=== PATIENT | female | born 1990 | race Caucasian/White ===

== ENCOUNTER 2019-08-08 11:42 | Outpatient (CLI) | payer OTHER, SELFPAY ==
[2019-08-11 12:51] LABS: Progesterone 14.8 ng/mL (***); Prolactin 7.9 ng/mL (***)
== END 2019-08-08 11:43 | disposition home or self-care (01) ==
PROVIDERS: Family Provider Obstetrics & Gynecology; Visit Provider Internal Medicine Hematology & Oncology
DX: N97.0 Female infertility associated with anovulation (principal)
CPT/HCPCS: 36415; 84144; 84146; 84443

== ENCOUNTER 2020-04-28 16:49 | Outpatient (CLI) | payer OTHER, SELFPAY ==
--- NOTE | ~2020-04-28 | US_ITS ---
EXAMINATION: US pelvic complete w TV DATE: 04/28/2020 17:33 INDICATION: Pelvic pain. TECHNIQUE: Multiple transabdominal and transvaginal sonographic images of the pelvis were obtained. COMPARISON: CT abdomen and pelvis 03/29/2016 FINDINGS: TRANSABDOMINAL ULTRASOUND: The uterus measures 8.3 x 4.4 x 6.2 cm. There is no free fluid in the pelvis. TRANSVAGINAL ULTRASOUND: The endometrial complex measures 3 mm in thickness. The right ovary measures 2.6 x 2.6 x 2.1 cm. The left ovary measures 2.7 x 2.1 x 1.8 cm. There is normal vascular flow in the ovaries. IMPRESSION: 1. Normal pelvis. Reviewed, dictated and finalized at location [facility]. [employer] IMPRESSION: 1. Normal pelvis.
== END 2020-04-28 16:50 | disposition home or self-care (01) ==
PROVIDERS: Visit Provider Obstetrics & Gynecology
DX: R52 Pain, unspecified (principal)
CPT/HCPCS: 76830; 76856

== ENCOUNTER → 2020-11-01 01:59 | Outpatient (CLI) | payer OTHER, SELFPAY ==
[2020-11-02 14:52] LABS: SARS-CoV-2 RNA PCR Negative
== END ==
PROVIDERS: Visit Provider Obstetrics & Gynecology
DX: Z01.812 Encounter for preprocedural laboratory examination (principal); Z20.822 Contact with and (suspected) exposure to COVID-19
CPT/HCPCS: C9803; U0003; U0005

== ENCOUNTER 2020-11-05 01:24 | Day surgery (SDC) | payer OTHER, SELFPAY ==
[2020-10-29 09:51] VITALS: BMI 26.6
[2020-11-05] VITALS (7 sets, daily range): BP systolic 108–137; BP diastolic 60–92; PULSE 56–95; RESP 10–20; TEMP 36.5–36.7; O2SAT 100
[2020-11-05] MEDS: LACTATED RINGERS 1,000 ML 30 ML IV CONT ×2 (10:50→12:54)
[2020-11-05] MEDS: KETOROLAC 15 MG/ML VIAL (*BKC) IV PUSH (10:55)
[2020-11-05] MEDS: ACETAMINOPHEN 500 MG TABLET 1000 MG PO (10:55)
--- NOTE | 2020-11-05 11:45 | WPDANESEPPF ---
Anes - Initial Pre Proc Eval Procedure: Operation Date: 11/05/20 12:00 Proposed Procedures p Diagnostic Laparoscopy, Chromopertubation - Stephen Azar MD Date/Time: 11/05/20 11:45 Surgeon: Stephen Azar MD Pre Op Diagnosis: pain, endometriosis Patient Data Age: 30 Gender: F Height: 5 ft 6 in Weight: 75.4 kg Last Vital Signs Temp 36.5 C 11/05/20 10:25 Pulse 64 11/05/20 10:25 Resp 18 11/05/20 10:25 BP 124/64 11/05/20 10:25 Pulse Ox 100 11/05/20 10:25 Allergies Allergy/AdvReac Type Severity Reaction Status Date / Time amoxicillin [From Augmentin] Allergy Severe Hives Verified 11/05/20 11:12 clavulanic acid Allergy Severe Hives Verified 11/05/20 11:12 [From Augmentin] Penicillins Allergy Severe Hives Verified 11/05/20 11:12 Home Medications Medication Instructions Recorded Confirmed Type [id number] 1 tablet PO DAILY 10/29/20 11/05/20 History [] Patient hx anesthesia problems: none Family hx anesthesia problems: none PMFSH Social History Social History Smoking status: Never smoker Alcohol intake: current Drinks per week: 12 Substance use: never Substance use type: does not use Living arrangements: with family Spiritual care concerns: No Anes - Eval Final PreProcedure Day of Procedure 11/05/20 11:45 Patient weight: overweight Heart: regular rate and rhythm Lungs: clear to auscultation Airway: Mallampati scale class II Neurological: alert and oriented Last oral intake: >/= 8 hours ASA classification: II Emergent: no Anesthetic plan: proceed Anesthesia type and monitoring: general ETT and standard monitoring Informed Consent: The patient's anesthetic plan and its attendant risks and benefits were discussed with the patient/family/POA. Questions were solicited and answers provided to the satisfaction of the patient/family/POA.
--- NOTE | 2020-11-05 11:51 | PM.IMHP ---
H&P: HPI History of Present Illness Date/Time: 11/05/20 11:51 30 y/o nulligravida with a history of endometriosis. She has had an increase in left lower quadrant pain, especially in the several days before each menses. She has been trying for for over 2 years now. Chief Complaint: Pelvic pain Review of Systems Review of Systems: All systems reviewed & are unremarkable except as noted in HPI and below PMFSH Surgical History Surgical History History of laparoscopy Social History Social History Smoking status: Never smoker Alcohol intake: current Drinks per week: 12 Substance use: never Substance use type: does not use Living arrangements: with family Spiritual care concerns: No Meds Home Medications and Allergies Home Medications Medication Instructions Recorded Confirmed Type [id number]-[id number]-Cq-FA 1 tablet PO DAILY 10/29/20 11/05/20 History [] Allergies Allergy/AdvReac Type Severity Reaction Status Date / Time amoxicillin [From Augmentin] Allergy Severe Hives Verified 11/05/20 11:12 clavulanic acid Allergy Severe Hives Verified 11/05/20 11:12 [From Augmentin] Penicillins Allergy Severe Hives Verified 11/05/20 11:12 Vital Signs Vital Signs - 24 hr 11/05/20 10:25 Temperature 36.5 C Pulse Rate 64 Respiratory Rate 18 Blood Pressure 124/64 Pulse Oximetry 100 Exam Const: Orientation/consciousness: patient oriented x3 Other: Well-developed, well-nourished female in no acute distress. Neck: Thyroid: thyroid normal Lymphatic: no lymphadenopathy noted (in neck, axilla or inguinal nodes) Resp: Effort & Inspection: normal respiratory effort Auscultation: clear to auscultation bilaterally Cardio: Rate: regular rate Rhythm: regular rhythm Heart sounds: S1 normal heart sound present and S2 normal heart sound present GI: Other: ABD: Soft, nontender, nondistended. No guarding or rebound tenderness. No hepatosplenomegaly. : General: Yes no CVA tenderness Other: External genitalia: normal female hair distribution, without lesion. Urethral meatus: no lesion, non prolapsed. Bladder: no mass, nontender Vagina: well-estrogenized, without lesion or discharge. No cystocele or rectocele. Cervix: no lesion or discharge. Uterus: small, anteverted, freely mobile, nontender Adnexa: no mass or tenderness. Anus/perineum: no lesions, nontender Back/Spine/Pelvis: Back: no CVA tenderness Skin: General skin exam: normal color and no rashes or lesions noted Neuro: General: patient oriented x3 Extrem: Other: Extremities: nontender with no edema Psych: Mental Status: mental status grossly normal Affect: normal affect Assessment and Plan Assessment and plan (1) Pelvic pain: Code(s): R10.2 - Pelvic and perineal pain Status: Acute Assessment and Plan: A: Pelvic pain suspicious for endometriosis. Infertility. P: Because of the longstanding nature of her pain, she is interested in laparoscopy. I offered her a diagnostic laparoscopy with chromopertubation. She understands risks of surgery to include risks of anesthesia, risks of pain, infection, bleeding, blood products, thromboembolic phenomena and damage to adjacent structures such as bowel, bladder, ureters, blood vessels and nerves. She understands all these risks and elects to proceed with surgery. (2) Infertility: Status: Acute (3) History of endometriosis: Code(s): Z87.42 - Personal history of other diseases of the female genital tract Status: Acute
--- NOTE | 2020-11-05 11:56 | WPDHPUPDATE1 ---
History and Physical Update Update Date/Time: 11/05/20 11:56 History and Physical has been reviewed, including an updated exam of the patient. There are NO changes in the patient's condition. Risks, benefits, and alternatives have been discussed and questions answered. Patient agrees to proceed with procedure.
--- NOTE | 2020-11-05 13:29 | PM.PROC ---
Procedure Note - Detailed Date of procedure: 11/05/20 Pre-op diagnosis: pain, endometriosis Pelvic pain Infertility History of endometriosis Post-op diagnosis: same Procedure performed: Diagnostic laparoscopy Chromopertubation Description of procedure: The patient was taken to the operating room where general endotracheal anesthesia was administered. She was prepared and draped in the usual sterile fashion in the dorsal lithotomy position. The bladder was drained with a red rubber catheter. A sterile speculum was inserted into the vagina and the anterior lip of the cervix was grasped with a single-toothed tenaculum. The acorn uterine manipulator was placed. The speculum was withdrawn. Gloves were changed and attention was turned to the abdomen. An infraumbilical skin incision was made with a scalpel. The abdomen was tented and a 5 millimeter bladeless trocar trocar was advanced under direct laparoscopic visualization. Pneumoperitoneum was administered using carbon dioxide gas. A survey of the pelvis and abdomen yielded the findings noted above. Methlylene blue in 100 mL NS was drawn into a syringe and chromopertubation was undertaken. Spill of dye from both Fallopian tubes was noted. Hemostasis was excellent. The trocar was withdrawn and the gas was allowed to escape. The skin incision was reapproximated using 4-0 Vicryl in interrupted subcuticular fashion. Dermaflex was applied externally. The vaginal instrumentation was withdrawn and hemostasis was excellent here as well. Sponge, lap, needle and instrument counts were correct. The patient was awakened and taken to recovery in stable condition. I was present and scrubbed through the entire procedure. Implants: None Anesthesia: GETA Surgeon: Stephen Azar MD Estimated blood loss (mL): 5 Drains: No Packing: No Pathology: none sent Complications: None Condition: stable Disposition: PACU Findings: The right upper quadrant anatomy was unremarkable. The vermiform appendix was normal-appearing. The pelvis was normal in appearance. Specifically, the uterus, bilateral tubes, ovaries, round and uterosacral ligaments, anterior and posterior cul-de-sac were all normal-appearing and without any evidence of endometriosis. Spill of dye from both Fallopian tubes confirmed tubal patency bilaterally.
== END 2020-11-05 14:16 | disposition home or self-care (01) ==
PROVIDERS: Visit Provider Obstetrics & Gynecology
PROC: (CPT 49320; principal; 2020-11-05 12:00)
DX: R10.2 Pelvic and perineal pain (principal); N97.9 Female infertility, unspecified; Z87.42 Personal history of other diseases of the female genital tract
CPT/HCPCS: 49320; 58350; A9270; C9803; J0330; J1100; J1200; J1885; J2250; J2405; J2704; J2710; J3010; J7030; J7120; Q9968; U0003; U0005

== ENCOUNTER 2021-07-08 14:50 | Emergency (ER) | payer OTHER, SELFPAY ==
[2021-07-08 14:55] VITALS: BP 139/74; PULSE 66; RESP 16; TEMP 36.5; O2SAT 100
--- NOTE | 2021-07-08 15:01 | ED.URI ---
HPI - URI/Sore Throat General Chief Complaint: Upper Respiratory Infection Stated Complaint: cough Time Seen by Provider: 07/08/21 15:02 Source: patient History of Present Illness HPI Narrative: Patient recently returned from [place] where she attended a wedding event. Patient states she tested negative twice before leaving and the [facility] and then tested negative once before returning on the flight back home. Patient states all the tests were the rapid antigen test patient feels she needs a PCR test to confirm that she is negative. Patient has a hoarse voice for the past week. No shortness of breath no chest pain MD elicited complaint: cough Related Data Home Medications Medication Instructions Recorded Confirmed [id number]-[id number]-[id number] 1 tablet PO DAILY 10/29/20 07/08/21 [] Allergies Allergy/AdvReac Type Severity Reaction Status Date / Time amoxicillin [From Augmentin] Allergy Severe Hives Verified 07/08/21 15:03 clavulanic acid Allergy Severe Hives Verified 07/08/21 15:03 [From Augmentin] Penicillins Allergy Severe Hives Verified 07/08/21 15:03 Review of Systems Review of Systems: CONSTITUTIONAL: Denies chills, or sweats. Reports fever and generalized body aches EYES: Denies visual changes, redness, or discharge. ENT: Denies otalgia. Reports nasal congestion runny nose and sore throat CARDIOVASCULAR: Denies chest pain, palpitations, or edema. RESPIRATORY: Denies dyspnea. Reports occasional cough GASTROINTESTINAL: Denies abdominal pain, nausea, vomiting, or diarrhea. GENITOURINARY: Denies dysuria or hematuria. SKIN: Denies rash or itching. MUSCULOSKELETAL: Denies back pain, joint pain, or myalgia. Reports generalized body aches NEUROLOGIC: Denies headache, numbness, or weakness. PSYCHIATRIC: Denies anxiety or depression. [facility] Surgical History Surgical History History of laparoscopy Social History Social History Smoking status: Never smoker Alcohol intake: current Drinks per week: 12 Substance use: never Substance use type: does not use Spiritual care concerns: No Comments At time of signature, agree with nursing past medical, surgical, social and family history. There is no relevant family history pertinent to the presenting complaint Exam Narrative: The patient is a well-developed, well-nourished in no acute distress. SKIN: Skin is warm and dry without erythema, swelling or exudate. There is good turgor. No tenting. HEAD: Atraumatic. Normocephalic. No temporal or scalp tenderness. EYES: Moist and bright. Sclera and conjunctivae normal. No discharge. PERRLA. Extraocular motions intact. Gross visual acuity intact. EARS: Pinna is normal shape and contour. Clear external auditory canals. TM pearly solitario with good cone of light, no erythema or suppuration. Bilateral cerumen noted no gross hearing deficit. NOSE: pink, moist mucosa with good air movement. Clear rhinorrhea without nasal flaring. Septum midline. Mouth: moist mucous membranes. THROAT; mild erythema noted to posterior oropharynx with moderate postnasal drainage. Without exudate or ulceration.. Uvula midline. Normal movement of soft palate. NECK: Supple and nontender with full range of motion without discomfort. No meningeal signs. LUNGS: Equal and bilateral breath sounds without wheezes, rales or rhonchi. CHEST: The chest wall is without retractions or use of accessory muscles. HEART: Has a regular rate and rhythm without murmur, gallops, click or rub. ABDOMEN: Soft, nontender with positive active bowel sounds. No rebound tenderness. EXTREMITIES: Without cyanosis, clubbing or edema. Equal 2+ distal pulses and 2 second capillary refill noted. NEUROLOGIC: alert, active, . The patient moves all extremities with normal muscle strength. Normal muscle tone is noted. Normal coordination is noted. NO focal neurological fi
[2021-07-09 20:41] LABS: SARS-CoV-2 RNA PCR Negative
== END 2021-07-08 15:16 | disposition home or self-care (01) ==
PROVIDERS: Emergency Provider Nurse Practitioner Family
DX: J06.9 Acute upper respiratory infection, unspecified (principal); B34.9 Viral infection, unspecified; J04.0 Acute laryngitis; Z20.822 Contact with and (suspected) exposure to COVID-19
CPT/HCPCS: 99213; C9803; G0463; U0003; U0005

== ENCOUNTER 2021-11-17 15:24 | Emergency (ER) | payer OTHER, SELFPAY ==
[2021-11-17 15:30] VITALS: BP 138/66; PULSE 66; RESP 16; TEMP 36.5; O2SAT 100
--- NOTE | 2021-11-17 15:40 | ED.EYEPROB ---
HPI - Eye Problem General Chief complaint: Eye Problems Stated complaint: left eye swollen Time Seen by Provider: 11/17/21 15:40 Source: patient and RN notes reviewed Mode of arrival: ambulatory Limitations: no limitations History of Present Illness HPI Narrative: 31-year-old female presents concern for swelling of the upper and lower left eyelid. She denies any eye pain, vision changes, eye redness or drainage. She reports symptoms started after the weekend when she wore false eyelashes that were glued on her lashes. She reports she noticed 2 small pinpoint areas of open skin under her left eye as well. She reports this is where the swelling started. She reports area is slightly tender to touch. She reports she is taken Benadryl twice with little relief she also used ice with little relief. She reports swelling increased this morning. Related Data Home Medications Medication Instructions Recorded Confirmed [id number]-[id number]-FA 1 mg 1 tablet PO DAILY 10/29/20 11/17/21 tablet Allergies Allergy/AdvReac Type Severity Reaction Status Date / Time amoxicillin [From Augmentin] Allergy Severe Hives Verified 11/17/21 15:37 clavulanic acid Allergy Severe Hives Verified 11/17/21 15:37 [From Augmentin] Penicillins Allergy Severe Hives Verified 11/17/21 15:37 Review of Systems Review of Systems: CONSTITUTIONAL: Denies malaise, chills, sweats, or fever. EYES: Denies visual changes. Denies redness, irritation, discharge. Reports upper and lower left eye lid swelling with slight tenderness under the left eye ENT: Denies rhinorrhea, congestion, sinus pain, otalgia or sore throat. SKIN: Denies rash or itching. Reports to pinprick areas of open skin under left eye NEUROLOGIC: Denies numbness, weakness, or headache. PSYCHIATRIC: Denies anxiety or depression. All systems reviewed & are unremarkable except as noted in HPI and below PMFSH Surgical History Surgical History History of laparoscopy Social History Social History Smoking status: Never smoker Alcohol intake: current Drinks per week: 12 Substance use: never Substance use type: does not use Spiritual care concerns: No Comments At time of signature, agree with nursing past medical, surgical, social and family history. There is no relevant family history pertinent to the presenting complaint Exam Narrative: GENERAL: Well-appearing, well-nourished, and in no acute distress. HEAD: Normocephalic, atraumatic. EYES: PERRLA, sclera clear, and EOMI. No nystagmus. Bilateral sclera and conjunctivae clear. Right upper and lower eyelid unremarkable, no periorbital edema noted. Slight erythema and superficial left edema noted to the left upper eyelid and below the right eye, no induration or warmth, mildly tender to touch ENT: Nares clear, turbinates pink, no rhinorrhea or epistaxis. Mucous membranes moist. TM pearly rodrigues with sharp light reflex bilaterally; no tragal tenderness. NECK: Supple. CHEST: No respiratory distress. Speaks in full sentences. HEART: Regular rate and rhythm. SKIN: Warm, dry, no visible rash. 2 very small scabs noted in the middle of the swelling under the left eye NEURO: Alert and oriented x3. PSYCH: Normal mood and affect Course Course Emergency Course: Discussed with patient that currently the swelling is superficial and I am not concerned for periorbital cellulitis at this time, however she needs to monitor symptoms and if they worsen, she develops pain, vision changes or any other concerning symptoms she needs to go the emergency room. Patient is aware of diagnosis, understands and agrees to treatment plan. Anticipatory guidance given. Patient agrees to follow-up as directed and is aware of reasons to seek care at the emergency department. Portions of this record may have been created with voice recognition software
== END 2021-11-17 15:52 | disposition home or self-care (01) ==
PROVIDERS: Emergency Provider Nurse Practitioner; PCP Nurse Practitioner Family
DX: A46 Erysipelas (principal)
CPT/HCPCS: 99213; G0463

== ENCOUNTER → 2022-10-12 15:14 | Outpatient (CLI) | payer BC, OTHER, SELFPAY ==
--- NOTE | ~2022-10-12 | MR_ITS ---
MRI of the right knee Clinical history: Pain Technique: Coronal proton density and proton density-weighted images, sagittal proton-density and T2 fat-sat images, and axial proton-density fat-saturated images were acquired. Findings: There is a full-thickness tear at the proximal ACL. Posterior cruciate ligament is intact. Medial collateral ligament and the lateral collateral ligament complex are intact. Popliteus tendon i s intact. There is a vertical tear of the posterior horn of the lateral meniscus. Medial meniscus is intact, wi thout evidence of tear. Articular cartilage is well preserved throughout the knee. Bone marrow signals are unremarkable. Extensor mechanism is intact. Minimal joint effusion present. No Morrison's cyst. Impression: Complete tear of the proximal ACL. This may be chronic in nature given lack of associated bone contus ions or large joint effusion. Vertical tear of the posterior horn of the lateral meniscus. Reviewed, dictated and finalized at [facility]. Impression: Complete tear of the proximal ACL. This may be chronic in nature given lack of associated bone contusions or large joint effusion. Vertical tear of the posterior horn of the lateral meniscus.
== END ==
PROVIDERS: PCP Nurse Practitioner Family; Visit Provider Orthopaedic Surgery
DX: S83.511A Sprain of anterior cruciate ligament of right knee, initial encounter (principal); S83.281A Other tear of lateral meniscus, current injury, right knee, initial encounter; T14.90XA Injury, unspecified, initial encounter
CPT/HCPCS: 73721

== ENCOUNTER 2023-08-19 12:12 | Emergency (ER) | payer OTHER, SELFPAY ==
--- NOTE | 2023-08-19 14:57 | PC.NURSE ---
left d/t wait time, will try to push fluids at home.
== END 2023-08-19 15:16 | disposition left against medical advice (07) ==
PROVIDERS: PCP Nurse Practitioner Family
DX: R19.7 Diarrhea, unspecified (principal)
CPT/HCPCS: 99199

== ENCOUNTER 2024-02-11 12:14 | Emergency (ER) | payer OTHER, SELFPAY ==
[2024-02-11 12:17] VITALS: BP 142/81; PULSE 77; RESP 16; TEMP 36.6; O2SAT 99
--- NOTE | 2024-02-11 12:37 | ED.ABDPAIN ---
HPI - Abdominal Pain General Chief Complaint: Abdominal Pain Stated Complaint: Stomach Pains History of Present Illness HPI narrative: Patient presents with umbilical pain that radiates to her right lower quadrant for the past 4 days. Patient states she had some nausea earlier and diarrhea which has since resolved. Patient states the pain is worse when she gets up and moves around. Patient is on quite a bit of fertility medications and induced menopausal medication and is unsure if it is a side effect of her medication. Related Data Home Medications Medication Instructions Recorded Confirmed mpkdoeqw-peo-Zh-FA 1 mg 1 tablet PO DAILY 10/29/20 11/17/21 tablet dexamethasone 1 mg tablet mg 02/11/24 letrozole 2.5 mg tablet mg 02/11/24 leuprolide 3.75 mg intramuscular mg IM 02/11/24 syringe kit (Lupron Depot) norethindrone acetate 5 mg tablet mg 02/11/24 progesterone micronized 100 mg mg 02/11/24 capsule progesterone micronized 100 mg vaginal 02/11/24 vaginal insert (Endometrin) sertraline 50 mg tablet mg 02/11/24 Allergies Allergy/AdvReac Type Severity Reaction Status Date / Time amoxicillin [From Augmentin] Allergy Severe Hives Verified 11/17/21 15:37 clavulanic acid Allergy Severe Hives Verified 11/17/21 15:37 [From Augmentin] Penicillins Allergy Severe Hives Verified 11/17/21 15:37 Review of Systems Review of Systems: CONSTITUTIONAL: Denies fever, chills, or sweats. EYES: Denies visual changes, redness, or discharge. ENT: Denies rhinorrhea, congestion, sore throat, or otalgia. CARDIOVASCULAR: Denies chest pain, palpitations, or edema. RESPIRATORY: Denies cough or dyspnea. GASTROINTESTINAL: Denies abdominal pain, nausea, vomiting, or diarrhea. GENITOURINARY: Denies dysuria or hematuria. SKIN: Denies rash or itching. MUSCULOSKELETAL: Denies back pain, joint pain, or myalgia. NEUROLOGIC: Denies headache, numbness, or weakness. PSYCHIATRIC: Denies anxiety or depression. [facility] Surgical History Surgical History History of laparoscopy Social History Social History Smoking status: Never smoker Alcohol intake: current Drinks per week: 12 Substance use: never Substance use type: does not use Living arrangements: with family Spiritual care concerns: No Comments At time of signature, agree with nursing past medical, surgical, social and family history. There is no relevant family history pertinent to the presenting complaint Exam Narrative: GENERAL: Well-appearing, well-nourished, and in no acute distress. HEAD: Normocephalic, atraumatic. EYES: PERRLA and EOMI. ENT: Nares clear, no rhinorrhea or epistaxis. Mucous membranes moist. NECK: Supple. CHEST: Clear to auscultation. No respiratory distress. HEART: Regular rate and rhythm. No murmur heard. Normal peripheral pulses. ABDOMEN: Soft, nontender, nondistended, normal active bowel sounds. Right lower quadrant tenderness, guarding with palpation EXTREMITIES: Normal range of motion. No edema. SKIN: Warm, dry, no rash. NEURO: No focal deficits. Alert and oriented x3. Viviane Coma Scale Eye Opening: Spontaneous 4 [place] Coma Scale Motor: Obeys Commands 6 Viviane Coma Scale Verbal: Oriented 5 [place] Coma Scale Total 15 Course Course Level of Care: Express Care Visit Vital Signs Vital signs: Vital Signs Temperature 36.6 C 02/11/24 12:17 Pulse Rate 77 02/11/24 12:17 Respiratory Rate 16 02/11/24 12:17 Blood Pressure 142/81 H 02/11/24 12:17 Pulse Oximetry 99 02/11/24 12:17 Oxygen Delivery Room Air 02/11/24 12:17 Temperature 36.6 C 02/11/24 12:17 Pulse Rate 77 02/11/24 12:17 Respiratory Rate 16 02/11/24 12:17 Blood Pressure 142/81 H 02/11/24 12:17 Pulse Oximetry 99 02/11/24 12:17 Oxygen Delivery Room Air 02/11/24 12:17 Transfer Transfered to: [facility]
== END 2024-02-11 12:40 | disposition short-term general hospital (02) ==
PROVIDERS: Emergency Provider Nurse Practitioner Family; PCP Physician Assistant
DX: R10.31 Right lower quadrant pain (principal)
CPT/HCPCS: 99212; G0463

== ENCOUNTER 2024-05-23 08:07 | Emergency (ER) | payer OTHER, SELFPAY ==
[2024-05-23 08:18] VITALS: BP 122/63; PULSE 86; RESP 18; TEMP 36.9; O2SAT 98
--- NOTE | 2024-05-23 08:21 | ED_ITS ---
HPI - URI/Sore Throat General Chief Complaint: Upper Respiratory Infection Stated Complaint: Congestion Time Seen by Provider: 05/23/24 08:22 Source: patient, RN notes reviewed and old records reviewed Mode of arrival: ambulatory Limitations: no limitations History of Present Illness HPI Narrative: 34 year old female who is 11 weeks presents to express care with complaints of one week duration of nasal congestion, cough and also ear pressure. Patient reports that she has taken Claritin for her symptoms but no sure what is safe otherwise with to take. Patient reports no fevers or any shortness of breath with SAO2 98% on room air. Has been using a humidifier at bedside. MD elicited complaint: cough, rhinorrhea, nasal congestion and other (ear pressure) Onset (ago): week(s) (1) Able to tolerate fluids by mouth: Yes Treatments prior to arrival: other (Claritin) Related Data Home Medications Medication Instructions Recorded Confirmed sertraline 50 mg tablet 50 mg PO DAILY 02/11/24 05/23/24 vits no.126-ferrous fum 1 tablet PO DAILY 05/23/24 05/23/24 28 mg iron-folic acid 800 mcg tablet (Classic ) Allergies Allergy/AdvReac Type Severity Reaction Status Date / Time amoxicillin [From Augmentin] Allergy Severe Hives Verified 05/23/24 08:22 clavulanic acid Allergy Severe Hives Verified 05/23/24 08:22 [From Augmentin] Penicillins Allergy Severe Hives Verified 05/23/24 08:22 Review of Systems Review of Systems: CONSTITUTIONAL: Denies malaise, chills, sweats, or fever. EYES: Denies visual changes, redness, or discharge. ENT: Reports rhinorrhea, congestion,no sinus pain, positive otalgia and no sore throat. CARDIOVASCULAR: Denies chest pain, palpitations, or edema. RESPIRATORY: Reports cough.? Denies dyspnea. GASTROINTESTINAL: Denies abdominal pain, nausea, vomiting, diarrhea SKIN: Denies rash or itching. MUSCULOSKELETAL: Denies myalgia. NEUROLOGIC: Denies headache. All systems reviewed & are unremarkable except as noted in HPI and below PMFSH Past Medical History Medical History (Updated 05/23/24 @ 08:40 by Laury Ortega NP) Anxiety and depression and not yet delivered in first trimester IVF Surgical History Surgical History (Updated 05/23/24 @ 08:32 by Laury Ortega NP) History of laparoscopy S/P right knee arthroscopy torn meniscus Social History Social History (Updated 05/23/24 @ 08:31 by Laury Ortega NP) Smoking status: Never smoker Alcohol intake: current Drinks per week: 12 Alcohol use details: no alcohol presently Substance use: never Substance use type: does not use Living arrangements: with family Spiritual care concerns: No Comments At time of signature, agree with nursing past medical, surgical, social and family history. There is no relevant family history pertinent to the presenting complaint Exam Narrative: GENERAL: Well-appearing, well-nourished, and in no acute distress. HEAD: Normocephalic EYES: PERRLA, conjunctivae clear ENT: Nares clear, turbinates edematous and erythematous, clear discharge. Mucous membranes moist. TM pearly rodrigues with dull light reflex bilaterally; no tragal tenderness. Oropharynx erythematous without lesions. Tonsils not enlarged and without exudate, no drooling, no hoarseness, no trismus, uvula midline.post nasal drainage NECK: Supple. No lymphadenopathy CHEST: Clear to auscultation, breath sounds equal. No wheezing, rhonchi, rales, or stridor. No respiratory distress, speaks in full sentences.cough SAO2 98% on room air HEART: Regular rate and rhythm. No murmur heard. SKIN: Warm, dry, no rash. NEURO: Alert and oriented x3. PSYCH: Normal mood and affect Course Course Emergency Course: Patient is aware of diagnosis, understands and agrees to treatment plan.? An ticipatory guidance given.? Patient agrees to follow-up as directed and is aware of reasons to seek care at the emergency department. Portions of this record may have been created with voice recognition software Level of Care: Express Care Visit Vital Signs Vital signs: Vital Signs Temperature 36.9 C 05/23/24 08:18 Pulse Rate 86 05/23/24 08:18 Respiratory Rate 18 05/23/24 08:18 Blood Pressure 122/63 05/23/24 08:18 Pulse Oximetry 98 05/23/24 08:18 Oxygen Delivery Room Air 05/23/24 08:18 Temperature 36.9 C 05/23/24 08:18 Pulse Rate 86 05/23/24 08:18 Respiratory Rate 18 05/23/24 08:18 Blood Pressure 122/63 05/23/24 08:18 Pulse Oximetry 98 05/23/24 08:18 Oxygen Delivery Room Air 05/23/24 08:18 Reviewed MDM - URI/Sore Throat MDM Narrative Medical decision making narrative: Differential diagnosis considered: [place] virus, strep pharyngitis, allergic rhinitis, upper respiratory tract infection, sinusitis, rhinosinusitis, nasopharyngitis. viral pharyngitis, otitis media, otitis externa, pneumonia, bronchitis, viral cough syndrome, viral syndrome, and influenza.? Exam findings show no acute concerns or changes; patient is non-toxic appearing and is in no distress.? Patient is appropriate for outpatient treatment and follow-up. Differential Diagnosis Differential diagnosis: Likely upper respiratory infection, viral infection and other (Cough, sinus congestion) Medical Records Attestation: I reviewed the patient's medical records. Lab Data Attestation: I reviewed the patient's lab results. Critical Care Time Critical Care Time Critical Care Time: No Discharge Plan Discharge Clinical Impression: Upper respiratory infection Qualifiers: URI type: unspecified URI Qualified Code(s): J06.9 - Acute upper respiratory infection, unspecified Patient Disposition: Home, Self-Care Condition: Stable Instructions: Antibiotic Form, Upper Respiratory Infection (ED) Additional Instructions: Increase fluids especially juices and water [id number]-ips-[id number] cough and cold medicine of your choice for your symptoms Tylenol for any fever or pain May use Claritin or Zyrtec daily Recommend Robitussin DM for cough heat to the face 20-30 minutes 4-6 times a day for pain Salt water gargles, throat lozenges or throat sprays as desired List given of medications which are safe with also confer with [employer] If your symptoms persist, change or worsen significantly before you can contact your personal physician then please, without delay, go to the emergency department for further evaluation. Follow-up with PCP in 7-10 days or sooner if needed Monitor for any fevers Prescriptions: No Action Classic 28 mg iron- 800 mcg Tablet 1 tablet PO DAILY sertraline 50 mg tablet 50 mg PO DAILY Follow-up/Referrals: Vernell,FREDI Mejia [Primary Care Provider] - Time of Disposition: 08:39 Quality Viviane Coma Scale Eyes: Open Verbal: Oriented and Alert Motor: Follows Commands Viviane Coma Total Score: 15
== END 2024-05-23 08:45 | disposition home or self-care (01) ==
PROVIDERS: Emergency Provider Registered Nurse; PCP Physician Assistant
DX: O99.511 Diseases of the respiratory system complicating pregnancy, first trimester (principal); J06.9 Acute upper respiratory infection, unspecified; O99.341 Other mental disorders complicating pregnancy, first trimester; F41.9 Anxiety disorder, unspecified; F32.A Depression, unspecified; Z3A.11 11 weeks gestation of pregnancy
CPT/HCPCS: 99213; G0463

== ENCOUNTER 2024-06-26 19:10 | Emergency (ER) | payer OTHER, SELFPAY ==
[2024-06-26 19:18] VITALS: BP 134/71; PULSE 83; RESP 17; TEMP 36.4; O2SAT 99
[2024-06-26 23:52] VITALS: BP 131/69; PULSE 81; RESP 18; TEMP 36.7; O2SAT 100
--- NOTE | 2024-06-27 00:06 | ED.GENADULT ---
HPI - General Adult General Chief complaint: Unspecified Stated complaint: cramping, 16 weeks Time Seen by Provider: 06/26/24 23:47 Source: patient Mode of arrival: ambulatory Limitations: no limitations History of Present Illness HPI narrative: This is a 34-year-old female who is approximately 16 weeks G3 P 0 A2 who presents to the ED for chief complaint of lower abdominal and lower back cramping over the past [address] Azar. Patient reports that the cramping is intermittent and seems to come on at random. Reports that she has had 2 miscarriages in the past, both around 6-7 weeks. Denies any vaginal bleeding today. Denies fevers, chills, nausea, vomiting, diarrhea, vaginal discharge or urinary symptoms. Denies flank pain. Related Data Home Medications ?Medication ?Instructions ?Recorded ?Confirmed ?Last Taken ?Type sertraline 50 mg tablet 50 mg PO DAILY 02/11/24 05/23/24 Unknown History vits no.126-ferrous fum 1 tablet PO DAILY 05/23/24 05/23/24 Unknown History 28 mg iron-folic acid 800 mcg tablet (Classic ) Allergies Allergy/AdvReac Type Severity Reaction Status Date / Time amoxicillin (From Augmentin) Allergy Severe Hives Verified 05/23/24 08:22 clavulanic acid (From Allergy Severe Hives Verified 05/23/24 08:22 Augmentin) Penicillins Allergy Severe Hives Verified 05/23/24 08:22 Review of Systems Review of Systems: All systems as dictated in [facility] Past Medical History Medical History (Updated 06/27/24 @ 00:46 by Braydon Granado PA-C) and not yet delivered in first trimester IVF Anxiety and depression Surgical History Surgical History (Updated 05/23/24 @ 08:32 by Laury Ortega NP) S/P right knee arthroscopy torn meniscus History of laparoscopy Social History Social History (Updated 05/23/24 @ 08:31 by Laury Ortega NP) Smoking status: Never smoker Alcohol intake: current Drinks per week: 12 Alcohol use details: no alcohol presently Substance use: never Substance use type: does not use Living arrangements: with family Spiritual care concerns: No Exam Narrative: GENERAL: Well-appearing, well-nourished, and in no acute distress. HEAD: Normocephalic, atraumatic. EYES: PERRLA and EOMI. ENT: Nares clear, no rhinorrhea or epistaxis. Mucous membranes moist. Oropharynx without tonsillar hypertrophy exudate or other lesions. NECK: Supple. No adenopathy or masses. CHEST: No respiratory distress. Clear to auscultation. No wheezes rales or rhonchi HEART: Regular rate and rhythm. No murmur heard. Normal peripheral pulses. ABDOMEN: Soft, nontender, nondistended, normal active bowel sounds. MSK: Normal range of motion. No edema. SKIN: Warm, dry, no rash. NEURO: Alert and oriented x4. No focal deficits. PSYCH: Normal mood and affect. Bedside heart tones measured at 155. Course Vital Signs Vital signs: Vital Signs Temperature 97.5 F L 06/26/24 19:18 Pulse Rate 83 06/26/24 19:18 Respiratory Rate 17 06/26/24 19:18 Blood Pressure 134/71 06/26/24 19:18 Pulse Oximetry 99 06/26/24 19:18 Oxygen Delivery Room Air 06/26/24 19:18 Temperature 98.1 F 06/26/24 23:52 Pulse Rate 81 06/26/24 23:52 Respiratory Rate 18 06/26/24 23:52 Blood Pressure 131/69 06/26/24 23:52 Pulse Oximetry 100 06/26/24 23:52 Oxygen Delivery Room Air 06/26/24 19:18 Medical Decision Making [facility] Narrative Medical decision making narrative: This is a 52-year-old female who presents to the ED for chief complaint of lower abdominal cramping, concerned as she is 16 weeks . Vitals are normal. Exam remarkable for the above. Patient is well-appearing and resting comfortably. She has no vaginal bleeding. Bedside heart tones reassuring with heart rate at about 155. Lab work is overall unremarkable. Urinalysis shows questionable UTI, however may just be contaminated. Culture pending. Will start on cefdinir and have follow-up with OB on this issue. Presentation most likely consistent with Ludwin Marrero contraction or other abdominal cramps. Patient will be discharged in stable condition. Supportive measures discussed and return precautions given. Patient is understanding and agreeable with plan for discharge with PCP follow-up. Vital Signs Vital Signs: Vital Signs Temperature 97.5 F L 06/26/24 19:18 Pulse Rate 83 06/26/24 19:18 Respiratory Rate 17 06/26/24 19:18 Blood Pressure 134/71 06/26/24 19:18 Pulse Oximetry 99 06/26/24 19:18 Oxygen Delivery Room Air 06/26/24 19:18 Temperature 98.1 F 06/26/24 23:52 Pulse Rate 81 06/26/24 23:52 Respiratory Rate 18 06/26/24 23:52 Blood Pressure 131/69 06/26/24 23:52 Pulse Oximetry 100 06/26/24 23:52 Oxygen Delivery Room Air 06/26/24 19:18 Discharge Plan Discharge Clinical Impression: Abdominal cramping, Abnormal urinalysis Patient Disposition: Home, Self-Care Condition: Stable Instructions: Antibiotic Form Additional Instructions: Exam and workup today are reassuring. Please follow-up with your OB as scheduled. Continue with Tylenol as needed for cramping pains. If you have any new or worsening symptoms please return to the ER for further evaluation. Patient Language: Portuguese Prescriptions: New cefdinir 300 mg capsule 300 mg PO Q12H 7 Days Qty: 14 0RF No Action Classic 28 mg iron- 800 mcg Tablet 1 tablet PO DAILY sertraline 50 mg tablet 50 mg PO DAILY Follow-up/Referrals: Vernell,FREDI Mejia [Primary Care Provider] - Time of Disposition: 00:46
[2024-06-27 00:27] LABS: Basophils Percent Auto 0.2 % (0.2-1.2); Eosinophils Absolute Auto 0.2 K/mm3 (0-0.3); Eosinophils Percent Auto 1.7 % (0-4.4); Hematocrit 31.5 % (37.0-47.0); Hemoglobin 10.6 g/dL (12.0-15.0); Immature Granulocyte Absolute 0.03 K/mm3 (0.00-0.031); Immature Granulocyte Percent A 0.3 % (0-0.5); Lymphocytes Absolute Auto 2.08 K/mm3 (0.9-3.2); Lymphocytes Percent Auto 19.2 % (18.3-44.2); Mean Corpuscular HGB Conc 33.7 g/dl (32-36); Mean Corpuscular Hemoglobin 29.8 pg (26-34); Mean Corpuscular Volume 88.5 fl (80-100); Mean Platelet Volume 9.2 fl (7.4-10.4); Monocytes Absolute Auto 0.6 K/mm3 (0.1-0.6); Monocytes Percent Auto 5.7 % (2.6-8.5); Neutrophils Absolute Auto 7.9 K/mm3 (1.3-6.7); Neutrophils Percent Auto 72.9 % (45.5-73.1); Platelet Count Result 269 k/mm3 (150-375); Red Blood Count 3.56 M/mm3 (4.2-5.4); Red Cell Distribution Width 12.6 % (11.5-14.5); White Blood Count 10.8 K/mm3 (4.5-10.0)
[2024-06-27 00:33] LABS: Alanine Aminotransferase 20 U/L (6-35); Albumin Level 3.8 g/dL (3.5-5.1); Alkaline Phosphatase 71 U/L (38-126); Anion Gap 2 mmol/L (4-12); Aspartate Amino Transferase 34 U/L (14-36); Bilirubin,Total 0.2 mg/dL (0.2-1.3); Blood Urea Nitrogen 11 mg/dL (7-17); Calcium 9.4 mg/dL (8.4-10.2); Carbon Dioxide 24 mmol/L (22-30); Chloride 107 mmol/L (98-107); Estimated CRCL calculation 120 ml/min; Estimated Glomerular Filt Rate > 60; Glucose 92 mg/dL (65-110); Lipase 36 U/L (23-300); Potassium 3.9 mmol/L (3.4-5.0); Sodium 133 mmol/L (137-145)
[2024-06-27 00:35] LABS: Add Urine Microscopic? YES; Appearance Urine Cloudy (Clear); Bacteria Urine 4+ /hpf; Bilirubin Urine Negative (Negative); Blood Urine Negative (Negative); Budding Yeast Urine Present /hpf; Color Urine Yellow (Yellow); Glucose Urine UA Negative (Negative); Ketones Urine Negative (Negative); Leukocyte Esterase Ur Negative LEU/UL (Negative); Need Manual Microscopic Reviewed; Nitrate Urine Negative (Negative); Protein Urine Negative (Negative); RBC Urine 0-2 /hpf (0-2); Specific Grav Ur 1.023 (1.001-1.035); Squamous Epithelial Cell Urine Moderate /hpf (Few); Urobilinogen Urine 0.2 mg/dL (<2.0); WBC Urine 21-50 /hpf (0-3); pH Urine 5.5 (5.0-9.0)
[2024-06-27 01:00] VITALS: BP 119/81; PULSE 67; RESP 18; O2SAT 99
--- OUTSIDE RECORDS SUMMARY | 2024-07-04 00:40 | XMS_ITS | Referral Summary ---
Author Organization [facility] Address [address] [place] [address] Care Team Providers Care Mud Jack Nozzleman Name Role Phone Maxi Serna MD Primary Care Provider [phone] Source Comments [facility],non-owned Affiliates and Associated Physician Practices is amultiple site organization consisting of ambulatory clinics and hospital sitesin [place], [place], [place] and [place]. This disclosure is being madepursuant to the Care Everywhere program and may not contain all information available regarding this patient. Last updated 18.[facility] [employer] Allergies Active Allergy Reactions Criticality Noted Date Comments Augmentin Rash Medium 08/09/2017 Medications * Be aware that medications may not be up to date on this document. Alwaysverify current medications with the patient. Medication Sig Dispensed Refills Start Date End Date Status Levonorgestrel (MIRENA, 52 MG, IU) Activ e benzonatate (TESSALON) 200 MG capsule Take 1 capsule by mouth 3 times daily as needed for Cough 30 capsule 04/16/2019 Active guaiFENesin-codeine (Robitussin AC) 100-10 MG/5ML syrup TAKE 5 ML BY MOUTH EVERY 6 HOURS NEEDED FOR COUGH 200 mL 09/19/2023 Active benzonatate (Tessalon) 100 MG capsule TAKE ONE CAPSULE BY MOUTH 3 TIMES A DAY NEEDED 30 capsule 09/19/2023 09/18/2024 Active azithromycin (Zithromax) 250 MG tablet TAKE 2 TABLETS BY MOUTH ON DAY 1 AND THEN TAKE 1 TABLET BY MOUTH DAYS 2-5. 6 tablet 09/19/2023 09/18/2024 Active sertraline (Zoloft) 50 MG tabletIndications:Ot her specified anxiety disorders TAKE ONE TABLET BY MOUTH ONCE DAILY 90 tablet 3 11/10/2023 11/09/2024 Active letrozole (Femara) 2.5 MG tabletIndications:En counter for assisted reproductive fertility procedure cycle TAKE ONE TABLET BY MOUTH ONCE DAILY 30 tablet 1 12/13/2023 12/12/2024 Active norethindrone (Aygestin) 5 MG tabletIndications:En counter for assisted reproductive fertility procedure cycle TAKE ONE TABLET BY MOUTH ONCE DAILY 30 tablet 1 12/13/2023 12/12/2024 Active letrozole (Femara) 2.5 MG tabletIndications:En counter for assisted reproductive fertility procedure cycle TAKE TWO TABLETS BY MOUTH ONCE DAILY 10 tablet 01/23/2024 01/22/2025 Active Progesterone 100 MG capsuleIndications:E ncounter for assisted reproductive fertility procedure cycle TAKE ONE CAPSULE BY MOUTH 3 TIMES A DAY 90 capsule 6 01/23/2024 01/22/2025 Active dexAMETHasone (Decadron) 1 MG tabletIndications:En counter for assisted reproductive fertility procedure cycle TAKE ONE TABLET BY MOUTH ONCE DAILY 30 tablet 5 01/23/2024 01/22/2025 Active Active Problems Problem Noted Date Diagnosed Date Anovulation 02/02/2021 Social History Tobacco Use Types Packs/Day Years Used Date Smoking Tobacco: Never Smokeless Tobacco: Never Sex and Gender Information Value Date Recorded Sex Assigned at Not on file Gender Identity Not on file Sexual Orientation Not on file Last Filed Vital Signs Vital Sign Reading Time Taken Comments Blood Pressure 118/74 04/16/2019 12:08 PM CDT Pulse 87 04/16/2019 12:08 PM CDT Temperature 37.1 ??C (98.7 ??F) 04/16/2019 12:08 PM C DT Respiratory Rate 16 04/16/2019 12:08 PM CDT Oxygen Saturation 98% 04/16/2019 12:08 PM CDT Inhaled Oxygen Concentration - - Weight 70.3 kg (155 lb) 04/16/2019 12:08 PM CDT Height 167.6 cm (5' 6 ) 04/16/2019 12:08 PM CDT Body Mass Index 25.02 04/16/2019 12:08 PM CDT Plan of Treatment Not on file Care Teams Mud Jack Nozzleman Relationship Specialty Start Date End Date Maxi Serna MD [address] [place] [address] PCP - General Family Medicine 08/09/17
--- OUTSIDE RECORDS SUMMARY | 2024-07-04 00:40 | XMS_ITS | Clinical Summary ---
Author Organization [facility] Address [address] [place] [address] Care Team Providers Care Learning Consultant Name Role Phone Maxi Serna MD Primary Care Provider [phone] Source Comments [facility],non-owned Affiliates and Associated Physician Practices is amultiple site organization consisting of ambulatory clinics and hospital sitesin [place], [place], [place]. This disclosure is being madepursuant to the Care Everywhere program and may not contain all information available regarding this patient. Last updated 18.[facility] [employer] Allergies Active Allergy Reactions Criticality Noted Date [...] Problem Noted Date Diagnosed Date Anovulation 02/02/2021 Family History Medical History Relation Name Comments Anxiety Disorder Father Depression Father Anxiety Disorder Mother Depression Mother Relation Name Status Comments Father Alive Mother Alive Social History Tobacco Use Types Packs/Day Years [...] 04/16/2019 12:08 PM CDT Plan of Treatment Health Maintenance Due Date Last Done Comments PAP SMEAR 1992 HIV SCREENING 01/24/2007 HEPATITIS C SCREENING 01/20/2010 DTAP/TDAP/TD VACCINES (1 - Tdap) 01/24/2011 HEPATITIS B VACCINE (1 of 3 - 19+ 3-dose series) 01/24/2011 DEPRESSION SCREENING 06/27/2023 COVID-19 VACCINE (1 - 2023-2 5 season) 2024 INFLUENZA VACCINE (#1) 2024 ZOSTER VACCINE (1 of 2) 01/24/2042 HIB VACCINE Aged Out No longer eligi ble based on patient's age to complete this topic HPV VACCINE Aged Out No longer eligi ble based on patient's age to complete this topic MENINGOCOCCAL VACCINE Aged Out No alex frandy eligible based on patient's age to complete this topic PNEUMOCOCCAL VACCINE Aged Out No long er eligible based on patient's age to complete this topic Care Teams Learning Consultant Relationship Specialty Start Date End Date Maxi Serna MD [address] [place] [address] PCP - General Family Medicine 08/09/17
--- OUTSIDE RECORDS SUMMARY | 2024-07-04 00:41 | XMS_ITS | Patient Health Summary ---
Author Organization [facility] Address [address] [place] [address] Care Team Providers Care Network Controller Name Role Phone Maxi Serna MD Primary Care Provider Note from [facility],non-owned Affiliates and Associated Physician Practices is amultiple site organization consisting of ambulatory clinics and hospital sitesin [place], [place], [place] and [place]. This disclosure is being madepursuant to the Care Everywhere program and may not contain all information available regarding this patient. Last updated 18.[facility] Allergies * Augmentin(Rash) -Medium Criticality Medications * Be aware that medications may not be up to date on this document. Alwaysverify current medications with the patient. * Levonorgestrel (MIRENA, 52 MG, IU) * benzonatate (TESSALON) 200 MG capsule(Started 04/16/2019) Take 1 capsule by mouth 3 times daily as needed for Cough * guaiFENesin-codeine (Robitussin AC) 100-10 MG/5ML syrup(Started 09/19/2023) TAKE 5 ML BY MOUTH EVERY 6 HOURS NEEDED FOR COUGH * benzonatate (Tessalon) 100 MG capsule(Started 09/19/2023) TAKE ONE CAPSULE BY MOUTH 3 TIMES A DAY NEEDED * azithromycin (Zithromax) 250 MG tablet(Started 09/19/2023) TAKE 2 TABLETS BY MOUTH ON DAY 1 AND THEN TAKE 1 TABLET BY MOUTH DAYS 2-5. * sertraline (Zoloft) 50 MG tablet(Started 11/10/2023) TAKE ONE TABLET BY MOUTH ONCE DAILY 2+ refills by 11/09/2024 * letrozole (Femara) 2.5 MG tablet(Started 12/13/2023) TAKE ONE TABLET BY MOUTH ONCE DAILY No refills remaining * norethindrone (Aygestin) 5 MG tablet(Started 12/13/2023) TAKE ONE TABLET BY MOUTH ONCE DAILY No refills remaining * letrozole (Femara) 2.5 MG tablet(Started 01/23/2024) TAKE TWO TABLETS BY MOUTH ONCE DAILY * Progesterone 100 MG capsule(Started 01/23/2024) TAKE ONE CAPSULE BY MOUTH 3 TIMES A DAY 6 refills by 01/22/2025 * dexAMETHasone (Decadron) 1 MG tablet(Started 01/23/2024) TAKE ONE TABLET BY MOUTH ONCE DAILY 5 refills by 01/22/2025 Active Problems Problem Noted Date Diagnosed Date [...] Mass Index 25.02 04/16/2019 12:08 PM CDT Procedures * XR KNEE RIGHT 3VW(Performed 09/17/2022) Performed for Fall, initial encounter * XR ANKLE RIGHT 2VW(Performed 09/17/2022) Performed for Fall, initial encounter * SARS-COV-2 (COVID-19) IN HOUSE(Performed 02/18/2022) Performed for Contact with and (suspected) exposure to other viral communicable diseases * SARS-COV-2 (COVID-19) IN HOUSE(Performed 06/04/2021) Performed for Anovulation * HCG BETA BLOOD QUANTITATIVE(Performed 02/10/2021) Performed for Pruritus of vulva, examination or test, unconfirmed * CBC W AUTO DIFFERENTIAL(Performed 02/10/2021) Performed for Pruritus of vulva, examination or test, unconfirmed * PROGESTERONE(Performed 02/02/2021) Performed for Anovulation * PROGESTERONE(Performed 01/02/2021) Performed for Anovulation * SARS-COV-2 (COVID-19) IN HOUSE(Performed 09/01/2020) Performed for Exposure to SARS-associated coronavirus * INFLUENZA A+B - POINT OF CARE (AMB)(Performed 08/09/2017) Performed for Influenza A * US PELVIS W DOPPLER OVARIES(Performed 07/25/2009) Performed for Abdominal Pain, Unspecified Site * US ABDOMEN COMPLETE(Performed 07/25/2009) Performed for Abdominal Pain, Unspecified Site * XR ABDOMEN KUB(Performed 07/24/2009) * HCG URINE QUALITATIVE(Performed 07/23/2009) Results * XR KNEE RIGHT 3VW (09/17/2022 1:02 PM CDT) Anatomical Region Laterality Modality Lower Extremity Radiographic Iram ging 09/17/2022 1:50 PM CDT Impressions 09/19/2022 10:35 AM CDT IMPRESSION: No acute fracture or dislocation is discretely seen. Joint effusion is present. Report drafted by Johann Ryder MD (residential mortgage manager) IRivas DO have personally reviewed and interpreted this examination/study. > Interpreting Provider: Rivas Lim DO on 09/19/2022 10:35 AM Narrative 09/19/2022 10:35 AM CDT PROCEDURE: ??XR KNEE RIGHT 3VW, DATE/TIME OF EXAM: ??09/17/2022 1:02 PM, LOCATION [facility] INDICATION: W19.XXXA: Fall, initial encounter ADDITIONAL CLINICAL INFORMATION: Ordering Provider Reason For Exam: ??Fall Technologist Note: Additional: COMPARISON: None. FINDINGS: The osseous structures are intact and well aligned without acute fracture or dislocation. The knee joint space is preserved. Joint effusion is present. Bone density and texture are normal. No soft tissue swelling is present. Procedure Note Rivas Lim DO - 09/19/2022 PROCEDURE: XR KNEE RIGHT 3VW, DATE/TIME OF EXAM: 09/17/2022 1:02 PM, LOCATION [facility] INDICATION: W19.XXXA: Fall, initial encounter ADDITIONAL CLINICAL INFORMATION: Ordering Provider Reason For Exam: Fall Technologist Note: Additional: COMPARISON: None. FINDINGS: The osseous structures are intact and well aligned without acutefracture or dislocation. The knee joint space is preserved. Joint effusion is present. Bone density and texture are normal. No soft tissue swelling is present. IMPRESSION: No acute fracture or dislocation is discretely seen. Joint effusion is present. Report drafted by Johann Ryder MD (residential mortgage manager) Rivas Mustafa DO have personally reviewed and interpreted this examination/study. > Interpreting Provider: Rivas Lim DO on 09/19/2022 10:35 AM Provider Unknown DIAGNOSTIC IMAGING O RDERABLES * XR ANKLE RIGHT 2VW (09/17/2022 1:02 PM CDT) Anatomical Region Laterality Modality Lower Extremity Radiographic Iram ging 09/17/2022 1:49 PM CDT Impressions 09/19/2022 10:40 AM CDT IMPRESSION: No acute fracture or dislocation. Report drafted by Johann Ryder MD (residential mortgage manager) Rivas Mustafa DO have personally reviewed and interpreted this examination/study. > Interpreting Provider: Rivas Lim DO on 09/19/2022 10:40 AM Narrative 09/19/2022 10:40 AM CDT PROCEDURE: ??XR ANKLE RIGHT 2VW, DATE/TIME OF EXAM: ??09/17/2022 1:02 PM, LOCATION ??[facility] INDICATION: W19.XXXA: Fall, initial encounter ADDITIONAL CLINICAL INFORMATION: Ordering Provider Reason For Exam: ??Fall Technologist Note: Additional: COMPARISON: None. FINDINGS: The osseous structures are intact and well aligned without acute fracture or dislocation. The ankle mortise is intact. No joint effusion is seen. Bone density and texture are normal. No soft tissue swelling is present. Procedure Note Rivas Lim DO - 09/19/2022 PROCEDURE: XR ANKLE RIGHT 2VW, DATE/TIME OF EXAM: 09/17/2022 1:02 PM, LOCATION [facility] INDICATION: W19.XXXA: Fall, initial encounter ADDITIONAL CLINICAL INFORMATION: Ordering Provider Reason For Exam: Fall Technologist Note: Additional: COMPARISON: None. FINDINGS: The osseous structures are intact and well aligned without acutefracture or dislocation. The ankle mortise is intact. No joint effusion is seen. Bone density and texture are normal. No soft tissue swelling is present. IMPRESSION: No acute fracture or dislocation. Report drafted by Johann Ryder MD (residential mortgage manager) IRivas DO have personally reviewed and interpreted this examination/study. > Interpreting Provider: Rivas Lim DO on 09/19/2022 10:40 AM Provider Unknown DIAGNOSTIC IMAGING O RDERABLES * (ABNORMAL) SARS-COV-2 (COVID-19) INTERNAL (02/18/2022 12:00 PM CDT) Only the most recent of3 resultswithin the time period is included. COVID-19 PCR Detected( A) Not detected 02/18/2022 8:55 PM CDT [facility] Microbiology SPECIMEN FROM NASOPHARYNGEAL STRUCTURE / Unknown Collection / Unknown 02/18/2022 12:00 PM CDT 02/18/2022 2:06 PM CDT Narrative [facility] - 02/18/2022 8:55 PM CDT This nucleic acid amplification assay performance was validated by [facility]. This test has been authorized by the Food and Drug administration (FDA)under an Emergency??Use Authorization (EUA). This test has been validated in accordance with the FDA's guidance document Policy for Diagnostic Testing in Laboratories Certified to perform High Complexity Testing under CLIA prior to Emergency Use Authorization for Coronavirus Disease-2019 during the Public Health Emergency issued on August 25, 2019. FDA independent review of this validation is pending. This test is only authorized for the duration of time the declaration that circumstances exist justifying the authorization of emergency use of in vitro diagnostic tests for detection of SARS-CoV-2 virus and/or diagnosis of COVID-19 infection under section 564(b)(1) of the Act, 21 U.S.C 360bbb-3 (b)(1), unless the authorization is terminated or revoked sooner. Fact Sheets for this EUA assay are available upon request. Mau Serna SOUND TECHNICIAN-DICE TABLE PERSON LAB - MICROBIOL OGY ORDERABLES [facility] [address] [place] [address], [facility] [phone] * CBC WITH DIFFERENTIAL (02/10/2021 7:52 AM CDT) WBC 4.8 3.5 - 10.5 10? 3 /uL 02/10/2021 8:40 AM [facility] RBC 3.90 3.80 - 5.20 10? 6 /uL 02/10/2021 8:40 AM [facility] Hemoglobin 12.1 12.0 - 15.6 g/dL 02/10/2021 8:40 AM [facility] Hematocrit 36.8 35.0 - 45.0 % 02/10/2021 8:40 AM [facility] MCV 94.4 80.7 - 98.3 fL 02/10/2021 8:40 AM [facility] MCH 31.0 26.7 - 34.0 pg 02/10/2021 8:40 AM [facility] MCHC 32.9 30.8 - 35.9 g/dL 02/10/2021 8:40 AM [facility] Platelet Count 242 150 - 400 10? 3 /uL 02/10/2021 8:40 AM [facility] RDW-SD 44.4 36.0 - 50.0 fL 02/10/2021 8:40 AM [facility] RDW-CV 12.8 11.2 - 14.8 % 02/10/2021 8:40 AM [facility] MPV 10.1 9.4 - 12.9 fL 02/10/2021 8:40 AM [facility] nRBC Absolute 0.00 0 10? 3 /uL 02/10/2021 8:40 AM [facility] nRBC Auto 0.0 0 /100 WBC 02/10/2021 8:40 AM [facility] Neutrophils % 55.2 35.0 - 70.0 % 02/10/2021 8:40 AM [facility] Lymphocytes % 33.1 20.0 - 43.0 % 02/10/2021 8:40 AM [facility] Monocytes % 8.8 5.0 - 13.0 % 02/10/2021 8:40 AM [facility] Eosinophils % 2.1 0.0 - 6.0 % 02/10/2021 8:40 AM [facility] Basophil % 0.6 0.0 - 2.0 % 02/10/2021 8:40 AM [facility] Neutrophils Absolute 2.6 1.6 - 7.0 10? 3 /uL 02/10/2021 8:40 AM [facility] Lymphocyte Absolute 1.6 1.1 - 3.9 10? 3 /uL 02/10/2021 8:40 AM [facility] Monocytes Absolute 0.42 0.26 - 1.07 10? 3 /uL 02/10/2021 8:40 AM [facility] Eosinophils Absolute 0.10 0.00 - 0.47 10? 3 /uL 02/10/2021 8:40 AM [facility] Basophils Absolute 0.03 0.00 - 0.08 10? 3 /uL 02/10/2021 8:40 AM [facility] Immature Granulocytes % 0.2 0.0 - 1.0 % 02/10/2021 8:40 AM [facility] Immature Granulocytes Absolute 0.01 02/10/2021 8:40 AM [facility] Blood BLOOD SPECIMEN / Unknown Lab Venipuncture / Unknown 02/10/2021 7:52 AM CDT 02/10/2021 8:13 AM T Stephen Azar MD LAB - HEMATOLOGY ORD ERABLES Performing Organization Address City/[facility]/ZIP Co de Phone Number [facility] [address] [place] [address], [facility] [phone] * HCG BETA BLOOD QUANTITATIVE (02/10/2021 7:52 AM CDT) [facility] Beta-hCG Total Quantitative <3 <5 mIU/mL 02/10/2021 9:03 AM CDT [facility] Comment: This assay is cleared for use in the early detection of only. It is not approved for any other uses such as tumor marker screening, tumor marker monitoring, etc. and should not be used for any other purposes. HCG Numeric Result Interpretation: ? Non- Females: ? < 5 mIU/mL ? Post-Menopausal Females: ??< 7 mIU/mL ? Blood BLOOD SPECIMEN / Unknown Lab Venipuncture / Unknown 02/10/2021 7:52 AM CDT 02/10/2021 8:13 AM CDT Stephen Azar MD LAB - CHEMISTRY [place] Performing Organization Address [facility] Co de Phone Number [facility] [address] [place] [address], [facility] [phone] * PROGESTERONE (02/02/2021 7:35 AM CDT) Only the most recent of2 resultswithin the time period is included. [facility] Progesterone HPLC-MS/MS 29.12 ng/mL 02/05/2021 10:41 AM CDT [facility] ([facility]) Comment: Females, 17 years and older ??Cycle Days ? Reference Interval (ng/mL) ?? 1 - 6 ............... Less than or equal to ??0.17 ?? 7 - 12 .............. Less than or equal to ??1.35 ??13 - 15 .............. Less than or equal to 15.63 ??16 - 28 .............. Less than or equal to 25.55 ??Post-Menopausal ...... Less than or equal to ??0.10 Reference Intervals (ng/mL): ??1st Trimester ...... 6.25 - 45.46 ??2nd Trimester ..... 15.40 - 52.10 ??3rd Trimester ..... 24.99 - 99.92 REFERENCE INTERVAL: Progesterone Quantitative by HPLC-MS/MS, ?Serum or Plasma Access complete set of age- and/or gender-specific reference intervals for this test in the [facility] Test Directory ([employer]). This test was developed and its performance characteristics determined by [facility]. It has not been cleared or approved by the US Food and Drug Administration. This test was performed in a CLIA certified laboratory and is intended for clinical purposes. Performed By: [facility] [address] [place] [address] Advanced Practice Nurse Psychotherapist: Anika Sharma MD Blood BLOOD SPECIMEN / Unknown Lab Venipuncture / Unknown 02/02/2021 7:35 AM CDT 02/02/2021 8:13 AM CDT Stepehn Azar MD LAB - CHEMISTRY [place] [facility] ([facility]) [address] [place] [address], [facility] * (ABNORMAL) INFLUENZA A+B - POINT OF CARE (AMB) (08/09/2017 3:18 PM INVERTED BLOCK OPERATOR) Influenza A Antigen Rapid Positive(A) Negative Influenza B Antigen Rapid Negative Negative Influenza Internal Control present NEGATIVE - POSITIVE Influenza Lot Number [id number] Influenza Expiration Date 04 18 2019 Other NASOPHARYNGEAL SWAB / Unknown 08/09/2017 3:18 PM INVERTED BLOCK OPERATOR Rekha Hanson SOUND TECHNICIAN-DICE TABLE PERSON LAB - POINT OF CA RE ORDERABLES * US PELVIS W DOPPLER UTERUS OVARIES (07/25/2009 8:18 AM INVERTED BLOCK OPERATOR) Anatomical Region Laterality Modality Other 07/25/2009 8:18 AM INVERTED BLOCK OPERATOR Narrative 07/25/2009 5:40 PM INVERTED BLOCK OPERATOR Exam- Pelvic sonogram Date- 07/25/2009 Right ovary- 2.75 x 1.60 x 1.89 cm = 4.35 cc Left ovary- 3.74 x 3.37 x 3.35 cm = 22.11 cc Two small follicular cysts are noted in the right ovary. Two large anechoic cysts with increased through-transmission within the left ovary represent corpus luteal cyst. Doppler interrogation documents vascular flow to both ovaries. No free pelvic fluid is identified within the cul-de-sac. Echogenic shadowing consistent with intrauterine device is noted within the uterus. The uterus is otherwise normal. Impression- Multiple left corpus luteal cysts. Brett Valdovinos M.D. ? Reading Radiologist- CHARLY GOMEZ MD ? Releasing Radiologist- CHARLY GOMEZ MD ? Released Date Time- 07/25/09 174 ? Rv Detailer- GAVINO VALDOVINOS MD ? ADM- LAURY TOVAR ?ATT- LAURY TOVAR ORD- LAURY TOVAR ?CON- PCP- LAURY TOVAR ?SCP- Procedure Note El Gomez MD - 07/25/2009 Exam- Pelvic sonogram Date- 07/25/2009 Right ovary- 2.75 x 1.60 x 1.89 cm = 4.35 cc Left ovary- 3.74 x 3.37 x 3.35 cm = 22.11 cc Two small follicular cysts are noted in the right ovary. Two large anechoic cysts with increased through-transmission within the left ovary represent corpus luteal cyst. Doppler interrogation documents vascular flow to both ovaries. No free pelvic fluid is identified within the cul-de-sac. Echogenic shadowing consistent with intrauterine device is noted within the uterus. The uterus is otherwise normal. Impression- Multiple left corpus luteal cysts. Brett Valdovinos M.D. Reading Radiologist- CHARLY GOMEZ MD Releasing Radiologist- CHARLY GOMEZ MD Released Date Time- 07/25/09 174 Rv Detailer- GAVINO VALDOVINOS MD - LAURY TOVAR ATT- LAURY TOVAR ORD- LAURY TOVAR CON- PCP- LAURY TOVAR SCP- Laury Lucas MD US ORDERABLES * US ABDOMEN COMPLETE (07/25/2009 8:18 AM INVERTED BLOCK OPERATOR) Anatomical Region Laterality Modality Abdomen Other 07/25/2009 8:18 AM INVERTED BLOCK OPERATOR Narrative 07/25/2009 5:40 PM INVERTED BLOCK OPERATOR Exam- Abdominal sonogram Date- ?? Jul 25, 2009 9-40-00 AM The liver, gallbladder, spleen, kidneys, pancreas and visible retroperitoneal great vessels are normal. This splenic height measures 10.7 cm, which is normal for age. The right kidney measures 9.7 x 3.6 x 4.0 cm. The left kidney measures 10.9 x 4.1 x 4.1 cm. Diagnosis- Normal abdominal sonogram. Brett Valdovinos MD. ? Reading RadiologistSammie GOMEZ MD ? Releasing Seferino GOMEZ MD ? Released Date Time- 07/25/091740 ? Rv Detailer- GAVINO VALDOVINOS MD ? ADM- LAURY TOVAR ?ATT- LAURY TOVAR ORD- LAURY TOVAR ?CON- PCP- LAURY TOVAR ?SCP- Procedure Note El Gomez MD - 07/25/2009 Exam- Abdominal sonogram Date- Jul 25, 2009 9-40-00 AM The liver, gallbladder, spleen, kidneys, pancreas and visible retroperitoneal great vessels are normal. This splenic height measures 10.7 cm, which is normal for age. The right kidney measures 9.7 x 3.6 x 4.0 cm. The left kidney measures 10.9 x 4.1 x 4.1 cm. Diagnosis- Normal abdominal sonogram. Brett Valdovinos MD. Reading Radiologist- CHARLY GOMEZ MD Releasing Radiologist- CHARLY GOMEZ MD Released Date Time- 07/25/091740 Rv Detailer- GAVINO VALDOVINOS MD ADM- MCRROBDY,LAURY J ATT- MCREADY,LAURY J ORD- MCREADY,LAURY J CON- PCP- LAURY TOVAR SCP- Laury Lucas MD US ORDERABLES * XR ABDOMEN 1 VW (07/24/2009 12:13 AM INVERTED BLOCK OPERATOR) Anatomical Region Laterality Modality Abdomen Other 07/24/2009 12:1 3 AM INVERTED BLOCK OPERATOR Narrative 07/24/2009 8:32 AM INVERTED BLOCK OPERATOR Abdomen, one view July 24, 2009 Lung bases are clear. An IUD is in place over the pelvis. Gas pattern is normal. There is no obstruction or free air. Impression- No acute disease. ? Reading Radiologist- CHARLY GOMEZ MD ? Releasing Radiologist- CHARLY GOMEZ MD ? Released Date Time- 07/24/09 0833 ? Rv Detailer- CHARLY GOMEZ MD ? - CALIXTO MCNEAL ?ISIDRO- CALIXTO MCNEAL ORD- CALIXTO MCNEAL ?AJ- LAURY HARRISON ?SCP- Procedure Note El Gomez MD - 07/24/2009 Abdomen, one view July 24, 2009 Lung bases are clear. An IUD is in place over the pelvis. Gas pattern is normal. There is no obstruction or free air. Impression- No acute disease. Reading Radiologist- CHARLY GOMEZ MD Releasing Radiologist- CHARLY GOMEZ MD Released Date Time- 07/24/0933 Rv Detailer- CHARLY GOMEZ MD - CALIXTO MCNEAL,CALIXTO DUNN- PCP- LAURY TOVAR [facility]- Calixto Mcneal MD DIAGNOSTIC IMAGING O RDERABLES * HCG URINE QUALITATIVE (07/23/2009 11:40 PM INVERTED BLOCK OPERATOR) HCG Qual Urine Negative Negative [facility] URINE / Unknown 07/23/2009 1 1:40 PM INVERTED BLOCK OPERATOR Calixto Mcneal MD LAB - URINALYSIS ORD ERABLES [facility] Care Teams Network Controller Relationship Specialty Start Date End Date Maxi Serna MD [address] [place] [address] PCP - General Family Medicine 08/09/17
--- OUTSIDE RECORDS SUMMARY | 2024-07-04 00:41 | XMS_ITS | Encounter Summary ---
Author Organization [facility] Address [address] [place] [address] Care Team Providers Care Grade And Center Marker Name Role Phone Maxi Serna MD Primary Care Provider [phone] Reason for Visit * Reason Onset Date Comments Follow-up 08/11/2017 Encounter Details Date Type Department Care Team (Late st Contact Info) Description 08/11/2017 Telephone [facility] [address] [address] Chelle Recinos Follow-up Social History Tobacco Use Types Packs/Day Years Used Date Smoking Tobacco: Never Smokeless Tobacco: Never Sex and Gender Information Value Date Recorded Sex Assigned at Not on file Gender Identity Not on file Sexual Orientation Not on file documented as of this encounter Plan of Treatment Not on file documented as of this encounter Visit Diagnoses Not on filedocumented in this encounter Care Teams Grade And Center Marker Relationship Specialty Start Date End Date Maxi Serna MD [address] [place] [address] PCP - General Family Medicine 08/09/17 documented as of this encounter
--- OUTSIDE RECORDS SUMMARY | 2024-07-04 00:41 | XMS_ITS | Encounter Summary ---
Author Organization [facility] Address [address] [place] [address] Phone Care Team Providers Care Home Child Care Provider Name Role Phone Provider, None Primary Care Provider Unavailabl e Reason for Visit * Reason Comments Nausea Encounter Details Date Type Department Care Team ([facility] st Contact Info) Description 08/19/2023 3:34 PM CASE MAKING MACHINE OPERATOR - 08/19/2023 6:39 PM CASE MAKING MACHINE OPERATOR Emergency [facility] Emergency [address] [place] [address] Madisyn Corrales, PAC [address] [place] [address] Nausea and vomiting Discharge Disposition: Discharged to home or Selfcare Social History Tobacco Use Types Packs/Day Years Used Date Smoking Tobacco: Never Assessed Comments Yes Sex and Gender Information Value Date Recorded Sex Assigned at Not on file Legal Sex Female 3:15 PM CASE MAKING MACHINE OPERATOR Gender Identity Not on file Sexual Orientation Not on file documented as of this encounter Last Filed Vital Signs Vital Sign Reading Time Taken Comments Blood Pressure 126/72 08/19/2023 3:28 PM CASE MAKING MACHINE OPERATOR Pulse 77 08/19/2023 3:28 PM CASE MAKING MACHINE OPERATOR Temperature 36.4 ??C (97.5 ??F) 08/19/2023 3:28 PM CS T Respiratory Rate 20 08/19/2023 3:28 PM CASE MAKING MACHINE OPERATOR Oxygen Saturation 98% 08/19/2023 3:28 PM CASE MAKING MACHINE OPERATOR Inhaled Oxygen Concentration - - Weight 83.9 kg (185 lb) 08/19/2023 3:28 PM CASE MAKING MACHINE OPERATOR Height 167.6 cm (5' 6 ) 08/19/2023 3:28 PM CASE MAKING MACHINE OPERATOR Body Mass Index 29.86 08/19/2023 3:28 PM CASE MAKING MACHINE OPERATOR documented in this encounter Discharge Instructions * Discharge Instructions* Madisyn Corrales PAC - 08/19/2023 5:36 PM CASE MAKING MACHINE OPERATOR Please push fluids and advance to a bland diet as tolerated. Follow up with your obygn. Return for reevaluation if your symptoms change or worsen. MAKING MACHINE OPERATOR documented in this encounter ED Notes * Kimberly Pastor RN - 08/19/2023 6:38 PM CST Pt discharged by Antonio SWEET, Iv discontinued intact. Pt ambulated to ed exit with steady gait, no distress noted. MAKING MACHINE OPERATOR * Antonio Simeon RN - 08/19/2023 5:15 PM CST iv fluids infusing without difficulty. estimated further time frame in er. no new questions. MAKING MACHINE OPERATOR * Debbie Holland RN - 08/19/2023 4:20 PM CST IV access was established and labs drawn. Urine specimen collected per void. Fluid bolus started and Pt medicated per provider orders. Pt educated on intended effects and side effects of medication and verbalized understanding, able to provide teach back of education. Updated on status and timeframe. Given warm blanket. No other questions/requests at this time. MAKING MACHINE OPERATOR * Madisyn Corrales PAC - 08/19/2023 4:05 PM CST Chief Complaint Patient presents with ??? Nausea HPI Yesica Fitzgerald is a 33 y.o. female who presents from home due to nausea, vomiting, and diarrhea which started 2-3 days ago. She stats that has been working with a fertility doctor and is 6 weeks . . She denies any fever, vaginal discharge/bleeding, lower abdominal pain, dysuria, or acough. She states she did have some upper mid abdominal discomfort with vomiting. She is a nonsmoker and denies any alcohol abuse. She does not have any chronic medical problems. No current facility-administered medications for this encounter. No current outpatient medications on file. Not on File History reviewed. No pertinent past medical history. No past surgical history on file. Social History Socioeconomic History ??? Marital status: Spouse name: Not on file ??? Number of children: Not on file ??? Years of education: Not on file ??? Highest education level: Not on file Occupational History ??? Not on file Tobacco Use ??? Smoking status: Not on file ??? Smokeless tobacco: Not on file Substance and Sexual Activity ??? Alcohol use: Not on file ??? Drug use: Not on file ??? Sexual activity: Not on file Other Topics Concern ??? Not on file Social History Narrative ??? Not on file Social Determinants of Health Financial Resource Needs: Not on file Food Insecurity Needs: Not on file Transportation Needs: Not on file Physical Activity: Not on file Stress: Not on file Social Integration: Not on file Intimate Partner Violence: Not on file Housing Stability: Not on file BP 126/72 Pulse 77 Temp 97.5 ??F (36.4 ??C) (Tympanic) Resp 20 Ht 5' 6 (1.676 m) Wt 185 lb (83.9 kg) SpO2 98% BMI 29.86 kg/m?? Review of Systems Constitutional: Negative for chills and fever. HENT: Negative for congestion, ear pain and sore throat. Eyes: Negative for pain and discharge. Respiratory: Negative for cough, chest tightness and shortness of breath. Cardiovascular: Negative for chest pain, palpitations and leg swelling. Gastrointestinal: Positive for diarrhea, nausea and vomiting. Negative for abdominal distention, abdominal pain, blood in stool and constipation. Genitourinary: Negative for dysuria, frequency and vaginal discharge. Musculoskeletal: Negative for arthralgias and back pain. Skin: Negative for color change and rash. Neurological: Negative for dizziness, weakness, light-headedness and headaches. Psychiatric/Behavioral: Negative for suicidal ideas. All other systems reviewed and are negative. Physical Exam Vitals and nursing note reviewed. Constitutional: General: She is not in acute distress. Appearance: She is well-developed. She is not diaphoretic. HENT: Head: Normocephalic and atraumatic. Right Ear: External ear normal. Left Ear: External ear normal. Eyes: Conjunctiva/sclera: Conjunctivae normal. Pupils: Pupils are equal, round, and reactive to light. Neck: Trachea: No tracheal deviation. Cardiovascular: Rate and Rhythm: Normal rate and regular rhythm. Heart sounds: Normal heart sounds. No murmur heard. Pulmonary: Effort: Pulmonary effort is normal. No respiratory distress. Breath sounds: Normal breath sounds. No wheezing or rales. Abdominal: General: Bowel sounds are normal. There is no distension. Palpations: Abdomen is soft. Tenderness: There is no abdominal tenderness. There is no guarding or rebound. Musculoskeletal: General: Normal range of motion. Cervical back: Normal range of motion. Skin: General: Skin is warm and dry. Neurological: Mental Status: She is alert and oriented to person, place, and time. Cranial Nerves: No cranial nerve deficit. Labs Reviewed CMP (COMPREHENSIVE METABOLIC PANEL) - Abnormal; Notable for the following components: Result Value CO2, VENOUS 20 (*) BUN/CREATININE RATIO 11 (*) All other components within normal limits URINALYSIS REFLEX IF INDICATED BY ABNORMAL RESULTS - Abnormal; Notable for the following components: PROTEIN, RANDOM URINE 15 mg/dL (*) URINE KETONES 50 mg/dL (*) All other components within normal limits HCG BETA SUBUNIT SERUM QUANT - Abnormal; Notable for the following components: HCG BETA SUBUNIT, QUANT 29,017.89 (*) All other components within normal limits Narrative: HCG levels should be interpreted with consideration given to the patient's clinical condition. No currently available hCG test is approved by the FDA for use as a tumor marker. hCG results <5 mIU/mL are considered negative. Weeks post LMP hCG range (mIU/mL) 1 - 10 202 - 231,000 11 - 15 22,536 - 234,990 16 - 22 8,007 - 50,064 23 - 40 1,600 - 49,413 The concentration of hCG in maternal serum rises rapidly in early , hCG levels less than 25 mIU/mL do not exclude . A further sample should be tested after 48 hours if is suspected. Heterophilic antibodies present in the serum of some patients may cause a false positive result in the assay. Before making a diagnosis of malignancy based on elevated hCG, confirm results with a urine hCG. RSV,SARS-COV-2,INFLUENZA A&B BY PCR - Normal Narrative: This test has not been FDA cleared or approved; the test has been authorized by FDA under an Emergency Use Authorization (EUA) for use by laboratories certified under the CLIA that meet the requirements to perform moderate, high or waived complexity tests. Authorized Fact Sheets about this test for providers and patients are available at: https://www.fda. gov/medical-devices/yxajwuhya-ylibvsqvvb-vorevzg-devices/aenefhdip-fnf-tdrzupwas tions LIPASE - Normal COMPLETE BLOOD COUNT (CBC) WITH DIFF Narrative: The following orders were created for panel order CBC with Diff [id number]. Procedure Abnormality Status --------- ------ CBC with Auto Differential[[id number]] Final result Please view results for these tests on the individual orders. CBC WITH AUTO DIFFERENTIAL URINALYSIS REFLEX IF INDICATED BY ABNORMAL RESULTS Final Result CMP (Comprehensive Metabolic Panel) Final Result CBC with Diff [id number] Final Result Lipase [id number] Final Result HCG Beta Subunit Serum Quant Final Result Procedures Recent Results (from the past 24 hour(s)) CMP (Comprehensive Metabolic Panel) Result Value Ref Range SODIUM 136 136 - 145 mmol/L POTASSIUM 3.6 3.5 - 5.1 mmol/L CHLORIDE 105 98 - 107 mmol/L CO2, VENOUS 20 (L) 22 - 30 mmol/L ANION GAP 14.6 <18.0 mmol/L GLUCOSE 89 70 - 99 mg/dL BUN 9 5 - 18 mg/dL CREATININE, BLOOD 0.80 0.60 - 1.00 mg/dL BUN/CREATININE RATIO 11 (L) 12 - 20 ratio TOTAL PROTEIN 7.3 6.3 - 8.2 g/dL ALBUMIN 4.2 3.5 - 5.0 g/dL A/G RATIO 1.4 1.0 - 2.2 CALCIUM 9.4 8.7 - 10.5 mg/dL T BILI 0.3 0.2 - 1.2 mg/dL SGOT (AST) 26 5 - 34 U/L SGPT (ALT) 23 0 - 55 U/L ALKALINE PHOSPHATASE 62 40 - 150 U/L GFR, ESTIMATED >60 >=60 GFR, EST. >60 >=60 GFR, EST. NONAFRICAN >60 >=60 Lipase [id number] Result Value Ref Range LIPASE 9 8 - 78 U/L HCG Beta Subunit Serum Quant Result Value Ref Range HCG BETA SUBUNIT, QUANT 29,017.89 (H) 0.00 - 5.00 mIU/mL CBC with Auto Differential Result Value Ref Range WBC 5.82 4.00 - 12.00 10(3)/mcL RBC 4.17 3.80 - 5.30 10(6)/mcL HEMOGLOBIN (HGB) 12.6 12.0 - 15.8 g/dL HEMATOCRIT (HCT) 36.5 36.0 - 47.0 % MCV 87.5 82.0 - 96.0 fL MCH 30.2 26.0 - 34.0 pg MCHC 34.5 31.0 - 36.0 g/dL PLATELET COUNT 233 140 - 440 10(3)/mcL RDW 12.4 11.8 - 15.5 % MPV 9.8 9.7 - 12.4 fL NEUTROPHILS 66.3 47.0 - 73.0 % LYMPHOCYTES 24.7 18.0 - 42.0 % MONOCYTES 8.2 4.0 - 12.0 % EOSINOPHILS 0.5 0.0 - 5.0 % BASOPHILS 0.3 0.0 - 1.0 % ABSOLUTE NEUTROPHILS 3.85 1.60 - 7.70 10(3)/mcL ABSOLUTE LYMPHOCYTES 1.44 1.30 - 3.20 10(3)/mcL ABSOLUTE MONOCYTES 0.48 0.20 - 1.00 10(3)/mcL ABSOLUTE EOSINOPHIL 0.03 0.00 - 0.40 10(3)/mcL ABSOLUTE BASOPHILS 0.02 0.00 - 0.10 10(3)/mcL NRBC PER 100 WBC 0 RSV,SARS-COV-2,INFLUENZA A&B BY PCR Specimen: Nasopharyngeal; Swab Result Value Ref Range FLU A Negative Negative, Error FLU B Negative Negative RESP SYNC VIRUS Negative Negative SARSCOV2 NOT DETECTED (Reference Range for this test is Not Detected) URINALYSIS REFLEX IF INDICATED BY ABNORMAL RESULTS Result Value Ref Range SPECIFIC GRAVITY 1.020 1.003 - 1.030 URINE PH 5.0 5.0 - 9.0 WBC ESTERASE Negative Negative NITRITE Negative Negative PROTEIN, RANDOM URINE 15 mg/dL (A) Negative URINE GLUCOSE, QUAL Negative Negative URINE KETONES 50 mg/dL (A) Negative UROBILINOGEN Normal Normal mg/dL URINE BLOOD Negative Negative ben/ul URINALYSIS COLOR Yellow URINALYSIS CLARITY Slightly Cloudy Imaging Results None MDM Clinical Impression 1. Nausea and vomiting 2. First trimester Disposition: Discharge After Treatment Patient is feeling better after reglan and 2 L of IV fluids. Work up is unremarkable. Encouraged patient to continue to push clear fluids at home and advance to a bland diet as tolerated. encouraged close f/u with her obgyn and to return for reevaluation if sx change or worsen. Cosigned by Robert Byrd MD at 08/22/2023 6:05 PM CASE MAKING MACHINE OPERATOR MAKING MACHINE OPERATOR MAKING MACHINE OPERATOR * Kimberly Pastor RN - 08/19/2023 3:31 PM CST Pt ambulated to ed triage with c/o N/V/D starting last pm. Pt states that she is 6 weeks and that her IVF specialist told her to come to ed MAKING MACHINE OPERATOR documented in this encounter Plan of Treatment Not on file documented as of this encounter Procedures Procedure Name Priority Date/Time Associated Diagnosis Comments URINALYSIS REFLEX IF INDICATED BY ABNORMAL RESULTS STAT 08/19/2023 4:07 PM CASE MAKING MACHINE OPERATOR RSV,SARS-COV-2,INFLUE NZA A&B BY PCR STAT 08/19/2023 4:05 PM CASE MAKING MACHINE OPERATOR CBC WITH AUTO DIFFERENTIAL STAT 08/19/2023 3:59 PM CASE MAKING MACHINE OPERATOR LIPASE STAT 08/19/2023 3:59 PM CASE MAKING MACHINE OPERATOR HCG BETA SUBUNIT SERUM QUANT STAT 08/19/2023 3:59 PM CASE MAKING MACHINE OPERATOR CMP (COMPREHENSIVE METABOLIC PANEL) STAT 08/19/2023 3:59 PM CASE MAKING MACHINE OPERATOR COMPLETE BLOOD COUNT (CBC) WITH DIFF STAT 08/19/2023 3:59 PM CASE MAKING MACHINE OPERATOR documented in this encounter Results * (ABNORMAL) URINALYSIS REFLEX IF INDICATED BY ABNORMAL RESULTS (08/19/2023 4:07 PM CASE MAKING MACHINE OPERATOR) SPECIFIC GRAVITY 1.020 1.003 - 1.030 08/19/2023 4:44 PM CASE MAKING MACHINE OPERATOR [facility] URINE PH 5.0 5.0 - 9.0 08/19/2023 4:44 PM CASE MAKING MACHINE OPERATOR [facility] WBC ESTERASE Negative Negative 08/19/2023 4:44 PM CASE MAKING MACHINE OPERATOR [facility] NITRITE Negative Negative 08/19/2023 4:44 PM CASE MAKING MACHINE OPERATOR [facility] PROTEIN, RANDOM URINE 15 mg/dL(A) Negative 08/19/2023 4:44 PM CASE MAKING MACHINE OPERATOR [facility] URINE GLUCOSE, QUAL Negative Negative 08/19/2023 4:44 PM CASE MAKING MACHINE OPERATOR [facility] URINE KETONES 50 mg/dL(A) Negative 08/19/2023 4:44 PM CASE MAKING MACHINE OPERATOR [facility] UROBILINOGEN Normal Normal mg/dL 08/19/2023 4:44 PM CASE MAKING MACHINE OPERATOR [facility] URINE BLOOD Negative Negative ben/ul 08/19/2023 4:44 PM CASE MAKING MACHINE OPERATOR [facility] URINALYSIS COLOR Yellow 08/19/19 4:44 PM CASE MAKING MACHINE OPERATOR [facility] URINALYSIS CLARITY Slightly Cloudy 08/19/2023 4:44 PM CASE MAKING MACHINE OPERATOR [facility] Urine URINE SPECIMEN COLLECTION, CLEAN CATCH / Unknown Non-Phlebotomy Collection / Unknown 08/19/2023 4:07 PM CASE MAKING MACHINE OPERATOR 08/19/2023 4:12 PM CASE MAKING MACHINE OPERATOR us Madisyn Zamorano Page PAC URINE ORDERABLES Final Resul t [facility] [address] [place] [address] * RSV,SARS-COV-2,INFLUENZA A&B BY PCR (08/19/2023 4:05 PM CASE MAKING MACHINE OPERATOR) Pathologist [facility] [place] FLU A Negative Negative, Error 08/19/2023 4:51 PM CASE MAKING MACHINE OPERATOR [facility] FLU B Negative Negative 08/19/2023 4:51 PM CASE MAKING MACHINE OPERATOR [facility] RESP SYNC VIRUS Negative Negative 4:51 PM CASE MAKING MACHINE OPERATOR [facility] SARSCOV2 NOT DETECTED (Reference Range for this test is Not Detected) 08/19/2023 4:51 PM CASE MAKING MACHINE OPERATOR [facility] Comment:This test was perfor med by a Reverse Database Analyst PCR Method. Swab NASOPHARYNGEAL SWAB / Unknown Non-Phlebotomy Collection / Unknown 08/19/2023 4:05 PM CASE MAKING MACHINE OPERATOR 08/19/2023 4:12 PM CASE MAKING MACHINE OPERATOR Narrative [facility] - 08/19/2023 4:51 PM CASE MAKING MACHINE OPERATOR This test has not been FDA cleared or approved; the test has been authorized by FDA under an Emergency Use Authorization (EUA) for use by laboratories certified under the CLIA that meet the requirements to perform moderate, high or waived complexity tests. Authorized Fact Sheets about this test for providers and patients are available at: https://www.fda.gov/medical-devices/cslkkdfhk-bekctoebsm-jmhqcwo-devices/emergen -us e-authorizations Madisyn Corrales PAC MICROBIOLOGY - GENERAL ORDER DIEGO Final Result [facility] [address] [place] [address] * CBC with Auto Differential (08/19/2023 3:59 PM CASE MAKING MACHINE OPERATOR) [facility] WBC 5.82 4.00 - 12.00 10(3)/mcL 08/19/2023 4:15 PM CASE MAKING MACHINE OPERATOR [facility] RBC 4.17 3.80 - 5.30 10(6)/mcL 08/19/2023 4:15 PM [facility] HEMOGLOBIN (HGB) 12.6 12.0 - 15.8 g/dL 08/19/2023 4:15 PM [facility] HEMATOCRIT (HCT) 36.5 36.0 - 47.0 % 08/19/2023 4:15 PM [facility] MCV 87.5 82.0 - 96.0 fL 08/19/2023 4:15 PM [facility] MCH 30.2 26.0 - 34.0 pg 08/19/2023 4:15 PM [facility] MCHC 34.5 31.0 - 36.0 g/dL 08/19/2023 4:15 PM [facility] PLATELET COUNT 233 140 - 440 10(3)/mcL 08/19/2023 4:15 PM [facility] RDW 12.4 11.8 - 15.5 % 08/19/2023 4:15 PM [facility] MPV 9.8 9.7 - 12.4 fL 08/19/2023 4:15 PM [facility] NEUTROPHILS 66.3 47.0 - 73.0 % 08/19/2023 4:15 PM [facility] LYMPHOCYTES 24.7 18.0 - 42.0 % 08/19/2023 4:15 PM [facility] MONOCYTES 8.2 4.0 - 12.0 % 08/19/2023 4:15 PM [facility] EOSINOPHILS 0.5 0.0 - 5.0 % 08/19/2023 4:15 PM [facility] BASOPHILS 0.3 0.0 - 1.0 % 08/19/2023 4:15 PM [facility] ABSOLUTE NEUTROPHILS 3.85 1.60 - 7.70 10(3)/mcL 08/19/2023 4:15 PM [facility] ABSOLUTE LYMPHOCYTES 1.44 1.30 - 3.20 10(3)/mcL 08/19/2023 4:15 PM [facility] ABSOLUTE MONOCYTES 0.48 0.20 - 1.00 10(3)/mcL 08/19/2023 4:15 PM CASE MAKING MACHINE OPERATOR [facility] ABSOLUTE EOSINOPHIL 0.03 0.00 - 0.40 10(3)/mcL 08/19/2023 4:15 PM CASE MAKING MACHINE OPERATOR [facility] ABSOLUTE BASOPHILS 0.02 0.00 - 0.10 10(3)/mcL 08/19/2023 4:15 PM CASE MAKING MACHINE OPERATOR [facility] NRBC PER 100 WBC 0 08/19/19 4:15 PM CASE MAKING MACHINE OPERATOR [facility] Blood Venipuncture / Unknown 08/19/2023 3:59 PM CASE MAKING MACHINE OPERATOR 08/19/2023 4:12 PM CASE MAKING MACHINE OPERATOR Madisyn Zamorano Page PAC HEMATOLOGY ORDERABLES Final Result [facility] [address] [place] [address] * (ABNORMAL) HCG Beta Subunit Serum Quant (08/19/2023 3:59 PM CASE MAKING MACHINE OPERATOR) HCG BETA SUBUNIT, QUANT 29,017.89( H) 0.00 - 5.00 mIU/mL 08/19/2023 4:54 PM CASE MAKING MACHINE OPERATOR [facility] Blood Venipuncture / Unknown 08/19/2023 3:59 PM CASE MAKING MACHINE OPERATOR 08/19/2023 4:12 PM CASE MAKING MACHINE OPERATOR Narrative [facility] - 08/19/2023 4:54 PM CASE MAKING MACHINE OPERATOR HCG levels should be interpreted with consideration given to the patient's clinical condition. No currently available hCG test is approved by the FDA for use as a tumor marker. hCG results <5 mIU/mL are considered negative. Weeks post LMP ?hCG range (mIU/mL) 1 - 10 ?202 - 231,000 11 - 15 ? 22,536 - 234,990 16 - 22 ? 8,007 - 50,064 23 - 40 ? 1,600 - 66,396 The concentration of hCG in maternal serum rises rapidly in early , hCG levels less than 25 mIU/mL do not exclude . A further sample should be tested after 48 hours if is suspected. Heterophilic antibodies present in the serum of some patients may cause a false positive result in the assay. Before making a diagnosis of malignancy based on elevated hCG, confirm results with a urine hCG. Madisyn Zamorano Page PAC CHEMISTRY ORDERABLES Final R [facility] Performing Organization Address [facility]/ZIP Co de Phone Number [facility] [address] [place] [address] * Lipase [id number] (08/19/2023 3:59 PM CASE MAKING MACHINE OPERATOR) Pathologist [facility] [place] LIPASE 9 8 - 78 U/L 08/19/2023 4:35 PM CASE MAKING MACHINE OPERATOR [facility] Blood Venipuncture / Unknown 08/19/2023 3:59 PM CASE MAKING MACHINE OPERATOR 08/19/2023 4:12 PM CASE MAKING MACHINE OPERATOR Madisyn Corrales PAC CHEMISTRY ORDERABLES Final R [facility] Performing Organization Address [facility] Co de Phone Number [facility] [address] [place] [address] * (ABNORMAL) CMP (Comprehensive Metabolic Panel) (08/19/2023 3:59 PM CASE MAKING MACHINE OPERATOR) SODIUM 136 136 - 145 mmol/L 08/19/2023 4:35 PM CASE MAKING MACHINE OPERATOR [facility] POTASSIUM 3.6 3.5 - 5.1 mmol/L 08/19/2023 4:35 PM CASE MAKING MACHINE OPERATOR [facility] CHLORIDE 105 98 - 107 mmol/L 08/19/2023 4:35 PM CASE MAKING MACHINE OPERATOR [facility] CO2, VENOUS 20(L) 22 - 30 mmol/L 08/19/2023 4:35 PM CASE MAKING MACHINE OPERATOR [facility] ANION GAP 14.6 <18.0 mmol/L 08/19/2023 4:35 PM [facility] GLUCOSE 89 70 - 99 mg/dL 08/19/2023 4:35 PM [facility] BUN 9 5 - 18 mg/dL 08/19/2023 4:35 PM [facility] CREATININE, BLOOD 0.80 0.60 - 1.00 mg/dL 08/19/2023 4:35 PM [facility] BUN/CREATININE RATIO 11(L) 12 - 20 ratio 08/19/2023 4:35 PM [facility] TOTAL PROTEIN 7.3 6.3 - 8.2 g/dL 08/19/2023 4:35 PM [facility] ALBUMIN 4.2 3.5 - 5.0 g/dL 08/19/2023 4:35 PM [facility] A/G RATIO 1.4 1.0 - 2.2 08/19/2023 4:35 PM [facility] CALCIUM 9.4 8.7 - 10.5 mg/dL 08/19/2023 4:35 PM [facility] T BILI 0.3 0.2 - 1.2 mg/dL 08/19/2023 4:35 PM [facility] SGOT (AST) 26 5 - 34 U/L 08/19/2023 4:35 PM [facility] SGPT (ALT) 23 0 - 55 U/L 08/19/2023 4:35 PM [facility] ALKALINE PHOSPHATASE 62 40 - 150 U/L 08/19/2023 4:35 PM [facility] GFR, ESTIMATED >60 >=60 08/19/2023 4:35 PM [facility] Comment: Creatinine Clearance is the preferred criteria for selecting drug dose adjustments in renally impaired patients. ??The GFR is provided as additional pertinent clinical information. GFR is reported in mL/min/1.73 sq m. Calculation based on the Chronic Kidney Disease Epidemiology Collaboration (CKD- EPI) equation refit without adjustment for race. GFR, EST. >60 >=60 024 4:35 PM CASE MAKING MACHINE OPERATOR [facility] GFR, EST. NONAFRICAN >60 >=60 08/19/2023 4:35 PM CASE MAKING MACHINE OPERATOR [facility] Blood Venipuncture / Unknown 08/19/2023 3:59 PM CASE MAKING MACHINE OPERATOR 08/19/2023 4:12 PM CASE MAKING MACHINE OPERATOR Madisyn Zamorano Page PAC CHEMISTRY ORDERABLES Final R esult [facility] [address] [place] [address] documented in this encounter Visit Diagnoses Diagnosis Nausea and vomiting- Primary Nausea with vomiting First trimester documented in this encounter Administered Medications Inactive Administered Medications - up to 3 most recent administrations Medication Order MAR Action Action Date Dose Rate Site 0.9 % sodium chloride solution at 1,000 mL/hr, Intravenous, ONCE, 1 dose, On Tue08/19/23 at 1730 New Bag 08/19/2023 5:16 PM CASE MAKING MACHINE OPERATOR 1000 mL/hr dextrose 5 % in lactated ringers infusion at 1,000 mL/hr, Intravenous, ONCE, 1 dose, On Tue08/19/23 at 1630 New Bag 08/19/2023 4:17 PM CASE MAKING MACHINE OPERATOR 1000 mL/hr metoclopramide (REGLAN) injection 5 mg 5 mg, Intravenous, ONCE, 1 dose, On Tue08/19/23 at 1630 Given 08/19/2023 4:17 PM CASE MAKING MACHINE OPERATOR 5 mg documented in this encounter Active and Recently Administered Medications Times are shown in CASE MAKING MACHINE OPERATOR. Scheduled Medication Order 08/17/2023 08/18/2023 08/19/2023 0.9 % sodium chloride solution (COMPLETED) at 1,000 mL/hr, Intravenous, ONCE, 1 dose, On Tue08/19/23 at 1730 1716 (New Bag - Prov ider: Antonio Simeon RN) dextrose 5 % in lactated ringers infusion (COMPLETED) at 1,000 mL/hr, Intravenous, ONCE, 1 dose, On Tue08/19/23 at 1630 1617 (New Bag - Prov ider: Debbie N Best, RN)1717 (Stopped - Provider: Antonio Simeon RN) metoclopramide (REGLAN) injection 5 mg (COMPLETED) 5 mg, Intravenous, ONCE, 1 dose, On Tue08/19/23 at 1630 1617 (Given - Provid er: Debbie Holland RN) documented in this encounter Additional Health Concerns Infection Onset Date Last Indicated Resolved Time COVID - 19 08/19/2023 08/19/2023 08/19/2023 4:51 PM CASE MAKING MACHINE OPERATOR documented as of this encounter Care Teams Home Child Care Provider Relationship Specialty Start Date End Date Provider, None [place] PCP - General 08/19/23 02/14/24 documented as of this encounter
--- OUTSIDE RECORDS SUMMARY | 2024-07-04 00:41 | XMS_ITS | Encounter Summary ---
Author Organization [facility] Address [address] [place] [address] Care Team Providers Care Music Manager Name Role Phone Maxi Serna MD Primary Care Provider [phone] Encounter Details Date Type Department Care Team (Latest Contact Info) Description 09/17/2022 12:55 PM CDT - 09/17/2022 11:59 PM CDT Hospital Encounter [facility]STIC RAD OP [address] [place] [address] Unknown, Provider Discharge Disposition: Home or Self Care Social History Tobacco Use Types Packs/Day Years Used Date Smoking Tobacco: Never Smokeless Tobacco: Never Sex and Gender Information Value Date Recorded Sex Assigned at Not on file Gender Identity Not on file Sexual Orientation Not on file COVID-19 Exposure Response Date Recorded In the last 10 days, have yo u been in contact with someone who was confirmed or suspected to have Coronavirus/COVID-19? No / Unsure 09/17/2022 12:43 PM CDT documented as of this encounter Medications at Time of Discharge Medication Sig Dispensed Refills Start Date End Date benzonatate (TESSALON) 200 MG capsule Take 1 capsule by mouth 3 times daily as needed for Cough 30 capsule 04/16/2019 Levonorgestrel (MIRENA, 52 MG, IU) documented as of this encounter Plan of Treatment Not on file documented as of this encounter Procedures Procedure Name Priority Date/Time Associated Diagnosis Comments XR KNEE RIGHT 3VW Routine 09/17/2022 1:0 2 PM CDT Fall, initial encounter XR ANKLE RIGHT 2VW Routine 09/17/2022 1: 02 PM CDT Fall, initial encounter documented in this encounter Results * XR KNEE RIGHT 3VW (09/17/2022 1:02 PM CDT) Anatomical Region Laterality Modality Lower Extremity Radiographic Iram ging 09/17/2022 1:50 PM CDT Impressions 09/19/2022 10:35 AM CDT IMPRESSION: No acute fracture or dislocation is discretely seen. Joint effusion is present. Report drafted by Johann Ryder MD (residential service technician) Rivas Mustafa DO have personally reviewed and interpreted this examination/study. > Interpreting Provider: Rivas Lim DO on 09/19/2022 10:35 AM Narrative 09/19/2022 10:35 AM CDT PROCEDURE: ??XR KNEE RIGHT 3VW, DATE/TIME OF EXAM: ??09/17/2022 1:02 PM, LOCATION ??[facility] INDICATION: W19.XXXA: Fall, initial encounter ADDITIONAL [...] DATE/TIME OF EXAM: 09/17/2022 1:02 PM, LOCATION [facility] INDICATION: W19.XXXA: Fall, initial encounter ADDITIONAL [...] Report drafted by Johann Ryder MD (residential service technician) Rivas Mustafa DO have personally reviewed and [...] Report drafted by Johann Ryder MD (residential service technician) Rivas Mustafa DO have personally reviewed and interpreted this examination/study. > Interpreting Provider: Rivas Lim DO on 09/19/2022 10:40 AM Narrative 09/19/2022 10:40 AM CDT PROCEDURE: ??XR ANKLE RIGHT 2VW, DATE/TIME OF EXAM: ??09/17/2022 1:02 PM, LOCATION ??[facility] INDICATION: W19.XXXA: Fall, initial encounter ADDITIONAL [...] DATE/TIME OF EXAM: 09/17/2022 1:02 PM, LOCATION [facility] INDICATION: W19.XXXA: Fall, initial encounter ADDITIONAL [...] Report drafted by Johann Ryder MD (residential service technician) Rivas Mustafa DO have personally reviewed and interpreted this examination/study. > Interpreting Provider: Rivas Lim DO on 09/19/2022 10:40 AM Provider Unknown DIAGNOSTIC IMAGING O RDERABLES documented in this encounter Visit Diagnoses Diagnosis Fall, initial encounter documented in this encounter Care Teams Music Manager Relationship Specialty Start Date End Date Maxi Serna MD [address] [place] [address] PCP - General Family Medicine 08/09/17 documented as of this encounter
--- OUTSIDE RECORDS SUMMARY | 2024-07-04 00:41 | XMS_ITS | Encounter Summary ---
Author Organization [facility] Care Team Providers Care Body Component Engineer Name Role Phone Provider, None Primary Care Provider Unavailabl e Encounter Details Date Type Department Care Team (Latest Contact Info) Description 02/11/2024 Travel Social History Tobacco Use Types Packs/Day Years Used Date Smoking Tobacco: Never Assessed Comments No Sex and Gender Information Value Date Recorded Sex Assigned at Not on file Legal Sex Female 3:15 PM [employer] Gender Identity Not on file Sexual Orientation Not on file documented as of this encounter Plan of Treatment Not on file documented as of this encounter Visit Diagnoses Not on filedocumented in this encounter Care Teams Body Component Engineer Relationship Specialty Start Date End Date Provider, None MOHAMUD PCP - General 08/19/23 02/14/24 documented as of this encounter
--- OUTSIDE RECORDS SUMMARY | 2024-07-04 00:41 | XMS_ITS | Encounter Summary ---
Author Organization [facility] Address [address] 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 Role Phone Jackie Matt Primary Care Provider Znae Griffith MD Unavailable Reason for Visit * Reason Comments Abdominal Pain Encounter Details Date Type Department Care Team (Late st Contact Info) Description 02/15/2024 6:42 AM CDT - 02/15/2024 11:44 AM CDT Emergency [facility] [address] [place] [id number] Dawit Sutton, DO [address] [place] [address] Biliary colic Discharge Disposition: Discharged to home or Selfcare Social History Tobacco Use Types Packs/Day Years Used Date Smoking Tobacco: Never Smokeless Tobacco: Never Tobacco Cessation:Counseling Given: Not Answered Alcohol Use Standard Drinks/Week Comments Yes 0 (1 standard drink = 0.6 oz pur e alcohol) Scoially on weekends Comments No Sex and Gender Information Value Date Recorded Sex Assigned at Not on file 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 Gender Identity Not on file Sexual Orientation Not on file documented as of this encounter Last Filed Vital Signs Vital Sign Reading Time Taken Comments Blood Pressure 124/71 02/15/2024 11:30 AM CDT Pulse 69 02/15/2024 11:30 AM CDT Temperature 36.3 ??C (97.4 ??F) 02/15/2024 6:44 AM CD T Respiratory Rate 16 02/15/2024 6:44 AM CDT Oxygen Saturation 97% 02/15/2024 11: 30 AM CDT Inhaled Oxygen Concentration - - Weight 91.6 kg (201 lb 15.1 oz) 02/15/2024 6:44 AM CDT Height 167.6 cm (5' 6 ) 02/15/2024 6:44 AM CDT Body Mass Index 32.59 02/15/2024 6:44 AM CDT documented in this encounter Discharge Instructions * Discharge Instructions* Dawit Sutton DO - 02/15/2024 11:11 AM CDT Follow up with your doctor within 24hrs Take Medications as prescribed. Return to ER immediately at anytime if symptoms worsen/ persists, chest pain, shortness of breath, lightheadedness, loss of consciousness, numbness/weakness/tingling in your arms or legs. If patient is using abdominal or rib muscles to breathe or breathing faster than normal. Return if fevers greater than 101, continuous vomiting, inability to drink fluids or tolerate solids by mouth, dehydration, lethargy, if patient not acting normally or any other concerns you may have. Please followup with your primary care doctor or the physician you have been given here in the emergency department prior to any travel. [facility]!!! GO BLUES !!! GO [facility]!!! [employer]!!! documented in this encounter Medications at Time of Discharge dicyclomine (BENTYL) 20 MG Tablet Take 1 Tablet by mouth every 6 hours. 30 Tablet 02/11/2024 ondansetron (ZOFRAN-ODT) 4 MG TABLET DISPERSIBLE Take 1 Tablet by mouth every 8 hours as needed for Nausea - 1st line. 10 Tablet 02/11/2024 documented as of this encounter ED Notes * Flori Barrera RN - 02/15/2024 11:43 AM CDT Patient discharged. Discharge instructions and patient educational material reviewed with patient; questions and concerns addressed; patient verbalizes understanding, using teach back. Patient was given 0 prescriptions. Patient discharged ambulatory with steady gait to exit with no distress noted. SL D/C'ed with Shmuel cath intact. * Flori Barrera RN - 02/15/2024 11:22 AM CDT Pt medicated per provider orders. Pt educated on intended effects and side effects of medication and verbalized understanding, able to provide teach back of education. * Flori Barrera RN - 02/15/2024 11:[address] Sutton at bedside to discuss test results and plan of care * Debbie Holland RN - 02/15/2024 10:57 AM CDT Ultrasound was contacted for update on ultrasound results from this morning. Tech states she has now placed an urgent request to the radiologist to read. * Flori Barrera RN - 02/15/2024 10:15 AM CDT Patient resting on stretcher with no distress noted. Denies needs at this time. Call light within reach. Continue to monitor * Flori Barrera RN - 02/15/2024 9:40 AM CDT Patient is resting in room with call light at bedside. Patient informed about wait time and verbalizes understanding. Patient denies needs at this time and verbalizes understanding that RN will complete hourly rounding. * Flori Barrera RN - 02/15/2024 9:06 AM CDT Report received from KEE Lewis * Dawit Sutton DO - 02/15/2024 7:32 AM CDT Chief Complaint Patient presents with Abdominal Pain 34-year-old female complains of right upper quadrant pain and vomiting, started on Tuesday, seen in the ER, had a CT scan as below, improved but went home and symptoms return last night, constant, radiating to her back, no alleviating factors, no exacerbating factors, no fevers, no sick contacts or recent travel or recent illness. Review of systems negative otherwise. Current Facility-Administered Medications Medication Dose Route Frequency Provider Last Rate Last Admin fentaNYL (PF) (SUBLIMAZE) injection 50 mcg 50 mcg Intravenous Q2H PRN Dawit Sutton DO 50mcg at 02/15/24 1122 ondansetron (ZOFRAN) injection 4 mg 4 mg Intravenous Q6H PRN Dawit Sutton DO 4 mg at 02/15/24 0700 Current Outpatient Medications Medication Sig Dispense Refill dicyclomine (BENTYL) 20 MG Tablet Take 1 Tablet by mouth every 6 hours. 30 Tablet 0 ondansetron (ZOFRAN-ODT) 4 MG TABLET DISPERSIBLE Take 1 Tablet by mouth every 8 hours as needed forNausea - 1st line. 10 Tablet 0 Allergies Allergen Reactions Amoxicillin-Pot Clavulanate Hives and Rash Past Medical History Positives Diagnosis Date Endometriosis No past surgical history on file. Social History Socioeconomic History Marital status: Spouse name: Not on file Number of children: Not on file Years of education: Not on file Highest education level: Not on file Occupational History Not on file Tobacco Use Smoking status: Never Smokeless tobacco: Never Substance and Sexual Activity Alcohol use: Not on file Drug use: Not on file Sexual activity: Not on file Other Topics Concern Not on file Social History Narrative Not on file Social Determinants of Health Financial Resource Needs: Not on file Food Insecurity Needs: Not on file Transportation Needs: Not on file Physical Activity: Not on file Stress: Not on file Social Integration: Not on file Intimate Partner Violence: Not on file Housing Stability: Not on file BP 126/66 Pulse 64 Temp 97.4 ??F (36.3 ??C) (Tympanic) Resp 16 Ht 5' 6 (1.676 m) Wt 201 lb 15.1 oz (91.6 kg) LMP (LMP Unknown) SpO2 98% BMI 32.59 kg/m?? Review of Systems Physical Exam Vitals and nursing note reviewed. Constitutional: General: She is not in acute distress. Appearance: She is well-developed. She is not diaphoretic. Comments: Age-appropriate, over nourished, at the bedside, no acute distress, pleasant and cooperative. HENT: Head: Normocephalic and atraumatic. Right Ear: External ear normal. Left Ear: External ear normal. Nose: Nose normal. Mouth/Throat: Mouth: Mucous membranes are moist. Pharynx: No oropharyngeal exudate. Eyes: General: Right eye: No discharge. Left eye: No discharge. Conjunctiva/sclera: Conjunctivae normal. Pupils: Pupils are equal, round, and reactive to light. Neck: Thyroid: No thyromegaly. Vascular: No JVD. Trachea: No tracheal deviation. Cardiovascular: Rate and Rhythm: Normal rate and regular rhythm. Heart sounds: Normal heart sounds. No murmur heard. Pulmonary: Effort: Pulmonary effort is normal. No respiratory distress. Breath sounds: Normal breath sounds. No wheezing or rales. Chest: Chest wall: No tenderness. Abdominal: General: Bowel sounds are normal. There is no distension. Palpations: Abdomen is soft. There is no mass. Tenderness: There is abdominal tenderness in the right upper quadrant. There is no guarding or rebound. Musculoskeletal: General: No tenderness. Normal range of motion. Cervical back: Normal range of motion and neck supple. Lymphadenopathy: Cervical: No cervical adenopathy. Skin: General: Skin is warm and dry. Capillary Refill: Capillary refill takes less than 2 seconds. Coloration: Skin is not pale. Findings: No erythema or rash. Neurological: Mental Status: She is alert and oriented to person, place, and time. Cranial Nerves: No cranial nerve deficit. Motor: No abnormal muscle tone. Coordination: Coordination normal. Deep Tendon Reflexes: Reflexes are normal and symmetric. Psychiatric: Behavior: Behavior normal. Thought Content: Thought content normal. Procedures Recent Results (from the past 24 hour(s)) CMP (Comprehensive Metabolic Panel) Result Value Ref Range SODIUM 140 136 - 145 mmol/L POTASSIUM 3.9 3.5 - 5.1 mmol/L CHLORIDE 108 (H) 98 - 107 mmol/L CO2, VENOUS 23 22 - 30 mmol/L ANION GAP 12.9 <18.0 mmol/L GLUCOSE 101 (H) 70 - 99 mg/dL BUN 16 5 - 18 mg/dL CREATININE, BLOOD 1.01 (H) 0.60 - 1.00 mg/dL BUN/CREATININE RATIO 16 12 - 20 ratio TOTAL PROTEIN 7.1 6.3 - 8.2 g/dL ALBUMIN 4.5 3.5 - 5.0 g/dL A/G RATIO 1.7 1.0 - 2.2 CALCIUM 10.2 8.7 - 10.5 mg/dL T BILI 0.4 0.2 - 1.2 mg/dL SGOT (AST) 17 5 - 34 U/L SGPT (ALT) 14 0 - 55 U/L ALKALINE PHOSPHATASE 55 40 - 150 U/L GFR, ESTIMATED >60 >=60 GFR, EST. >60 >=60 GFR, EST. NONAFRICAN >60 >=60 Human Chorionic Gonadotropin Scrn Serum Result Value Ref Range PREG-HCG Negative CBC with Auto Differential Result Value Ref Range WBC 6.33 4.00 - 12.00 10(3)/mcL RBC 4.14 3.80 - 5.30 10(6)/mcL HEMOGLOBIN (HGB) 12.2 12.0 - 15.8 g/dL HEMATOCRIT (HCT) 37.0 36.0 - 47.0 % MCV 89.4 82.0 - 96.0 fL MCH 29.5 26.0 - 34.0 pg MCHC 33.0 31.0 - 36.0 g/dL PLATELET COUNT 299 140 - 440 10(3)/mcL RDW 14.0 11.8 - 15.5 % MPV 9.3 (L) 9.7 - 12.4 fL NEUTROPHILS 59.0 47.0 - 73.0 % LYMPHOCYTES 31.0 18.0 - 42.0 % MONOCYTES 7.6 4.0 - 12.0 % EOSINOPHILS 2.1 0.0 - 5.0 % BASOPHILS 0.3 0.0 - 1.0 % ABSOLUTE NEUTROPHILS 3.74 1.60 - 7.70 10(3)/mcL ABSOLUTE LYMPHOCYTES 1.96 1.30 - 3.20 10(3)/mcL ABSOLUTE MONOCYTES 0.48 0.20 - 1.00 10(3)/mcL ABSOLUTE EOSINOPHIL 0.13 0.00 - 0.40 10(3)/mcL ABSOLUTE BASOPHILS 0.02 0.00 - 0.10 10(3)/mcL NRBC PER 100 WBC 0 PACS Images Show images for CT ABDOMEN PELVIS W/ CONTRAST CT ABDOMEN PELVIS W/ CONTRAST Order: [id number] Status: Final result Visible to patient: Yes (seen) 0 Result Notes Details Reading Physician Reading Date Result Priority Kevon Hyatt MD 02/11/2024 Narrative & Impression EXAM DESCRIPTION: CT ABDOMEN PELVIS W/ CONTRAST REASON FOR STUDY: Patient c/o pain starting behind umbilicus and radiating left since Tuesday with diarrhea. Denies vomiting. No abdominal hx. TECHNIQUE: CT scan of the abdomen and pelvis performed with intravenous and without oral contrast using helical scanning technique with dynamic intravenous contrast injection. Reconstructed coronal and sagittal MPR images reviewed. All images stored on PACS. Automated exposure control was used as a dose optimization technique for this examination. CONTRAST TYPE/DOSE: 100mL of IOPAMIDOL 76 % IV SOLN injected via Intravenous COMPARISON: None available FINDINGS: LOWER CHEST: No significant pulmonary abnormalities. No effusion. LIVER: Normal size. No identified cystic or solid masses. GALLBLADDER: Distended subtle wall thickening and slight surrounding induration suspect. Please correlate clinically consider ultrasound to exclude cholecystitis. BILE DUCTS: No intrahepatic or extrahepatic ductal dilatation. SPLEEN: Normal size. No focal lesions. PANCREAS: No identified cystic or solid masses. No significant calcifications. No adjacent inflammation or peripancreatic fluid collections. Pancreatic duct not dilated. ADRENALS: Normal. KIDNEYS/URINARY TRACT: No identified significant cystic or solid masses. No visualized stones. No hydronephrosis or hydroureter. Symmetric enhancement. Urinary bladder is unremarkable. GI: No dilated bowel loops. No obvious wall thickening. Normal appendix. No significant diverticular disease. PERITONEUM: No ascites or free air. RETROPERITONEUM: No mass or adenopathy. REPRODUCTIVE: No significant abnormality. VASCULATURE: No abdominal aortic aneurysm. MUSCULOSKELETAL: No significant abnormality. OTHER: No other abnormality. THIS IS AN ELECTRONICALLY VERIFIED FINAL REPORT 02/11/2024 4:56 PM - Electronically signed by Kevon Hyatt M.D. RB: RB Report ID: [id number] Reading Location: [id number] IMPRESSION: Distended gallbladder with subtle wall thickening and surrounding induration suspect. Please correlate clinically and consider ultrasound to exclude cholecystitis. Exam Ended: 02/11/24 16:17 CDT Last Resulted: 02/11/24 16:58 CDT Imaging Results US ABDOMEN LIMITED, LEVEL 1 - SINGLE ORGAN OR SOFT TISSUE (Final result) Result time 02/15/24 11:01:02 Procedure changed from US ABDOMEN COMPLETE Final result by Benson Pearson MD (02/15/24 11:01:02) Impression: IMPRESSION: Normal gallbladder sonogram. Narrative: EXAM DESCRIPTION: US ABDOMEN LIMITED, LEVEL 1 - SINGLE ORGAN OR SOFT TISSUE REASON FOR STUDY: Right upper quadrant pain. TECHNIQUE: Ultrasound of the gallbladder was performed with grayscale imaging. COMPARISON: CT of the abdomen and pelvis dated 02/11/2024. FINDINGS: GALLBLADDER: The gallbladder appears unremarkable. No cholelithiasis. No gallbladder wall thickening or pericholecystic fluid. No positive sonographic [place] sign reported. BILIARY SYSTEM: There is no evidence of intrahepatic or extrahepatic biliary ductal dilatation. The common bile duct measures 4 mm in diameter. LIVER: The visualized portion of the liver appears unremarkable. OTHER: No other significant findings. THIS IS AN ELECTRONICALLY VERIFIED FINAL REPORT 02/15/2024 10:58 AM - Electronically signed by Benson Pearson M.D. RL: RL Report ID: [id number] Reading Location: [id number] US ABDOMEN COMPLETE (Canceled) Emergency Department Progress. (Note: only significant re-evaluation times are documented, patientsin the emergency department typically have many more re- evaluations than reasonably document) 11:23 AM CDT Re-eval: Patient feeling better, no new issues, wants to go home, she is comfortable with dischargeand follow up with primary care doctor. All questions have been answered to the patient and any friends/family present currently present. In reviewing the patient's chart, their primary care doctor is JOSE J BARKLEY. US ABDOMEN LIMITED, LEVEL 1 - SINGLE ORGAN OR SOFT TISSUE Final Result IMPRESSION: Normal gallbladder sonogram. CMP (Comprehensive Metabolic Panel) Final Result Complete Blood Count (CBC) WITH Diff Final Result Human Chorionic Gonadotropin Scrn Serum Final Result Labs Reviewed CMP (COMPREHENSIVE METABOLIC PANEL) - Abnormal; Notable for the following components: Result Value CHLORIDE 108 (*) GLUCOSE 101 (*) CREATININE, BLOOD 1.01 (*) All other components within normal limits CBC WITH AUTO DIFFERENTIAL - Abnormal; Notable for the following components: MPV 9.3 (*) All other components within normal limits COMPLETE BLOOD COUNT (CBC) WITH DIFF Narrative: The following orders were created for panel order Complete Blood Count (CBC) WITH Diff. Procedure Abnormality Status --------- ------ CBC with Auto Differential[[id number]] Abnormal Final result Please view results for these tests on the individual orders. HUMAN CHORIONIC GONADOTROPIN SCRN SERUM I have reviewed the available labs, imaging, and nursing notes. Prescription Considerations for Home: Medication List ASK your doctor about these medications dicyclomine 20 MG Tabs Commonly known as: BENTYL Take 1 Tablet by mouth every 6 hours. ondansetron 4 MG Tab-disperse Commonly known as: ZOFRAN-ODT Take 1 Tablet by mouth every 8 hours as needed for Nausea - 1st line. Medical Decision Making Normal white blood cell count, normal ultrasound at this time, spoke with Dr. Griffith, and will see atthe scheduled appointment today at 1:30 a.m. in the office and schedule her for outpatient surgery as such. Clinical Impression 1. Biliary colic Disposition: Discharge Disposition: Discharge home Condition:Stable CLINICAL IMPRESSION: 1. Biliary colic Current Outpatient Medications Medication Instructions dicyclomine (BENTYL) 20 mg, Oral, EVERY 6 HOURS ondansetron (ZOFRAN-ODT) 4 mg, Oral, EVERY 8 HOURS PRN No current facility-administered medications on file prior to encounter. Current Outpatient Medications on File Prior to Encounter Medication Sig Dispense Refill dicyclomine (BENTYL) 20 MG Tablet Take 1 Tablet by mouth every 6 hours. 30 Tablet 0 ondansetron (ZOFRAN-ODT) 4 MG TABLET DISPERSIBLE Take 1 Tablet by mouth every 8 hours as needed forNausea - 1st line. 10 Tablet 0 Dawit Sutton D.O. Emergency/Tactical Medicine Note: Portions of this chart may have been completed with voice recognition software and may contain slight errors unrecognizable by the users. This would in no way affect the patient's care and is meant to improve length and quality of medical decision making and history taking. * Debbie Holland RN - 02/15/2024 7:00 AM CDT IV access was established and labs drawn. Pt medicated per provider orders. Pt educated on intendedeffects and side effects of medication and verbalized understanding, able to provide teach back of education. Monitors in place. Call light in reach. Pt was updated on status and timeframe. Significant other at bedside. * Rosaura Gutierrez RN - 02/15/2024 6:45 AM CDT Pt arrives to triage complaining of epigastric and right upper abd pain that started on Tuesday. Pt reports that she was seen in ED Tuesday for same symptoms and was told her gallbladder needs to be removed. Pt was to follow up with GI today, but has been vomiting throughout night and having intense pain. documented in this encounter Miscellaneous Notes * [employer] Patient Instructions - Dawit Sutton DO - 02/15/2024 11:11 AM CDT Images from the original note were not included. Patient Education Table of Contents Biliary Colic, Adult To view videos and all your education online visit, [email or web address] or scan this QR code with your smartphone. Access to this content will in one year. Biliary Colic, Adult Biliary colic is severe pain caused by a problem with the gallbladder. The gallbladder is a small organ in the upper right part of the abdomen. The gallbladder stores a digestive fluid produced in the liver (bile) that helps the body break down fat. Bile and other digestive enzymes are carried fromthe liver to the small intestine through tube-like structures called bile ducts. The gallbladder and the bile ducts form the biliary tract. Sometimes, hard deposits of digestive fluids (gallstones) form in the gallbladder and block the flow of bile from the gallbladder, causing biliary colic. This condition is also called a gallbladder attack. Gallstones can be as small as a grain of sand or as big as a golf ball. There could be just one gallstone in the gallbladder, or there could be many. What are the causes? This condition is usually caused by gallstones. Less often, a tumor could block the flow of bile from the gallbladder and trigger biliary colic. What increases the risk? The following factors may make you more likely to develop this condition: Being female. Having a family history of gallstones. Being obese. Losing weight suddenly or quickly. Eating a diet that is high in calories, low in fiber, and rich in refined carbohydrates, such as white bread and white rice. Having certain health conditions, such as: ? An intestinal disease that affects nutrient absorption, such as Crohn's disease. ? A metabolic condition, such as diabetes or metabolic syndrome. Metabolic syndrome occurs when someone has high blood pressure, high cholesterol, and diabetes. ? A blood condition, such as hemolytic anemia or sickle cell disease. What are the signs or symptoms? The main symptom of this condition is severe pain in the upper right side of the abdomen. You may feel this pain below the chest but above the hip. This pain often occurs at night or after eating a meal that is high in fat. This pain may get worse for up to an hour and last as long as 12 hours. In most cases, the pain fades (subsides) within 2 hours. Other symptoms of this condition include: Nausea and vomiting. Pain under the right shoulder. How is this diagnosed? This condition is diagnosed based on your medical history, your symptoms, and a physical exam. You may also have tests, including: Blood tests to rule out infection or inflammation of the bile ducts, gallbladder, pancreas, or liver. Imaging studies, such as: ? An ultrasound. ? A CT scan. ? An MRI. In some cases, you may need to have an imaging study done using a small amount of radioactive material (nuclear medicine) to confirm the diagnosis. How is this treated? This condition may be treated with medicines to: Relieve your pain or nausea. Dissolve the gallstones. It may take months or years before the gallstones are completely gone. If you have gallstones, or if you have a tumor in the gallbladder that is causing biliary colic, you may need surgery to remove the gallbladder (cholecystectomy). Follow these instructions at home: Eating and drinking Drink enough fluid to keep your urine pale yellow. Follow instructions from your health care provider about eating or drinking restrictions. These mayinclude avoiding: ? Fatty, greasy, and fried foods. ? Any foods that make the pain worse. ? Overeating. ? Having a large meal after not eating for a while. General instructions Take chhb-avc-elhthpf and prescription medicines only as told by your health care provider. Keep all follow-up visits as told by your health care provider. This is important. How is this prevented? Steps to prevent this condition include: Maintaining a healthy body weight. Getting regular exercise. Eating a healthy diet that is high in fiber and low in fat. Limiting how much sugar and refined carbohydrates you eat. Contact a health care provider if: Your pain lasts more than 5 hours. You vomit. You have a fever and chills. Your pain gets worse. Get help right away if: Your skin or the whites of your eyes look yellow (jaundice). Your have tea-colored urine and light-colored stools (feces). You are dizzy or you faint. Summary Biliary colic is severe pain caused by a problem with the gallbladder. The gallbladder is a small organ in the upper right part of your abdomen. Treatment for this condition may include medicine to relieve your pain or nausea, or medicine to slowly dissolve the gallstones. If you have gallstones, or if you have a tumor in the gallbladder that is causing biliary colic, you may need surgery to remove the gallbladder (cholecystectomy). This information is not intended to replace advice given to you by your health care provider. Make sure you discuss any questions you have with your health care provider. Document Released: 2006-11-14 Document Updated: 2023-04-27 Document Reviewed: 2023-04-27 [employer] Patient Education ? 2023 [employer]. documented in this encounter Plan of Treatment Not on file documented as of this encounter Procedures Procedure Name Priority Date/Time Associated Diagnosis Comments US ABDOMEN LIMITED, LEVEL 1 - SINGLE ORGAN Stat with Interpretation 02/15/2024 7:56 AM CDT CBC WITH AUTO DIFFERENTIAL STAT 02/15/2024 6:53 AM CDT HUMAN CHORIONIC GONADOTROPIN SCRN SERUM STAT 02/15/2024 6:53 AM CDT CMP (COMPREHENSIVE METABOLIC PANEL) STAT 02/15/2024 6:53 AM CDT COMPLETE BLOOD COUNT (CBC) WITH DIFF STAT 02/15/2024 6:53 AM CDT documented in this encounter Results * US ABDOMEN LIMITED, LEVEL 1 - SINGLE ORGAN OR SOFT TISSUE (02/15/2024 7:56 AM CDT) Anatomical Region Laterality Modality Abdomen N/A Ultrasound 02/15/2024 10:5 8 AM CDT Impressions 02/15/2024 11:01 AM CDT IMPRESSION: Normal gallbladder sonogram. Narrative 02/15/2024 11:01 AM CDT EXAM DESCRIPTION: ?? US ABDOMEN LIMITED, LEVEL 1 - SINGLE ORGAN OR SOFT TISSUE REASON FOR STUDY: ?? Right upper quadrant pain. TECHNIQUE: Ultrasound of the gallbladder was performed with grayscale imaging. COMPARISON: ?CT of the abdomen and pelvis dated 02/11/2024. FINDINGS: GALLBLADDER: ??The gallbladder appears unremarkable. No cholelithiasis. ??No gallbladder wall thickening or pericholecystic fluid. No positive sonographic [place] sign reported. ?? BILIARY SYSTEM: ??There is no evidence of intrahepatic or extrahepatic biliary ductal dilatation. ??The common bile duct measures ??4 mm ??in diameter. LIVER: ??The visualized portion of the liver appears unremarkable. OTHER: ??No other significant findings. THIS IS AN ELECTRONICALLY VERIFIED FINAL REPORT 02/15/2024 10:58 AM - Electronically signed by ??Benson Pearson M.D. RL: KEE D: ??02/15/2024 10:58 AM T: ??02/15/2024 10:58 AM Report ID: [id number] Reading Location: ??[id number] Procedure Note Benson Pearson MD - 02/15/2024 EXAM DESCRIPTION: US ABDOMEN LIMITED, LEVEL 1 - SINGLE ORGAN OR SOFT TISSUE REASON FOR STUDY: Right upper quadrant pain. TECHNIQUE: Ultrasound of the gallbladder was performed with grayscale imaging. COMPARISON: CT of the abdomen and pelvis dated 02/11/2024. FINDINGS: GALLBLADDER: The gallbladder appears unremarkable. No cholelithiasis. No gallbladder wall thickening or pericholecystic fluid. No positive sonographic [place] sign reported. BILIARY SYSTEM: There is no evidence of intrahepatic or extrahepatic biliary ductal dilatation. The common bile duct measures 4 mm in diameter. LIVER: The visualized portion of the liver appears unremarkable. OTHER: No other significant findings. THIS IS AN ELECTRONICALLY VERIFIED FINAL REPORT 02/15/2024 10:58 AM - Electronically signed by Benson Pearson M.D. RL: KEE Report ID: [id number] Reading Location: [id number] IMPRESSION: Normal gallbladder sonogram. us Dawit Sutton DO [facility] [place] US ORDERABLES Final Result * (ABNORMAL) CBC with Auto Differential (02/15/2024 6:53 AM CDT) WBC 6.33 4.00 - 12.00 10(3)/mcL 02/15/2024 7:02 AM CDT [facility] RBC 4.14 3.80 - 5.30 10(6)/mcL 02/15/2024 7:02 AM CDT [facility] HEMOGLOBIN (HGB) 12.2 12.0 - 15.8 g/dL 02/15/2024 7:02 AM CDT [facility] HEMATOCRIT (HCT) 37.0 36.0 - 47.0 % 02/15/2024 7:02 AM CDT [facility] MCV 89.4 82.0 - 96.0 fL 02/15/2024 7:02 AM CDT [facility] MCH 29.5 26.0 - 34.0 pg 02/15/2024 7:02 AM CDT [facility] MCHC 33.0 31.0 - 36.0 g/dL 02/15/2024 7:02 AM CDT [facility] PLATELET COUNT 299 140 - 440 10(3)/mcL 02/15/2024 7:02 AM CDT [facility] RDW 14.0 11.8 - 15.5 % 02/15/2024 7:02 AM [facility] MPV 9.3(L) 9.7 - 12.4 fL 02/15/2024 7:02 AM CDT [facility] NEUTROPHILS 59.0 47.0 - 73.0 % 02/15/2024 7:02 AM CDT [facility] LYMPHOCYTES 31.0 18.0 - 42.0 % 02/15/2024 7:02 AM [facility] MONOCYTES 7.6 4.0 - 12.0 % 02/15/2024 7:02 AM [facility] EOSINOPHILS 2.1 0.0 - 5.0 % 02/15/2024 7:02 AM CDT [facility] BASOPHILS 0.3 0.0 - 1.0 % 02/15/2024 7:02 AM CDT [facility] ABSOLUTE NEUTROPHILS 3.74 1.60 - 7.70 10(3)/mcL 02/15/2024 7:02 AM CDT [facility] ABSOLUTE LYMPHOCYTES 1.96 1.30 - 3.20 10(3)/mcL 02/15/2024 7:02 AM CDT [facility] ABSOLUTE MONOCYTES 0.48 0.20 - 1.00 10(3)/mcL 02/15/2024 7:02 AM CDT [facility] ABSOLUTE EOSINOPHIL 0.13 0.00 - 0.40 10(3)/mcL 02/15/2024 7:02 AM CDT [facility] ABSOLUTE BASOPHILS 0.02 0.00 - 0.10 10(3)/mcL 02/15/2024 7:02 AM CDT [facility] NRBC PER 100 WBC 0 02/15/20 7:02 AM CDT [facility] Blood Venipuncture / Unknown 02/15/2024 6:53 AM CDT 02/15/2024 7:00 AM CDT us Dawit Sutton DO HEMATOLOGY ORDERABLES F inal Result Performing Organization Address City/[facility]/ZIP Co de Phone Number [facility] [address] [place] [address] * Human Chorionic Gonadotropin Scrn Serum (02/15/2024 6:53 AM CDT) PREG-HCG Negative 02/15/2024 7:15 AM CDT [facility] Blood Venipuncture / Unknown 02/15/2024 6:53 AM CDT 02/15/2024 7:00 AM CDT us Dawit Sutton DO CHEMISTRY ORDERABLES Fi nal Result Performing Organization Address City/[facility]/ZIP Co de Phone Number [facility] [address] [place] [address] * (ABNORMAL) CMP (Comprehensive Metabolic Panel) (02/15/2024 6:53 AM CDT) SODIUM 140 136 - 145 mmol/L 02/15/2024 7:22 AM CDT [facility] POTASSIUM 3.9 3.5 - 5.1 mmol/L 02/15/2024 7:22 AM CDT [facility] CHLORIDE 108(H) 98 - 107 mmol/L 02/15/2024 7:22 AM CDT [facility] CO2, VENOUS 23 22 - 30 mmol/L 02/15/2024 7:22 AM CDT [facility] ANION GAP 12.9 <18.0 mmol/L 02/15/2024 7:22 AM CDT [facility] GLUCOSE 101(H) 70 - 99 mg/dL 02/15/2024 7:22 AM CDT [facility] BUN 16 5 - 18 mg/dL 02/15/2024 7:22 AM CDT [facility] CREATININE, BLOOD 1.01(H) 0.60 - 1.00 mg/dL 02/15/2024 7:22 AM CDT [facility] BUN/CREATININE RATIO 16 12 - 20 ratio 02/15/2024 7:22 AM CDT [facility] TOTAL PROTEIN 7.1 6.3 - 8.2 g/dL 02/15/2024 7:22 AM CDT [facility] ALBUMIN 4.5 3.5 - 5.0 g/dL 02/15/2024 7:22 AM CDT [facility] A/G RATIO 1.7 1.0 - 2.2 02/15/2024 7:22 AM CDT [facility] CALCIUM 10.2 8.7 - 10.5 mg/dL 02/15/2024 7:22 AM T [facility] T BILI 0.4 0.2 - 1.2 mg/dL 02/15/2024 7:22 AM CDT [facility] SGOT (AST) 17 5 - 34 U/L 02/15/2024 7:22 AM CDT [facility] SGPT (ALT) 14 0 - 55 U/L 02/15/2024 7:22 AM CDT [facility] ALKALINE PHOSPHATASE 55 40 - 150 U/L 02/15/2024 7:22 AM CDT [facility] GFR, ESTIMATED >60 >=60 02/15/2024 7:22 AM CDT [facility] Comment: Creatinine Clearance is the preferred criteria for selecting drug dose adjustments in renally impaired patients. ??The GFR is provided as additional pertinent clinical information. GFR is reported in mL/min/1.73 sq m. Calculation based on the Chronic Kidney Disease Epidemiology Collaboration (CKD- EPI) equation refit without adjustment for race. GFR, EST. >60 >=60 024 7:22 AM CDT [facility] GFR, EST. NONAFRICAN >60 >=60 02/15/2024 7:22 AM CDT [facility] Blood Venipuncture / Unknown 02/15/2024 6:53 AM CDT 02/15/2024 7:00 AM CDT us Dawit Sutton DO CHEMISTRY ORDERABLES Fi nal Result [facility] [address] [place] [address] documented in this encounter Visit Diagnoses Diagnosis Biliary colic- Primary Calculus of gallbladder without mention of cholecystitis or obstruction documented in this encounter Administered Medications Inactive Administered Medications - up to 3 most recent administrations Medication Order MAR Action Action Date Dose Rate Site 0.9 % sodium chloride solution at 999 mL/hr, Intravenous, ONCE, 1 dose, On Tue02/15/24 at 0700 New Bag 02/15/2024 7:00 AM CDT 1,000 mL 999 mL/hr fentaNYL (PF) (SUBLIMAZE) injection 50 mcg 50 mcg, Intravenous, EVERY 2 HOURS PRN, 3 doses, Starting on Tue02/15/24 at 0636, Until Tue02/15/24 at 1259, Moderate pain or more severe pain if patient requests Given 02/15/2024 11:22 AM CDT 50 mcg Given 02/15/2024 7:00 AM CDT 50 mcg ondansetron (ZOFRAN) injection 4 mg 4 mg, Intravenous, EVERY 6 HOURS PRN, 3 doses, Starting on Tue02/15/24 at 0636, Until Tue02/15/24 at 1259, Nausea - 1st line Given 02/15/2024 7:00 AM CDT 4 mg documented in this encounter Active and Recently Administered Medications Times are shown in CDT. Scheduled Medication Order 02/13/2024 02/14/2024 02/15/2024 0.9 % sodium chloride solution (COMPLETED) at 999 mL/hr, Intravenous, ONCE, 1 dose, On Tue02/15/24 at 0700 0700 (New Bag - Prov ider: Debbie Holland RN)0800 (Stopped - Provider: Flori Barrera RN) PRN Medication Order 02/13/2024 02/14/2024 02/15/2024 fentaNYL (PF) (SUBLIMAZE) injection 50 mcg 50 mcg, Intravenous, EVERY 2 HOURS PRN, 3 doses, Starting on Tue02/15/24 at 0636, Until Tue02/15/24 at 1259, Moderate pain or more severe pain if patient requests 0700 (Given - Provid er: Debbie Holland RN)1122 (Given - Provider: Flori Barrera RN) ondansetron (ZOFRAN) injection 4 mg 4 mg, Intravenous, EVERY 6 HOURS PRN, 3 doses, Starting on Tue02/15/24 at 0636, Until Tue02/15/24 at 1259, Nausea - 1st line 0700 (Given - Provid er: Debbie Holland RN) documented in this encounter Care Teams Stringing Machine Operator Relationship Specialty Start Date End Date Jackie Matt PA [address] [place] [address] PCP - General Family Medicine 02/15/24 Zane Griffith MD [address] [phone] Consulting Physician General Surgery 02/15/24 documented as of this encounter
--- OUTSIDE RECORDS SUMMARY | 2024-07-04 00:41 | XMS_ITS | Encounter Summary ---
Author Organization [facility] Address [address] [facility] [place] [address] Care Team Providers Care Client Liaison Name Role Phone Maxi Serna MD Primary Care Provider [phone] Encounter Details Date Type Department Care Team (Latest Contact Info) Description 02/10/2021 7:20 AM CDT - 02/10/2021 11:59 PM CDT Hospital Encounter [facility] OP DRAW STATION [address] [place] [phone] Stephen Azar MD [address] [phone] Discharge Disposition: Home or Self Care Social History Tobacco Use Types Packs/Day Years Used Date Smoking Tobacco: Never Smokeless Tobacco: Never Sex and Gender Information Value Date Recorded Sex Assigned at Not on file Gender Identity Not on file Sexual Orientation Not on file COVID-19 Exposure Response Date Recorded In the last month, have you been in contact with someone who was confirmed or suspected to have Coronavirus / COVID-19? No / Unsure 02/10/2021 7:18 AM CDT documented as of this encounter Medications [...] Procedure Name Priority Date/Time Associated Diagnosis Comments CBC W AUTO DIFFERENTIAL Routine 02/10/2021 7:52 AM CDT Pruritus of vulva examination or test, unconfirmed HCG BETA BLOOD QUANTITATIVE Routine 02/10/2021 7:52 AM CDT Pruritus of vulva examination or test, unconfirmed documented in this encounter Results * HCG BETA BLOOD QUANTITATIVE (02/10/2021 7:52 AM CDT) Pathologist [facility] Beta-hCG Total Quantitative <3 <5 mIU/mL 02/10/2021 9:03 AM CDT [facility] Comment: This assay is cleared for [...] Azar MD LAB - CHEMISTRY EDUAR [place] [facility] Organization Address City/State/[facility] Co de Phone Number [address] [address], [facility] [phone] * CBC WITH DIFFERENTIAL (02/10/2021 7:52 AM CDT) Pathologist [facility] WBC 4.8 3.5 - 10.5 10? 3 /uL 02/10/2021 8:40 AM CDT [facility] RBC 3.90 3.80 - 5.20 10? 6 /uL 02/10/2021 8:40 AM CDT [facility] Hemoglobin 12.1 12.0 - 15.6 g/dL 02/10/2021 8:40 AM CDT [facility] Hematocrit 36.8 35.0 - 45.0 % 02/10/2021 8:40 AM [facility] MCV 94.4 80.7 - 98.3 fL 02/10/2021 8:40 AM [facility] MCH 31.0 26.7 - 34.0 pg 02/10/2021 8:40 AM [facility] MCHC 32.9 30.8 - 35.9 g/dL 02/10/2021 8:40 AM [facility] Platelet Count 242 150 - 400 10? 3 /uL 02/10/2021 8:40 AM [facility] RDW-SD 44.4 36.0 - 50.0 fL 02/10/2021 8:40 AM [facility] RDW-CV 12.8 11.2 - 14.8 % 02/10/2021 8:40 AM [facility] MPV 10.1 9.4 - 12.9 fL 02/10/2021 8:40 AM [facility] nRBC Absolute 0.00 0 10? 3 /uL 02/10/2021 8:40 AM [facility] nRBC Auto 0.0 0 /100 WBC 02/10/2021 8:40 AM [facility] Neutrophils % 55.2 35.0 - 70.0 % 02/10/2021 8:40 AM [facility] Lymphocytes % 33.1 20.0 - 43.0 % 02/10/2021 8:40 AM [facility] Monocytes % 8.8 5.0 - 13.0 % 02/10/2021 8:40 AM [facility] Eosinophils % 2.1 0.0 - 6.0 % 02/10/2021 8:40 AM [facility] Basophil % 0.6 0.0 - 2.0 % 02/10/2021 8:40 AM [facility] Neutrophils Absolute 2.6 1.6 - 7.0 10? 3 /uL 02/10/2021 8:40 AM [facility] Lymphocyte Absolute 1.6 1.1 - 3.9 10? 3 /uL 02/10/2021 8:40 AM [facility] Monocytes Absolute 0.42 0.26 - 1.07 10? 3 /uL 02/10/2021 8:40 AM CDT [facility] Eosinophils Absolute 0.10 0.00 - 0.47 10? 3 /uL 02/10/2021 8:40 AM CDT [facility] Basophils Absolute 0.03 0.00 - 0.08 10? 3 /uL 02/10/2021 8:40 AM CDT [facility] Immature Granulocytes % 0.2 0.0 - 1.0 % 02/10/2021 8:40 AM CDT [facility] Immature Granulocytes Absolute 0.01 02/10/2021 8:40 AM CDT [facility] Blood BLOOD SPECIMEN / Unknown Lab Venipuncture / Unknown 02/10/2021 7:52 AM CDT 02/10/2021 8:13 AM CDT Stephen Azar MD LAB - HEMATOLOGY ORD ERABLES Performing Organization Address City/State/[facility] Co de Phone Number [facility] [address] [place] [address] [phone] documented in this encounter Visit Diagnoses Diagnosis Pruritus of vulva- Primary Pruritus of genital organs examination or test, unconfirmed documented in this encounter Care Teams Client Liaison Relationship Specialty Start Date End Date Maxi Serna MD [facility] [place] [address] PCP - General Family Medicine 08/09/17 documented as of this encounter
--- OUTSIDE RECORDS SUMMARY | 2024-07-04 00:41 | XMS_ITS | Clinical Summary ---
Author Organization [facility] Address [address] [place] [address] Phone Care Team Providers Care Car Inspector Name Role Phone Jackie Matt Primary Care Provider Zane Griffith MD Unavailable Allergies Active Allergy Reactions Criticality Noted Date Comments Amoxicillin-Pot Clavulanate Hives,Rash Medium 08/09/19 18 Medications ondansetron (ZOFRAN-ODT) 4 MG TABLET DISPERSIBLE Take 1 Tablet by mouth every 8 hours as needed for Nausea - 1st line. 10 Tablet 4 Active Additional Information Patient not taking.Reported on 02/15/2024 dicyclomine (BENTYL) 20 MG Tablet Take 1 Tablet by mouth every 6 hours. 30 Tablet 4 Active Additional Information Patient not taking.Reported on 02/15/2024 letrozole (FEMARA) 2.5 MG Tablet TAKE 2 TABLETS BY MOUTH ONCE DAILY DIRECTED Active Norethindrone Acetate 5 MG Tablet Active sertraline (ZOLOFT) 50 MG Tablet TAKE 1 TABLET BY MOUTH DAILY DIRECTED Active Family History Medical History Relation Name Comments No Known Problems Brother No Known Problems Father No Known Problems Maternal Grandmother Asthma Mother Chronic Obstructive Pulmonary Disease Mother Alzheimer's Disease Paternal Grandfather Bladder cancer Paternal Grandfather Heart Attack Paternal Grandfather Breast Cancer Paternal Grandmother Cancer Paternal Grandmother Multipl e Myeloma Lung Cancer Paternal Grandmother Melanoma Paternal Grandmother Relation Name Status Comments Brother Alive Father Alive Half-Brother Alive Half-Sister Alive Maternal Grandfather Unknown Maternal Grandmother Alive Mother Alive Paternal Grandfather Alive Paternal Grandmother Social History Tobacco Use Types Packs/Day Years Used Date Smoking Tobacco: Never Smokeless Tobacco: Never Tobacco Cessation:Counseling Given: Not Answered Alcohol Use Standard Drinks/Week Comments Yes 0 (1 standard drink = 0.6 oz pur e alcohol) Scoially on weekends Comments No Sex and Gender Information Value Date Recorded Sex Assigned at Not on file Legal Sex Female 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 ATTENDANT Gender Identity Not on file Sexual Orientation Not on file Last Filed Vital Signs Vital Sign Reading Time Taken Comments Blood Pressure 124/70 02/15/2024 1:09 PM CDT Pulse 69 02/15/2024 1:09 PM CDT Temperature 36.4 ??C (97.6 ??F) 02/15/2024 1:09 PM CD T Respiratory Rate 16 02/15/2024 1:09 PM CDT Oxygen Saturation 97% 02/15/2024 1:09 PM CDT Inhaled Oxygen Concentration - - Weight 91.2 kg (201 lb) 02/15/2024 1:09 PM CDT Height 167.6 cm (5' 6 ) 02/15/2024 1:09 PM CDT Body Mass Index 32.44 02/15/2024 1:09 PM CDT Plan of Treatment Health Maintenance Due Date Last Done Comments Hepatitis C Virus (HCV) Screening 1992 TdaP Immunization 1992 Hepatitis B Immunization (1 of 3 - 19+ 3-dose series) 01/24/2011 Pap Smear 01/24/2013 Cervical Cancer Screening (CCS) 01/24/2022 HPV/Cotest 01/24/2022 Influenza Immunization (#1) 2024 04/20/2021 SARS-COV-2 Immunization ( season) 2024 04/20/2021, 07/04/2020, 06/13/2020 Respiratory Syncytial Virus (RSV) Immunization (Adult) (1 - 1-dose 75+ series) 01/24/2067 Meningococcal Immunization (ACWY) Aged Out No longer eligible b ased on patient's age to complete this topic Pneumococcal Immunization Combined Aged Out No longer eligible b ased on patient's age to complete this topic Rotavirus Immunization Aged Out No lo nger eligible based on patient's age to complete this topic Insurance [facility] [place] [id number] Care Teams Car Inspector Relationship Specialty Start Date End Date Jackie Matt PA [address] [place] [address] PCP - General Family Medicine 02/15/24 Zane Griffith MD [address] [phone] Consulting Physician General Surgery 02/15/24
--- OUTSIDE RECORDS SUMMARY | 2024-07-04 00:41 | XMS_ITS | Encounter Summary ---
Author Organization [facility] Address [address] [facility] [place] [address] Care Team Providers Care Needle Straightener Name Role Phone Maxi Serna MD Primary Care Provider Encounter Details Date Type Department Care Team (Latest Contact Info) Description 02/02/2021 Travel Social History Tobacco Use Types Packs/Day [...] have Coronavirus / COVID-19? No / Unsure 02/02/2021 7:14 AM CDT documented as of this encounter Plan of Treatment Not on file documented as of this encounter Visit Diagnoses Not on filedocumented in this encounter Care Teams Needle Straightener Relationship Specialty Start Date End Date Maxi Serna MD [address] [facility] [place] [address] PCP - General Family Medicine 08/09/17 documented as of this encounter
--- OUTSIDE RECORDS SUMMARY | 2024-07-04 00:41 | XMS_ITS | Encounter Summary ---
Author Organization [facility] Address [address] [facility] [place] [address] Care Team Providers Care Insert Cutter Name Role Phone Maxi Serna MD Primary Care Provider [phone] Encounter Details Date Type Department Care Team (Late st Contact Info) Description 01/23/2024 Orders Only [facility] [address] [place] [phone] Bel Faulkner MD Encounter for assisted reproductive fertility procedure cycle Social History Tobacco Use Types Packs/Day Years Used Date Smoking Tobacco: Never Smokeless Tobacco: Never Sex and Gender Information Value Date Recorded Sex Assigned at Not on file Gender Identity Not on file Sexual Orientation Not on file documented as of this encounter Plan of Treatment Not on file documented as of this encounter Visit Diagnoses Diagnosis Encounter for assisted reproductive fertility procedure cycle documented in this encounter Care Teams Insert Cutter Relationship Specialty Start Date End Date Maxi Serna MD [facility] [place] [address] PCP - General Family Medicine 08/09/17 documented as of this encounter
--- OUTSIDE RECORDS SUMMARY | 2024-07-04 00:41 | XMS_ITS | Encounter Summary ---
Author Organization [facility] Address [address] [facility] [place] [address] Care Team Providers Care Legal Support Assistant Name Role Phone Maxi Serna MD Primary Care Provider [phone] Encounter Details Date Type Department Care Team (Latest Contact Info) Description 01/02/2021 7:04 AM CDT - 01/02/2021 11:59 PM CDT Hospital Encounter [facility] OP DRAW STATION [address] [place] [phone] Stephen Azar MD [address] [phone] Discharge Disposition: Home or Self [...] have Coronavirus / COVID-19? No / Unsure 01/02/2021 6:55 AM CDT documented as of this encounter [...] Procedure Name Priority Date/Time Associated Diagnosis Comments PROGESTERONE Routine 01/02/2021 7:22 AM CDT Anovulation documented in this encounter Results * PROGESTERONE (01/02/2021 7:22 AM CDT) Progesterone HPLC-MS/MS 22.57 ng/mL 01/04/2021 7:59 PM CDT [employer] ([facility]) Comment: Females, 17 years and older ??Cycle [...] reference intervals for this test in the [facility] Test Directory ([employer]). This test was developed and its performance characteristics determined by [facility]. It has not been cleared or approved by the US Food and Drug Administration. This test was performed in a CLIA certified laboratory and is intended for clinical purposes. Performed By: [email or web address] [address] [place] [id number] Demolition Worker: Anika Sharma MD Blood BLOOD SPECIMEN / Unknown Lab Venipuncture / Unknown 01/02/2021 7:22 AM CDT 01/02/2021 8:29 AM CDT Provider Unknown LAB - CHEMISTRY EDUAR Kurtz Organization Address City/State/ZIP Co de Phone Number [facility] ([facility]) [address] [id number] documented in this encounter Visit Diagnoses Diagnosis Anovulation- Primary Female infertility associated with anovulation documented in this encounter Care Teams Legal Support Assistant Relationship Specialty Start Date End Date Maxi Serna MD [address] [place] [address] PCP - General Family Medicine 08/09/17 documented as of this encounter
--- OUTSIDE RECORDS SUMMARY | 2024-07-04 00:41 | XMS_ITS | Encounter Summary ---
Author Organization [facility] Address [address] [place] [address] Care Team Providers Care Equipment Scheduler Name Role Phone Maxi Serna MD Primary Care Provider [phone] Encounter Details Date Type Department Care Team (Late st Contact Info) Description 12/13/2023 Orders Only [facility] [address] [place] [phone] Bel Faulkner MD Encounter for assisted reproductive [...] cycle documented in this encounter Care Teams Equipment Scheduler Relationship Specialty Start Date End Date Maxi Serna MD [facility] [place] [address] PCP - General Family Medicine 08/09/17 documented as of this encounter
--- OUTSIDE RECORDS SUMMARY | 2024-07-04 00:41 | XMS_ITS | Encounter Summary ---
Author Organization [facility] Address [address] [facility] [place] [address] Care Team Providers Care Climbing Guide Name Role Phone Maxi Serna MD Primary Care Provider [phone] Encounter Details Date Type Department Care Team (Latest Contact Info) Description 02/02/2021 7:15 AM CDT - 02/02/2021 11:59 PM CDT Hospital Encounter [facility] OP DRAW STATION [address] [place] [phone] Stephen Azar MD [address] [phone] Discharge Disposition: Home or Self [...] Priority Date/Time Associated Diagnosis Comments PROGESTERONE Routine 02/02/2021 7:35 AM CDT Anovulation documented in this encounter Results * PROGESTERONE (02/02/2021 7:35 AM CDT) Progesterone HPLC-MS/MS 29.12 ng/mL 02/05/2021 10:41 AM CDT [employer] ([facility]) Comment: Females, 17 years and older [...] reference intervals for this test in the [facility] Test Directory ([employer]). This test was developed and its performance characteristics determined by [facility]. It has not been cleared or approved by the US Food and Drug Administration. This test was performed in a CLIA certified laboratory and is intended for clinical purposes. Performed By: [facility] [address] [place] [id number] Ophthalmic Nurse: Anika Sharma MD Blood BLOOD SPECIMEN / Unknown Lab Venipuncture / Unknown 02/02/2021 7:35 AM CDT 02/02/2021 8:13 AM CDT Stephen Azar MD LAB - CHEMISTRY EDUAR [place] [facility] Organization Address City/State/ZIP Co de Phone Number [facility] ([facility]) [address] [place] [address], [facility] documented in this encounter Visit Diagnoses Diagnosis Anovulation- Primary Female infertility associated with anovulation documented in this encounter Care Teams Climbing Guide Relationship Specialty Start Date End Date Maxi Serna MD [facility] [place] [address] PCP - General Family Medicine 08/09/17 documented as of this encounter
--- OUTSIDE RECORDS SUMMARY | 2024-07-04 00:41 | XMS_ITS | Encounter Summary ---
Author Organization [facility] Address [address] [place] [address] Care Team Providers Care Production Hardener Name Role Phone Cristin Lucas MD Primary Care Provider Unavailab le Encounter Details Date Type Department Care Team (Latest Contact Info) Description 07/23/2009 8:55 PM EC TEACHER - 07/24/2009 12:59 AM EC TEACHER Hospital Encounter ER at [address] [address] Md Otoniel [address] [place] [address] Calixto Hale MD [address] [place] [id number] Discharge Disposition: Home or Self Care Social History Tobacco Use Types Packs/Day Years Used Date Smoking Tobacco: Never Assessed Sex and Gender Information Value Date Recorded Sex Assigned at Not on file Gender Identity Not on file Sexual Orientation Not on file documented as of this encounter Plan of Treatment Scheduled Orders Name Type Priority Associated Diagnoses Orde r Schedule XR ABDOMEN 1 VW Imaging STAT ONCE for 1 Occurrences starting 07/23/2009 until 07/23/2009, 1 completed documented as of this encounter Procedures Procedure Name Priority Date/Time Associated Diagnosis Comments XR ABDOMEN KUB STAT 07/24/2009 12:13 AM EC TEACHER HCG URINE QUALITATIVE STAT 07/23/2009 11:40 PM EC TEACHER documented in this encounter Results * XR ABDOMEN 1 VW (07/24/2009 12:13 AM EC TEACHER) Anatomical Region Laterality Modality Abdomen Other 07/24/2009 12:1 3 AM EC TEACHER Narrative 07/24/2009 8:32 AM EC TEACHER Abdomen, one view July 24, 2009 Lung bases are clear. An IUD is in place over the pelvis. Gas pattern is normal. There is no obstruction or free air. Impression- No acute disease. ? Reading Radiologist- CHARLY RODRIGUES MD ? Releasing RadiologistSammie RODRIGUES MD ? Released Date Time- 07/24/09832 ? Business Planning AnalystSammie RODRIGUES MD ? ADM- CALIXTO HALE ?ATT- CALIXTO HALE ORD- CALIXTO HALE ?CON- PCP- CRISTIN TOVAR ?SCP- Procedure Note El Rodrigues MD - 07/24/2009 Abdomen, one view July 24, 2009 Lung bases are clear. An IUD is in place over the pelvis. Gas pattern is normal. There is no obstruction or free air. Impression- No acute disease. Reading RadiologistSammie RODRIGUES MD Releasing RadiologistSammie RODRIGUES MD Released Date Time- 07/24/09832 Business Planning Analyst- CHARLY RODRIGUES MD CALIXTO FAJARDO,CALIXTO DUNN- CRISTIN TOVAR [facility]- Calixto Hale MD DIAGNOSTIC IMAGING O RDERABLES * HCG URINE QUALITATIVE (07/23/2009 11:40 PM EC TEACHER) HCG Qual Urine Negative Negative [facility] URINE / Unknown 07/23/2009 1 1:40 PM EC TEACHER Calixto Hale MD LAB - URINALYSIS ORD [facility] documented in this encounter Visit Diagnoses Not on filedocumented in this encounter Care Teams Production Hardener Relationship Specialty Start Date End Date Cristin Lucas MD No forwarding information PCP - General 07/23/09 2 8 documented as of this encounter
--- OUTSIDE RECORDS SUMMARY | 2024-07-04 00:41 | XMS_ITS | Encounter Summary ---
Author Organization [facility] Address [address] [facility] [place] [address] Care Team Providers Care Network Systems Administrator Name Role Phone Maxi Serna MD Primary Care Provider [phone] Encounter Details Date Type Department Care Team (Latest Contact Info) Description 02/10/2021 Travel Social History Tobacco Use Types Packs/Day [...] on filedocumented in this encounter Care Teams Network Systems Administrator Relationship Specialty Start Date End Date Maxi Serna MD [address] [facility] [place] [address] PCP - General Family Medicine 08/09/17 documented as of this encounter
--- OUTSIDE RECORDS SUMMARY | 2024-07-04 00:41 | XMS_ITS | Encounter Summary ---
Author Organization [facility] Address [address] [facility] [place] [address] Care Team Providers Care Air Pollution Analyst Name Role Phone Maxi Serna MD Primary Care Provider [phone] Reason for Visit * Reason Comments URI Encounter Details Date Type Department Care Team (Late st Contact Info) Description 08/09/2017 6:20 PM BUSINESS FUNCTIONAL ANALYST Office Visit [facility] AT [address] [phone] [facility] Hom[facility] Rumsey Influenza A (Primary Dx) Social History Tobacco Use Types Packs/Day Years Used Date Smoking Tobacco: Never Smokeless Tobacco: Never Sex and Gender Information Value Date Recorded Sex Assigned at Not on file Gender Identity Not on file Sexual Orientation Not on file documented as of this encounter Last Filed Vital Signs Vital Sign Reading Time Taken Comments Blood Pressure 120/74 08/09/2017 3:06 PM BUSINESS FUNCTIONAL ANALYST Pulse 101 08/09/2017 3:06 PM BUSINESS FUNCTIONAL ANALYST Temperature 37.7 ??C (99.8 ??F) 08/09/2017 3:06 PM CS T Respiratory Rate 16 08/09/2017 3:06 PM BUSINESS FUNCTIONAL ANALYST Oxygen Saturation 99% 08/09/2017 3:06 PM BUSINESS FUNCTIONAL ANALYST Inhaled Oxygen Concentration - - Weight 65.8 kg (145 lb) 08/09/2017 3:06 PM BUSINESS FUNCTIONAL ANALYST Height 167.6 cm (5' 6 ) 08/09/2017 3:06 PM BUSINESS FUNCTIONAL ANALYST Body Mass Index 23.4 08/09/2017 3:06 PM BUSINESS FUNCTIONAL ANALYST documented in this encounter Patient Instructions * Patient Instructions* Rekha Hanson, FRUIT SHIPPER-HYDRAULIC CORRUGATING MACHINE OPERATOR - 08/09/2017 3:19 PM BUSINESS FUNCTIONAL ANALYST Images from the original note were not included. Influenza WHEEL AND CASTER REPAIRER: Influenza (the flu) is an infection caused by the influenza virus. The flu is easily spread when aninfected person coughs, sneezes, or has close contact with others. You may be able to spread the flu to others for 1 week or longer after signs or symptoms appear. Common signs and symptoms include the following: ?? Fever and chills ?? Headaches, body aches, and muscle or joint pain ?? Cough, runny nose, and sore throat ?? Loss of appetite, nausea, vomiting, or diarrhea ?? Tiredness ?? Trouble breathing Call 911 for any of the following: ?? You have trouble breathing, and your lips look purple or blue. ?? You have a seizure. Seek care immediately if: ?? You are dizzy, or you are urinating less or not at all. ?? You have a headache with a stiff neck, and you feel tired or confused. ?? You have new pain or pressure in your chest. ?? Your symptoms, such as shortness of breath, vomiting, or diarrhea, get worse. ?? Your symptoms, such as fever and coughing, seem to get better, but then get worse. Contact your healthcare provider if: ?? You have new muscle pain or weakness. ?? You have questions or concerns about your condition or care. Treatment for influenza may include any of the following: ?? Acetaminophen decreases pain and fever. It is available without a doctor's order. Ask how much to take and how often to take it. Follow directions. Acetaminophen can cause liver damage if not taken correctly. ?? NSAIDs , such as ibuprofen, help decrease swelling, pain, and fever. This medicine is available with or without a doctor's order. NSAIDs can cause stomach bleeding or kidney problems in certain people. If you take blood thinner medicine, always ask your healthcare provider if NSAIDs are safe foryou. Always read the medicine label and follow directions. ?? Antivirals help fight a viral infection. Manage your symptoms: ?? Rest as much as you can to help you recover. ?? Drink liquids as directed to help prevent dehydration. Ask how much liquid to drink each day andwhich liquids are best for you. Prevent the spread of the flu: ?? Wash your hands often. Use soap and water. Wash your hands after you use the bathroom, change a child's diapers, or sneeze. Wash your hands before you prepare or eat food. Use gel hand cleanser that has 60% alcohol, when soap and water are not available. Do not touch your eyes, nose, or mouth unless you have washed your hands first. ?? Cover your mouth when you sneeze or cough. Cough into a tissue or the bend of your arm. If you use a tissue, throw it away immediately and wash your hands. ?? Clean shared items with a germ-killing pool cleaner. Clean table surfaces, doorknobs, and light switches. Do not share towels, silverware, and dishes with people who are sick. Wash bed sheets, towels, silverware, and dishes with soap and water. ?? Wear a mask over your mouth and nose if you are sick. The face mask may help protect others frombecoming infected with the flu. Wear the mask when in common areas of your home or if you seek carewith a healthcare provider. ?? Stay away from others if you are sick. Stay at home until 24 hours after your fever and symptomsare gone. ?? Influenza vaccine helps prevent influenza (flu). Everyone older than 6 months should get a yearly influenza vaccine. Get the vaccine as soon as it is available, usually in February or March each year. Follow up with your healthcare provider as directed: Write down your questions so you remember to ask them during your visits. ?? 2017 [employer] Information is for End User's use only and may not be sold, redistributed or otherwise used for commercial purposes. All illustrations and images included in CareNotes?? are the copyrighted property of [employer] or [employer] App Review Source. The above information is an child care aide only. It is not intended as medical advice for individual conditions or treatments. Talk to your doctor, nurse or pharmacist before following any medical regimen to see if it is safe and effective for you. NESS FUNCTIONAL ANALYST documented in this encounter Progress Notes * Rekha Hanson APRN-CNP - 08/09/2017 3:05 PM CST Subjective: Yesica Fitzgerald is a 27 y.o. female who presents for evaluation: Chief Complaint Patient presents with ??? URI Primary Care Physician is Maxi Serna MD. Symptoms include: Pt started with body aches on Tuesday afternoon around 2pm, then Tuesday night she had 102F fever. Pt also has chest congestion, non productive cough, then this am had small amount ofsputum production. No sore throat, no sinus pressure or pain, No ear pain. Onset of symptoms was 2 days ago, unchanged since that time. . She is drinking moderate amounts of fluids. Evaluation to date: none. Treatment to date: theraflu and ibuprofen Allergies Allergen Reactions ??? Augmentin Rash Outpatient Prescriptions Marked as Taking for the 08/09/17 encounter (Office Visit) with Provider, Max Gottliebwood Medication Sig ??? Levonorgestrel (MIRENA, 52 MG, IU) Past Medical History: Diagnosis Date ??? Endometriosis Social History Social History ??? Marital status: Single Spouse name: N/A ??? Number of children: N/A ??? Years of education: N/A Occupational History ??? Not on file. Social History Main Topics ??? Smoking status: Never Smoker ??? Smokeless tobacco: Never Used ??? Alcohol use Not on file ??? Drug use: Not on file ??? Sexual activity: Not on file Other Topics Concern ??? Not on file Social History Narrative ??? No narrative on file Medications reviewed. Review of Systems Pertinent items are noted in HPI Constitutional: Positive for fatigue, fevers, chills, sweats Eyes: Negative Ears, nose, mouth, and throat: Negative Respiratory: Positive for acute cough Cardiovascular: Negative Gastrointestinal: Negative Genitourinary:Negative Skin: Negative Musculoskeletal:generalized body aches Neurological: Positive for headaches Objective: BP 120/74 (BP SITE: LEFT ARM, BP POSITION: SITTING, BP CUFF SIZE: Adult) Pulse 101 Temp 99.8 ??F (Oral) Resp 16 Ht 1.676 m (5' 6 ) Wt 65.8 kg (145 lb) SpO2 99% BMI 23.4 kg/m2 Skin: Physical Exam Exam General appearance: alert, cooperative, no distress, oriented to person, place, and time, wellappearing Head: normocephalic, without trauma Eyes: sclera and conjunctiva clear, EOMI and PERRLA, lids normal Ears: canals clear, tympanic membranes normal, hearing intact to voice Nose: nares open; no septal deviation is noted, nasal mucosa not inflamed, no maxillary tenderness Throat: no mucous membrane abnormalities, lips, mucosa, and tongue normal; teeth and gums normal Neck: range of motion is intact, no masses, Nodes: no cervical adenopathy Lungs: breath sounds normal and symmetric; no rales or wheezes Heart: regular rhythm, normal S1 and S2, without murmurs, gallops or rubs Neurologic: mental status normal; alert and oriented X 3; Assessment: . Encounter Diagnoses Name Primary? Influenza A Yes Plan: Discussed dx and tx of URIs Discussed the importance of avoiding unnecessary abx therapy. Suggested symptomatic OTC remedies. RTC prn. Discussed with pt the possible risk and side effects of tamiflu, Also discussed that pt is just over the 48 hour recommend time frame for tamiflu. pt states understanding and declined script. Drink plenty of fluids and get plenty of rest If symptoms persist greater than 7-10 days or worsen at any time, follow up with a health care provider, clinic or emergency care Educational material given on influenza Work/School note offered-given Continue to follow up with Maxi Serna MD as directed. After Visit Summary reviewed with patient. The patient indicates understanding of these issues and agrees with the plan. Patient discharged to Home .EUGENIA Reyna 08/09/2017 3:31 PM Orders Placed This Encounter ??? INFLUENZA A+B - POINT OF CARE (AMB) Recent Results (from the past 24 hour(s)) INFLUENZA A+B - POINT OF CARE (AMB) Collection Time: 08/09/17 3:18 PM Result Value Ref Range Influenza A Ag Positive (Abnormal) Negative Influenza B Ag Negative Negative Influenza Control present NEGATIVE - POSITIVE Influenza Lot# [id number] Influenza Expir Date 04 18 2019 NESS FUNCTIONAL ANALYST documented in this encounter Plan of Treatment Not on file documented as of this encounter Procedures Procedure Name Priority Date/Time Associated Diagnosis Comments INFLUENZA A+B - POINT OF CARE (AMB) Routine 08/09/2017 3:18 PM BUSINESS FUNCTIONAL ANALYST Influenza A documented in this encounter Results * (ABNORMAL) INFLUENZA A+B - POINT OF CARE (AMB) (08/09/2017 3:18 PM BUSINESS FUNCTIONAL ANALYST) Influenza A Antigen Rapid Positive(A) Negative Influenza B Antigen Rapid Negative Negative Influenza Internal Control present NEGATIVE - POSITIVE Influenza Lot Number [id number] Influenza Expiration Date 04 18 2019 Other NASOPHARYNGEAL SWAB / Unknown 08/09/2017 3:18 PM BUSINESS FUNCTIONAL ANALYST Rekha Hanson FRUIT SHIPPER-HYDRAULIC CORRUGATING MACHINE OPERATOR LAB - POINT OF CA RE ORDERABLES documented in this encounter Visit Diagnoses Diagnosis Influenza A- Primary documented in this encounter Care Teams Air Pollution Analyst Relationship Specialty Start Date End Date Maxi Serna MD [address] [place] [address] PCP - General Family Medicine 08/09/17 documented as of this encounter
--- OUTSIDE RECORDS SUMMARY | 2024-07-04 00:41 | XMS_ITS | Encounter Summary ---
Author Organization [facility] Address [address] [place] [address] Care Team Providers Care Projects Manager Name Role Phone Maxi Serna MD Primary Care Provider [phone] Encounter Details Date Type Department Care Team (Late st Contact Info) Description 09/19/2023 Orders Only [facility] [address] [place] [phone] Tye Cuevas MD [address] [facility] [place] [address] Social History Tobacco Use Types Packs/Day Years [...] on filedocumented in this encounter Care Teams Projects Manager Relationship Specialty Start Date End Date Maxi Serna MD [facility] [place] [address] PCP - General Family Medicine 08/09/17 documented as of this encounter
--- OUTSIDE RECORDS SUMMARY | 2024-07-04 00:41 | XMS_ITS | Encounter Summary ---
Author Organization [facility] Address [address] [facility] [place] [address] Care Team Providers Care Manager Animation Name Role Phone Maxi Serna MD Primary Care Provider [phone] Encounter Details Date Type Department Care Team (Latest Contact Info) Description 09/17/2022 Travel Social History Tobacco Use Types Packs/Day [...] PM CDT documented as of this encounter Plan of Treatment Not on file documented as of this encounter Visit Diagnoses Not on filedocumented in this encounter Care Teams Manager Animation Relationship Specialty Start Date End Date Maxi Serna MD [address] [place] [address] PCP - General Family Medicine 08/09/17 documented as of this encounter
--- OUTSIDE RECORDS SUMMARY | 2024-07-04 00:41 | XMS_ITS | Encounter Summary ---
Author Organization [facility] Address [address] [place] [address] Phone Care Team Providers Care Flat Bed Operator Name Role Phone Jackie Matt Primary Care Provider [phone] Zane Griffith MD Unavailable [phone]- [phone] Reason for Referral * Consult, Test & Initiate Treatment (Routine) - Canceled Specialty Diagnoses / Procedures Referred By Contac t Referred To Contact Diagnoses Epigastric pain Zane Griffith MD [address] [address] Phone: tel: fax: [facility] - Gastroenterology [facility] [address] [place] [address] Phone: tel: fax: Referral ID Status Reason Start Date Expiration Date V isits Requested Visits Authorized [id number] Canceled 02/15/2024 1 1 Scheduling Instructions Yesica is being referred for abdominal pain, needs EGD. Please contact patient for scheduling questions or concerns. * Radiology Services (Routine) - Closed Specialty Diagnoses / Procedures Referred By Contac t Referred To Contact Radiology Diagnoses Epigastric pain Procedures NM HEPATOBILIARY WITH PHARM Zane Griffith MD [address] [address] Phone: tel: fax: Referral ID Status Reason Start Date Expiration Date Visits Re quested Visits Authorized [id number] Closed 02/15/2024 1 1 Reason for Visit * Reason Comments Other ED F/U gallbladder d istension Encounter Details Date Type Department Care Team (Late st Contact Info) Description 02/15/2024 1:30 PM CDT Office Visit [facility] - General Surgery - [place] [address] [address] Zane Griffith MD [address] [address] Epigastric pain (Primary Dx) Discharge Disposition: Discharged to home or Selfcare [...] on file Legal Sex 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 There is no gallstones. I will recommend HIDA scan and GI consultation for potential EGD to rule out gastritis. Patient expressed understanding. Orders were placed. Total time spent on this encounter on this date of service, including pre-visit review of separately obtained history, [id number] interaction performing medically appropriate physical exam, patientcounseling/education, interpretation of diagnostic results, care coordination and documentation was45 minutes. Subjective: HPI: Yesica Fitzgerald is a 34 y.o. female who I was asked to see by JOSE J BARKLEY for abdominal pain. She is a very pleasant lady, she works as a nurse at [employer], she has had these severe right upper quadrant as well as epigastric pain for the last week or so, unrelated to food intake, sometimes associated nausea and emesis she had to come to the ER at least twice, she had a CT scan as well as an ultrasound performed which were unremarkable. She is here for evaluation. There are no problems to display for this patient. Allergies Allergen Reactions Amoxicillin-Pot Clavulanate Hives and Rash Cannot display prior to admission medications because the patient has not been admitted in this contact. Current Outpatient Medications on File Prior to Visit Medication Sig Dispense Refill dicyclomine (BENTYL) 20 MG Tablet Take 1 Tablet by mouth every 6 hours. (Patient not taking: Reported on 02/15/2024) 30 Tablet 0 letrozole (FEMARA) 2.5 MG Tablet TAKE 2 TABLETS BY MOUTH ONCE DAILY DIRECTED Norethindrone Acetate 5 MG Tablet ondansetron (ZOFRAN-ODT) 4 MG TABLET DISPERSIBLE Take 1 Tablet by mouth every 8 hours as needed forNausea - 1st line. (Patient not taking: Reported on 02/15/2024) 10 Tablet 0 sertraline (ZOLOFT) 50 MG Tablet TAKE 1 TABLET BY MOUTH DAILY DIRECTED No current facility-administered medications on file prior to visit. Past Medical History Positives Diagnosis Date Endometriosis Past Surgical History: Procedure Laterality Date DILATION AND CURETTAGE OF UTERUS 03/16/23, 10/18 KNEE ARTHROSCOPY Right 2022 Family History Problem Relation Age of Onset Chronic Obstructive Pulmonary Disease Mother Asthma Mother No Known Problems Father No Known Problems Brother No Known Problems Maternal Grandmother Cancer Paternal Grandmother Multiple Myeloma Breast Cancer Paternal Grandmother Lung Cancer Paternal Grandmother Melanoma Paternal Grandmother Heart Attack Paternal Grandfather Alzheimer's Disease Paternal Grandfather Bladder cancer Paternal Grandfather Social History Socioeconomic History Marital status: Spouse name: Not on file Number of children: Not on file Years of education: Not on file Highest education level: Not on file Occupational History Not on file Tobacco Use Smoking status: Never Smokeless tobacco: Never Vaping Use Vaping status: Former Substance and Sexual Activity Alcohol use: Yes Comment: Scoially on weekends Drug use: Never Sexual activity: Not on file Other Topics Concern Not on file Social History Narrative Not on file Social Determinants of Health Financial Resource Needs: Not on file Food Insecurity Needs: Not on file Transportation Needs: Not on file Physical Activity: Not on file Stress: Not on file Social Integration: Not on file Intimate Partner Violence: Not on file Housing Stability: Not on file Review of Systems: Review of Systems Gastrointestinal: Positive for abdominal pain, nausea and vomiting. All other systems reviewed and are negative. Pertinent items are noted in HPI. All other systems were reviewed and were negative. Objective: VITALS: BP 124/70 (BP Location: Left Arm, BP Position: Sitting, BP Cuff Size: Regular) Pulse 69 Temp 97.6 ??F (36.4 ??C) (Temporal) Resp 16 Ht 5' 6 (1.676 m) Wt 201 lb (91.2 kg) LMP (LMPUnknown) SpO2 97% BMI 32.44 kg/m?? Physical Exam Vitals and nursing note reviewed. Constitutional: Appearance: Normal appearance. HENT: Head: Normocephalic and atraumatic. Right Ear: External ear normal. Left Ear: External ear normal. Nose: Nose normal. Mouth/Throat: Mouth: Mucous membranes are moist. Pharynx: Oropharynx is clear. Eyes: Extraocular Movements: Extraocular movements intact. Conjunctiva/sclera: Conjunctivae normal. Pupils: Pupils are equal, round, and reactive to light. Cardiovascular: Rate and Rhythm: Normal rate and regular rhythm. Pulses: Normal pulses. Heart sounds: Normal heart sounds. Pulmonary: Effort: Pulmonary effort is normal. Breath sounds: Normal breath sounds. Abdominal: General: Bowel sounds are normal. Palpations: Abdomen is soft. Musculoskeletal: General: Normal range of motion. Cervical back: Normal range of motion and neck supple. Skin: General: Skin is warm. Capillary Refill: Capillary refill takes less than 2 seconds. Neurological: General: No focal deficit present. Mental Status: She is alert and oriented to person, place, and time. Mental status is at baseline. Psychiatric: Mood and Affect: Mood normal. Behavior: Behavior normal. Thought Content: Thought content normal. Judgment: Judgment normal. Data Review: Recent Labs Units 02/15/24 0653 ALBUMIN g/dL 4.5 TBIL mg/dL 0.4 ALKALINEPHO U/L 55 SGOTAST U/L 17 SGPTALT U/L 14 TOTALPROTEIN g/dL 7.1 Lab Results Component Value Date WBC 6.33 02/15/2024 HEMOGLOBIN 12.2 02/15/2024 HEMATOCRIT 37.0 02/15/2024 PLATELETCNT 299 02/15/2024 SGPTALT 14 02/15/2024 SGOTAST 17 02/15/2024 SODIUM 140 02/15/2024 POTASSIUM 3.9 02/15/2024 CHLORIDE 108 (H) 02/15/2024 CREATININE 1.01 (H) 02/15/2024 BUN 16 02/15/2024 CO2VEN 23 02/15/2024 GLUCOSE 101 (H) 02/15/2024 I personally reviewed the above labs and radiological studies (images if available and reports), and agree with the radiologist unless stated above. By: Zane Griffith MD, 02/15/2024, 1:44 PM CDT Primary Care Physician: JOSE J BARKLEY documented in this encounter Plan of Treatment Scheduled Orders Name Type Priority Associated Diagnoses Orde r Schedule NM HEPATOBILIARY WITH PHARM Imaging Routine Epigastric pain Expected: 02/29/2024, Expires: 03/16/2024 Scheduled Referrals Name Type Priority Associated Diagnoses Order Schedule GASTROENTEROLOGY REFERRAL Outpatient Referral Routine Epigastric pain Expected: 02/15/2024, Expires: 02/14/2025 documented as of this encounter Visit Diagnoses Diagnosis Epigastric pain- Primary Abdominal pain, epigastric documented in this encounter Care Teams Flat Bed Operator Relationship Specialty Start Date End Date Jackie Matt PA [address] [facility] [place] [address] PCP - General Family Medicine 02/15/24 Zane Griffith MD #[address] [phone] Consulting Physician General Surgery 02/15/24 documented as of this encounter
--- OUTSIDE RECORDS SUMMARY | 2024-07-04 00:41 | XMS_ITS | Encounter Summary ---
Author Organization [facility] Address [address] [place] [address] Care Team Providers Care Amf Mechanic Name Role Phone Cristin Lucas MD Primary Care Provider Unavailab le Encounter Details Date Type Department Care Team (Late st Contact Info) Description 07/25/2009 12:01 AM PRESS BOX CUSTODIAN - 07/25/2009 11:59 PM PRESS BOX CUSTODIAN Hospital Encounter [facility] DEFAULT [address] [place] [address] Cristin Lucas MD No forwarding information Radiology Diagnostic Discharge Disposition: Home or Self Care Social History Tobacco Use Types Packs/Day Years Used Date Smoking Tobacco: Never Assessed Sex and Gender Information Value Date Recorded Sex Assigned at Not on file Gender Identity Not on file Sexual Orientation Not on file documented as of this encounter Plan of Treatment Scheduled Orders Name Type Priority Associated Diagnoses Orde r Schedule US ABDOMEN COMPLETE Imaging Routine ONCE for 1 Occurrences starting 07/25/2009 until 07/25/2009, 1 completed US PELVIS W DOPPLER UTERUS OVARIES Imaging Routine ONCE for 1 Occur rences starting 07/25/2009 until 07/25/2009, 1 completed documented as of this encounter Procedures Procedure Name Priority Date/Time Associated Diagnosis Comments US PELVIS W DOPPLER OVARIES Routine 07/25/2009 8:18 AM PRESS BOX CUSTODIAN Abdominal Pain, Unspecified Site US ABDOMEN COMPLETE Routine 07/25/2009 8 :18 AM PRESS BOX CUSTODIAN Abdominal Pain, Unspecified Site documented in this encounter Results * US PELVIS W DOPPLER UTERUS OVARIES (07/25/2009 8:18 AM PRESS BOX CUSTODIAN) Anatomical Region Laterality Modality Other 07/25/2009 8:18 AM PRESS BOX CUSTODIAN Narrative 07/25/2009 5:40 PM PRESS BOX CUSTODIAN Exam- Pelvic sonogram Date- 07/25/2009 Right ovary- [...] Impression- Multiple left corpus luteal cysts. Brett Zarate M.D. ? Reading Radiologist- CHARLY RODRIGUES MD ? Releasing Radiologist- CHARLY RODRIGUES MD ? Released Date Time- 07/25/09 174 ? Surveyor Rod Helper- GAVINO ZARATE MD ? ADM- CRISTIN TOVAR ?ATT- CRISTIN TOVAR ORD- CRISTIN TOVAR ?CON- PCP- CRISTIN TOVAR ?SCP- Procedure Note El Rodrigues MD - 07/25/2009 Exam- Pelvic sonogram Date- [...] Impression- Multiple left corpus luteal cysts. Brett Zarate M.D. Reading Radiologist- CHARLY RODRIGUES MD Releasing Radiologist- CHARLY RODRIGUES MD Released Date Time- 07/25/09 1741 Surveyor Rod Helper- GAVINO ZARATE MD - CRISTIN TOVAR ATT- CRISTIN TOVAR ORD- CRISTIN TOVAR CON- PCP- CRISTIN TOVAR SCP- Cristin Lucas MD US ORDERABLES * US ABDOMEN COMPLETE (07/25/2009 8:18 AM PRESS BOX CUSTODIAN) Anatomical Region Laterality Modality Abdomen Other 07/25/2009 8:18 AM PRESS BOX CUSTODIAN Narrative 07/25/2009 5:40 PM PRESS BOX CUSTODIAN Exam- Abdominal sonogram Date- ?? Jul 25, 2009 9-40-00 AM The liver, gallbladder, spleen, kidneys, pancreas and visible retroperitoneal great vessels are normal. This splenic height measures 10.7 cm, which is normal for age. The right kidney measures 9.7 x 3.6 x 4.0 cm. The left kidney measures 10.9 x 4.1 x 4.1 cm. Diagnosis- Normal abdominal sonogram. Brett Zarate MD. ? Reading Radiologist- CHARLY RODRIGUES MD ? Releasing Radiologist- CHARLY RODRIGUES MD ? Released Date Time- 07/25/091740 ? Surveyor Rod Helper- GAVINO ZARATE MD ? ADM- CRISTIN TOVAR ?ATT- CRISTIN TOVAR ORD- CRISTIN TOVAR ?CON- PCP- CRISTIN TOVAR ?SCP- Procedure Note El Rodrigues MD - 07/25/2009 Exam- Abdominal sonogram Date- Jul 25, 2009 9-40-00 AM The liver, gallbladder, spleen, kidneys, pancreas and visible retroperitoneal great vessels are normal. This splenic height measures 10.7 cm, which is normal for age. The right kidney measures 9.7 x 3.6 x 4.0 cm. The left kidney measures 10.9 x 4.1 x 4.1 cm. Diagnosis- Normal abdominal sonogram. Brett Zarate MD. Reading Radiologist- CHARLY RODRIGUES MD Releasing Radiologist- CHARLY RODRIGUES MD Released Date Time- 07/25/091740 Surveyor Rod Helper- GAVINO ZARATE MD ADM- CRISTIN TOVAR ATT- CRISTIN TOVAR ORD- CRISTIN TOVAR CON- PCP- CRISTIN TOVAR SCP- Cristin Lucas MD ORDERABLES documented in this encounter Visit Diagnoses Diagnosis Abdominal pain, unspecified site documented in this encounter Care Teams Amf Mechanic Relationship Specialty Start Date End Date Cristin Lucas MD No forwarding information PCP - General 07/23/09 8 documented as of this encounter
--- OUTSIDE RECORDS SUMMARY | 2024-07-04 00:41 | XMS_ITS | Encounter Summary ---
Author Organization [employer] Care Team Providers Care Manager Environmental Affairs Name Role Phone Jackie Matt Primary Care Provider [phone] Zane Griffith MD Unavailable [phone]- [phone] Encounter Details Date Type Department Care Team (Latest Contact Info) Description 02/15/2024 Travel Social History Tobacco Use Types Packs/Day Years Used Date Smoking Tobacco: Never Smokeless Tobacco: Never Alcohol Use Standard Drinks/Week Comments Yes 0 (1 standard drink = 0.6 oz pur e alcohol) Scoially on weekends Comments No Sex and Gender Information Value Date Recorded Sex Assigned at Not on file 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
--- OUTSIDE RECORDS SUMMARY | 2024-07-04 00:41 | XMS_ITS | Encounter Summary ---
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
--- OUTSIDE RECORDS SUMMARY | 2024-07-04 00:41 | XMS_ITS | Encounter Summary ---
Author Organization [facility] Address [address] [place] [address] Care Team Providers Care Road Crew Member Name Role Phone Maxi Serna MD Primary Care Provider [phone] Reason for Visit * Reason Comments Cough Congestion Encounter Details Date Type Department Care Team (Late st Contact Info) Description 04/16/2019 12:20 PM CDT Office Visit [facility] AT [address] [phone] Provider, Max Valentin [place] Lower respiratory infection (Primary Dx) Social History Tobacco Use Types [...] Mass Index 25.02 04/16/2019 12:08 PM CDT documented in this encounter Patient Instructions * Patient Instructions* Gordo Nuñez APRN-CNP - 04/16/2019 12:20 PM CDT Drink plenty of fluids Get plenty of rest Cool mist humidifier Elevate head of bed Tylenol or Ibuprofen per package direction for discomfort\fever (if not allergic) Follow up in 2-3 days if no improvement or sooner if worsening. documented in this encounter Progress Notes * Gordo Nuñez APRN-CNP - 04/16/2019 12:20 PM CDT Subjective: Yesica Fitzgerald is a 29 year old female who presents for evaluation: Chief Complaint Patient presents with ??? Cough ??? Congestion Primary Care Physician is Maxi Serna MD. Symptoms include cough. Onset of symptoms was 2 days ago, gradually worsening since that time. Dry cough that is annoying and keeps her up at night. She is drinking plenty of fluids. Evaluation to date: none. Treatment to date: none Allergies Allergen Reactions ??? Augmentin Rash Outpatient Medications Marked as Taking for the 04/16/19 encounter (Office Visit) with Provider, Max Middleton Medication Sig ??? benzonatate (TESSALON) 200 MG capsule Take 1 capsule by mouth 3 times daily as needed for Cough Past Medical History: Diagnosis Date ??? Endometriosis There is no problem list on file for this patient. Past Surgical History: Procedure Laterality Date ??? ENDOMETRIAL ABLATION Social History Socioeconomic History ??? Marital status: Single Spouse name: Not on file ??? Number of children: Not on file ??? Years of education: Not on file ??? Highest education level: Not on file Occupational History ??? Not on file Social Needs ??? Financial resource strain: Not on file ??? Food insecurity: Worry: Not on file Inability: Not on file ??? Transportation needs: Medical: Not on file Non-medical: Not on file Tobacco Use ??? Smoking status: Never Smoker ??? Smokeless tobacco: Never Used Substance and Sexual Activity ??? Alcohol use: Not on file ??? Drug use: Not on file ??? Sexual activity: Not on file Lifestyle ??? Physical activity: Days per week: Not on file Minutes per session: Not on file ??? Stress: Not on file Relationships ??? Social connections: Talks on phone: Not on file Gets together: Not on file Attends muslim service: Not on file Active member of club or organization: Not on file Attends meetings of clubs or organizations: Not on file Relationship status: Not on file ??? Intimate partner violence: Fear of current or ex partner: Not on file Emotionally abused: Not on file Physically abused: Not on file Forced sexual activity: Not on file Other Topics Concern ??? Not on file Social History Narrative ??? Not on file Medications reviewed. Review of Systems Constitutional: Negative for fatigue, fevers, chills. Eyes: Negative Ears, nose, mouth, and throat: Negative for earaches bilaterally, vertigo, sinus trouble, persistent sore throat Respiratory: Positive for acute cough, and SOB when coughing, Negative for dyspnea on exertion, pleuritic chest pain, asthma, wheezing Cardiovascular: Negative Neurological: Negative Objective: BP 118/74 (BP SITE: LEFT ARM, BP POSITION: SITTING, BP CUFF SIZE: 11) Pulse 87 Temp 98.7 ??F (37.1 ??C) (Oral) Resp 16 Ht 1.676 m (5' 6 ) Wt 70.3 kg (155 lb) SpO2 98% BMI 25.02 kg/m2 Skin: Physical Exam Exam General appearance: alert, cooperative, no distress Eyes: sclera and conjunctiva clear, EOMI and PERRLA, lids normal Ears: canals clear, tympanic membranes normal, hearing intact to voice Nose: nares open; no septal deviation is noted Throat: no mucous membrane abnormalities Neck: range of motion is intact, no masses, thyroid not enlarged, no adenopathy Lungs: breath sounds normal and symmetric; no rales or wheezes, dry cough noted on exam Heart: regular rhythm, normal S1 and S2, without murmurs, gallops or rubs Neurologic: mental status normal; alert and oriented X 3; cranial nerves II - XII are grossly intact No results found for this or any previous visit (from the past 24 hour(s)). Assessment: . Encounter Diagnoses Name Primary? Lower respiratory infection Yes Plan: Drink plenty of fluids Get plenty of rest Cool mist humidifier Elevate head of bed Tylenol or Ibuprofen per package direction for discomfort\fever (if not allergic) Follow up in 2-3 days if no improvement or sooner if worsening. We discussed the possibility of an inhaler for her intermittent SOB, but she is refusing one at this time and states she'll return if she feels like she needs one Good handwashing Orders Placed This Encounter ??? benzonatate (TESSALON) 200 MG capsule Sig: Take 1 capsule by mouth 3 times daily as needed for Cough Dispense: 30 capsule Refill: 0 Continue to follow up with Maxi Serna MD as directed. After Visit Summary reviewed with patient. The patient indicates understanding of these issues and agrees with the plan. Patient discharged to Home .EUGENIA Soler 04/16/2019 12:20 PM documented in this encounter Plan of Treatment Not on file documented as of this encounter Visit Diagnoses Diagnosis Lower respiratory infection- Primary Other diseases of respiratory system, not elsewhere classified documented in this encounter Care Teams Road Crew Member Relationship Specialty Start Date End Date Maxi Serna MD [address] [place] [id number] PCP - General Family Medicine 08/09/17 documented as of this encounter
--- OUTSIDE RECORDS SUMMARY | 2024-07-04 00:41 | XMS_ITS | Encounter Summary ---
Author Organization [facility] Address [address] [place] [address] Care Team Providers Care Street Superintendent Name Role Phone Maxi Serna MD Primary Care Provider [phone] Encounter Details Date Type Department Care Team (Latest Contact Info) Description 01/02/2021 Travel Social History Tobacco Use Types Packs/Day [...] on filedocumented in this encounter Care Teams Street Superintendent Relationship Specialty Start Date End Date Maxi Serna MD [address] [facility] [place] [address] PCP - General Family Medicine 08/09/17 documented as of this encounter
--- OUTSIDE RECORDS SUMMARY | 2024-07-04 00:41 | XMS_ITS | Encounter Summary ---
Author Organization [facility] Address [address] [place] [address] Care Team Providers Care Flower Buncher Or Picker Name Role Phone Maxi Serna MD Primary Care Provider [phone] Encounter Details Date Type Department Care Team (Latest Contact Info) Description 09/01/2020 9:48 AM LEAN FACILITATOR - 09/01/2020 11:59 PM LEAN FACILITATOR Hospital Encounter [facility] [address] [place] [id number] Calixto Weeks MD [address] [address] Discharge Disposition: Home or Self Care Social History Tobacco Use Types Packs/Day Years Used Date Smoking Tobacco: Never Smokeless Tobacco: Never Sex and Gender Information Value Date Recorded Sex Assigned at Not on file Gender Identity Not on file Sexual Orientation Not on file documented as of this encounter Medications at [...] Procedure Name Priority Date/Time Associated Diagnosis Comments SARS-COV-2 (COVID-19) IN HOUSE Routine 09/01/2020 8:15 AM LEAN FACILITATOR Exposure to SARS-associated coronavirus documented in this encounter Results * SARS-COV-2 (COVID-19) IN HOUSE (09/01/2020 8:15 AM LEAN FACILITATOR) COVID-19 PCR Not detected Not detected 09/01/2020 5:26 PM LEAN FACILITATOR [facility] MICROBIOLOG[facility] Microbiology SPECIMEN FROM NASOPHARYNGEAL STRUCTURE / Unknown Collection / Unknown 09/01/2020 8:15 AM LEAN FACILITATOR 09/01/2020 9:50 AM LEAN FACILITATOR Narrative [facility]CRO[facility] - 09/01/2020 5:26 PM LEAN FACILITATOR This nucleic acid amplification assay performance was validated by [facility]biology [facility]. This test has been authorized [...] this EUA assay are available upon request. Calixto Weeks MD LAB - MICROBIO LOGY ORDERABLES [facility]CRO[facility] [address] [place], [place] [address], [facility] [phone] documented in this encounter Visit Diagnoses Diagnosis Exposure to SARS-associated coronavirus- Primary documented in this encounter Additional Health Concerns Infection Onset Date Last Indicated Resolved Time COVID-19 Under Investigation 09/01/2020 09/01/2020 09/01/2020 5:26 PM LEAN FACILITATOR documented as of this encounter Care Teams Flower Buncher Or Picker Relationship Specialty Start Date End Date Maxi Serna MD [address] [place], [place] [id number] PCP - General Family Medicine 08/09/17 documented as of this encounter
--- OUTSIDE RECORDS SUMMARY | 2024-07-04 00:41 | XMS_ITS | Encounter Summary ---
Author Organization [facility] Address [address] [facility] [place] [address] Care Team Providers Care Neurology Technologist Name Role Phone Maxi Serna MD Primary Care Provider [phone] Reason for Visit * Reason Onset Date Comments Follow-up 04/18/2019 Encounter Details Date Type Department Care Team (Late st Contact Info) Description 04/18/2019 Telephone [facility] [address] [address] Provider, Max Valentin [place] Follow-up Social History Tobacco Use Types Packs/Day Years Used Date Smoking Tobacco: Never Smokeless Tobacco: Never Sex and Gender Information Value Date Recorded Sex Assigned at Not on file Gender Identity Not on file Sexual Orientation Not on file documented as of this encounter Miscellaneous Notes * Telephone Encounter - Chelle Recinos - 04/18/2019 9:20 AM CDT Courtesy follow-up phone call made to patient. Message left advising patient to call [facility] [phone] if they have any questions or concerns. Chelle Recinos 04/18/2019 9:22 AM documented in this encounter Plan of Treatment Not on file documented as of this encounter Visit Diagnoses Not on filedocumented in this encounter Care Teams Neurology Technologist Relationship Specialty Start Date End Date Maxi Serna MD [address] [place] [address] PCP - General Family Medicine 08/09/17 documented as of this encounter
--- OUTSIDE RECORDS SUMMARY | 2024-07-04 00:41 | XMS_ITS | Encounter Summary ---
Author Organization [facility] Address [address] [place] [address] Care Team Providers Care Sales Order Coordinator Name Role Phone Maxi Serna MD Primary Care Provider [phone] Encounter Details Date Type Department Care Team (Late st Contact Info) Description 11/10/2023 Orders Only [facility] [address] [place] [address] Jackie Stroud PA [address] [place] [address] Other specified anxiety disorders Social History Tobacco Use Types Packs/Day Years Used Date Smoking Tobacco: Never Smokeless Tobacco: Never Sex and Gender Information Value Date Recorded Sex Assigned at Not on file Gender Identity Not on file Sexual Orientation Not on file documented as of this encounter Plan of Treatment Not on file documented as of this encounter Visit Diagnoses Diagnosis Other specified anxiety disorders documented in this encounter Care Teams Sales Order Coordinator Relationship Specialty Start Date End Date Maxi Serna MD [address] [place] [address] PCP - General Family Medicine 08/09/17 documented as of this encounter
--- OUTSIDE RECORDS SUMMARY | 2024-07-04 00:41 | XMS_ITS | Encounter Summary ---
Author Organization [facility] Address [address] [facility] [place] [address] Care Team Providers Care Marketing Instructor Name Role Phone Maxi Serna MD Primary Care Provider [phone] Encounter Details Date Type Department Care Team (Late st Contact Info) Description 02/18/2022 Lab Requisition [facility] [address] [place] [address] Mau Serna, CUSTOMER SERVICE ADVISOR-PERSONNEL RECORDS CLERK [address] [phone] Contact with and (suspected) exposure to other viral communicable diseases Social History Tobacco Use Types Packs/Day Years [...] Diagnosis Comments SARS-COV-2 (COVID-19) IN HOUSE Routine 02/18/2022 12:00 PM CDT Contact with and (suspected) exposure to other viral communicable diseases documented in this encounter Results * (ABNORMAL) SARS-COV-2 (COVID-19) INTERNAL (02/18/2022 12:00 PM CDT) COVID-19 PCR Detected( A) Not detected 02/18/2022 8:55 PM CDT [facility]CROBIOLOG[facility] Microbiology SPECIMEN FROM NASOPHARYNGEAL STRUCTURE / Unknown Collection / Unknown 02/18/2022 12:00 PM CDT 02/18/2022 2:06 PM CDT Narrative [facility]CRO[facility] - 02/18/2022 8:55 PM CDT This nucleic acid amplification assay performance was validated by [facility] Microbiology Laboratory. This test has been authorized [...] assay are available upon request. Mau Serna CUSTOMER SERVICE ADVISOR-PERSONNEL RECORDS CLERK LAB - MICROBIOL OGY ORDERABLES [facility]CRO[facility] [address] [place], [address] [phone] documented in this encounter Visit Diagnoses Diagnosis Contact with and (suspected) exposure to other viral communicable diseases documented in this encounter Additional Health Concerns Infection Onset Date Last Indicated Resolved Time COVID-19 Under Investigation 02/18/2022 02/18/2022 02/18/2022 8:55 PM CDT COVID-19 Confirmed 02/18/2022 02/18/2022 4:33 AM CDT documented as of this encounter Care Teams Marketing Instructor Relationship Specialty Start Date End Date Maxi Serna MD [address] [place] [address] PCP - General Family Medicine 08/09/17 documented as of this encounter
--- OUTSIDE RECORDS SUMMARY | 2024-07-04 00:41 | XMS_ITS | Encounter Summary ---
Author Organization [facility] Address [address] [facility] [place] [address] Care Team Providers Care Supervisor Carbon Paper Coating Name Role Phone Maxi Serna MD Primary Care Provider [phone] Encounter Details Date Type Department Care Team (Late st Contact Info) Description 06/04/2021 11:28 AM VICE PRESIDENT OF NURSING - 06/04/2021 11:59 PM [facility] Hospital Encounter [facility] [address] [place] [address] Mau Serna, [facility] [address] [address] Discharge Disposition: Home or Self Care Social [...] Diagnosis Comments SARS-COV-2 (COVID-19) IN HOUSE Routine 06/04/2021 11:31 AM VICE PRESIDENT OF NURSING Anovulation documented in this encounter Results * SARS-COV-2 (COVID-19) INTERNAL (06/04/2021 11:31 AM VICE PRESIDENT OF NURSING) COVID-19 PCR Not detected Not detected 06/04/2021 5:51 PM VICE PRESIDENT OF NURSING [facility] MICROBIOLOGY Microbiology SPECIMEN FROM NASOPHARYNGEAL STRUCTURE / Unknown Collection / Unknown 06/04/2021 11:31 AM VICE PRESIDENT OF NURSING 06/04/2021 11:31 AM VICE PRESIDENT OF NURSING Narrative [facility] MICROBIOLOG[facility] - 06/04/2021 5:51 PM VICE PRESIDENT OF NURSING This nucleic acid amplification assay performance was validated by [facility] Microbiology Laboratory. This test has been [...] assay are available upon request. Mau Serna PEDIATRIC NEUROPSYCHOLOGIST-VIDEO PRODUCTION INTERN LAB - MICROBIOL OGY ORDERABLES [facility]CROBIOLOG[facility] [address] [place], [place] [address], [facility] [phone] documented in this encounter Visit Diagnoses Diagnosis Anovulation- Primary Female infertility associated with anovulation documented in this encounter Care Teams Supervisor Carbon Paper Coating Relationship Specialty Start Date End Date Maxi Serna MD [address] [place] [address] PCP - General Family Medicine 08/09/17 documented as of this encounter
--- OUTSIDE RECORDS SUMMARY | 2024-07-04 00:41 | XMS_ITS | Encounter Summary ---
Author Organization [facility] Address [address] [place] [address] Phone Care Team Providers Care Vehicle Monitor Technician Name Role Phone Provider, None Primary Care Provider Unavailabl e Reason for Visit * Reason Comments Abdominal Pain Encounter Details Date Type Department Care Team ([facility] st Contact Info) Description 02/11/2024 2:31 PM CDT - 02/11/2024 5:57 PM CDT Emergency 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 Gender Identity Not on file Sexual Orientation Not on file documented as of this encounter Last Filed Vital Signs Vital Sign Reading Time Taken Comments Blood Pressure 156/84 02/11/2024 1:05 PM CDT Pulse 71 02/11/2024 1:05 PM CDT Temperature 37 ??C (98.6 ??F) 02/11/2024 1:05 PM CDT Respiratory Rate 17 02/11/2024 1:05 PM CDT Oxygen Saturation 95% 02/11/2024 1:05 PM CDT Inhaled Oxygen Concentration - - Weight 88.5 kg (195 lb) 02/11/2024 1:05 PM CDT Height 167.6 cm (5' 6 ) 02/11/2024 1:05 PM CDT Body Mass Index 31.47 02/11/2024 1:05 PM CDT documented in this encounter Discharge Instructions * Discharge Instructions* Chelsea Rawls APRN, CNP - 02/11/2024 5:30 PM CDT Return to the ED immediately with worsening symptoms or development of fever. Follow-up with general surgeon as soon as possible. documented in this encounter Medications at Time of Discharge dicyclomine (BENTYL) 20 MG Tablet Take 1 Tablet by mouth every 6 hours. 30 Tablet 02/11/2024 ondansetron (ZOFRAN-ODT) 4 MG TABLET DISPERSIBLE Take 1 Tablet by mouth every 8 hours as needed for Nausea - 1st line. 10 Tablet 02/11/2024 documented as of this encounter ED Notes * Stephen Turcios RN - 02/11/2024 5:55 PM CDT Patient discharged. Discharge instructions and patient educational material reviewed with patient; questions and concerns addressed; patient verbalizes understanding, using teach back. Patient was given 2 prescriptions. Patient was informed no drinking alcohol, driving or operating heavy machinery while taking narcotics or muscle relaxants. Patient ambulatory to ER exit with a steady gait and friend as responsible republican. SL D/C'ed with Shmuel cath intact. Pt alert and oriented x 4 with respirations that are even and unlabored at tod. * Stephen Turcios RN - 02/11/2024 5:34 PM CDT Pt medicated per provider orders. Pt educated on intended effects and side effects of medication and verbalized understanding, able to provide teach back of education. * Karina Miller RN - 02/11/2024 4:[address] Griffith contacted for ERP. * Karina Miller RN - 02/11/2024 3:30 PM CDT Patient expresses relief from Toradol. * Karina Miller RN - 02/11/2024 2:48 PM CDT Pt medicated per provider orders. Pt educated on intended effects and side effects of medication and verbalized understanding, able to provide teach back of education. Urine specimen obtained and sent to lab. * Chelsea Rawls, PETERSON, QC ANALYST - 02/11/2024 2:43 PM CDT Chief Complaint Patient presents with Abdominal Pain Yesica Fitzgerald is a 34 y.o. female who presents to the ED c/o abdominal pain since Tuesday. Patient states the pain originates behind the umbilicus and radiates downward. She states that his it has been intermittent since Tuesday. She describes the pain as mainly sore and bloating. However, she states that she has intermittent stabbing, sharp pain. She denies nausea or vomiting. States that she has had multiple episodes of diarrhea since Tuesday. She denies recent fevers. Patient states that sheis seeing a fertility specialist and was recently started on a regimen that medically induced menopause. Patient states that she has had a hard time getting ; she has a history of endometriosis and prior miscarriages. History reviewed. No pertinent past medical history. Current Facility-Administered Medications Medication Dose Route Frequency Provider Last Rate Last Admin morphine sulfate (PF) injection 4 mg 4 mg Intravenous Once Chelsea Rawls, ACID LEVELER, QC ANALYST Current Outpatient Medications Medication Sig Dispense Refill dicyclomine (BENTYL) 20 MG Tablet Take 1 Tablet by mouth every 6 hours. 30 Tablet 0 ondansetron (ZOFRAN-ODT) 4 MG TABLET DISPERSIBLE Take 1 Tablet by mouth every 8 hours as needed forNausea - 1st line. 10 Tablet 0 Allergies Allergen Reactions Amoxicillin-Pot Clavulanate Hives and Rash History reviewed. No pertinent past medical history. No past surgical history on file. Social History Socioeconomic History Marital status: Spouse name: Not on file Number of children: Not on file Years of education: Not on file Highest education level: Not on file Occupational History Not on file Tobacco Use Smoking status: Not on file Smokeless tobacco: Not on file Substance and Sexual Activity Alcohol use: Not [...] file Housing Stability: Not on file BP 156/84 Pulse 71 Temp 98.6 ??F (37 ??C) (Tympanic) Resp 17 Ht 5' 6 (1.676 m) Wt 195 lb(88.5 kg) LMP (LMP Unknown) SpO2 95% Unknown BMI 31.47 kg/m?? Review of Systems Constitutional: Negative for chills and fever. HENT: Negative for congestion, ear pain, rhinorrhea and sore throat. Eyes: Negative for discharge. Respiratory: Negative for cough, chest tightness, shortness of breath and wheezing. Cardiovascular: Negative for chest pain and palpitations. Gastrointestinal: Positive for abdominal pain and diarrhea. Negative for nausea and vomiting. Genitourinary: Negative for difficulty urinating, dysuria, frequency, menstrual problem and urgency. Musculoskeletal: Negative for arthralgias and myalgias. Skin: Negative for rash and wound. Neurological: Negative for dizziness, syncope, weakness, numbness and headaches. All other systems reviewed and are negative. [...] Palpations: Abdomen is soft. Tenderness: There is abdominal tenderness in the periumbilical area. There is no guarding or rebound. Musculoskeletal: General: Normal range of motion. Cervical back: Normal range of motion. Skin: General: Skin is warm and dry. Neurological: Mental Status: She is alert and oriented to person, place, and time. Cranial Nerves: No cranial nerve deficit. Procedures Recent Results (from the past 24 hour(s)) Comprehensive Metabolic Panel (Cmp) [id number] Result Value Ref [place] SODIUM 142 136 - 145 mmol/L POTASSIUM 4.1 3.5 - 5.1 mmol/L CHLORIDE 110 (H) 98 - 107 mmol/L CO2, VENOUS 21 (L) 22 - 30 mmol/L ANION GAP 15.1 <18.0 mmol/L GLUCOSE 85 70 - 99 mg/dL BUN 17 5 - 18 mg/dL CREATININE, BLOOD 0.96 0.60 - 1.00 mg/dL BUN/CREATININE RATIO 18 12 - 20 ratio TOTAL PROTEIN 8.1 6.3 - 8.2 g/dL ALBUMIN 5.1 (H) 3.5 - 5.0 g/dL A/G RATIO 1.7 1.0 - 2.2 CALCIUM 10.3 8.7 - 10.5 mg/dL T BILI 0.5 0.2 - 1.2 mg/dL SGOT (AST) 19 5 - 34 U/L SGPT (ALT) 15 0 - 55 U/L ALKALINE PHOSPHATASE 61 40 - 150 U/L GFR, ESTIMATED >60 >=60 GFR, EST. >60 >=60 GFR, EST. NONAFRICAN >60 >=60 Lipase [id number] Result Value Ref Range LIPASE 11 8 - 78 U/L CBC with Auto Differential Result Value Ref Range WBC 7.49 4.00 - 12.00 10(3)/mcL RBC 4.39 3.80 - 5.30 10(6)/mcL HEMOGLOBIN (HGB) 13.0 12.0 - 15.8 g/dL HEMATOCRIT (HCT) 39.1 36.0 - 47.0 % MCV 89.1 82.0 - 96.0 fL MCH 29.6 26.0 - 34.0 pg MCHC 33.2 31.0 - 36.0 g/dL PLATELET COUNT 326 140 - 440 10(3)/mcL RDW 14.0 11.8 - 15.5 % MPV 9.3 (L) 9.7 - 12.4 fL NEUTROPHILS 64.2 47.0 - 73.0 % LYMPHOCYTES 26.2 18.0 - 42.0 % MONOCYTES 8.4 4.0 - 12.0 % EOSINOPHILS 0.9 0.0 - 5.0 % BASOPHILS 0.3 0.0 - 1.0 % ABSOLUTE NEUTROPHILS 4.81 1.60 - 7.70 10(3)/mcL ABSOLUTE LYMPHOCYTES 1.96 1.30 - 3.20 10(3)/mcL ABSOLUTE MONOCYTES 0.63 0.20 - 1.00 10(3)/mcL ABSOLUTE EOSINOPHIL 0.07 0.00 - 0.40 10(3)/mcL ABSOLUTE BASOPHILS 0.02 0.00 - 0.10 10(3)/mcL NRBC PER 100 WBC 0 POCT Urine HCG () Result Value Ref Range POC URINE Negative POC URINE CONTROL Sheet Metal Worker Maintenance Pass URINALYSIS REFLEX IF INDICATED BY ABNORMAL RESULTS Result Value Ref [place] SPECIFIC GRAVITY 1.020 1.003 - 1.030 URINE PH 5.0 5.0 - 9.0 WBC ESTERASE Negative Negative NITRITE Negative Negative PROTEIN, RANDOM URINE 15 mg/dL (A) Negative URINE GLUCOSE, QUAL Negative Negative URINE KETONES 15 mg/dL (A) Negative UROBILINOGEN Normal Normal mg/dL URINE BLOOD Negative Negative ben/ul URINALYSIS COLOR Yellow URINALYSIS CLARITY Clear Imaging Results CT ABDOMEN PELVIS W/ CONTRAST (Final result) Result time 02/11/24 16:58:56 Final result by Kevon Hyatt MD (02/11/24 16:58:56) Impression: IMPRESSION: Distended gallbladder with subtle wall thickening and surrounding induration suspect. Please correlate clinically and consider ultrasound to exclude cholecystitis. Narrative: EXAM DESCRIPTION: CT ABDOMEN PELVIS W/ CONTRAST [...] Electronically signed by Kevon Hyatt M.D. RB: CHET Report ID: [id number] Reading Location: [place] [address] Labs Reviewed CMP (COMPREHENSIVE METABOLIC PANEL) - Abnormal; Notable for the following components: Result Value CHLORIDE 110 (*) CO2, VENOUS 21 (*) ALBUMIN 5.1 (*) All other components within normal limits URINALYSIS REFLEX IF INDICATED BY ABNORMAL RESULTS - Abnormal; Notable for the following components: PROTEIN, RANDOM URINE 15 mg/dL (*) URINE KETONES 15 mg/dL (*) All other components within normal limits CBC WITH AUTO DIFFERENTIAL - Abnormal; Notable for the following components: MPV 9.3 (*) All other components within normal limits LIPASE - Normal COMPLETE BLOOD COUNT (CBC) WITH DIFF Narrative: The following orders were created for panel order CBC with Diff [id number]. Procedure Abnormality Status --------- ------ CBC with Auto Differential[[id number]] Abnormal Final result Please view results for these tests on the individual orders. POCT URINE HCG () CT ABDOMEN PELVIS W/ CONTRAST Final Result IMPRESSION: Distended gallbladder with subtle wall thickening and surrounding induration suspect. Please correlate clinically and consider ultrasound to exclude cholecystitis. URINALYSIS REFLEX IF INDICATED BY ABNORMAL RESULTS Final Result CBC with Diff [id number] Final Result Comprehensive Metabolic Panel (Cmp) [id number] Final Result Lipase [id number] Final Result Medical Decision Making Amount and/or Complexity of Data Reviewed External Data Reviewed: labs and radiology. Labs: ordered. Radiology: ordered. Clinical Impression 1. Periumbilical abdominal pain Disposition: Discharge IMPRESSION: Distended gallbladder with subtle wall thickening and surrounding induration suspect. Please correlate clinically and consider ultrasound to exclude cholecystitis. Discussed with Dr. Griffith (general surgery) the patient's case, history, lab results, physical exam findings, and current evaluations. They are aware of the patient's condition, diagnostic findings. Dr. Griffith advised outpatient follow-up in the absence of leukocytosis. He believes this patient is appropriate for outpatient follow-up and does not require emergent intervention. Patient was advised to follow-up with general surgery outpatient. Advised to return to the ED immediately with worsening symptoms or development of fever. I have done teaching at the bedside and what to symptomatolgy to watch out for and when to return to the ED. The patient remained stable throughout their ED stay. My clinical impression was discussed with thepatient/family. Labs and radiology results were reviewed with them. I gave them the opportunity to ask questions, and addressed them as completely as possible given the information available at present. The therapeutic plan was discussed, advised to take medications as instructed, instructions weregiven and the importance of primary care follow up was stressed and encouraged. The patient/family voiced understanding of the plan, indications to return, and the need for follow up. Cosigned by Robert Byrd MD at 02/11/2024 11:16 PM CDT * Clayton Benjamin, RTR - 02/11/2024 2:42 PM CDT Pending preg @1442 * Berenice Briggs RN - 02/11/2024 1:07 PM CDT Patient arrived from [facility] with report of pain starting behind umbilicus and radiating left. This started on Tuesday. Patient states she had 6 episodes of diarrhea on Tuesday and a couple of episode of diarrhea since. Patient denies fever. No N/V. documented in this encounter Miscellaneous Notes * Patient[employer] Patient Instructions - Chelsea Rawls APRN, CNP - 02/11/2024 5:30 PM CDT Images from the original note were not included. Patient Education Table of Contents Abdominal Pain, Adult Cholecystitis To view videos and all your education online visit, [email or web address] or scan this QR code with your smartphone. Access to this content will in one year. Abdominal Pain, Adult Many things can cause belly (abdominal) pain. In most cases, belly pain is not a serious problem and can be watched and treated at home. But in some cases, it can be serious. Your doctor will try to find the cause of your belly pain. Follow these instructions at home: Medicines Take dktn-gbx-[id number] and prescription medicines only as told by your doctor. Do not take medicines that help you poop (laxatives) unless told by your doctor. General instructions Watch your belly pain for any changes. Tell your doctor if the pain gets worse. Drink enough fluid to keep your pee (urine) pale yellow. Contact a doctor if: Your belly pain changes or gets worse. You have very bad cramping or bloating in your belly. You vomit. Your pain gets worse with meals, after eating, or with certain foods. You have trouble pooping or have watery poop for more than 2?3 days. You are not hungry, or you lose weight without trying. You have signs of not getting enough fluid or water (dehydration). These may include: ? Dark pee, very little pee, or no pee. ? Cracked lips or dry mouth. ? Feeling sleepy or weak. You have pain when you pee or poop. Your belly pain wakes you up at night. You have blood in your pee. You have a fever. Get help right away if: You cannot stop vomiting. Your pain is only in one part of your belly, like on the right side. You have bloody or black poop, or poop that looks like tar. You have trouble breathing. You have chest pain. These symptoms may be an emergency. Get help right away. Call 911. Do not wait to see if the symptoms will go away. Do not drive yourself to the hospital. This information is not intended to replace advice given to you by your health care provider. Make sure you discuss any questions you have with your health care provider. Document Released: 2008-11-29 Document Updated: 2023-03-30 Document Reviewed: 2023-03-30 [employer] Patient Education ? 2023 [employer] Cholecystitis Cholecystitis is irritation and swelling (inflammation) of the gallbladder. The gallbladder: Is an organ that is shaped like a pear. Is under the liver on the right side of the body. Stores bile. Bile helps the body break down (digest) the fats in food. This condition can occur all of a sudden. It needs to be treated. What are the causes? This condition may be caused by stones or lumps that form in the gallbladder (gallstones). Gallstones can block the tube (duct) that carries bile out of your gallbladder. Other causes include: Damage to the gallbladder due to less blood flow. Germs in the bile ducts. Scars, kinks, or adhesions in the bile ducts. Abnormal growths (tumors) in the liver, pancreas, or gallbladder. What increases the risk? You are more likely to develop this condition if: You are female and between the ages of 55?62. You take control pills. You use estrogen. You take certain medicines that make you more likely to develop gallstones. You are overweight (obese). You have a very bad reaction to an infection (sepsis). You have been hospitalized due to a serious condition, such as a burn or illness. You have not eaten or drank for a long time. What are the signs or symptoms? Symptoms of this condition include: Pain in the upper right part of the belly (abdomen). A lump over the gallbladder. Bloating in the belly. Feeling sick to your stomach (nauseous). Vomiting. Fever. Chills. How is this treated? This condition may be treated with: Medicines to treat pain. Giving fluids through an IV tube. Not eating or drinking (fasting). Antibiotic medicines. Surgery to take out your gallbladder. Gallbladder drainage. Follow these instructions at home: Medicines Take ysav-yex-vhcahfd and prescription medicines only as told by your doctor. If you were prescribed an antibiotic medicine, take it as told by your doctor. Do not stop taking it even if you start to feel better. General instructions Follow instructions from your doctor about what to eat or drink. Do not eat or drink anything that makes you sick again. Do not smoke or use any products that contain nicotine or tobacco. If you need help quitting, ask your doctor. Keep all follow-up visits. Contact a doctor if: You have pain and your medicine does not help. You have a fever. Get help right away if: Your pain moves to: ? Another part of your belly. ? Your back. Your symptoms do not go away. You have new symptoms. These symptoms may be an emergency. Get help right away. Call 911. Do not wait to see if the symptoms will go away. Do not drive yourself to the hospital. Summary This condition may be caused by stones or lumps that form in the gallbladder (gallstones). A common symptom is pain in your belly. This condition may be treated with surgery to take out your gallbladder. Follow instructions from your doctor about what to eat or drink. This information is not intended to replace advice given to you by your health care provider. Make sure you discuss any questions you have with your health care provider. Document Released: 2012-06-01 Document Updated: 2021-12-15 Document Reviewed: 2021-12-15 Elsevier Patient Education ? 2023 [employer] documented in this encounter Plan of Treatment Not on file documented as of this encounter Procedures Procedure Name Priority Date/Time Associated Diagnosis Comments CT ABDOMEN PELVIS W/ CONTRAST Stat with Interpretation 02/11/2024 4:17 PM CDT URINALYSIS REFLEX IF INDICATED BY ABNORMAL RESULTS STAT 02/11/2024 2:54 PM CDT POCT URINE HCG () STAT 02/11/2024 2:54 PM CDT CBC WITH AUTO DIFFERENTIAL STAT 02/11/2024 1:25 PM CDT LIPASE STAT 02/11/2024 1:25 PM CDT CMP (COMPREHENSIVE METABOLIC PANEL) STAT 02/11/2024 1:25 PM CDT COMPLETE BLOOD COUNT (CBC) WITH DIFF STAT 02/11/2024 1:25 PM CDT documented in this encounter Results * CT ABDOMEN PELVIS W/ CONTRAST (02/11/2024 4:17 PM CDT) Anatomical Region Laterality Modality Abdomen N/A Computed Tomogra phy 02/11/2024 4:56 PM CDT Impressions 02/11/2024 4:58 PM CDT IMPRESSION: Distended gallbladder with subtle wall thickening and surrounding induration suspect. Please correlate clinically and consider ultrasound to exclude cholecystitis. Narrative 02/11/2024 4:58 PM CDT EXAM DESCRIPTION: ?? CT ABDOMEN PELVIS W/ CONTRAST REASON FOR STUDY: ?? Patient c/o pain starting behind umbilicus and radiating left since Tuesday with diarrhea. Denies vomiting. No abdominal hx. ?? TECHNIQUE: CT scan of the abdomen and pelvis performed with intravenous and ??without ??oral contrast using helical scanning technique with dynamic intravenous contrast injection. Reconstructed coronal and sagittal MPR images reviewed. All images stored on PACS. Automated exposure control was used as a dose optimization technique for this examination. CONTRAST TYPE/DOSE: ?? 100mL of IOPAMIDOL 76 % IV SOLN ??injected via ?? Intravenous COMPARISON: ?? None available FINDINGS: LOWER CHEST: ?? No significant pulmonary abnormalities. No effusion. LIVER: ?? Normal size. ??No identified cystic or solid masses. GALLBLADDER: ?? Distended subtle wall thickening and slight surrounding induration suspect. ??Please correlate clinically consider ultrasound to exclude cholecystitis. BILE DUCTS: ?? No intrahepatic or extrahepatic ductal dilatation. SPLEEN: ?? Normal size. ??No focal lesions. PANCREAS: ?? No identified cystic or solid masses. No significant calcifications. No adjacent inflammation or peripancreatic fluid collections. Pancreatic duct not dilated. ?? ADRENALS: ?? Normal. KIDNEYS/URINARY TRACT: ?? No identified significant cystic or solid masses. No visualized stones. No hydronephrosis or hydroureter. Symmetric enhancement. ?Urinary bladder is unremarkable. GI: ?? No dilated bowel loops. No obvious wall thickening. ??Normal appendix. ??No significant diverticular disease. PERITONEUM: ?? No ascites or free air. RETROPERITONEUM: ?? No mass or adenopathy. REPRODUCTIVE: ?? No significant abnormality. VASCULATURE: ?? No abdominal aortic aneurysm. MUSCULOSKELETAL: ?? No significant abnormality. OTHER: ?? No other abnormality. THIS IS AN ELECTRONICALLY VERIFIED FINAL REPORT 02/11/2024 4:56 PM - Electronically signed by ??Kevon Hyatt M.D. RB: CHET D: ??02/11/2024 4:56 PM T: ??02/11/2024 4:56 PM Report ID: [id number] Reading Location: ??[id number] Procedure Note Kevon Hyatt MD - 02/11/2024 EXAM DESCRIPTION: CT ABDOMEN PELVIS W/ CONTRAST [...] Electronically signed by Kevon Hyatt M.D. RB: CHET Report ID: [id number] Reading Location: [place] [address] IMPRESSION: Distended gallbladder with subtle wall thickening and surrounding induration suspect. Please correlate clinically and consider ultrasound to exclude cholecystitis. us Chelsea Rawls ACID LEVELER, QC ANALYST IMG CT ORDERABLES Fin al Result * (ABNORMAL) URINALYSIS REFLEX IF INDICATED BY ABNORMAL RESULTS (02/11/2024 2:54 PM CDT) SPECIFIC GRAVITY 1.020 1.003 - 1.030 02/11/2024 4:03 PM CDT [facility] URINE PH 5.0 5.0 - 9.0 02/11/2024 4:03 PM CDT [facility] WBC ESTERASE Negative Negative 02/11/2024 4:03 PM CDT [facility] NITRITE Negative Negative 02/11/2024 4:03 PM CDT [facility] PROTEIN, RANDOM URINE 15 mg/dL(A) Negative 02/11/2024 4:03 PM CDT [facility] URINE GLUCOSE, QUAL Negative Negative 02/11/2024 4:03 PM CDT [facility] URINE KETONES 15 mg/dL(A) Negative 02/11/2024 4:03 PM CDT [facility] UROBILINOGEN Normal Normal mg/dL 02/11/2024 4:03 PM CDT [facility] URINE BLOOD Negative Negative ben/ul 02/11/2024 4:03 PM CDT [facility] URINALYSIS COLOR Yellow 02/11/20 4:03 PM CDT [facility] URINALYSIS CLARITY Clear 02/11/2024 4:03 PM CDT [facility] Urine URINE SPECIMEN COLLECTION, CLEAN CATCH / Unknown Non-Phlebotomy Collection / Unknown 02/11/2024 2:54 PM CDT 02/11/2024 3:08 PM CDT us Chelsea Rawls APRN, QC ANALYST URINE ORDERABLES Rosalind l Result [facility] [address] [place] [address] * POCT Urine HCG () (02/11/2024 2:54 PM CDT) POC URINE Negative POC URINE CONTROL Sheet Metal Worker Maintenance Pass Urine 02/11/2024 2:54 PM CDT us Chelsea Rawls APRN, QC ANALYST POINT OF CARE TESTING (MANUAL) Final Result * (ABNORMAL) CBC with Auto Differential (02/11/2024 1:25 PM CDT) [facility] WBC 7.49 4.00 - 12.00 10(3)/mcL 02/11/2024 1:29 PM CDT [facility] RBC 4.39 3.80 - 5.30 10(6)/mcL 02/11/2024 1:29 PM CDT [facility] HEMOGLOBIN (HGB) 13.0 12.0 - 15.8 g/dL 02/11/2024 1:29 PM CDT [facility] HEMATOCRIT (HCT) 39.1 36.0 - 47.0 % 02/11/2024 1:29 PM CDT [facility] MCV 89.1 82.0 - 96.0 fL 02/11/2024 1:29 PM CDT [facility] MCH 29.6 26.0 - 34.0 pg 02/11/2024 1:29 PM CDT [facility] MCHC 33.2 31.0 - 36.0 g/dL 02/11/2024 1:29 PM CDT [facility] PLATELET COUNT 326 140 - 440 10(3)/mcL 02/11/2024 1:29 PM CDT [facility] RDW 14.0 11.8 - 15.5 % 02/11/2024 1:29 PM CDT [facility] MPV 9.3(L) 9.7 - 12.4 fL 02/11/2024 1:29 PM CDT [facility] NEUTROPHILS 64.2 47.0 - 73.0 % 02/11/2024 1:29 PM CDT [facility] LYMPHOCYTES 26.2 18.0 - 42.0 % 02/11/2024 1:29 PM CDT [facility] MONOCYTES 8.4 4.0 - 12.0 % 02/11/2024 1:29 PM CDT [facility] EOSINOPHILS 0.9 0.0 - 5.0 % 02/11/2024 1:29 PM CDT [facility] BASOPHILS 0.3 0.0 - 1.0 % 02/11/2024 1:29 PM CDT [facility] ABSOLUTE NEUTROPHILS 4.81 1.60 - 7.70 10(3)/[facility] 02/11/2024 1:29 PM CDT [facility] ABSOLUTE LYMPHOCYTES 1.96 1.30 - 3.20 10(3)/[facility] 02/11/2024 1:29 PM CDT [facility] ABSOLUTE MONOCYTES 0.63 0.20 - 1.00 10(3)/[facility] 02/11/2024 1:29 PM CDT [facility] ABSOLUTE EOSINOPHIL 0.07 0.00 - 0.40 10(3)/[facility] 02/11/2024 1:29 PM CDT [facility] ABSOLUTE BASOPHILS 0.02 0.00 - 0.10 10(3)/[facility] 02/11/2024 1:29 PM CDT [facility] NRBC PER 100 WBC 0 02/11/20 24 1:29 PM CDT [facility] Blood Venipuncture / Unknown 02/11/2024 1:25 PM CDT 02/11/2024 1:25 PM CDT us Chelsea Rawls APRN, QC ANALYST HEMATOLOGY ORDERABLES Final Result Performing Organization Address City/[facility]/ZIP Co de Phone Number [facility] [place] [address] * Lipase [id number] (02/11/2024 1:25 PM CDT) LIPASE 11 8 - 78 U/L 02/11/2024 1:47 PM CDT [facility] Blood Venipuncture / Unknown 02/11/2024 1:25 PM CDT 02/11/2024 1:25 PM CDT us Chelsea Rawls APRN, QC ANALYST CHEMISTRY ORDERABLES Final Result [facility] [place] [address] * (ABNORMAL) Comprehensive Metabolic Panel (Cmp) [id number] (02/11/2024 1:25 PM CDT) Pathologist [facility] SODIUM 142 136 - 145 mmol/L 02/11/2024 1:47 PM CDT [facility] POTASSIUM 4.1 3.5 - 5.1 mmol/L 02/11/2024 1:47 PM CDT [facility] CHLORIDE 110(H) 98 - 107 mmol/L 02/11/2024 1:47 PM CDT [facility] CO2, VENOUS 21(L) 22 - 30 mmol/L 02/11/2024 1:47 PM CDT [facility] ANION GAP 15.1 <18.0 mmol/L 02/11/2024 1:47 PM CDT [facility] GLUCOSE 85 70 - 99 mg/dL 02/11/2024 1:47 PM CDT [facility] BUN 17 5 - 18 mg/dL 02/11/2024 1:47 PM CDT [facility] CREATININE, BLOOD 0.96 0.60 - 1.00 mg/dL 02/11/2024 1:47 PM CDT [facility] BUN/CREATININE RATIO 18 12 - 20 ratio 02/11/2024 1:47 PM CDT [facility] TOTAL PROTEIN 8.1 6.3 - 8.2 g/dL 02/11/2024 1:47 PM CDT [facility] ALBUMIN 5.1(H) 3.5 - 5.0 g/dL 02/11/2024 1:47 PM CDT [facility] A/G RATIO 1.7 1.0 - 2.2 02/11/2024 1:47 PM CDT [facility] CALCIUM 10.3 8.7 - 10.5 mg/dL 02/11/2024 1:47 PM CDT [facility] T BILI 0.5 0.2 - 1.2 mg/dL 02/11/2024 1:47 PM CDT [facility] SGOT (AST) 19 5 - 34 U/L 02/11/2024 1:47 PM CDT [facility] SGPT (ALT) 15 0 - 55 U/L 02/11/2024 1:47 PM CDT [facility] ALKALINE PHOSPHATASE 61 40 - 150 U/L 02/11/2024 1:47 PM CDT [facility] GFR, ESTIMATED >60 >=60 02/11/2024 1:47 PM CDT [facility] Comment: Creatinine Clearance is the preferred criteria for selecting drug dose adjustments in renally impaired patients. ??The GFR is provided as additional pertinent clinical information. GFR is reported in mL/min/1.73 sq m. Calculation based on the Chronic Kidney Disease Epidemiology Collaboration (CKD- EPI) equation refit without adjustment for race. GFR, EST. >60 >=60 024 1:47 PM CDT [facility] GFR, EST. NONAFRICAN >60 >=60 02/11/2024 1:47 PM CDT [facility] Blood Venipuncture / Unknown 02/11/2024 1:25 PM CDT 02/11/2024 1:25 PM CDT us Chelsea Rawls APRN, QC ANALYST CHEMISTRY ORDERABLES Final Result [facility] [place] [address] documented in this encounter Visit Diagnoses Diagnosis Periumbilical abdominal pain- Primary Abdominal pain, periumbilic documented in this encounter Administered Medications Inactive Administered Medications - up to 3 most recent administrations Medication Order MAR Action Action Date Dose Rate Site 0.9 % sodium chloride solution at 999 mL/hr, Intravenous, ONCE, 1 dose, On 02/11/24 at 1500 New Bag 02/11/2024 2:46 PM CDT 1,000 mL 999 mL/hr iopamidol (ISOVUE-370) 76 % injection 100 mL 100 mL, Intravenous, ONCE, 1 dose, On 02/11/24 at 1630 Given 02/11/2024 4:18 PM CDT 100 mL ketorolac (TORADOL) injection 30 mg 30 mg, Intravenous, ONCE, 1 dose, On 02/11/24 at 1500 Given 02/11/2024 2:47 PM CDT 30 mg ondansetron (ZOFRAN) injection 4 mg 4 mg, Intravenous, ONCE, 1 dose, On 02/11/24 at 1500 Given 02/11/2024 2:46 PM CDT 4 mg ondansetron (ZOFRAN) injection 4 mg 4 mg, Intravenous, ONCE, 1 dose, On 02/11/24 at 1800 Given 02/11/2024 5:33 PM CDT 4 mg documented in this encounter Active and Recently Administered Medications Times are shown in CDT. Scheduled Medication Order 02/09/2024 02/10/2024 02/11/2024 0.9 % sodium chloride solution (COMPLETED) at 999 mL/hr, Intravenous, ONCE, 1 dose, On 02/11/24 at 1500 1446 (New Bag - Prov ider: Karina Miller RN)[id number] (Stopped - Provider: Karina Miller RN) iopamidol (ISOVUE-370) 76 % injection 100 mL (COMPLETED) 100 mL, Intravenous, ONCE, 1 dose, On 02/11/24 at 1630 1618 (Given - Provid er: Clayton Benjamin, RTR) ketorolac (TORADOL) injection 30 mg (COMPLETED) 30 mg, Intravenous, ONCE, 1 dose, On 02/11/24 at 1500 1447 (Given - Provid er: Karina Miller RN) ondansetron (ZOFRAN) injection 4 mg (COMPLETED) 4 mg, Intravenous, ONCE, 1 dose, On 02/11/24 at 1500 1446 (Given - Provid er: Karina Miller RN) ondansetron (ZOFRAN) injection 4 mg (COMPLETED) 4 mg, Intravenous, ONCE, 1 dose, On 02/11/24 at 1800 1733 (Given - Provid er: Stephen Turcios RN) documented in this encounter Care Teams Vehicle Monitor Technician Relationship Specialty Start Date End Date Provider, None [place] PCP - General 08/19/23 02/14/24 documented as of this encounter
--- OUTSIDE RECORDS SUMMARY | 2024-07-04 00:43 | XMS_ITS | Data Portability ---
Author Organization [place] [facility] [employer], Main Office Address [address] [place] [address] Care Team Providers Care Director [facility] Name Role Phone RUPINDERJEANETTE DEL ANGEL Primary Care Provider [phone] RUPINDERJEANETTE DEL ANGEL Referring Provider [phone] Assessment Encounter Date Assessment Date Assessment LastModified by Organization Details LastModified Time 10/14/2022 10/14/2022 Patient returns knee pain right. She is painful over the right knee primarily anteriorly and laterally. The MRI scan she brings which I reviewed both the pictures and report with the patient detail demonstrate what appears to be a tear of the lateral meniscus in the posterior horn as well as the patellar tilt. She has a subluxation patella. I think that at least a fair bit of her pain is from the patella and we talked about lateral retinacular release. I cautioned her that it would make her knee looks swollen and she would lose some of the shapeliness of it. She would like to wait on that just clean up the meniscus and see how she does. She is well aware the fact that not all the pain may be resolved because the patellofemoral issue as well. [email or web address] Not available 10/14/2022 10:47:19 11/29/2022 11/29/2022 Patient returns status post knee arthroscopy right. Overall she looks good the pain seems to have resolved and she is doing well. Sutures out today we reviewed the pictures and she actually had delamination of the tibial cartilage it was peeling up on the lateral side. She had a tear in the posterior horn which I removed. Will gently begin exercise and getting her back to normal. Told her caution her that if this continues she will develop arthritis there however she seems to have responded well to surgery at this point. [email or web address] Not available 11/29/2022 10:32:20 01/11/2023 01/11/2023 [facility]- Dr. Doe CADENA-01/11/23 Call office if worse, ER if life-threatening illness RTC 1 year and PRN She voices understanding of plan and agrees [email or web address] Not available 01/11/2023 16:44:20 03/11/2023 03/11/2023 [facility]- [facility]- Dr. Doe CADENA-01/11/23 Call office if worse, ER if life-threatening illness RTC 1 month She voices understanding of plan and agrees Not available 03/11/2023 13:08:17 05/27/2023 05/27/2023 [facility]- [facility] SELECTOR- Dr. Doe CADENA-01/11/23 Call office if worse, ER if life-threatening illness RTC 1 month She voices understanding of plan and agrees [email or web address] Not available 05/27/2023 14:10:18 Plan of Treatment Reminders Order Date Submit Date Provider Last Modified By Organization Details Last Modified Time Details Appointments None recorded. Lab lipid panel, serum [address] (Lab), [address] [place], [address], 4 17:12:01 HbA1c (hemoglobin A1c), blood [address] (Lab), [address] [place], [address], 4 17:12:01 CMP, serum or plasma [address] (Lab), [address] [place], [address], 4 17:12:00 CBC w/ auto diff [address] (Lab), [address] [place], [address], 4 17:12:01 Referral None recorded. Procedures None recorded. Surgeries None recorded. Imaging None recorded. Medication Orders sertraline 25 mg tablet 2022 023 [id number], [address] [place], [place], [id number], 11:46:13 sertraline 50 mg tablet 2022 023 [facility], [address] [place], [place], [id number], 14:26:05 Patient TargetsNo targets recorded. Patient Instructions Encounter Date Encounter Id Patient Instructions Last Modified By Organization Details Last Modified Time 01/11/2023 [id number] INFLUENZA VACCIN E TD/TDAP Recommended today, patient declined Ordered P atient will get at local pharmacy/health department MAMMOGRAM Recommended today, but patient declined Ordered N o screening indicated at this time/ no family history CERVICAL SCREENING/PELVIC EXAMINATION COLORECTAL SCREENING Recommended today, but patient declined Ordered C olonoscopy declined. Cologuard ordered No screening necessary until age 45 DEPRESSION SCREENING Negative Positive History of depression BMI Overweight Appropr iate Underweight O besity continue your current weight loss efforts NUTRITION PHYSICAL ACTIVITY Appropriate Recommendation of 10-20 minutes of activity that causes mild breathlessness daily Recommendati on of 30 minutes of daily activity VISION Ordered Recommende d today ALCOHOL USE No alcohol use Occasional/Soc ial Use TOBACCO USE SEXUALLY ACTIVE Yes, Patient is in monogamous relationship GLUCOSE SCREENING Ordered LIPID SCREENING Ordered [email or web address] Not available 01/11/2023 16:45:42 Reason for Referral None Reported. Results Created Date Observation Date Name Description Value Unit Range Abnormal Flag Note LastModifiedBy Organization Detail LastModifiedTime 09/30/1909/17/2022 XR, ankle , 2 view No observ ation record ed. [email or web address] [facility] [address] [place], [address], 09/29/2022 10:44:16 09/30/19 23 09/17/2022 XR, knee, 3 view No observ ation record ed. [facility] [address] [place], [address], 09/29/2022 10:44:16 10/05/19 XR, knee, 3 view No observ ation record ed. daryl [facility] [address], [place], [address], 10/04/2022 10:54:14 10/05/19 23 XR, hip + pelvi s, unila teral No observ ation record ed. daryl [facility] [place] [address], [place], [address], 10/04/2022 10:54:37 10/14/19 23 10/12/2022 MRI, knee, w/o contr ast No observ ation record ed. [address] 2022 Jaret Wright [facility] [address], [place], [address], 10/13/2022 13:35:08 10/14/19 23 10/12/2022 MRI, knee, w/o contr ast No observ ation record ed. [address], [place], [address], 10/13/2022 08:47:25 Result Notes None recorded. Problems Name Problem SNOMED Code Status Onset Date Resolution Date Notes Provider Name and Address Organization Details Recorded Time Pain in right hip joint 5703456170166 02 Active 2022 Cassia casanova [employer] 3 11:05:37 Pain of right knee joint 2370905782201 00 Active 2022 Cassia casanova [employer] 3 11:06:07 Pain in right sacroiliac joint 8070448587095 9107 Active 2022 Tenzin Hernandes MD [address] [facility], [facility] [address], [place], [address] , [employer] 3 10:54:44 Tear of lateral meniscus of knee 117485386 Active 2022 Tenzin Hernandes MD [address], [place], [address], [employer] 3 10:55:01 Chondromala mike of right patella 3486359757261 9108 Active 2022 Tenzin Hernandes MD [address], [address], [place], [address], [employer] 3 10:46:50 Tear of medial meniscus of knee 937032417 Active 2022 Tenzin Hernandes MD [address], [address], [place], [address], [employer] 3 07:11:32 Urinary symptoms 312629960 Active 2022 NETTIE Donnelly-C [address], [address], [place], [address], [employer] 3 20:25:20 Dark stools 53024643 Active 2022 NETTIE Donnelly-C [address], [address], [place], [address], [employer] 3 20:25:37 Anxiety 65059109 Active 2022 NETTIE Donnelly-C [address], [address], [place], [address], [employer] 3 20:25:40 Endometrios is of pelvis 43249219 Active 2022 NETTIE Donnelly-C [address], [address], [place], [address], [employer] 3 20:25:48 Female infertility 4246075 Active 2022 NETTIE Donnelly-C [address], [address], [place], [address], [employer] 3 20:25:54 Viral syndrome 187903923 Active 2022 Jeanette GonzalezNETTIE del angel-Shahida [address], [place], [address], [facility] [employer] [facility] [employer] [facility] 20:26:09 Obesity 569371046 Active 2022 Jeanette MonahanNETTIE-C [address], [place], [address], [facility] [employer] [facility] [employer] [facility] 16:44:40 Problem Notes None recorded. Procedures Surgical History Date Name Laterality Status Provider Name and Address Organization Details Recorded Time 10/05/19 Ortho - Cortisone Injection completed Tenzin Hernandes MD [address], [place], [address], [facility] [employer] [facility] 10/04/2022 10:53:02 repair of meniscus completed Sierra Willson [facility] [employer] [facility] 01/11/2023 11:42:16 hysteroscopy completed Sierra Willson [facility] [employer] [facility] 01/11/2023 11:42:47 Imaging Results Imaging Date Name Status LastModified by Organiz ation Details LastModified Time 09/17/2022 XR, ankle, 2 view completed [email or web address] [id number] [facility] [address] [place], [address], 09/29/2022 10:44:16 09/17/2022 XR, knee, 3 view completed [place] [id number] [facility] [address] [place], [address], 09/29/2022 10:44:16 10/04/2022 XR, knee, 3 view completed [facility] [place] [address], [place], [address], 10/04/2022 10:54:14 10/04/2022 XR, hip + pelvis, unilateral completed [email or web address] [facility] [place] [address], [place], [address], 10/04/2022 10:54:37 10/12/2022 MRI, knee, w/o contrast completed [facility] [address], [place], [address], 10/13/2022 13:35:08 10/12/2022 MRI, knee, w/o contrast completed [facility] [address], [place], [address], 10/13/2022 08:47:25 Procedure Notes None recorded. Medical Equipment None Reported. Allergies Allergen ID Allergen Name Allergen Category Reaction Reaction Severity Criticality Documentation Date Start Date Code Code System Note Provider Name and Address Organization Details Recorded Time 30472 Augmentin medicatio n hives Not available Not available 08/26/2022 12447 2 RxNorm mouth swell ing Crissy Marie, IN[employer] null, [place] - [facility] [employer] 09:43:13 Medications Name Sig Start Date Stop Date Status Note LastModified by Organization Details LastModified Time med swabs USE DIRECTED 10/04 completed Not Available Not Available Not Available progesteron e (micro) 200mg supp UNWRAP AND INSERT 1 SUPPOSITO RY VAGINALLY TWICE DAILY DIRECTED active Not Available Not Available No t Available med sharp container USE DIRECTED 10/04 completed Not Available Not Available Not Available fed-ex standard overnight TUE- OV TO PT HM SIG RQD DECLINED COUNSELIN G CHAPO 10/04 completed Not Available Not Available Not Available sharp container USE TO DISPOSE OF NEEDLES 10/04 completed Not Available Not Available Not Available [employer]now cov kit home ranulfo 10/04 completed Not Available Not Available Not Available insulin syringe (1ml) 28g 1/2'' USE DIRECTED [OMNITROP E MEDICATIO N] TO INJECT 01/11 completed Not Available Not Available Not Available fed-exstand sravan overnight $15 THUR-FRI PT HM NO SIG LP DECLINED COUNSELIN G active Not Available Not Available No t Available prednisone 10 mg tablet 01/11 completed Not Available Not Available Not Available doxycycline hyclate 100 mg capsule 05/27 completed Not Available Not Available Not Available azithromyci n 250 mg tablet FOLLOW PACKAGE DIRECTION S active Not Available Not Available No t Available clomiphene citrate 50 mg tablet 10/22 completed Not Available Not Available Not Available hydrocodone 5 mg-acetamin ophen 325 mg tablet Take 1 tablet every 6 hours by oral route. 01/11 completed Not Available Not Available Not Available Pregnyl 10,000 unit intramuscul ar solution 05/27 completed Not Available Not Available Not Available prednisone 10 mg tablets in a dose pack Take 1 tab by mouth, 3 times a day for 3 daysTake 1 tab by mouth 2 times a day for 2 daysTake 1 tab by mouth once a day for 1 day 01/11 completed Not Available Not Available Not Available progesteron e 50 mg/mL intramuscul ar oil 10/04 completed Not Available Not Available Not Available estradiol valerate 20 mg/mL intramuscul ar oil INJECT 0.3ML INTRAMUSC ULARLY ONCE EVERY THREE DAYS DIRECTED 01/11 completed Not Available Not Available Not Available Kenalog 10 mg/mL suspension for injection in office 01/11 completed [facility]: [phone] Not Available Not Available Not Available dexamethaso ne 1 mg tablet 03/11 completed Not Available Not Available Not Available benzonatate 100 mg capsule TAKE 1 CAPSULE BY MOUTH THREE TIMES DAILY FOR 5 DAYS NEEDED FOR COUGH active Not Available Not Available No t Available misoprostol 200 mcg tablet INSERT 4 TABLETS INTRAVAGI VERA A SINGLE DOSE 05/27 completed Not Available Not Available Not Available progesteron e micronized 200 mg capsule 05/27 completed Not Available Not Available Not Available sertraline 25 mg tablet TAKE 1 TABLET BY MOUTH EVERY DAY active Not Available Not Available No t Available omeprazole 20 mg capsule,del ayed release TAKE 1 CAPSULE BY MOUTH EVERY DAY 01/11 completed Not Available Not Available Not Available Lupron Depot 3.75 mg intramuscul ar syringe kit active Not Available Not Available Not Available estradiol 2 mg tablet TAKE 1 TABLET BY MOUTH THREE TIMES DAILY DIRECTED 01/11 completed Not Available Not Available Not Available hydroxyzine HCl 25 mg tablet Take 1 tablet 3 times a day by oral route as needed. active Not Available Not Available No t Available codeine 10 mg-guaifene sin 100 mg/5 mL oral liquid active Not Available Not Available Not Available BD Specialty Use Cheyenne 23 gauge x 1 1/4 USE TO INJECT ESTRADIOL INJECTION S DIRECTED 01/11 completed Not Available Not Available Not Available norethindro ne acetate 5 mg tablet active Not Available Not Available Not Available letrozole 2.5 mg tablet TAKE 2 TABLETS BY MOUTH ONCE DAILY DIRECTED active Not Available Not Available No t Available methylpredn isolone 4 mg tablets in a dose pack FOLLOW PACKAGE DIRECTION S 01/20 completed Not Available Not Available Not Available albuterol sulfate HFA 90 mcg/actuati on aerosol inhaler INHALE TWO PUFFS BY MOUTH FOUR TIMES DAILY NEEDED FOR SHORTNESS OF BREATH OR WHEEZING active Not Available Not Available No t Available BD Luer-Conner Syringe 3 mL 21 gauge x 1 1/2 USE TO DRAW UP ESTRADIOL INJECTION S DIRECTED 01/11 completed Not Available Not Available Not Available fluticasone propionate 50 mcg/actuati on nasal spray,suspe nsion INSTILL TWO SPRAYS IN EACH NOSTRIL TWICE DAILY 10/22 completed Not Available Not Available Not Available sertraline 50 mg tablet TAKE 1 TABLET BY MOUTH DAILY DIRECTED active Not Available Not Available No t Available BD Luer-Conner Syringe 3 mL 22 x 1 1/2 USE DIRECTED [OMNITROP E MEDICATIO N] TO MIX 01/11 completed Not Available Not Available Not Available leuprolide 1 mg/0.2 mL subcutaneou s kit 05/27 completed Not Available Not Available Not Available progesteron e micronized 100 mg capsule TAKE 1 CAPSULE BY MOUTH THREE TIMES DAILY DIRECTED active Not Available Not Available No t Available ganirelix 250 mcg/0.5 mL subcutaneou s syringe active Not Available Not Available No t Available Ovidrel 250 mcg/0.5 mL subcutaneou s syringe INJECT 1 PREFILLED SYRINGE SUBCUTANE OUSLY (UNDER THE SKIN) DIRECTED BY PHYSICIAN FOR A SINGLE DOSE 01/11 completed Not Available Not Available Not Available Alcohol Prep Pads USE DIRECTED 01/11 completed Not Available Not Available Not Available BD Regular Bevel Cheyenne 25 gauge x 1 1/2 USE 1 TO INJECT ESTRADIOL DIRECTED 01/11 completed Not Available Not Available Not Available Menopur 75 unit subcutaneou s solution 05/27 completed Not Available Not Available Not Available Follistim AQ 900 unit/1.08 mL subcutaneou s cartridge 05/27 completed Not Available Not Available Not Available Omnitrope 5.8 mg subcutaneou s solution INJECT 0.5 ML SUBCUTANE OUSLY ONCE DAILY DIRECTED 01/11 completed Not Available Not Available Not Available Endometrin 100 mg vaginal insert 01/11 completed Not Available Not Available Not Available ropivacaine (PF) 5 mg/mL (0.5 %) injection solution in office 01/11 completed Not Available Not Available Not Available Estarylla 0.25 mg-35 mcg tablet active Not Available Not Available N ot Available Gonal-F RFF Redi-Ject 300 unit/0.5 mL subcutaneou s pen injector INJECT 75 UNITS SUBCUTANE OUSLY (UNDER THE SKIN) EVERY DAY WHEN DIRECTED BY PHYSICIAN active Not Available Not Available No t Available ID NOW COVID-19 Test Kit TEST DIRECTED TODAY 10/22 completed Not Available Not Available Not Available BinaxNOW COVID-19 Ag Self Test kit TEST DIRECTED TODAY 10/04 completed Not Available Not Available Not Available Vitals Date Recorded Body height Body mass index (BMI) Body weight Provider Name and Address Organization Details Last Updated DateTime 10/14/2022 167.64 cm 28.2 kg/m2 29543.66 g [employer] 10/14/2022 10:24:03 Date Recorded Body height Body mass index (BMI) Body weight Provider Name and Address Organization Details Last Updated DateTime 11/29/2022 167.64 cm 28.2 kg/m2 55779.66 g [employer] 11/29/2022 10:00:49 Date Recorded Body height Body mass index (BMI) Body weight Body temperature Heart rate Oxygen saturation Oxygen saturation in Arterial blood by Pulse oximetry Systolic blood pressure Diastolic blood pressure Provider Name and Address Organization Details Last Updated DateTime 167.64 cm 30.5 kg/m2 22167.9 6 g 97.9 [degF] 78 /min 98 % 98 % 122 mm[Hg] 76 mm[Hg] Sierra Head, MA [facility] 3 11:44:56 Date Recorded Body height Body mass index (BMI) Body weight Body temperature Heart rate Oxygen saturation Oxygen saturation in Arterial blood by Pulse oximetry Systolic blood pressure Diastolic blood pressure Provider Name and Address Organization Details Last Updated DateTime 3 167.64 cm 29.7 kg/m2 00924 g 97.7 [degF] 74 /min 99 % 99 % 118 mm[Hg] 76 mm[Hg] Sierra Willson MA [facility] 3 11:18:13 Date Recorded Body height Body mass index (BMI) Body weight Body temperature Heart rate Oxygen saturation Oxygen saturation in Arterial blood by Pulse oximetry Systolic blood pressure Diastolic blood pressure Provider Name and Address Organization Details Last Updated DateTime 3 167.64 cm 30 kg/m2 55236.1 8 g 97.9 [degF] 66 /min 97 % 97 % 126 mm[Hg] 78 mm[Hg] Sierra Willson JACOB [facility] 3 14:06:06 Social History Question Answer Notes LastModified by Organizat ion Details LastModified Time Tobacco Smoking Status Never Smoker ARCHANA Mustafa, [facility] 01/11/2023 11:35:23 What Is Your Level Of Alcohol Consumption? Moderate [email or web address] Information not available 10/04/2022 Do You Wear A Helmet When Biking? No [email or web address] Information not available 01/11/2023 What Is Your Level Of Caffeine Consumption? Moderate [id number] Information not available 08/26/2022 In The 14 Days Before Symptom Onset, Have You Had Close Contact With A Laboratory-confir med COVID-19 While That Case Was Ill? No [email or web address] Information not available 01/11/2023 In The 14 Days Before Symptom Onset, Have You Had Close Contact With A Person Who Is Under Investigation For COVID-19 While That Person Was Ill? No [email or web address] Information not available 01/11/2023 What Type Of Diet Are You Following? REGULAR [id number] Information not available 08/26/2022 What Is The Highest Grade Or Level Of School You Have Completed Or The Highest Degree You Have Received? [id number] [email or web address] Information not available 01/11/2023 What Is Your Occupation? Nurse [email or web address] Information not available 01/11/2023 Have There Been Any Changes To Your Family Or Social Situation? No Information no t available 01/11/2023 What Is The Fluoride Status Of Your Home? Unknown [email or web address] Information not available 01/11/2023 Are There Any Guns Present In Your Home? Yes [email or web address] Information not available 01/11/2023 Do You Use Insect Repellent Routinely? Yes [email or web address] Information not available 01/11/2023 Where Do You Live? [facility] [email or web address] Information not available 01/11/2023 What Was The Date Of Your Most Recent Tobacco Screening? 05/27/2023 [email or web address] Information not available 05/27/2023 Do You Have Any Pets? Yes Information not available 01/11/2023 What Is Your Relationship Status? [id number] Information not available 08/26/2022 Do You Use Your Seat Belt Or Car Seat Routinely? Yes [email or web address] Information not available 01/11/2023 Do You Have Smoke And Carbon Monoxide Detectors In Your Home? Yes [email or web address] Information not available 01/11/2023 Are You Passively Exposed To Smoke? No [email or web address] Information no t available 01/11/2023 Are There Any Smokers In Your House? No [email or web address] Information not available 01/11/2023 Do You Feel Stressed (tense, Restless, Nervous, Or Anxious, Or Unable To Sleep At Night)? [id number] [email or web address] Information not available 01/11/2023 Do You Use Any Illicit Or Recreational Drugs? No Information not available 01/11/2023 Do You Use Sunscreen Routinely? Yes [email or web address] Information not available 01/11/2023 Do You Have Any Dietary Restrictions? No Information not available 01/11/2023 Sex: Unknown Functional Status Question Answer Note LastModified by Organizat ion Details LastModified Time What is your exercise level? Moderate [id number] Information not available 08/26/2022 Mental Status None recorded. Family History Relationship Description Onset Age of this Age Resolved Age Notes LastModified by Organization Details LastModified Time Paternal Grandmother Family history of malignant neoplasm breast , lung, melono ma. [id number] Not available 08/26/2022 00:57:23 Medical History Condition Response NERVE DISEASE N BLINDNESS N RHEUMATIC FEVER N KIDNEY STONES N BLADDER PROBLEMS N MRSA N OTHER # 1 N POLIO N LUNG DISEASE/DISORDER N HISTORY OF DRUG ABUSE N COPD N RADIATION / CHEMOTHERAPY N Other # 2 N BLOOD DISEASES N EAR OR HEARING PROBLEMS N MUMPS N SHINGLES N DEPRESSION (INCLUDING POST ) N BOWEL PROBLEMS N STROKE/TIA N ULCERS N BENIGN PROSTATIC HYPERPLASIA N MEASLES N HYPOTENSION N MYOCARDIAL INFARCTION N OBESITY N GERD/NAUSEA N ANEURYSM N URINARY/BLADDER/KIDNEY PROBLEMS N CORONARY ARTERY DISEASE (CAD) N ADDICTION CONCERNS N Impotence N ENDOMETRIOSIS N USE OF BLOOD THINNERS N SKIN PROBLEMS N GASTROINTESTINAL DISORDER N PERIPHERAL VASCULAR DISEASE N MUSCLE,JOINT OR BONE PROBLEMS N GASTROINTESTINAL BLEEDING N BLOOD CLOTS N ASTHMA N CATARACTS N ERECTILE DYSFUNCTION N VARICOSITIES N GI PROBLEMS N Low Testosterone N INFERTILITY N AIDS/HIV N CHEMOTHERAPY / RADIATION N LIVER DISEASE N MALE HYPOGONADISM N HYPERTENSION N Deficiency N TOURETTE'S N ANXIETY DISORDER N BLOOD TRANSFUSION N ANEMIA/BLOOD DISORDER N CHRONIC EAR INFECTIONS N BRONCHITIS N TUBERCULOSIS N GLAUCOMA N FOOT PROBLEM N DIVERTICULITIS N SLEEP APNEA N CHICKENPOX N INFECTIOUS DISEASE N PROSTATE N HEART ARRHYTHMIA N INSOMNIA N HIGH CHOLESTEROL / HYPERLIPIDEMIA N EYE PROBLEMS N HYPERTHYROIDISM N EDEMA N CHRONIC PAIN SYNDROME N HYPOTHYROIDISM N CAROTID BLOCKAGE N CONSTIPATION N BACK / NECK PROBLEMS N HAVE YOU BEEN HOSPITALIZED OR SEEN IN [facility] IN THE PAST YEAR ? N ATHEROSCLEROSIS N BREAST PROBLEMS N DIALYSIS N ECZEMA N OSTEOPOROSIS N ARTHRITIS N NO SIGNIFICANT PAST MEDICAL HISTORY N APPENDICITIS N DIABETES, TYPE N BAD TEETH N ENT N HEARTBURN / REFLUX N AUTISM SPECTRUM DISORDER (ASD) N HEPATITIS / LIVER DISEASE N GOUT N SLEEP DISORDER N ALZHEIMER'S DISEASE N Brain Problems N DEMENTIA N HERPES N SEIZURES/EPILEPSY N HEADACHES/MIGRAINES N VASCULAR DISEASE N PACEMAKER N Blood Disorder N DIZZINESS N HEART DISEASE/HEART PROBLEMS N KIDNEY DISEASE N MULTIPLE SCLEROSIS N CANCER: SPECIFY N CARDIAC ARRHYTHMIA N ATRIAL FIBRILLATION N Gall Stones N PULMONARY EMBOLISM N AUTOIMMUNE DISEASE N Gynecological HistoryNo gynecological history recorded. Obstetrics History GPAL:G 0 P 0 0 0 0 Past Encounters Encounter ID Performer Location Encounter Start Date Encounter Closed Date Diagnosis/Indication Diagnosis SNOMED-CT Code Diagnosis ICD10 Code Diagnosis Note [id number] [facility] Internal Med [facility] [address] [place] [address] 10/22/2021 00:00:00 10/22/2021 12:20:01 [id number] [facility] Internal Med [place] [address] [facility] [place] [address] 01/20/2022 00:00:00 01/20/2022 16:55:27 [id number] [facility] Internal Med [place] [address] [facility] y , [place] [address] 05/26/2022 00:00:00 05/26/2022 10:51:36 [id number] Tenzin Hernandes MD [facility] [place] [place] [address] [place] [address] 10/04/2022 09:23:47 10/04/2022 11:03:11 Pain of right knee joint [id number] 41309 M25.561 Pain in ri ght hip joint [id number] 12436 M25.551 Pain in ri ght sacroiliac joint 3545309291 2096303 M53.3 Tear of la teral meniscus of knee 830689619 S83.281A [id number] Tenzin Hernandes MD [facility] [place] [address] [place] [address] 10/14/2022 10:20:03 10/14/2022 11:20:42 Pain in right hip joint [id number] 24336 M25.551 Pain in ri ght sacroiliac joint 0361556545 0568366 M53.3 Tear of la teral meniscus of knee 468901916 S83.281A Chondromal acia of right patella 2993173416 9723587 M22.41 [id number] Tenzin Hernandes MD [facility] [place] [address] [place] [address] 11/29/2022 09:58:11 11/29/2022 11:01:49 Pain in right hip joint [id number] 53308 M25.551 Pain in ri ght sacroiliac joint 6399781419 4319468 M53.3 Tear of me dial meniscus of knee 366969882 S83.241A Tear of la teral meniscus of knee 859810368 S83.281A Chondromal acia of right patella [id number] 0996922 M22.41 Postoperative visit 1836 37362 Z09 [id number] NANCY Donnelly [facility] Internal Med [place] [address] [facility] [facility] [place] [address] 01/11/2023 11:34:24 01/11/2023 12:17:32 Adult health examination [id number] Z00.01 Anxiety 99932099 F41.9 self stopped the sertraline , is stable off of medsalso has some hydroxyzin e for prn usecontinu e counseling call office if any change in mood or behaviorsh e declines psychiatry referral 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 follows [facility]/RE Female infertility 76180 08 N97.9 follows RE- Bel Faulkner at [facility] his tory of malignant melanoma 829606012 Z80.7 get appt with derm for skin check- has referral Diabetes m ellitus screening 250663406 Z13.1 Hyperlipid emia screening 254670386 Z13.220 Depression screening 171 434318 Z13.31 Obesity 017969425 E66.9 recommend healthy, well balanced mealsfocus on lean meats, fresh vegetables , fresh fruits, whole grainsredu ce fast/proce ssed foods or eating out to no more than 1-2 times per weekaim to get 30 min of exercise most days of the week- walking is a great choicealso recommend resistance training 2-3 times per week May be interested in Wegovy- we did discuss side effects, risks, benefits today, she will call us if she desires scriptpt is aware of side effects, risks, benefitspt denies any personal or family history of MEN II or MTC, denies and personal history of pancreatit ispt knows to call the office if any severe n/v or abdominal pain [id number] NANCY Donnelly [facility] Internal Med [facility] [address] [facility] [place] [address] 03/11/2023 11:10:22 03/11/2023 11:49:57 Anxiety 95572706 F41.9 restart sertraline at her request- she is aware of side effects, risks, benefitsal so has some hydroxyzin e for prn userecomme nd she call her counselor and get another apptcall office if any change in mood or behaviorsh e declines psychiatry referral support given to patient today, 30 min spent with patient, over half spent on counseling Endometrio sis of pelvis 83746336 N80.9 follows [facility]/RE Female infertility 01709 08 N97.9 follows MAIRA- Bel Faulkner at [facility] his tory of malignant melanoma 335986663 Z80.7 has appt with derm later today [id number] NANCY Donnelly [facility] Internal Med [facility] [address] [facility] [place] [address] 05/27/2023 13:56:02 05/27/2023 14:26:58 Anxiety 26866639 F41.9 increase sertraline at her request- she is aware of side effects, risks, benefitsal so has some hydroxyzin e for prn userecomme nd she call her counselor and get another apptcall office if any change in mood or behaviorsh e declines psychiatry referral support given to patient today, 30 min spent with patient, over half spent on counseling Endometrio sis of pelvis 61863696 N80.9 follows [facility]/RE Female infertility 16190 08 N97.9 follows MATHIEU Faulkner at [facility] his tory of malignant melanoma 729263487 Z80.7 has appt with derm later today Obesity 507745501 E66.9 recommend healthy, well balanced mealsfocus on lean meats, fresh vegetables , fresh fruits, whole grainsredu ce fast/proce ssed foods or eating out to no more than 1-2 times per weekaim to get 30 min of exercise most days of the week- walking is a great choicealso recommend resistance training 2-3 times per week would like to restart Wegovy- we did discuss side effects, risks, benefits today, she will call us if she desires scriptpt is aware of side effects, risks, benefitspt denies any personal or family history of MEN II or MTC, denies and personal history of pancreatit ispt knows to call the office if any severe n/v or abdominal painsample boxes x 2 given to patient today Health Concerns Section Related Observation LastModified by Organization Detai ls LastModified Time None Recorded Concern Status LastModified by Organization Details LastModified Time None Recorded Advance Directives Directive None Recorded Payers Encounter Date Sequence Insurance Name Policy Number Policy Mendez Covered Member ID Mendez Member ID Guarantor Name 10/14/2022 1 [place] [id number] Yesica Fitzgerald [id number] Yesica Fitzgerald 10/14/2022 2 [facility] [id number] Yesica Fitzgerald [id number] Yesica Fitzgerald 11/29/2022 1 [place] [id number] Yesica Fitzgerald [id number] Yesica Fitzgerald 11/29/2022 2 [facility] [id number] Yesica Fitzgerald [id number] Yesica Fitzgerald 01/11/2023 1 [place] [id number] Yesica Fitzgerald [id number] Yesica Fitzgerald 01/11/2023 2 [facility] [id number] Yesica Fitzgerald [id number] Yesica Fitzgerald 03/11/2023 1 [place] [id number] Yesica Fitzgerald [id number] Yesica Fitzgerald 03/11/2023 2 [facility] [id number] Yesica Fitzgerald [id number] Yesica Fitzgerald 05/27/2023 1 [place] [id number] Yesica Fitzgerald [id number] Yesica Fitzgerald 05/27/2023 2 [facility] [id number] Yesica Fitzgerald [id number] Yesica Fitzgerald Notes Date Note Type Note Provider Name and Address Organization Details Recorded Time 10/14/2022 text/html Patient returns knee pain right. She hurts not only laterally but also in the anterior aspect. She presents with an MRI scan that shows meniscal pathology as well as significant patellar tilt. Tenzin Hernandes MD [address] [place] [address], [facility] [address], [place], [address], [facility] [employer] 10/14/2022 10:47:35 11/29/2022 text/html Patient returns status post knee arthroscopy right. Pain is resolving overall she looks good. She feels quite comfortable and is walking well. eTnzin Hernandes MD [address], [facility] [address], [place], [address], [facility] [email or web address] [facility] 11/29/2022 10:40:46 01/11/2023 text/html Yesica presents today for annual wellness exam. She is overall feeling well. Decided to take a break from her IVF medications for a few months. She has an appointment with her IVF doctor tomorrow to talk about that. She has gained about 30 lb since they had her on this last round of medications plus she was not able to exercise as she tore her ACL. She is now back to exercising. She may be interested in Wegovy, she is going to talk to her IVF doctor if that is an option for a few months while she is off her IVF medications. She denies any personal or family history of thyroid cancer, denies any personal history of pancreatitis. She stopped her sertraline, she does not feel like she needs any more. Mood is well controlled. She does have her hydroxyzine that she uses p.r.n. but has not really needed to use it. She denies any SI or HI today. She is due for screening labs. NANCY Donnelly [address], [facility] [address], [place], [address], [facility] [email or web address] [facility] 01/11/2023 16:45:56 03/11/2023 text/html Yesica presents today to discuss restarting sertraline. She had been going through IVF treatments, she took a break from those and then ended up having a spontaneous . However, baby hasn't been growing and the heartrate is slowing. She has another u/s scheduled later today. She has been talking to her team about options, she is thinking she may proceed with D&C if she does have a miscarriage. She reports her is very sad about the possibility of a loss, so she has been supporting him in his grief, she reports she mostly feels in shock right now, and feels like she has been in shock since she first found out about the .She has a counselor she was seeing previously, she plans to call her and get another session set up for some extra support. She does have good supportive friends and family.She is requesting to restart the sertraline, she has been on both 25mg and 50mg in the past, would prefer to try the smaller dose. She denies any SI or HI today. NANCY Donnelly [address], [facility] [address], [place], [address], [employer] [facility] [employer] 03/11/2023 13:09:36 05/27/2023 text/html Yesica presents today for follow up. Last visit, restarted the sertraline 25 mg. Since that time, she has had a lot more stress in her life. She ended up having her miscarriage and she had to go back for 2 separate D&Cs. She also had to take Cytotec twice. And then last week, there was a in her family and so she has been preparing for the . She feels like the sertraline is helping somewhat but feels like things could be better. She is wanting to try an increase in dose. She denies any SI or HI today. She has decided she wants to pause the infertility meds for now. She would like to restart the Wegovy. She tolerated it well last time she was on it. Last time she was on it it actually regulated her cycle and she was able to get naturally. She denies any personal or family history of thyroid cancer, denies any personal history of pancreatitis. 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 NANCY Donnelly [address], [facility] [address], [place], [address], [employer] [facility] [employer] 05/27/2023 15:31:09 OBGyn Episode No OBEpisode recorded.
== END 2024-06-27 01:02 | disposition home or self-care (01) ==
PROVIDERS: Emergency Provider Physician Assistant; PCP Physician Assistant
DX: O26.892 Other specified pregnancy related conditions, second trimester (principal); R10.30 Lower abdominal pain, unspecified; M54.50 Low back pain, unspecified; Z3A.16 16 weeks gestation of pregnancy; R82.90 Unspecified abnormal findings in urine
CPT/HCPCS: 36415; 80053; 81001; 83690; 84702; 85025; 87086; 99283

== ENCOUNTER 2024-09-04 08:06 | Emergency (ER) | payer OTHER, SELFPAY ==
--- OUTSIDE RECORDS SUMMARY | 2024-09-04 08:15 | XMS_ITS | Clinical Summary ---
Author Organization [facility] Address [address] [place] [address] Care Team Providers Care Freight Hustler Name Role Phone Maxi Serna MD Primary Care Provider [phone] Source Comments [facility],non-owned Affiliates and Associated Physician Practices is amultiple site organization consisting of ambulatory clinics and hospital sitesin [place], [place], [place] and [place]. This disclosure is being madepursuant to the Care Everywhere program and may not contain all information available regarding this patient. Last updated 18.[facility] [employer] Allergies Active Allergy Reactions Criticality Noted Date [...] 87 04/16/2019 12:08 PM CDT Temperature 37.1 C (98.7 F) 04/16/2019 12:08 PM CDT Respiratory Rate 16 04/16/2019 12:08 PM CDT [...] of 3 - 19+ 3-dose series) 01/24/2011 COVID-19 VACCINE (1 - 2023-2 5 season) 2024 INFLUENZA VACCINE (#1) 2024 DEPRESSION SCREENING 06/27/2024 ZOSTER VACCINE (1 of 2) 01/24/2042 HIB VACCINE Aged Out No longer eligi ble based on patient's age to complete this topic HPV VACCINE Aged Out No longer eligi ble based on patient's age to complete this topic MENINGOCOCCAL (Group B) VACCINE Aged Out No longer eligible based on patient's age to complete this topic MENINGOCOCCAL VACCINE Aged Out No alex frandy eligible based on patient's age to complete this topic PNEUMOCOCCAL VACCINE Aged Out No long er eligible based on patient's age to complete this topic Care Teams Freight Hustler Relationship Specialty Start Date End Date Maxi Serna MD [facility] [place] [address] PCP - General Family Medicine 08/09/17
--- OUTSIDE RECORDS SUMMARY | 2024-09-04 08:15 | XMS_ITS | Data Portability ---
Author Organization [place] [facility], Main Office Address [address] [place] [address] Care Team Providers Care Metal Gauge Maker Name Role Phone RUPINDERJEANETTE DEL ANGEL Primary Care Provider RUPINDERJEANETTE DEL ANGEL Referring Provider [phone] Assessment Encounter Date Assessment Date Assessment LastModified [...] resolved because the patellofemoral issue as well. [email or web address] Not available 10/14/2022 10:47:19 11/29/2022 11/29/2022 Patient [...] responded well to surgery at this point. [email or web address] Not available 11/29/2022 10:32:20 01/11/2023 01/11/2023 WWE- FIELD STAFF MANAGER- Dr. Doe CADENA-01/11/23 Call office if worse, ER if life-threatening illness RTC 1 year and PRN She voices understanding of plan and agrees [email or web address] Not available 01/11/2023 16:44:20 03/11/2023 03/11/2023 WWE- FIELD STAFF MANAGER- Dr. Doe CADENA-01/11/23 Call office if worse, ER if life-threatening illness RTC 1 month She voices understanding of plan and agrees [email or web address] Not available 03/11/2023 13:08:17 05/27/2023 05/27/2023 WWE- FIELD STAFF MANAGER- Dr. Doe CADENA-01/11/23 Call office if worse, ER if life-threatening illness RTC 1 month She voices understanding of plan and agrees [email or web address] Not available 05/27/2023 14:10:18 Plan of Treatment Reminders Order Date Submit Date Provider Last Modified By Organization Details Last Modified Time Details Appointments None recorded. Lab lipid panel, serum [address] (Lab), [address] [place], [address], 4 17:12:01 HbA1c (hemoglobin A1c), blood [address] (Lab), [address] [place], [address], 4 17:12:01 CMP, serum or plasma [address] (Lab), [address] [place], [address], 4 17:12:00 CBC w/ auto diff [address] (Lab), [address] [place], [address], 4 17:12:01 Referral None recorded. Procedures None recorded. Surgeries None recorded. Imaging None recorded. Medication Orders sertraline 50 mg tablet 2022 023 [facility], [address], [place], [id number], 14:26:05 sertraline 25 mg tablet 2022 023 [id number], [address], [place], [id number], 11:46:13 Patient TargetsNo targets recorded. Patient Instructions Encounter Date Encounter Id Patient Instructions Last Modified By Organization Details Last Modified Time 01/11/2023 [id number] INFLUENZA VACCIN E TD/TDAP Recommended today, patient declined Ordered P atient will get at local pharmacy/health department MAMMOGRAM Recommended today, but patient declined Ordered N o screening indicated at this time/ no family history CERVICAL SCREENING/PELVIC EXAMINATION No screening necessary patient is up to date COLORECTAL SCREENING Recommended today, but patient declined Ordered C olonoscopy declined. Cologuard ordered No screening necessary until age 45 DEPRESSION SCREENING Negative Positive History of depression BMI Overweight Appropr iate Underweight O besity continue your current weight loss efforts NUTRITION Continue healthy eating & exercise PHYSICAL ACTIVITY Appropriate Recommendation of 10-20 minutes of activity that causes mild breathlessness daily Recommendati on of 30 minutes of daily activity VISION Ordered Recommende d today ALCOHOL USE No alcohol use Occasional/Soc ial Use TOBACCO USE non smoker SEXUALLY ACTIVE Yes, Patient is in monogamous relationship GLUCOSE SCREENING Ordered LIPID SCREENING Ordered [email or web address] Not available 01/11/2023 16:45:42 Reason for Referral None Reported. Results Created Date Observation Date Name Description Value Unit Range Abnormal Flag Note LastModifiedBy Organization Detail LastModifiedTime 09/30/1909/17/2022 XR, ankle , 2 view No observ ation record ed. [email or web address] [facility] [address] [place], [address], 09/29/2022 10:44:16 09/30/19 23 09/17/2022 XR, knee, 3 view No observ ation record ed. [facility] [address] [place], [address], 09/29/2022 10:44:16 10/05/19 23 XR, knee, 3 view No observ ation record ed. [email or web address] [facility] [place] [address], [place], [address], 10/04/2022 10:54:14 10/05/19 23 XR, hip + pelvi s, unila teral No observ ation record ed. [email or web address] [facility] [place] [address], [place], [address], 10/04/2022 10:54:37 10/14/19 23 10/12/2022 MRI, knee, w/o contr ast No observ ation record ed. [address] 2022 Jaret Wright [facility] [address], [place], [address], 10/13/2022 13:35:08 10/14/19 23 10/12/2022 MRI, knee, w/o contr ast No observ ation record ed. [address], [place], [address], 10/13/2022 08:47:25 Result Notes None recorded. Problems Name Problem SNOMED Code Status Onset Date Resolution Date Notes Provider Name and Address Organization Details Recorded Time Pain in right hip joint 7416090350969 02 Active 2022 Cassia casanova [employer] 3 11:05:37 Pain of right knee joint 9107181600745 00 Active 2022 Cassia casanova [employer] 3 11:06:07 Pain in right sacroiliac joint 5238919635482 9107 Active 2022 Tenzin Hernandes MD [address] [place] [address], [facility] [address], [place], [address] , [employer] 3 10:54:44 Tear of lateral meniscus of knee 442488112 Active 2022 Tenzin Hernandes MD [address], [place], [address], [facility] 3 10:55:01 Chondromala mike of right patella 0624101791780 9108 Active 2022 Tenzin Hernandes MD [address], [address], [place], [address], [facility] 3 10:46:50 Tear of medial meniscus of knee 240700788 Active 2022 Tenzin Hernandes MD [address], [address], [place], [address], [facility] 3 07:11:32 Urinary symptoms 173215632 Active 2022 NETTIE Donnelly-C [address], [address], [place], [address], [facility] [employer] [facility] 3 20:25:20 Dark stools 43327436 Active 2022 NANCY Donnelly [address], [address], [place], [address], [facility] [employer] [facility] 3 20:25:37 Anxiety 41745478 Active 2022 NETTIE Donnelly-C [address], [address], [place], [address], [facility] [place] [facility] 3 20:25:40 Endometrios is of pelvis 33280660 Active 2022 NETTIE Donnelly-C [address], [address], [place], [address], [facility] 3 20:25:48 Female infertility 6790944 Active 2022 NETTIE Donnelly-C [address], [address], [place], [address], [facility] [employer] [facility] 3 20:25:54 Viral syndrome 937680688 Active 2022 Jeanette Monahan [facility] [address], [place], [address], [facility] [employer] [facility] [employer] [facility] 20:26:09 Obesity 751925134 Active 2022 MEI DonnellyP-C [address], [address], [place], [address], [facility] [employer] [facility] [employer] [facility] 16:44:40 Problem Notes None recorded. Procedures Surgical History Date Name Laterality Status Provider Name and Address Organization Details Recorded Time 10/05/19 23 Ortho - Cortisone Injection completed Tenzin Hernandes MD [address], [place], [address], [facility] [employer] [facility] [employer] [facility] 10/04/2022 10:53:02 repair of meniscus completed Sierra Willson MA [facility] [employer] [facility] 01/11/2023 11:42:16 hysteroscopy completed Sierra Willson MA [facility] [employer] [facility] 01/11/2023 11:42:47 Imaging Results Imaging Date Name Status LastModified by Organiz ation Details LastModified Time 09/17/2022 XR, ankle, 2 view completed [address] [facility] [address] [place], [address], 09/29/2022 10:44:16 09/17/2022 XR, knee, 3 view [email or web address] [facility] [address] [place], [address], 09/29/2022 10:44:16 10/04/2022 XR, knee, 3 view completed daryl [facility] [place] [address], [place], [address], 10/04/2022 10:54:14 10/04/2022 XR, hip + pelvis, unilateral completed daryl [facility] [place] [address], [place], [address], 10/04/2022 10:54:37 10/12/2022 MRI, knee, w/o contrast completed [address] 2022 Jaret Johns [address], [place], [address], 10/13/2022 13:35:08 10/12/2022 MRI, knee, w/o contrast completed [address], [place], [address], 10/13/2022 08:47:25 Procedure Notes None recorded. Medical Equipment None Reported. Allergies Allergen ID Allergen Name Allergen Category Reaction Reaction Severity Criticality Documentation Date Start Date Code Code System Note Provider Name and Address Organization Details Recorded Time 57640 Augmentin medicatio n hives Not available Not available 08/26/2022 86493 2 RxNorm mouth swell ing Crissy Salazar, FIONA casanova, [place] [facility] [place] [employer] 09:43:13 Medications Name Sig Start Date Stop [...] suspension for injection in office 01/11 completed [facility]: 0003- 0494- 20 Not Available Not Available [...] Not Available Not Available BD Specialty Use [place] 23 gauge x 1 1/4 USE TO [...] Not Available Not Available BD Regular Bevel [place] 25 gauge x 1 1/2 USE 1 [...] Updated DateTime 10/14/2022 167.64 cm 28.2 kg/m2 18476.66 g Crissy Salazar [employer] 10/14/2022 10:24:03 Date Recorded Body height Body mass index (BMI) Body weight Provider Name and Address Organization Details Last Updated DateTime 11/29/2022 167.64 cm 28.2 kg/m2 66953.66 g Crissy MarieFIONA lind [employer] 11/29/2022 10:00:49 Date Recorded Body height Body mass index (BMI) Body weight Body temperature Heart rate Oxygen saturation Oxygen saturation in Arterial blood by Pulse oximetry Systolic blood pressure Diastolic blood pressure Provider Name and Address Organization Details Last Updated DateTime 167.64 cm 30.5 kg/m2 58515.9 6 g 97.9 [degF] 78 /min 98 % 98 % 122 mm[Hg] 76 mm[Hg] Sierra Willson MA [facility] [employer] [facility] 3 11:44:56 Date Recorded Body height Body mass index (BMI) Body weight Body temperature Heart rate Oxygen saturation Oxygen saturation in Arterial blood by Pulse oximetry Systolic blood pressure Diastolic blood pressure Provider Name and Address Organization Details Last Updated DateTime 3 167.64 cm 29.7 kg/m2 58696 g 97.7 [degF] 74 /min 99 % 99 % 118 mm[Hg] 76 mm[Hg] Sierra Willson MA [facility] [employer] [facility] 3 11:18:13 Date Recorded Body height Body mass index (BMI) Body weight Body temperature Heart rate Oxygen saturation Oxygen saturation in Arterial blood by Pulse oximetry Systolic blood pressure Diastolic blood pressure Provider Name and Address Organization Details Last Updated DateTime 3 167.64 cm 30 kg/m2 64534.1 8 g 97.9 [degF] 66 /min 97 % 97 % 126 mm[Hg] 78 mm[Hg] Sierra Willson MA [facility] [employer] [facility] 3 14:06:06 Social History Question Answer Notes LastModified by Organizat ion Details LastModified Time Tobacco Smoking Status Never Smoker ARCHANA Mustafa, [facility] [employer] [facility] 01/11/2023 11:35:23 What Is Your Level Of Alcohol Consumption? Moderate [email or web address] Information not available 10/04/2022 Do You Wear A Helmet When Biking? No [email or web address] Information not available 01/11/2023 What Is Your Level Of Caffeine Consumption? Moderate [id number] Information not available 08/26/2022 In The 14 Days Before Symptom Onset, Have You Had Close Contact With A Laboratory-confir med COVID-19 While That Case Was Ill? No [email or web address] Information not available 01/11/2023 In The 14 Days Before Symptom Onset, Have You Had Close Contact With A Person Who Is Under Investigation For COVID-19 While That Person Was Ill? No [email or web address] Information not available 01/11/2023 What Type Of Diet Are You Following? REGULAR [id number] Information not available 08/26/2022 What Is The Highest Grade Or Level Of School You Have Completed Or The Highest Degree You Have Received? [id number] [email or web address] Information not available 01/11/2023 What Is Your Occupation? Nurse [email or web address] Information not available 01/11/2023 Have There Been Any Changes To Your Family Or Social Situation? No [email or web address] Information no t available 01/11/2023 What Is The Fluoride Status Of Your Home? Unknown [email or web address] Information not available 01/11/2023 Are There Any Guns Present In Your Home? Yes [email or web address] Information not available 01/11/2023 Do You Use Insect Repellent Routinely? Yes [email or web address] Information not available 01/11/2023 Where [facility] You Live? [facility] [email or web address] Information not available 01/11/2023 What Was The Date Of Your Most Recent Tobacco Screening? 05/27/2023 [email or web address] Information not available 05/27/2023 Do You Have Any Pets? Yes [email or web address] Information not available 01/11/2023 What Is Your Relationship Status? [id number] Information not available 08/26/2022 Do You Use Your Seat Belt Or Car Seat Routinely? Yes Information not available 01/11/2023 Do You Have Smoke And Carbon Monoxide Detectors In Your Home? Yes [email or web address] Information not available 01/11/2023 Are You Passively Exposed To Smoke? No Information no t available 01/11/2023 Are There Any Smokers In Your House? No Information not available 01/11/2023 Do You Feel Stressed (tense, Restless, Nervous, Or Anxious, Or Unable To Sleep At Night)? [id number] [email or web address] Information not available 01/11/2023 Do You Use Any Illicit Or Recreational Drugs? No [email or web address] Information not available 01/11/2023 Do You Use Sunscreen Routinely? Yes [email or web address] Information not available 01/11/2023 Do You Have Any Dietary Restrictions? No [email or web address] Information not available 01/11/2023 Sex: Unknown Functional Status Question Answer Note LastModified by Organizat ion Details LastModified Time What is your exercise level? Moderate [id number] Information not available 08/26/2022 Mental Status None recorded. Family History Relationship Description Onset Age of this Age Resolved Age Notes LastModified by Organization Details LastModified Time Paternal Grandmother Family history of malignant neoplasm breast , lung, melono ma. [id number] Not available 08/26/2022 00:57:23 Medical History Condition Response NERVE DISEASE N BLINDNESS N RHEUMATIC FEVER N KIDNEY STONES N BLADDER PROBLEMS N MRSA N OTHER # 1 N POLIO N LUNG DISEASE/DISORDER N HISTORY OF DRUG ABUSE N RADIATION / CHEMOTHERAPY N COPD N Other # 2 N BLOOD DISEASES [...] HAVE YOU BEEN HOSPITALIZED OR SEEN IN [facility] IN THE PAST YEAR ? N ATHEROSCLEROSIS [...] SNOMED-CT Code Diagnosis ICD10 Code Diagnosis Note [id number] [facility] [address] [place] [address] 10/22/2021 00:00:00 10/22/2021 12:20:01 [id number] [facility] [place] [address] [place] [address] 01/20/2022 00:00:00 01/20/2022 16:55:27 [id number] [facility] [place] [address] [facility] [address] [place] [address] 05/26/2022 00:00:00 05/26/2022 10:51:36 [id number] Tenzin Hernandes MD [facility] [place] [address] [place] [address] 10/04/2022 09:23:47 10/04/2022 11:03:11 Pain of right knee joint 7467439694 02641 M25.561 Pain in ri ght hip joint 5927481438 86049 M25.551 Pain in ri ght sacroiliac joint 7490254053 7699248 M53.3 Tear of la teral meniscus of knee 860499114 S83.281A [id number] Tenzin Hernandes MD [facility] [place] [address] [place] [address] 10/14/2022 10:20:03 10/14/2022 11:20:42 Pain in right hip joint 8713575610 81006 M25.551 Pain in ri ght sacroiliac joint 3605966869 9688177 M53.3 Tear of la teral meniscus of knee 549287683 S83.281A Chondromal acia of right patella 8876307305 1529790 M22.41 [id number] Tenzin Hernandes MD [facility] [place] [address] [place] [address] 11/29/2022 09:58:11 11/29/2022 11:01:49 Pain in right hip joint 5621809843 16207 M25.551 Pain in ri ght sacroiliac joint 2628399697 3127835 M53.3 Tear of me dial meniscus of knee 602146194 S83.241A Tear of la teral meniscus of knee 922538537 S83.281A Chondromal acia of right patella 0039756268 3636045 M22.41 Postoperative visit 1836 96769 Z09 [id number] NANCY Donnelly [facility] Internal [facility] [address] [facility] [place] [address] 01/11/2023 11:34:24 01/11/2023 12:17:32 Adult health examination 969685132 Z00.01 Anxiety 79189691 F41.9 self stopped the sertraline , is stable off of medsalso has some hydroxyzin e for prn usecontinu e counseling call office if any change in mood or behaviorsh e declines psychiatry referral Endometrio sis of pelvis 22243863 N80.9 follows FIELD STAFF MANAGER/RE Female infertility 08797 08 N97.9 follows [facility]- [facility] his tory of malignant melanoma 851809963 Z80.7 get appt with derm for skin check- has referral Diabetes m ellitus screening 913629906 Z13.1 Hyperlipid emia screening 737549906 Z13.220 Depression screening 171 101507 Z13.31 Obesity 761254933 E66.9 recommend healthy, well balanced mealsfocus on [...] if any severe n/v or abdominal pain [id number] NANCY Donnelly [facility] Internal Med [address] [facility] [place] [address] 03/11/2023 11:10:22 03/11/2023 11:49:57 Anxiety 38297374 F41.9 restart sertraline at her request- she is aware of side effects, risks, benefitsal so has some hydroxyzin e for prn userecomme nd she call her counselor and get another apptcall office if any change in mood or behaviorsh e declines psychiatry referral support given to patient today, 30 min spent with patient, over half spent on counseling Endometrio sis of pelvis 46163227 N80.9 follows FIELD STAFF MANAGER/RE Female infertility 99342 08 N97.9 follows MAIRASammie Bel Faulkner at [facility] his tory of malignant melanoma 161489687 Z80.7 has appt with derm later today [id number] NANCY Donnelly [facility] Internal Med [facility] [address] [facility], [facility] [address] [place] [address] 05/27/2023 13:56:02 05/27/2023 14:26:58 Anxiety 55664041 F41.9 increase sertraline at her request- she is aware of side effects, risks, benefitsal so has some hydroxyzin e for prn userecomme nd she call her counselor and get another apptcall office if any change in mood or behaviorsh e declines psychiatry referral support given to patient today, 30 min spent with patient, over half spent on counseling Endometrio sis of pelvis 08291784 N80.9 follows FIELD STAFF MANAGER/RE Female infertility 36158 08 N97.9 follows MAIRASammie Bel Faulkner at [facility] his tory of malignant melanoma 008360293 Z80.7 has appt with derm later today Obesity 799418061 E66.9 recommend healthy, well balanced mealsfocus on [...] ID Guarantor Name 10/14/2022 1 [place] [id number] Yesica Fitzgerald [id number] Yesica Fitzgerald 10/14/2022 2 [facility] [id number] Yesica Fitzgerald [id number] Yesica Fitzgerald 11/29/2022 1 [place] [id number] Yesica Fitzgerald [id number] Yesica Fitzgerald 11/29/2022 2 [facility] [id number] Yesica Fitzgerald [id number] Yesica Fitzgerald 01/11/2023 1 [place] [id number] Yesica Fitzgerald [id number] Yesica Fitzgerald 01/11/2023 2 [facility] [id number] Yesica Fitzgerald [id number] Yesica Fitzgerald 03/11/2023 1 [employer] [id number] Yesica Fitzgerald [id number] Yesica Fitzgerald 03/11/2023 2 [facility] [id number] Yesica Fitzgerald [id number] Yesica Fitzgerald 05/27/2023 1 [place] [id number] Yesica Fitzgerald [id number] Yesica Fitzgerald 05/27/2023 2 [facility] [id number] Yesica Fitzgerald [id number] Yesica Fitzgerald Notes Date Note Type Note Provider Name and Address Organization Details Recorded Time 10/14/2022 text/html Patient returns knee pain right. She hurts not only laterally but also in the anterior aspect. She presents with an MRI scan that shows meniscal pathology as well as significant patellar tilt. Tenzin Hernandes MD [address] [place] [address], [facility] [address], [place], [address], [place] [facility] 10/14/2022 10:47:35 11/29/2022 text/html Patient returns status post knee arthroscopy right. Pain is resolving overall she looks good. She feels quite comfortable and is walking well. Tenzin Hernandes MD [address], [place], [address], [employer] [facility] [employer] [facility] 11/29/2022 10:40:46 01/11/2023 text/html Yesica presents today [...] today. She is due for screening labs. Jeanette Monahan, NETTIE-Shahida [address], [place], [address], [facility] [employer] [facility] 01/11/2023 16:45:56 03/11/2023 text/html Yesica presents today [...] any SI or HI today. NANCY Donnelly [address], [facility] [address], [place], [address], [employer] [facility] 03/11/2023 13:09:36 05/27/2023 text/html Yesica presents today [...] removed from her left arm. NANCY Donnelly [address], [place], [address], [employer] 05/27/2023 15:31:09 OBGyn Episode No OBEpisode recorded.
--- OUTSIDE RECORDS SUMMARY | 2024-09-04 08:15 | XMS_ITS | Referral Summary ---
Author Organization [facility] Address [address] [facility] [place] [address] Care Team Providers Care Manager Field Investigations Name Role Phone Maxi Serna MD Primary Care Provider [phone] Source Comments [facility],non-owned Affiliates and Associated Physician Practices is amultiple site organization consisting of ambulatory clinics and hospital sitesin [place], [place], [place] and [place]. This disclosure is being madepursuant to the Care Everywhere program and may not contain all information available regarding this patient. Last updated 18.[facility] [employer] Allergies Active Allergy Reactions Criticality Noted Date [...] of Treatment Not on file Care Teams Manager Field Investigations Relationship Specialty Start Date End Date Maxi Serna MD [facility] [place] [address] PCP - General Family Medicine 08/09/17
--- OUTSIDE RECORDS SUMMARY | 2024-09-04 08:15 | XMS_ITS | Clinical Summary ---
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 [place] [address] PCP - General Family Medicine 02/15/24 Zane Griffith MD [address] [phone] Consulting Physician General Surgery 02/15/24
--- OUTSIDE RECORDS SUMMARY | 2024-09-04 08:15 | XMS_ITS | Encounter Summary ---
Author Organization [facility] Address [address] [place] [address] Care Team Providers Care Carbon Capture Power Plant Operator Name Role Phone Maxi Serna MD Primary Care Provider [phone] Encounter Details Date Type Department Care Team (Late st Contact Info) Description 02/18/2022 Lab Requisition [facility] [address] [place] [address] Mau Serna, CLOTHING SUPERVISOR-YARD DRIVER [address] [phone] Contact with and (suspected) exposure to other [...] A) Not detected 02/18/2022 8:55 PM CDT [facility] Microbiology SPECIMEN FROM NASOPHARYNGEAL STRUCTURE / Unknown Collection / Unknown 02/18/2022 12:00 PM CDT 02/18/2022 2:06 PM CDT Narrative [facility] - 02/18/2022 8:55 PM CDT This nucleic acid amplification assay performance was validated by [facility]. This test has been authorized by the Food and Drug administration (FDA)under an Emergency Use Authorization (EUA). This test has been validated [...] assay are available upon request. Mau Serna CLOTHING SUPERVISOR-YARD DRIVER LAB - MICROBIOL OGY ORDERABLES [facility] [address] [place], [place] [address], [facility] [phone] documented in this encounter Visit Diagnoses Diagnosis Contact with and (suspected) exposure to other viral communicable diseases documented in this encounter Additional Health Concerns Infection Onset Date Last Indicated Resolved Time COVID-19 Under Investigation 02/18/2022 02/18/2022 02/18/2022 8:55 PM CDT COVID-19 Confirmed 02/18/2022 02/18/2022 4:33 AM CDT documented as of this encounter Care Teams Carbon Capture Power Plant Operator Relationship Specialty Start Date End Date Maxi Serna MD [address] [place] [address] PCP - General Family Medicine 08/09/17 documented as of this encounter
--- OUTSIDE RECORDS SUMMARY | 2024-09-04 08:15 | XMS_ITS | Patient Health Summary ---
Author Organization [facility] Address [address] [place] [address] Care Team Providers Care Pattern Checker Name Role Phone Maxi Serna MD Primary Care Provider [phone] Note from [facility],non-owned Affiliates and Associated Physician Practices is amultiple site organization consisting of ambulatory clinics and hospital sitesin [place], [place], [place] and [place]. This disclosure is being madepursuant to the Care Everywhere program and may not contain all information available regarding this patient. Last updated 18.[facility] Allergies * Augmentin(Rash) -Medium Criticality Medications * [...] present. Report drafted by Johann Ryder MD (information services vice president) I, Rivas Lim DO have personally reviewed and interpreted this examination/study. > Interpreting Provider: Rivas Lim DO on 09/19/2022 10:35 AM Narrative 09/19/2022 10:35 AM CDT PROCEDURE: XR KNEE RIGHT 3VW, DATE/TIME OF EXAM: 09/17/2022 1:02 PM, LOCATION [facility] INDICATION: W19.XXXA: Fall, initial encounter ADDITIONAL CLINICAL [...] DATE/TIME OF EXAM: 09/17/2022 1:02 PM, LOCATION [facility] INDICATION: W19.XXXA: Fall, initial encounter ADDITIONAL CLINICAL [...] present. Report drafted by Johann Ryder MD (information services vice president) Rivas Mustafa DO have personally reviewed and [...] dislocation. Report drafted by Johann Ryder MD (information services vice president) Rivas Mustafa DO have personally reviewed and interpreted this examination/study. > Interpreting Provider: Rivas Lim DO on 09/19/2022 10:40 AM Narrative 09/19/2022 10:40 AM CDT PROCEDURE: XR ANKLE RIGHT 2VW, DATE/TIME OF EXAM: 09/17/2022 1:02 PM, LOCATION [facility] INDICATION: W19.XXXA: Fall, initial encounter ADDITIONAL CLINICAL [...] DATE/TIME OF EXAM: 09/17/2022 1:02 PM, LOCATION [facility] INDICATION: W19.XXXA: Fall, initial encounter ADDITIONAL CLINICAL [...] dislocation. Report drafted by Johann Ryder MD (information services vice president) I, Rivas Lim DO have personally reviewed and interpreted this examination/study. > Interpreting Provider: Rivas Lim DO on 09/19/2022 10:40 AM Provider Unknown DIAGNOSTIC IMAGING O RDERABLES * (ABNORMAL) SARS-COV-2 (COVID-19) INTERNAL (02/18/2022 12:00 PM CDT) Only the most recent of3 resultswithin the time period is included. COVID-19 PCR Detected( A) Not detected 02/18/2022 8:55 PM CDT [facility] MICROBIOLOG[facility] Microbiology SPECIMEN FROM NASOPHARYNGEAL STRUCTURE / Unknown Collection / Unknown 02/18/2022 12:00 PM CDT 02/18/2022 2:06 PM CDT Narrative [facility]CRO[facility] - 02/18/2022 8:55 PM CDT This nucleic acid amplification assay performance was validated by [facility]. This test has [...] assay are available upon request. Mau Serna GEAR MACHINIST-HOSTESS PARTY SALES REPRESENTATIVE LAB - MICROBIOL OGY ORDERABLES [facility]CRO[facility] [address] [place], [address] [phone] * CBC WITH DIFFERENTIAL (02/10/2021 7:52 AM CDT) WBC 4.8 3.5 - 10.5 10 3/uL 02/10/2021 8:40 [address] [facility] RBC 3.90 3.80 - 5.20 10 6/uL 02/10/2021 8:40 AM [facility] Hemoglobin 12.1 12.0 - 15.6 g/dL 02/10/2021 8:40 AM [facility] Hematocrit 36.8 35.0 - 45.0 % 02/10/2021 8:40 AM [facility] MCV 94.4 80.7 - 98.3 fL 02/10/2021 8:40 AM [facility] MCH 31.0 26.7 - 34.0 pg 02/10/2021 8:40 AM [facility] MCHC 32.9 30.8 - 35.9 g/dL 02/10/2021 8:40 AM [facility] Platelet Count 242 150 - 400 10 3/uL 02/10/2021 8:40 AM [facility] RDW-SD 44.4 36.0 - 50.0 fL 02/10/2021 8:40 AM [facility] RDW-CV 12.8 11.2 - 14.8 % 02/10/2021 8:40 AM [facility] MPV 10.1 9.4 - 12.9 fL 02/10/2021 8:40 AM [facility] nRBC Absolute 0.00 0 10 3/uL 02/10/2021 8:40 AM [facility] nRBC Auto 0.0 0 /100 WBC 02/10/2021 8:40 AM [facility] Neutrophils % 55.2 35.0 - 70.0 % 02/10/2021 8:40 AM [facility] Lymphocytes % 33.1 20.0 - 43.0 % 02/10/2021 8:40 AM [facility] Monocytes % 8.8 5.0 - 13.0 % 02/10/2021 8:40 AM [facility] Eosinophils % 2.1 0.0 - 6.0 % 02/10/2021 8:40 AM [facility] Basophil % 0.6 0.0 - 2.0 % 02/10/2021 8:40 AM [facility] Neutrophils Absolute 2.6 1.6 - 7.0 10 3/uL 02/10/2021 8:40 AM [facility] Lymphocyte Absolute 1.6 1.1 - 3.9 10 3/uL 02/10/2021 8:40 AM [facility] Monocytes Absolute 0.42 0.26 - 1.07 10 3/uL 02/10/2021 8:40 AM [facility] Eosinophils Absolute 0.10 0.00 - 0.47 10 3/uL 02/10/2021 8:40 AM [facility] Basophils Absolute 0.03 0.00 - 0.08 10 3/uL 02/10/2021 8:40 AM [facility] Immature Granulocytes % 0.2 0.0 - 1.0 % 02/10/2021 8:40 AM [facility] Immature Granulocytes Absolute 0.01 02/10/2021 8:40 AM [facility] Blood BLOOD SPECIMEN / Unknown Lab Venipuncture / Unknown 02/10/2021 7:52 AM CDT 02/10/2021 8:13 AM T Stephen Azar MD LAB - HEMATOLOGY ORD ERABLES [facility] [address] [place] [address], [facility] [phone] * HCG BETA BLOOD QUANTITATIVE (02/10/2021 7:52 AM CDT) [facility] Beta-hCG Total Quantitative <3 <5 mIU/mL 02/10/2021 9:03 AM CDT [facility] Comment: This assay is cleared for use in the early detection of only. It is not approved for any other uses such as tumor marker screening, tumor marker monitoring, etc. and should not be used for any other purposes. HCG Numeric Result Interpretation: Non- Females: < 5 mIU/mL Post-Menopausal Females: < 7 mIU/mL Blood BLOOD SPECIMEN / Unknown Lab Venipuncture / Unknown 02/10/2021 7:52 AM CDT 02/10/2021 8:13 AM CDT Stephen Azar MD LAB - CHEMISTRY EDUAR [place] [facility] Organization Address City/State/ZIP Co de Phone Number [address] [address], [facility] [phone] * PROGESTERONE (02/02/2021 7:35 AM CDT) Only the most recent of2 resultswithin the time period is included. [facility] Progesterone HPLC-MS/MS 29.12 ng/mL 02/05/2021 10:41 AM CDT [employer] ([facility]) Comment: Females, 17 years and older Cycle Days Reference Interval (ng/mL) 1 - 6 ............... Less than or equal to 0.17 7 - 12 .............. Less than or equal to 1.35 13 - 15 .............. Less than or equal to 15.63 16 - 28 .............. Less than or equal to 25.55 Post-Menopausal ...... Less than or equal to 0.10 Reference Intervals (ng/mL): 1st Trimester ...... 6.25 - 45.46 2nd Trimester ..... 15.40 - 52.10 3rd Trimester ..... 24.99 - 99.92 REFERENCE INTERVAL: Progesterone Quantitative by HPLC-MS/MS, Serum or Plasma Access complete set of age- and/or gender-specific reference intervals for this test in the [facility] Test Directory ([employer]). This test was developed and its performance characteristics determined by [facility]. It has not been cleared or approved by the US Food and Drug Administration. This test was performed in a CLIA certified laboratory and is intended for clinical purposes. Performed By: [facility] [address] [place] [address] Insurance Instructor: Anika Sharma MD Blood BLOOD SPECIMEN / Unknown Lab Venipuncture / Unknown 02/02/2021 7:35 AM CDT 02/02/2021 8:13 AM CDT Stephen Azar MD LAB - CHEMISTRY EDUAR [place] [facility] Organization Address City/State/ZIP Co de Phone Number [employer] ([facility]) [address] [place] [address] * (ABNORMAL) INFLUENZA A+B - POINT OF CARE (AMB) (08/09/2017 3:18 PM ROLL OR TAPE EDGE MACHINE OPERATOR) Influenza A Antigen Rapid Positive(A) Negative Influenza B Antigen Rapid Negative Negative Influenza Internal Control present NEGATIVE - POSITIVE Influenza Lot Number [id number] Influenza Expiration Date 04 18 2019 Other NASOPHARYNGEAL SWAB / Unknown 08/09/2017 3:18 PM ROLL OR TAPE EDGE MACHINE OPERATOR Rekha Hanson APRN-[facility] LAB - POINT OF CA RE ORDERABLES * US PELVIS W DOPPLER UTERUS OVARIES (07/25/2009 8:18 AM ROLL OR TAPE EDGE MACHINE OPERATOR) Anatomical Region Laterality Modality Other 07/25/2009 8:18 AM ROLL OR TAPE EDGE MACHINE OPERATOR Narrative 07/25/2009 5:40 PM ROLL OR TAPE EDGE MACHINE OPERATOR Exam- Pelvic sonogram Date- 07/25/2009 Right [...] corpus luteal cysts. Brett Valdovinos M.D. Reading RadiologistSammie OGMEZ MD Releasing RadiologistSammie GOMEZ MD Released Date Time- 07/25/091740 Devan VALDOVINOS MD LAURY ACEVEDO ATT- GUY,LAURY Cruz ORD- GUY,LAURY Cruz CON- PCP- GUY,LAURY Cruz SCP- Procedure Note El Gomez MD - 07/25/2009 [...] normal. Impression- Multiple left corpus luteal cysts. Velia Mcdonnell RadiologistSammie GOMEZ MD Releasing Seferino GOMEZ MD Released Date Time- 07/25/091740 Devan VALDOVINOS MD ADM- MCREADY,LAURY J ATT- LAURY TOVAR ORD- LAURY TOVAR CON- PCP- LAURY TOVAR- Laury Lucas MD US ORDERABLES * US ABDOMEN COMPLETE (07/25/2009 8:18 AM ROLL OR TAPE EDGE MACHINE OPERATOR) Anatomical Region Laterality Modality Abdomen Other 07/25/2009 8:18 AM ROLL OR TAPE EDGE MACHINE OPERATOR Narrative 07/25/2009 5:40 PM ROLL OR TAPE EDGE MACHINE OPERATOR Exam- Abdominal sonogram Date- Jul 25, 2009 940-00 AM The liver, gallbladder, spleen, kidneys, pancreas [...] CHARLY GOMEZ MD Released Date Time- 07/25/09 1741 Resawyer- GAVINO VALDOVINOS MD LAURY ACEVEDO ATTLAURY CLIFFORD ORD- GUY,LAURY Cruz CON- PCP- LAURY TOVAR- Procedure Note El Gomez MD - 07/25/2009 Exam- Abdominal sonogram Date- Jul 25, 2009 940-00 AM The liver, gallbladder, spleen, kidneys, pancreas and visible retroperitoneal great vessels are normal. This splenic height measures 10.7 cm, which is normal for age. The right kidney measures 9.7 x 3.6 x 4.0 cm. The left kidney measures 10.9 x 4.1 x 4.1 cm. Diagnosis- Normal abdominal sonogram. Brett Valdovinos MD. Reading Seferino GOMEZ MD Releasing Seferino GOMEZ MD Released Date Time- 07/25/09 1741 ResawyerSammie VALDOVINOS MD LAURY ACEVEDO,LAURY TOVAR,LAURY BUENROSTRO PCPLAURY CLIFFORD- Laury Lucas MD US ORDERABLES * XR ABDOMEN 1 VW (07/24/2009 12:13 AM ROLL OR TAPE EDGE MACHINE OPERATOR) Anatomical Region Laterality Modality Abdomen Other 07/24/2009 12:1 3 AM ROLL OR TAPE EDGE MACHINE OPERATOR Narrative 07/24/2009 8:32 AM ROLL OR TAPE EDGE MACHINE OPERATOR Abdomen, one view July 24, 2009 Lung bases are clear. An IUD is in place over the pelvis. Gas pattern is normal. There is no obstruction or free air. Impression- No acute disease. Reading Seferino GOMEZ MD Releasing Seferino GOMEZ MD Released Date Time- 07/24/09 0833 Devan GOMEZ MD CALIXTO FAJARDO STEVEN ORD- LAFFEY, STEVEN CON- PCP- MCREADY, KAREN J SCP- Procedure Note El Gomez MD - 07/24/2009 Abdomen, one view July 24, 2009 Lung bases are clear. An IUD is in place over the pelvis. Gas pattern is normal. There is no obstruction or free air. Impression- No acute disease. Reading Seferino GOMEZ MD Releasing Seferino GOMEZ MD Released Date Time- 07/24/09 0833 Resawyer- CHARLY GOMEZ MD - CALIXTO MCNEAL,CALIXTO DUNN- PCP- LAURY TOVAR [facility]- Calixto Mcneal MD DIAGNOSTIC IMAGING O RDERABLES * HCG URINE QUALITATIVE (07/23/2009 11:40 PM ROLL OR TAPE EDGE MACHINE OPERATOR) HCG Qual Urine Negative Negative [facility] URINE / Unknown 07/23/2009 1 1:40 PM ROLL OR TAPE EDGE MACHINE OPERATOR Calixto Mcneal MD LAB - URINALYSIS ORD [facility] Care Teams Pattern Checker Relationship Specialty Start Date End Date Maxi Serna MD [facility] [place] [address] PCP - General Family Medicine 08/09/17
[2024-09-04 08:17] VITALS: BP 124/66; PULSE 93; RESP 18; TEMP 36.1; O2SAT 98
--- NOTE | 2024-09-04 08:19 | ED.URI ---
HPI - URI/Sore Throat General Chief Complaint: Upper Respiratory Infection Stated Complaint: Fever/Body Aches/Chills/Cough Time Seen by Provider: 09/04/24 08:20 Source: patient, RN notes reviewed and old records reviewed Mode of arrival: ambulatory Limitations: no limitations History of Present Illness HPI Narrative: 34 year old female [facility] with complaints of 1 day history of chills, fever up to 102F, cough, runny nose, body aches. Patient reports that she as had known history of influenza exposure at work. patient is 26 weeks at this time. She reports that she has taken Tylenol for her symptoms. MD elicited complaint: cough and sore throat Onset (ago): day(s) (day 2 of symptoms) Severity: moderate Description of mucous: clear Able to tolerate fluids by mouth: Yes Treatments prior to arrival: acetaminophen Related Data Home Medications ?Medication ?Instructions ?Recorded ?Confirmed ?Last Taken ?Type sertraline 50 mg tablet 50 mg PO DAILY 02/11/24 05/23/24 Unknown History vits no.126-ferrous fum 1 tablet PO DAILY 05/23/24 05/23/24 Unknown History 28 mg iron-folic acid 800 mcg tablet (Classic ) Allergies Allergy/AdvReac Type Severity Reaction Status Date / Time amoxicillin (From Augmentin) Allergy Severe Hives Verified 05/23/24 08:22 clavulanic acid (From Allergy Severe Hives Verified 05/23/24 08:22 Augmentin) Penicillins Allergy Severe Hives Verified 05/23/24 08:22 Review of Systems Review of Systems: CONSTITUTIONAL: reports malaise, chills, sweats, or fever. EYES: Denies visual changes, redness, or discharge. ENT: Reports rhinorrhea, congestion, sinus pain, no otalgia and scratchy sore throat. CARDIOVASCULAR: Denies chest pain, palpitations, or edema. RESPIRATORY: Reports cough at times productive.? Denies dyspnea. GASTROINTESTINAL: Denies abdominal pain, nausea, vomiting, diarrhea SKIN: Denies rash or itching. MUSCULOSKELETAL: reports myalgia. NEUROLOGIC: Denies headache. All systems reviewed & are unremarkable except as noted in HPI and below PMFSH Past Medical History Medical History and not yet delivered in first trimester IVF Anxiety and depression Surgical History Surgical History S/P right knee arthroscopy torn meniscus History of laparoscopy Social History Social History Smoking status: Never smoker Alcohol intake: current Drinks per week: 12 Alcohol use details: no alcohol presently Substance use: never Substance use type: does not use Living arrangements: with family Spiritual care concerns: No Comments At time of signature, agree with nursing past medical, surgical, social and family history. There is no relevant family history pertinent to the presenting complaint Exam Narrative: GENERAL: Well-appearing, well-nourished, and in no acute distress. HEAD: Normocephalic EYES: PERRLA, conjunctivae clear ENT: Nares clear, turbinates edematous and erythematous, clear discharge. Mucous membranes moist. TM pearly rodrigues with dull light reflex bilaterally; no tragal tenderness. Oropharynx erythematous without lesions. Tonsils red not enlarged and without exudate, no drooling, no hoarseness, no trismus, uvula midline.post nasal drainage NECK: Supple. No lymphadenopathy CHEST: Clear to auscultation, breath sounds equal. No wheezing, rhonchi, rales, or stridor. No respiratory distress, speaks in full sentences.productive cough SAO2 98% on room air HEART: Regular rate and rhythm. No murmur heard. SKIN: Warm, dry, no rash. NEURO: Alert and oriented x3. PSYCH: Normal mood and affect Course Course Emergency Course: Patient is aware of diagnosis, understands and agrees to treatment plan.? Anticipatory guidance given.? Patient agrees to follow-up as directed and is aware of reasons to seek care at the emergency department. Portions of this record may have been created with voice recognition software Level of Care: Express Care Visit Vital Signs Vital signs: Vital Signs Temperature 36.1 C L 09/04/24 08:17 Pulse Rate 93 09/04/24 08:17 Respiratory Rate 18 09/04/24 08:17 Blood Pressure 124/66 09/04/24 08:17 Pulse Oximetry 98 09/04/24 08:17 Oxygen Delivery Room Air 09/04/24 08:17 Temperature 36.1 C L 09/04/24 08:17 Pulse Rate 93 03/11/25 08:17 Respiratory Rate 18 09/04/24 08:17 Blood Pressure 124/66 09/04/24 08:17 Pulse Oximetry 98 09/04/24 08:17 Oxygen Delivery Room Air 09/04/24 08:17 Reviewed MDM - URI/Sore Throat MDM Narrative Medical decision making narrative: Differential diagnosis considered: [place] virus, strep pharyngitis, allergic rhinitis, upper respiratory tract infection, sinusitis, rhinosinusitis, nasopharyngitis. viral pharyngitis, otitis media, otitis externa, pneumonia, bronchitis, viral cough syndrome, viral syndrome, and influenza.? Exam findings show no acute concerns or changes; patient is non-toxic appearing and is in no distress.? Patient is appropriate for outpatient treatment and follow-up. Differential Diagnosis Differential diagnosis: Likely upper respiratory infection, viral infection, influenza and other (COVID, cough) Medical Records Attestation: I reviewed the patient's medical records. Lab Data Attestation: I reviewed the patient's lab results. Lab results narrative: Influenza A positive, Influenza B negative, COVID antigen negative Critical Care Time Critical Care Time Critical Care Time: No Discharge Plan Discharge Clinical Impression: Influenza A Patient Disposition: Home, Self-Care Condition: Stable Instructions: Influenza (ED) Additional Instructions: Increase fluids especially juices and water [id number]-[id number] cough and cold medicine of your choice for your symptoms check with pharmacist since you are Zyrtec or Claritin for sinus congestion and drainage Tylenol for pain and fevers heat to the face 20-30 minutes 4-6 times a day for pain Salt water gargles, throat lozenges or throat sprays as desired May take Robitussin cough syrup If your symptoms persist, change or worsen significantly before you can contact your personal physician then please, without delay, go to the emergency department for further evaluation. Follow-up with PCP in 7-10 days or sooner if needed You must be fever free for 24 hours without the use of Tylenol or ibuprofen before you can return to work typically influenza lasts 5 days Patient Language: Barbadian Prescriptions: No Action Classic 28 mg iron- 800 mcg Tablet 1 tablet PO DAILY sertraline 50 mg tablet 50 mg PO DAILY cefdinir 300 mg capsule 300 mg PO Q12H 7 Days Qty: 14 0RF Follow-up/Referrals: UNKNOWN,DOCTOR [Primary Care Provider] - Stand Alone Forms: Work/School Release IP Time of Disposition: 08:40 Quality [place] Coma Scale Eyes: Open Verbal: Oriented and Alert Motor: Follows Commands Viviane Coma Total Score: 15
[2024-09-04 08:43] LABS: EDCOVIDSCREEN Negative (Negative); EDINFLUASCREEN Positive (Negative); EDINFLUBSCREEN Negative (Negative)
== END 2024-09-04 08:46 | disposition home or self-care (01) ==
PROVIDERS: Emergency Provider Registered Nurse
DX: J10.1 Influenza due to other identified influenza virus with other respiratory manifestations (principal); Z20.822 Contact with and (suspected) exposure to COVID-19; F41.9 Anxiety disorder, unspecified; F32.A Depression, unspecified
CPT/HCPCS: 87426; 87804; 99212; G0463

== ENCOUNTER 2024-09-22 09:55 | Observation (INO) | payer OTHER, SELFPAY ==
--- OUTSIDE RECORDS SUMMARY | 2024-09-22 10:01 | XMS_ITS | Data Portability ---
Author Organization [place] - [facility] [employer], Main Office Address [address] [place] [address] Care Team Providers Care Fire Extinguisher Repairer Inspector Name Role Phone RUPINDERJEANETTE DEL ANGEL Primary Care Provider RUPINDERJEANETTE DEL ANGEL Referring Provider [phone] Assessment Encounter Date Assessment Date Assessment LastModified [...] resolved because the patellofemoral issue as well. Not available 10/14/2022 10:47:19 11/29/2022 11/29/2022 Patient [...] responded well to surgery at this point. [email or web address] Not available 11/29/2022 10:32:20 01/11/2023 01/11/2023 WWE- SINKER WINDER- Dr. Doe CADENA-01/11/23 Call office if worse, ER if life-threatening illness RTC 1 year and PRN She voices understanding of plan and agrees Not available 01/11/2023 16:44:20 03/11/2023 03/11/2023 WWE- SINKER WINDER- Dr. Doe CADENA-01/11/23 Call office if worse, ER if life-threatening illness RTC 1 month She voices understanding of plan and agrees [email or web address] Not available 03/11/2023 13:08:17 05/27/2023 05/27/2023 WWE- SINKER WINDER- Dr. Doe CADENA-01/11/23 Call office if worse, ER if life-threatening illness RTC 1 month She voices understanding of plan and agrees [email or web address] Not available 05/27/2023 14:10:18 Plan of Treatment Reminders Order Date Submit Date Provider Last Modified By Organization Details Last Modified Time Details Appointments None recorded. Lab lipid panel, serum [address] (Lab), [address] [place], [address], 4 17:12:01 HbA1c (hemoglobin A1c), blood [address] (Lab), [address] [place], [address], 4 17:12:01 CMP, serum or plasma [address] (Lab), [address] [place], [address], 4 17:12:00 CBC w/ auto diff [address] (Lab), [address] [place], [address], 4 17:12:01 Referral None recorded. Procedures None recorded. Surgeries None recorded. Imaging None recorded. Medication Orders sertraline 50 mg tablet 2022 023 [facility], [address], [place], [id number], 14:26:05 sertraline 25 mg tablet 2022 023 [id number], [address], [place], [id number], 11:46:13 Patient TargetsNo targets recorded. Patient Instructions Encounter Date Encounter Id Patient Instructions Last Modified By Organization Details Last Modified Time 01/11/2023 [id number] INFLUENZA VACCIN E TD/TDAP Recommended today, patient [...] relationship GLUCOSE SCREENING Ordered LIPID SCREENING Ordered [email or web address] Not available 01/11/2023 16:45:42 Reason for Referral None Reported. Results Created Date Observation Date Name Description Value Unit Range Abnormal Flag Note LastModifiedBy Organization Detail LastModifiedTime 09/30/1909/17/2022 XR, ankle , 2 view No observ ation record ed. [email or web address] [facility] [address] [place], [address], 09/29/2022 10:44:16 09/30/19 23 09/17/2022 XR, knee, 3 view No observ ation record ed. [email or web address] [facility] [address] [place], [address], 09/29/2022 10:44:16 10/05/19 23 XR, knee, 3 view No observ ation record ed. [email or web address] [facility] [address], [place], [address], 10/04/2022 10:54:14 10/05/19 23 XR, hip + pelvi s, unila teral No observ ation record ed. [email or web address] [facility] [address], [place], [address], 10/04/2022 10:54:37 10/14/19 23 10/12/2022 MRI, knee, w/o contr ast No observ ation record ed. [address] 2022 Jaret Wright [facility] [address], [place], [address], 10/13/2022 13:35:08 10/14/19 23 10/12/2022 MRI, knee, w/o contr ast No observ ation record ed. [address], [place], [address], 10/13/2022 08:47:25 Result Notes None recorded. Problems Name Problem SNOMED Code Status Onset Date Resolution Date Notes Provider Name and Address Organization Details Recorded Time Pain in right hip joint 3040196512101 02 Active 2022 Cassia casanova [employer] 3 11:05:37 Pain of right knee joint 0894210628236 00 Active 2022 Cassia casanova [employer] 3 11:06:07 Pain in right sacroiliac joint 3225989340281 9107 Active 2022 Tenzin Hernandes MD [address] [place] [address], [facility] [address], [place], [address] , [employer] 3 10:54:44 Tear of lateral meniscus of knee 638270833 Active 2022 Tenzin Hernandes MD [address], [address], [place], [address], [facility] [place] [facility] 3 10:55:01 Chondromala mike of right patella 2703323864053 9108 Active 2022 Tenzin Hernandes MD [address], [address], [place], [address], [facility] [place] [employer] [facility] 3 10:46:50 Tear of medial meniscus of knee 119574063 Active 2022 Tenzin Hernandes MD [address], [address], [place], [address], [facility] [place] [employer] GROUP [facility] 3 07:11:32 Urinary symptoms 116961861 Active 2022 NETTIE Donnelly-C [address], [address], [place], [address], [facility] [employer] [facility] 3 20:25:20 Dark stools 71961326 Active 2022 NANCY Donnelly [address], [address], [place], [address], [facility] - [facility] [employer] GROUP [facility] 3 20:25:37 Anxiety 14444531 Active 2022 NETTIE Donnelly-C [address], [address], [place], [address], [facility] [place] [employer] GROUP [facility] 3 20:25:40 Endometrios is of pelvis 79285287 Active 2022 NETTIE Donnelly-C [address], [address], [place], [address], [facility] [place] [employer] [facility] 3 20:25:48 Female infertility 6325073 Active 2022 NETTIE Donnelly-C [address], [address], [place], [address], [facility] [employer] [facility] 3 20:25:54 Viral syndrome 444125143 Active 2022 Jeanette Monahan [facility] [address], [address], [place], [address], [facility] Advisor Client Match [facility] [employer] [facility] 20:26:09 Obesity 842934824 Active 2022 MEI DonnellyP-C [address], [address], [place], [address], [facility] Advisor Client Match [facility] [employer] [facility] 16:44:40 Problem Notes None recorded. Procedures Surgical History Date Name Laterality Status Provider Name and Address Organization Details Recorded Time 10/05/19 23 Ortho - Cortisone Injection completed Tenzin Hernandes MD [address], [address], [place], [address], [facility] Advisor Client Match [facility] [employer] [facility] 10/04/2022 10:53:02 repair of meniscus completed Sierra Willson MA [facility] [employer] [facility] 01/11/2023 11:42:16 hysteroscopy completed Sierra Willson MA [facility] [employer] [facility] 01/11/2023 11:42:47 Imaging Results Imaging Date Name Status LastModified by Organiz ation Details LastModified Time 09/17/2022 XR, ankle, 2 view completed [address] [facility] [address] [place], [address], 09/29/2022 10:44:16 09/17/2022 XR, knee, 3 view completed [place] [address] [facility] [address] [place], [address], 09/29/2022 10:44:16 10/04/2022 XR, knee, 3 view completed [facility] [address], [place], [address], 10/04/2022 10:54:14 10/04/2022 XR, hip + pelvis, unilateral completed daryl [facility] [address], [place], [address], 10/04/2022 10:54:37 10/12/2022 MRI, knee, w/o contrast completed [address] 2022 Jaret Johns [address], [place], [address], 10/13/2022 13:35:08 10/12/2022 MRI, knee, w/o contrast completed [address], [place], [address], 10/13/2022 08:47:25 Procedure Notes None recorded. Medical Equipment None Reported. Allergies Allergen ID Allergen Name Allergen Category Reaction Reaction Severity Criticality Documentation Date Start Date Code Code System Note Provider Name and Address Organization Details Recorded Time 35731 Augmentin medicatio n hives Not available Not available 08/26/2022 80995 2 RxNorm mouth swell ing Crissy Salazar, FIONA casanova, [place] [facility] [place] [employer] 09:43:13 Medications Name Sig Start Date Stop Date Status Note LastModified by Organization Details LastModified Time progesteron e (micro) 200mg supp UNWRAP AND INSERT 1 SUPPOSITO RY VAGINALLY TWICE DAILY DIRECTED active Not Available Not Available No t Available med swabs USE DIRECTED 10/04 completed Not Available Not Available Not Available med sharp container USE DIRECTED 10/04 [...] suspension for injection in office 01/11 completed [facility]: 0003- 0494- 20 Not Available Not [...] Not Available Not Available BD Specialty Use [place] 23 gauge x 1 1/4 USE TO [...] Not Available Not Available BD Regular Bevel [place] 25 gauge x 1 1/2 USE 1 [...] Available Not Available Not Available Estarylla 0.25 mg-0.035 mg tablet active Not Available Not Available Not Available Gonal-F RFF Redi-Ject 300 unit/0.5 mL [...] Updated DateTime 10/14/2022 167.64 cm 28.2 kg/m2 89603.66 g Crissy Salazar CNA [employer] 10/14/2022 10:24:03 Date Recorded Body height Body mass index (BMI) Body weight Provider Name and Address Organization Details Last Updated DateTime 11/29/2022 167.64 cm 28.2 kg/m2 51991.66 g Crissy MarieFIONA lind [employer] 11/29/2022 10:00:49 Date Recorded Body height Body mass index (BMI) Body weight Body temperature Heart rate Oxygen saturation Oxygen saturation in Arterial blood by Pulse oximetry Systolic blood pressure Diastolic blood pressure Provider Name and Address Organization Details Last Updated DateTime 167.64 cm 30.5 kg/m2 35470.9 6 g 97.9 [degF] 78 /min 98 % 98 % 122 mm[Hg] 76 mm[Hg] Sierra Willson MA [facility] [employer] [facility] 3 11:44:56 Date Recorded Body height Body mass index (BMI) Body weight Body temperature Heart rate Oxygen saturation Oxygen saturation in Arterial blood by Pulse oximetry Systolic blood pressure Diastolic blood pressure Provider Name and Address Organization Details Last Updated DateTime 3 167.64 cm 29.7 kg/m2 60650 g 97.7 [degF] 74 /min 99 % 99 % 118 mm[Hg] 76 mm[Hg] Sierra Willson MA [facility] [employer] [facility] 3 11:18:13 Date Recorded Body height Body mass index (BMI) Body weight Body temperature Heart rate Oxygen saturation Oxygen saturation in Arterial blood by Pulse oximetry Systolic blood pressure Diastolic blood pressure Provider Name and Address Organization Details Last Updated DateTime 3 167.64 cm 30 kg/m2 01035.1 8 g 97.9 [degF] 66 /min 97 % 97 % 126 mm[Hg] 78 mm[Hg] Sierra Willson MA [facility] [employer] [facility] 3 14:06:06 Social History Question Answer Notes LastModified by Organizat ion Details LastModified Time Tobacco Smoking Status Never Smoker ARCHANA Mustafa, [facility] [employer] [facility] 01/11/2023 11:35:23 What Is Your Level Of Alcohol Consumption? Moderate [email or web address] Information not available 10/04/2022 Do You Wear A Helmet When Biking? No [email or web address] Information not available 01/11/2023 What Is Your Level Of Caffeine Consumption? Moderate [id number] Information not available 08/26/2022 In The 14 Days Before Symptom Onset, Have You Had Close Contact With A Laboratory-confir med COVID-19 While That Case Was Ill? No [email or web address] Information not available 01/11/2023 In The 14 Days Before Symptom Onset, Have You Had Close Contact With A Person Who Is Under Investigation For COVID-19 While That Person Was Ill? No [email or web address] Information not available 01/11/2023 What Type Of Diet Are You Following? REGULAR [id number] Information not available 08/26/2022 What Is The Highest Grade Or Level Of School You Have Completed Or The Highest Degree You Have Received? [id number] [email or web address] Information not available 01/11/2023 What Is Your Occupation? Nurse [email or web address] Information not available 01/11/2023 Have There Been Any Changes To Your Family Or Social Situation? No [email or web address] Information no t available 01/11/2023 What Is The Fluoride Status Of Your Home? Unknown [email or web address] Information not available 01/11/2023 Are There Any Guns Present In Your Home? Yes [email or web address] Information not available 01/11/2023 Do You Use Insect Repellent Routinely? Yes [email or web address] Information not available 01/11/2023 Where [facility] You [facility] [email or web address] Information not available 01/11/2023 What Was The Date Of Your Most Recent Tobacco Screening? 05/27/2023 [email or web address] Information not available 05/27/2023 Do You Have Any Pets? Yes [email or web address] Information not available 01/11/2023 What Is Your Relationship Status? [id number] Information not available 08/26/2022 Do You Use Your Seat Belt Or Car Seat Routinely? Yes [email or web address] Information not available 01/11/2023 Do You Have Smoke And Carbon Monoxide Detectors In Your Home? Yes [email or web address] Information not available 01/11/2023 Are You Passively Exposed To Smoke? No [email or web address] Information no t available 01/11/2023 Are There Any Smokers In Your House? No [email or web address] Information not available 01/11/2023 Do You Feel Stressed (tense, Restless, Nervous, Or Anxious, Or Unable To Sleep At Night)? [id number] [email or web address] Information not available 01/11/2023 Do You Use Any Illicit Or Recreational Drugs? No [email or web address] Information not available 01/11/2023 Do You Use Sunscreen Routinely? Yes Information not available 01/11/2023 Do You Have Any Dietary Restrictions? No [email or web address] Information not available 01/11/2023 Sex: Unknown Functional Status Question Answer Note LastModified by Organizat ion Details LastModified Time What is your exercise level? Moderate [id number] Information not available 08/26/2022 Mental Status None recorded. Family History Relationship Description Onset Age of this Age Resolved Age Notes LastModified by Organization Details LastModified Time Paternal Grandmother Family history of malignant neoplasm breast , lung, melono ma. [id number] Not available 08/26/2022 00:57:23 Medical History Condition [...] INSOMNIA N HIGH CHOLESTEROL / HYPERLIPIDEMIA N HYPERTHYROIDISM N EYE PROBLEMS N EDEMA N CHRONIC PAIN SYNDROME N HYPOTHYROIDISM N CONSTIPATION N CAROTID BLOCKAGE N BACK / NECK PROBLEMS N HAVE YOU BEEN HOSPITALIZED OR SEEN IN THE MEDICAL CENTER IN THE PAST YEAR ? N ATHEROSCLEROSIS N BREAST PROBLEMS N DIALYSIS N ECZEMA N OSTEOPOROSIS N ARTHRITIS N NO SIGNIFICANT PAST MEDICAL HISTORY N APPENDICITIS N DIABETES, TYPE N BAD TEETH N ENT N HEARTBURN / REFLUX N AUTISM SPECTRUM DISORDER (ASD) N HEPATITIS / LIVER DISEASE N GOUT N SLEEP DISORDER N ALZHEIMER'S DISEASE N Brain Problems N HERPES N DEMENTIA N SEIZURES/EPILEPSY N HEADACHES/MIGRAINES N VASCULAR DISEASE N PACEMAKER N Blood Disorder N DIZZINESS N KIDNEY DISEASE N HEART DISEASE/HEART PROBLEMS N MULTIPLE SCLEROSIS N CARDIAC ARRHYTHMIA N CANCER: SPECIFY N Gall Stones N ATRIAL FIBRILLATION N PULMONARY EMBOLISM N AUTOIMMUNE DISEASE N Gynecological HistoryNo gynecological history recorded. Obstetrics History GPAL:G 0 P 0 0 0 0 Past Encounters Encounter ID Performer Location Encounter Start Date Encounter Closed Date Diagnosis/Indication Diagnosis SNOMED-CT Code Diagnosis ICD10 Code Diagnosis Note [id number] [facility] [address] [facility] [address] [place] [address] 10/22/2021 00:00:00 10/22/2021 12:20:01 [id number] [facility] [place] [address] [place] [address] 01/20/2022 00:00:00 01/20/2022 16:55:27 [id number] [facility] [place] [address] [facility] [address] [place] [address] 05/26/2022 00:00:00 05/26/2022 10:51:36 [id number] Tenzin Hernandes MD [employer] [facility] [address] [place] [address] 10/04/2022 09:23:47 10/04/2022 11:03:11 Pain of right knee joint 0901318299 54252 M25.561 Pain in ri ght hip joint 4206842890 92813 M25.551 Pain in ri ght sacroiliac joint 9105502034 5089984 M53.3 Tear of la teral meniscus of knee 388299828 S83.281A [id number] Tenzin Hernandes MD [employer] [facility] [address] [place] [address] 10/14/2022 10:20:03 10/14/2022 11:20:42 Pain in right hip joint 3095611953 43512 M25.551 Pain in ri ght sacroiliac joint 8596702171 7286554 M53.3 Tear of la teral meniscus of knee 172880870 S83.281A Chondromal acia of right patella 2379511752 6851404 M22.41 [id number] Tenzin Hernandes MD [facility] [facility] [facility] [address] [place] [address] 11/29/2022 09:58:11 11/29/2022 11:01:49 Pain in right hip joint 8203849478 95025 M25.551 Pain in ri ght sacroiliac joint 5987121483 2395882 M53.3 Tear of me dial meniscus of knee 181909189 S83.241A Tear of la teral meniscus of knee 106319122 S83.281A Chondromal acia of right patella 1257147799 0637471 M22.41 Postoperative visit 1836 59826 Z09 [id number] NANCY Donnelly [facility] Internal Med [address] [place] [address] 01/11/2023 11:34:24 01/11/2023 12:17:32 Adult health examination 710134376 Z00.01 Anxiety 66718816 F41.9 self stopped the sertraline , is stable off of medsalso has some hydroxyzin e for prn usecontinu e counseling call office if any change in mood or behaviorsh e declines psychiatry referral Endometrio sis of pelvis 39253528 N80.9 follows SINKER WINDER/RE Female infertility 07815 08 N97.9 [facility] t[facility] of malignant melanoma 544318757 Z80.7 get appt with derm for skin check- has referral Diabetes m ellitus screening 949934479 Z13.1 Hyperlipid emia screening 537520349 Z13.220 Depression screening 171 104464 Z13.31 Obesity 554198990 E66.9 recommend healthy, well balanced mealsfocus on [...] if any severe n/v or abdominal pain [id number] NANCY Donnelly [facility] Internal Med [address] [facility] [address] [place] [address] 03/11/2023 11:10:22 03/11/2023 11:49:57 Anxiety 93471968 F41.9 restart sertraline at her request- she is aware of side effects, risks, benefitsal so has some hydroxyzin e for prn userecomme nd she call her counselor and get another apptcall office if any change in mood or behaviorsh e declines psychiatry referral support given to patient today, 30 min spent with patient, over half spent on counseling Endometrio sis of pelvis 01451189 N80.9 follows SINKER WINDER/RE Female infertility 57207 08 N97.9 follows MAIRASammie Bel Faulkner at [facility] his tory of malignant melanoma 803106342 Z80.7 has appt with derm later today [id number] NANCY Donnelly [facility] Internal [facility] [address] [facility], [address] [address] 05/27/2023 13:56:02 05/27/2023 14:26:58 Anxiety 13960092 F41.9 increase sertraline at her request- she is aware of side effects, risks, benefitsal so has some hydroxyzin e for prn userecomme nd she call her counselor and get another apptcall office if any change in mood or behaviorsh e declines psychiatry referral support given to patient today, 30 min spent with patient, over half spent on counseling Endometrio sis of pelvis 27364317 N80.9 follows SINKER WINDER/RE Female infertility 38650 08 N97.9 follows MAIRASammie Bel Faulkner at [facility] his tory of malignant melanoma 061445443 Z80.7 has appt with derm later today Obesity 224982110 E66.9 recommend healthy, well balanced mealsfocus on [...] ID Guarantor Name 10/14/2022 1 [place] [id number] Yesica Fitzgerald [id number] Yesica Fitzgerald 10/14/2022 2 [facility] [id number] Yesica Fitzgerald [id number] Yesica Fitzgerald 11/29/2022 1 [place] [id number] Yesica Fitzgerald [id number] Yesica Fitzgerald 11/29/2022 2 [facility] [id number] Yesica Fitzgerald [id number] Yesica Fitzgerald 01/11/2023 1 [place] [id number] Yesica Fitzgerald [id number] Yesica Fitzgerald 01/11/2023 2 [facility] [id number] Yesica Fitzgerald [id number] Yesica Fitzgerald 03/11/2023 1 [place] [id number] Yesica Fitzgerald [id number] Yesica Fitzgerald 03/11/2023 2 [facility] [id number] Yesica Fitzgerald [id number] Yesica Fitzgerald 05/27/2023 1 [employer] [id number] Yesica Fitzgerald [id number] Yesica Fitzgerald 05/27/2023 2 [facility] [id number] Yesica Fitzgerald [id number] Yesica Fitzgerald Notes Date Note Type Note Provider Name and Address Organization Details Recorded Time 10/14/2022 text/html Patient returns knee pain right. She hurts not only laterally but also in the anterior aspect. She presents with an MRI scan that shows meniscal pathology as well as significant patellar tilt. Tenzin Hernandes MD [address] [place] [address], [facility] [address], [place], [address], [place] [facility] [employer] 10/14/2022 10:47:35 11/29/2022 text/html Patient returns status post knee arthroscopy right. Pain is resolving overall she looks good. She feels quite comfortable and is walking well. Tenzin Hernandes MD [address], [facility] [address], [place], [address], [employer] [facility] 11/29/2022 10:40:46 01/11/2023 text/html Yesica presents today [...] Monahan, NETTIE-Shahida [address], [address], [place], [address], [facility] Advisor Client [employer] [facility] [facility] [facility] [facility] [employer] 01/11/2023 16:45:56 03/11/2023 text/html Yesica presents today [...] HI today. NANCY Donnelly [address], [address], [place], [address], [employer] [facility] [employer] 03/11/2023 13:09:36 05/27/2023 text/html Yesica presents today [...] NANCY Donnelly [address], [place], [address], [employer] 05/27/2023 15:31:09 OBGyn Episode No OBEpisode recorded.
--- OUTSIDE RECORDS SUMMARY | 2024-09-22 10:01 | XMS_ITS | Clinical Summary ---
Author Organization [facility] Address [address] [place] [address] Phone Care Team Providers Care Business Analyst Name Role Phone Jackie Matt Primary Care Provider [phone] Zane Griffith MD Unavailable Allergies Active Allergy [...] on file Legal Sex Female 3:15 PM RECREATIONAL THERAPIST Gender Identity Not on file Sexual Orientation [...] patient's age to complete this topic Insurance [facility] [id number] Care Teams Business Analyst Relationship Specialty Start Date End Date Jackie Matt PA [address] [place] [address] PCP - General Family Medicine 02/15/24 Zane Griffith MD [address] [phone] Consulting Physician General Surgery 02/15/24
--- OUTSIDE RECORDS SUMMARY | 2024-09-22 10:01 | XMS_ITS | Encounter Summary ---
Author Organization [facility] Address [address] [place] [address] Care Team Providers Care Barrel Liner Name Role Phone Maxi Serna MD Primary Care Provider [phone] Encounter Details Date Type Department Care Team (Late st Contact Info) Description 02/18/2022 Lab Requisition [facility] [address] [place] [address] Mau Serna, TRACER BULLET CHARGING MACHINE OPERATOR-PROBATION OFFICER [address] [phone] Contact with and (suspected) exposure to other [...] A) Not detected 02/18/2022 8:55 PM CDT [facility] Microbiology SPECIMEN FROM NASOPHARYNGEAL STRUCTURE / Unknown Collection / Unknown 02/18/2022 12:00 PM CDT 02/18/2022 2:06 PM CDT Narrative [facility] - 02/18/2022 8:55 PM CDT This nucleic acid amplification assay performance was validated by [facility]. This test has been authorized [...] assay are available upon request. Mau Serna TRACER BULLET CHARGING MACHINE OPERATOR-PROBATION OFFICER LAB - MICROBIOL OGY ORDERABLES [facility] [address] [place], [place] [address], [facility] [phone] documented in this encounter Visit Diagnoses Diagnosis Contact with and (suspected) exposure to other viral communicable diseases documented in this encounter Additional Health Concerns Infection Onset Date Last Indicated Resolved Time COVID-19 Under Investigation 02/18/2022 02/18/2022 02/18/2022 8:55 PM CDT COVID-19 Confirmed 02/18/2022 02/18/2022 4:33 AM CDT documented as of this encounter Care Teams Barrel Liner Relationship Specialty Start Date End Date Maxi Serna MD [address] [place] [address] PCP - General Family Medicine 08/09/17 documented as of this encounter
--- OUTSIDE RECORDS SUMMARY | 2024-09-22 10:01 | XMS_ITS | Clinical Summary ---
Author Organization [facility] Address [address] [facility] [place] [address] Care Team Providers Care Senior Technical Program Manager Name Role Phone Maxi Serna MD Primary Care Provider [phone] Source Comments [facility],non-owned Affiliates and Associated Physician Practices is amultiple site organization consisting of ambulatory clinics and hospital sitesin [place], [place], [place] and [place]. This disclosure is being madepursuant to the Care Everywhere program and may not contain all information available regarding this patient. Last updated [email or web address] Allergies Active Allergy Reactions Criticality Noted Date [...] TIMES A DAY NEEDED 30 capsule 09/19/2023 Active azithromycin (Zithromax) 250 MG tablet TAKE 2 TABLETS BY MOUTH ON DAY 1 AND THEN TAKE 1 TABLET BY MOUTH DAYS 2-5. 6 tablet 09/19/2023 Active sertraline (Zoloft) 50 MG tabletIndications:Ot her [...] to complete this topic MENINGOCOCCAL (Group B) VACC INE SHARED DECISION-MAKING Aged Out No longer eligibl e based on patient's age to complete this topic MENINGOCOCCAL GROUPS A/C/Y/W VACCINE Aged Out No longer eligible b ased on patient's age to complete this topic PNEUMOCOCCAL VACCINE Aged Out No long er eligible based on patient's age to complete this topic Care Teams Senior Technical Program Manager Relationship Specialty Start Date End Date Maxi Serna MD [address] [place] [address] PCP - General Family Medicine 08/09/17
[2024-09-22 10:10] VITALS: BMI 34.8
[2024-09-22 10:15] VITALS: BP 121/62; PULSE 74
[2024-09-22 10:30] VITALS: BP 121/68; PULSE 76
[2024-09-22 10:31] LABS: Add Urine Microscopic? NO; Appearance Urine Clear (Clear); Bilirubin Urine Negative (Negative); Blood Urine Negative (Negative); Color Urine Yellow (Yellow); Glucose Urine UA Negative (Negative); Ketones Urine Trace mg/dL (Negative); Leukocyte Esterase Ur Negative LEU/UL (Negative); Nitrate Urine Negative (Negative); Protein Urine Negative (Negative); Specific Grav Ur 1.017 (1.001-1.035); Urobilinogen Urine 0.2 mg/dL (<2.0)
[2024-09-22 10:45] VITALS: BP 123/67; PULSE 72
--- NOTE | 2024-10-01 08:42 | P.PNOB_ITS ---
OB - Triage/Final Diagnosis Visit Information Comments/Additional reasons for admission: I have assessed the risk for this patient, Yesica Fitzgerald, and determined that she would benefit from observation care. Evaluation Laboratory results: Laboratory Tests 09/22/24 10:20 Urine Color Yellow Urine Appearance Clear Urine pH 8.0 Ur Specific [place] 1.017 Urine Protein Negative Urine Glucose (UA) Negative Urine Ketones Trace H Ur Blood (Man) Negative Urine Nitrate Negative Urine Bilirubin Negative Urine Urobilinogen 0.2 Ur Leukocyte Esterase Negative Final Diagnosis (1) Cramping affecting , antepartum: Code(s): O26.899 - Other specified related conditions, unspecified trimester; R10.9 - Unspecified abdominal pain Status: Acute
== END 2024-09-22 11:01 | disposition home or self-care (01) ==
PROVIDERS: Admitting Provider Obstetrics & Gynecology; PCP Physician Assistant; Visit Provider Obstetrics & Gynecology
DX: O26.893 Other specified pregnancy related conditions, third trimester (principal); R10.9 Unspecified abdominal pain; Z3A.29 29 weeks gestation of pregnancy
CPT/HCPCS: 81003; 87086; G0378; G0379

== ENCOUNTER 2024-12-09 15:54 | Inpatient (IN) | payer OTHER, SELFPAY ==
[2024-12-09] VITALS (11 sets, daily range): BP systolic 109–123; BP diastolic 56–80; PULSE 70–80; RESP 18; TEMP 36.6–36.9; BMI 36.3
--- OUTSIDE RECORDS SUMMARY | 2024-12-09 15:59 | XMS_ITS | Clinical Summary ---
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 Gender Identity Not on file Sexual Orientation [...] 1:09 PM CDT Height 167.6 cm (5' 6) 02/15/2024 1:09 PM CDT Body Mass Index 32.44 02/15/2024 1:09 PM CDT Plan of Treatment Health Maintenance Due Date Last Done Comments Hepatitis C Virus (HCV) Screening 1992 TdaP Immunization 1992 Hepatitis B Immunization (1 of 3 - 19+ 3-dose series) 01/24/2011 Pap Smear 01/24/2013 Cervical Cancer Screening (CCS) 01/24/2022 HPV/Cotest 01/24/2022 SARS-COV-2 Immunization ( season) 2024 04/20/2021, 07/04/2020, 06/13/2020 Influenza Immunization (Seas on Ended) 2025 04/20/2021 Respiratory Syncytial Virus (RSV) Immunization (Adult) (1 - 1-dose 75+ series) 01/24/2067 Human Papillomavirus (HPV) Immunization Aged Out No longer eligible b ased on patient's age to complete this topic Meningococcal Immunization (ACWY) Aged Out No longer eligible b ased on patient's age to complete this topic Pneumococcal Immunization Combined Aged Out No longer eligible b ased on patient's age to complete this topic Rotavirus Immunization Aged Out No lo nger eligible based on patient's age to complete this topic Insurance [facility] Care Teams License Clerk Relationship Specialty Start Date End Date Jackie Matt PA [address] [place] [address] PCP - General Family Medicine 02/15/24 Zane Griffith MD [address] [facility] [address] [place] [address] Consulting Physician General Surgery 02/15/24
--- OUTSIDE RECORDS SUMMARY | 2024-12-09 15:59 | XMS_ITS | Encounter Summary ---
Author Organization [facility] Address [address] [facility] [place] [address] Care Team Providers Care Truck Trailer Final Inspector Name Role Phone Maxi Serna MD Primary Care Provider [phone] Encounter Details Date Type Department Care Team (Late st Contact Info) Description 02/18/2022 Lab Requisition [facility] [address] [place] [address] Mau Serna, STRAW HAT BRIM CUTTER OPERATOR-GRASSLAND CONSERVATIONIST [address] [address] Contact with and (suspected) exposure to other viral communicable diseases Social History Tobacco Use Types Packs/Day Years Used Date Smoking Tobacco: Never Smokeless Tobacco: Never Comments No Sex and Gender Information Value Date Recorded Sex Assigned at Not on file 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 This test has been [...] assay are available upon request. Mau Serna STRAW HAT BRIM CUTTER OPERATOR-GRASSLAND CONSERVATIONIST LAB - MICROBIOLOGY [place] Final Result [facility] [address] [place], [address] [phone] documented in this encounter Visit Diagnoses Diagnosis Contact with and (suspected) exposure to other viral communicable diseases documented in this encounter Additional Health Concerns Infection Onset Date Last Indicated Resolved Time COVID-19 Under Investigation 02/18/2022 02/18/2022 02/18/2022 8:55 PM CDT COVID-19 Confirmed 02/18/2022 02/18/2022 4:33 AM CDT documented as of this encounter Care Teams Truck Trailer Final Inspector Relationship Specialty Start Date End Date Maxi Serna MD [address] [place] [address] PCP - General Family Medicine 08/09/17 documented as of this encounter
--- OUTSIDE RECORDS SUMMARY | 2024-12-09 15:59 | XMS_ITS | Data Portability ---
Author Organization [place] [facility], Main Office Address [address] [place] [address] Care Team Providers Care Bpo Specialist Name Role Phone RUPINDERELLY DEL ANGEL Primary Care Provider RUPINDERELLY DEL ANGEL Referring Provider [phone] Assessment Encounter Date Assessment Date Assessment LastModified [...] responded well to surgery at this point. [email or web address] Not available 11/29/2022 10:32:20 01/11/2023 01/11/2023 WWE- STRAP STITCHER- Dr. Doe CADENA-01/11/23 Call office if worse, ER if life-threatening illness RTC 1 year and PRN She voices understanding of plan and agrees [email or web address] Not available 01/11/2023 16:44:20 03/11/2023 03/11/2023 WWE- STRAP STITCHER- Dr. Doe CADENA-01/11/23 Call office if worse, ER if life-threatening illness RTC 1 month She voices understanding of plan and agrees [email or web address] Not available 03/11/2023 13:08:17 05/27/2023 05/27/2023 WWE- STRAP STITCHER- Dr. Doe CADENA-01/11/23 Call office if worse, ER if life-threatening illness RTC 1 month She voices understanding of plan and agrees [email or web address] Not available 05/27/2023 14:10:18 Plan of Treatment Reminders Order Date Submit Date Provider Last Modified By Organization Details Last Modified Time Details Appointments None recorded. Lab lipid panel, serum [address] (Lab), [address] [place], [address], 4 17:12:01 HbA1c (hemoglobin A1c), blood [address] (Lab), [address] [place], [address], 4 17:12:01 CMP, serum or plasma [address] (Lab), [address] [place], [address], 4 17:12:00 CBC w/ auto diff [address] (Lab), [address] [place], [address], 4 17:12:01 Referral None recorded. Procedures None recorded. Surgeries None recorded. Imaging None recorded. Medication Orders sertraline 50 mg tablet 2022 023 [facility], [address], [place], [id number], 14:26:05 sertraline 25 mg tablet 2022 023 [id number], [address], [place], [id number], 11:46:13 Patient TargetsNo targets recorded. Patient Instructions Encounter Date Encounter Id Patient Instructions Last Modified By Organization Details Last Modified Time 01/11/2023 [id number] INFLUENZA VACCIN E Your next one in the fall of 2022 TD/TDAP Patient will get at local pharmacy/health department MAMMOGRAM No screening indicated at this time/ no family history CERVICAL SCREENING/PELVIC EXAMINATION No screening necessary patient is up to date COLORECTAL SCREENING No screening necessary until age 45 DEPRESSION SCREENING History of depression BMI Obesity continue your current weight loss efforts NUTRITION Continue healthy eating & exercise PHYSICAL ACTIVITY Appropriate Recommendation of 30 minutes of daily activity VISION Recommended today ALCOHOL USE Occasional/Social Use TOBACCO USE non smoker SEXUALLY ACTIVE Yes, Patient is in monogamous relationship GLUCOSE SCREENING Ordered LIPID SCREENING Ordered [place] [address] Not available 01/11/2023 16:45:42 Reason for Referral None Reported. Results Created Date Observation Date Name Description Value Unit Range Abnormal Flag Note LastModifiedBy Organization Detail LastModifiedTime 09/30/1909/17/2022 XR, ankle , 2 view No observ ation record ed. [email or web address] [facility] [address] [place], [address], 09/29/2022 10:44:16 09/30/19 23 09/17/2022 XR, knee, 3 view No observ ation record ed. [email or web address] [facility] [address] [place], [address], 09/29/2022 10:44:16 10/05/19 23 XR, knee, 3 view No observ ation record ed. [email or web address] [facility] [address], [place], [address], 10/04/2022 10:54:14 10/05/19 23 XR, hip + pelvi s, unila teral No observ ation record ed. [email or web address] [facility] [address], [place], [address], 10/04/2022 10:54:37 10/14/19 23 10/12/2022 MRI, knee, w/o contr ast No observ ation record ed. [address], [place], [address], 10/13/2022 13:35:08 10/14/19 23 10/12/2022 MRI, knee, w/o contr ast No observ ation record ed. [address], [place], [address], 10/13/2022 08:47:25 Result Notes None recorded. Problems Name Problem SNOMED Code Status Onset Date Resolution Date Notes Provider Name and Address Organization Details Recorded Time Pain of right hip joint 5838103745689 02 Active 2022 Cassia casanova [employer] 3 11:05:37 Pain of right knee joint 2061004789055 00 Active 2022 Cassia casanova [employer] 3 11:06:07 Pain in right sacroiliac joint 7723509367564 9107 Active 2022 Tenzin Hernandes MD [address], [place], [address], [employer] 3 10:54:44 Tear of lateral meniscus of knee 398152653 Active 2022 Tenzin Hernandes MD [address], [place], [address], [employer] 3 10:55:01 Chondromala mike of right patella 3697651816040 9108 Active 2022 Tenzin Hernandes MD [address], [address], [place], [address], [email or web address] [facility] 3 10:46:50 Tear of medial meniscus of knee 693569896 Active 2022 Tenzin Hernandes MD [address], [address], [place], [address], [employer] 3 07:11:32 Urinary symptoms 240522450 Active 2022 NANCY Donnelly [address], [address], [place], [address], [employer] 3 20:25:20 Dark stools 95620036 Active 2022 ODIN DonnellyC [address], [address], [place], [address], [employer] 3 20:25:37 Anxiety 97938590 Active 2022 NANCY Donnelly [address], [address], [place], [address], [employer] 3 20:25:40 Endometrios is of pelvis 85713670 Active 2022 NANCY Donnelly [address], [address], [place], [address], [employer] 3 20:25:48 Female infertility 1917355 Active 2022 NANCY Donnelly [address], [address], [place], [address], [email or web address] [facility] 3 20:25:54 Viral syndrome 891282227 Active 2022 ODIN DonnellyC [address], [address], [place], [address], [email or web address] [facility] 3 20:26:09 Obesity 616176425 Active 2022 NANCY Donnelly [address] [facility], [facility] [address], [place], [address], [facility] [employer] [facility] 3 16:44:40 Problem Notes None recorded. Procedures Surgical History Date Name Laterality Status Provider Name and Address Organization Details Recorded Time 10/05/19 23 Ortho - Cortisone Injection completed Tenzin Hernandes MD [address] [facility], [facility] [address], [place], [address], [facility] [employer] [facility] 10/04/2022 10:53:02 repair of meniscus completed Sierra Willson MA [facility] [employer] [facility] 01/11/2023 11:42:16 hysteroscopy completed Sierra Willson MA [facility] [employer] [facility] 01/11/2023 11:42:47 Imaging Results None recorded. Procedure Notes None recorded. Medical Equipment None Reported. Allergies Allergen ID Allergen Name Allergen Category Reaction Reaction Severity Criticality Documentation Date Start Date Code Code System Note Provider Name and Address Organization Details Recorded Time 16591 Augmentin medicatio n hives Not available Not available 08/26/2022 62376 2 RxNorm mouth swell ing FIONA Azul, [facility] [employer] [facility] 3 09:43:13 Medications Name Sig Start Date Stop [...] Not Available Not Available fed-ex standard overnight WED- OV TO PT HM SIG RQD DECLINED COUNSELIN Matty COWAN 10/04 completed Not Available Not Available Not Available sharp container USE TO DISPOSE OF NEEDLES 10/04 completed Not Available Not Available Not Available [employer] cov kit home ranulfo 10/04 completed Not Available Not Available Not Available insulin syringe (1ml) 28g 1/2'' USE DIRECTED [OMNITROP E MEDICATIO N] TO INJECT 01/11 completed Not Available Not Available Not Available fed-exstand sravan overnight $15 TH-FRI PT HM NO SIG LP DECLINED COUNSELIN [...] suspension for injection in office 01/11 completed [facility]: 0003- [phone]- 20 Not Available Not Available [...] Not Available Not Available BD Specialty Use Mcintosh 23 gauge x 1 1/4 USE TO [...] Not Available Not Available BD Regular Bevel Mcintosh 25 gauge x 1 1/2 USE 1 [...] Updated DateTime 10/14/2022 167.64 cm 28.2 kg/m2 01946.66 g Crissy Salazar CNA [facility] 10/14/2022 10:24:03 Date Recorded Body height Body mass index (BMI) Body weight Provider Name and Address Organization Details Last Updated DateTime 11/29/2022 167.64 cm 28.2 kg/m2 27138.66 g Crissy Salazar CNA [facility] 11/29/2022 10:00:49 Date Recorded Body height Body mass index (BMI) Body weight Body temperature Heart rate Oxygen saturation Oxygen saturation in Arterial blood by Pulse oximetry Systolic blood pressure Diastolic blood pressure Provider Name and Address Organization Details Last Updated DateTime 3 167.64 cm 30.5 kg/m2 52963.9 6 g 97.9 [degF] 78 /min 98 % 98 % 122 mm[Hg] 76 mm[Hg] Sierra Willson MA [facility] [employer] [facility] 3 11:44:56 Date Recorded Body height Body mass index (BMI) Body weight Body temperature Heart rate Oxygen saturation Oxygen saturation in Arterial blood by Pulse oximetry Systolic blood pressure Diastolic blood pressure Provider Name and Address Organization Details Last Updated DateTime 3 167.64 cm 29.7 kg/m2 11855 g 97.7 [degF] 74 /min 99 % 99 % 118 mm[Hg] 76 mm[Hg] Sierra Willson MA [facility] [employer] [facility] 3 11:18:13 Date Recorded Body height Body mass index (BMI) Body weight Body temperature Heart rate Oxygen saturation Oxygen saturation in Arterial blood by Pulse oximetry Systolic blood pressure Diastolic blood pressure Provider Name and Address Organization Details Last Updated DateTime 3 167.64 cm 30 kg/m2 33697.1 8 g 97.9 [degF] 66 /min 97 % 97 % 126 mm[Hg] 78 mm[Hg] Sierra Willson MA [facility] [employer] [facility] 3 14:06:06 Social History Question Answer Notes LastModified by Organizat ion Details LastModified Time Tobacco Smoking Status Never Smoker ARCHANA Mustafa, [facility] [employer] [facility] 01/11/2023 11:35:23 Do You Wear A Helmet When Biking? No [email or web address] Information not available 01/11/2023 What Is Your Level Of Caffeine Consumption? Moderate [id number] Information not available 08/26/2022 In The 14 Days Before Symptom Onset, Have You Had Close Contact With A Laboratory-confir med COVID-19 While That Case Was Ill? No [email or web address] Information not available 01/11/2023 In The 14 Days Before Symptom Onset, Have You Had Close Contact With A Person Who Is Under Investigation For COVID-19 While That Person Was Ill? No [email or web address] Information not available 01/11/2023 What Type Of Diet Are You Following? REGULAR [id number] Information not available 08/26/2022 What Is The Highest Grade Or Level Of School You Have Completed Or The Highest Degree You Have Received? [id number] [email or web address] Information not available 01/11/2023 Have There Been Any Changes To Your Family Or Social Situation? No [email or web address] Information no t available 01/11/2023 What Is The Fluoride Status Of Your Home? Unknown [email or web address] Information not available 01/11/2023 Are There Any Guns Present In Your Home? Yes [email or web address] Information not available 01/11/2023 Do You Use Insect Repellent Routinely? Yes [email or web address] Information not available 01/11/2023 Where [facility] You Live? [facility] [email or web address] Information not available 01/11/2023 What Was The Date Of Your Most Recent Tobacco Screening? 05/27/2023 [email or web address] Information not available 05/27/2023 Do You Have Any Pets? Yes [email or web address] Information not available 01/11/2023 What Is Your Relationship Status? [id number] Information not available 08/26/2022 Do You Use Your Seat Belt Or Car Seat Routinely? Yes [email or web address] Information not available 01/11/2023 Do You Have Smoke And Carbon Monoxide Detectors In Your Home? Yes [email or web address] Information not available 01/11/2023 Are You Passively Exposed To Smoke? No [email or web address] Information no t available 01/11/2023 Are There Any Smokers In Your House? No [email or web address] Information not available 01/11/2023 Do You Use Sunscreen Routinely? Yes [email or web address] Information not available 01/11/2023 Do You Have Any Dietary Restrictions? No [email or web address] Information not available 01/11/2023 Sex: Unknown Functional Status Question Answer Note LastModified by Organizat ion Details LastModified Time Do you use any illicit or recreational drugs? No [email or web address] Information not available 01/11/2023 What is your level of alcohol consumption? Moderate [email or web address] Information not available 10/04/2022 What is your occupation? Nurse [email or web address] Information not available 01/11/2023 What is your exercise level? Moderate [id number] Information not available 08/26/2022 Mental Status Question Answer Note LastModified by Organization D etails LastModified Time Do you feel stressed (tense, restless, nervous, or anxious, or unable to sleep at night)? [id number] [email or web address] Information not available 01/11/2023 Family History Relationship Description Onset Age of this Age Resolved Age Notes LastModified by Organization Details LastModified Time Paternal Grandmother Family history of malignant neoplasm breast , lung, melono ma. [id number] Not available 08/26/2022 00:57:23 Medical History Condition Response BLINDNESS N NERVE DISEASE N RHEUMATIC FEVER N BLADDER PROBLEMS N KIDNEY STONES N MRSA N OTHER # 1 N POLIO N LUNG DISEASE/DISORDER N HISTORY OF DRUG ABUSE N RADIATION / CHEMOTHERAPY N COPD N Other # 2 N BLOOD DISEASES N EAR OR HEARING PROBLEMS N MUMPS N SHINGLES N BOWEL PROBLEMS N DEPRESSION (INCLUDING POST ) N STROKE/TIA N ULCERS N BENIGN PROSTATIC [...] HAVE YOU BEEN HOSPITALIZED OR SEEN IN PSYCHIATRIC IN THE PAST YEAR ? N ATHEROSCLEROSIS [...] SNOMED-CT Code Diagnosis ICD10 Code Diagnosis Note [id number] Suleman braun MD [facility] Internal Med [facility] [address] [facility], [facility] [address] [place] [address] 10/22/2021 00:00:00 10/22/2021 12:20:01 [id number] Suleman braun MD [facility] Internal Med [place] [address] [facility] [address] [place] [address] 01/20/2022 00:00:00 01/20/2022 16:55:27 [id number] Suleman braun MD [facility] Internal Med [place] [address] [place] [address] [address] [place] [address] 05/26/2022 00:00:00 05/26/2022 10:51:36 [id number] Tenzin Hernandes MD [facility] [place] [address] [place] [address] 10/04/2022 09:23:47 10/04/2022 11:03:11 Pain of right knee joint 7733555291 84042 M25.561 Pain of ri ght hip joint 8875511691 54103 M25.551 Pain in ri ght sacroiliac joint 8127639714 4104345 M53.3 Tear of la teral meniscus of knee 201122106 S83.281A [id number] Tenzin Hernandes MD [facility] [place] [address] [place] [address] 10/14/2022 10:20:03 10/14/2022 11:20:42 Pain of right hip joint 5868626036 30673 M25.551 Pain in ri ght sacroiliac joint 9817423432 7022558 M53.3 Tear of la teral meniscus of knee 753455762 S83.281A Chondromal acia of right patella 0260650767 3746853 M22.41 [id number] Tenzin Hernandes MD [facility] [place] [address] [place] [address] 11/29/2022 09:58:11 11/29/2022 11:01:49 Pain of right hip joint 0167454904 25526 M25.551 Pain in ri ght sacroiliac joint 4835098419 8914964 M53.3 Tear of me dial meniscus of knee 493575565 S83.241A Tear of la teral meniscus of knee 782507116 S83.281A Chondromal acia of right patella 7333761729 9052785 M22.41 Postoperative visit 1836 55012 Z09 [id number] Suleman braun MD [facility] Internal Med [address] [facility], [address] [place] [address] 01/11/2023 11:34:24 01/11/2023 12:17:32 Adult health examination 911340960 Z00.01 Anxiety 37463356 F41.9 self stopped the sertraline , is stable off of medsalso has some hydroxyzin e for prn usecontinu e counseling call office if any change in mood or behaviorsh e declines psychiatry referral Endometrio sis of pelvis 44728576 N80.9 follows [facility]ITCHER/RE Female infertility 65286 08 N97.9 follows RE- Bel Kaushik at [facility] his tory of malignant melanoma 103218306 Z80.7 get appt with derm for skin check- has referral Diabetes m ellitus screening 428249157 Z13.1 Hyperlipid emia screening 106733788 Z13.220 Depression screening 171 084062 Z13.31 Obesity 796058165 E66.9 recommend healthy, well balanced mealsfocus on [...] if any severe n/v or abdominal pain [id number] Suleman braun MD [facility] Internal Med [facility] [address] [facility], [place] [address] 03/11/2023 11:10:22 03/11/2023 11:49:57 Anxiety 06624315 F41.9 restart sertraline at her request- she is aware of side effects, risks, benefitsal so has some hydroxyzin e for prn userecomme nd she call her counselor and get another apptcall office if any change in mood or behaviorsh e declines psychiatry referral support given to patient today, 30 min spent with patient, over half spent on counseling Endometrio sis of pelvis 30941318 N80.9 follows [facility]ER/RE Female infertility 21608 08 N97.9 follows RE- Bel Kaushik at [facility] his tory of malignant melanoma 724970396 Z80.7 has appt with derm later today [id number] Suleman braun MD [facility] Internal Med [facility] [address] [facility], [place] [address] 05/27/2023 13:56:02 05/27/2023 14:26:58 Anxiety 96655762 F41.9 increase sertraline at her request- she is aware of side effects, risks, benefitsal so has some hydroxyzin e for prn userecomme nd she call her counselor and get another apptcall office if any change in mood or behaviorsh e declines psychiatry referral support given to patient today, 30 min spent with patient, over half spent on counseling Endometrio sis of pelvis 62654796 N80.9 follows STRAP STITCHER/RE Female infertility 79566 08 N97.9 follows RE- Bel Kaushik at [facility] his tory of malignant melanoma 248463471 Z80.7 has appt with derm later today Obesity 980231641 E66.9 recommend healthy, well balanced mealsfocus on [...] Recorded Advance Directives Directive None Recorded Payers Insurance Date Sequence Insurance Name Policy Number Policy Mendez Covered Member ID Mendez Member ID Guarantor Name 01/11/2023 1 [id number] Yesica N Fitzgerald [id number] Yesica Fitzgerald 01/11/2023 2 [employer] [id number] Yesica N Fitzgerald [id number] Yesica Fitzgerald 01/15/2024 1 [facility] [id number] Yesica Fitzgerald [id number] Yesica Fitzgerald 05/27/2023 2 [facility] [id number] Yesica Fitzgerald [id number] Yesica Fitzgerald 01/15/2024 2 [facility] [id number] Yesica Fitzgerald [id number] Yesica Fitzgerald Notes Date Note Type Note Provider Name and Address Organization Details Recorded Time 10/14/2022 text/html Patient returns knee pain right. She hurts not only laterally but also in the anterior aspect. She presents with an MRI scan that shows meniscal pathology as well as significant patellar tilt. Tenzin Hernandes MD [address] [place] [address], [facility] [address], [place], [address], [facility] [employer] [facility] 10/14/2022 10:47:35 11/29/2022 text/html Patient returns status post knee arthroscopy right. Pain is resolving overall she looks good. She feels quite comfortable and is walking well. Tenzin Hernandes MD [address] [facility] [address], [place], [address], [employer] 11/29/2022 10:40:46 01/11/2023 text/html Yesica presents today [...] for screening labs. NANCY Donnelly [address] [facility] [address], [place], [address], [employer] 01/11/2023 16:45:56 03/11/2023 text/html Yesica presents today [...] HI today. NANCY Donnelly [address], [facility] [address], [place], [address], [employer] [facility] 03/11/2023 13:09:36 05/27/2023 text/html Yesica presents today [...] left arm. NANCY Donnelly [address], [facility] [address], [place], [address], [employer] [facility] 05/27/2023 15:31:09 OBGyn Episode No OBEpisode recorded.
--- OUTSIDE RECORDS SUMMARY | 2024-12-09 15:59 | XMS_ITS | Clinical Summary ---
Author Organization [facility] Address [address] [place] [address] Care Team Providers Care Gas Prover Name Role Phone Maxi Serna MD Primary Care Provider [phone] Source Comments [facility],non-owned Affiliates and Associated Physician Practices is amultiple site organization consisting of ambulatory clinics and hospital sitesin [place], [place], [place] and [place]. This disclosure is being madepursuant to the Care Everywhere program and may not contain all information available regarding this patient. Last updated 18.[facility] [employer] Allergies Active Allergy Reactions Criticality Noted Date Comments Augmentin Rash Medium 08/09/2017 Medications * Be aware that medications may not be up to date on this document. Alwaysverify current medications with the patient. Levonorgestrel (MIRENA, 52 MG, IU) Active benzonatate (TESSALON) 200 MG capsule Take 1 capsule by mouth 3 times daily as needed for Cough 30 capsule 9 Active guaiFENesin-codei ne (Robitussin AC) 100-10 MG/5ML syrup TAKE 5 ML BY MOUTH EVERY 6 HOURS NEEDED FOR COUGH 200 mL 4 Active benzonatate (Tessalon) 100 MG capsule TAKE ONE CAPSULE BY MOUTH 3 TIMES A DAY NEEDED 30 capsule 4 Active azithromycin (Zithromax) 250 MG tablet TAKE 2 TABLETS BY MOUTH ON DAY 1 AND THEN TAKE 1 TABLET BY MOUTH DAYS 2-5. 6 tablet 4 Active sertraline (Zoloft) 50 MG tabletIndications :Other specified anxiety disorders TAKE ONE TABLET BY MOUTH ONCE DAILY 90 tablet 3 4 Active letrozole (Femara) 2.5 MG tabletIndications :Encounter for assisted reproductive fertility procedure cycle TAKE ONE TABLET BY MOUTH ONCE DAILY 30 tablet 1 4 12/13/19 25 Active norethindrone (Aygestin) 5 MG tabletIndications :Encounter for assisted reproductive fertility procedure cycle TAKE ONE TABLET BY MOUTH ONCE DAILY 30 tablet 1 4 12/13/19 25 Active letrozole (Femara) 2.5 MG tabletIndications :Encounter for assisted reproductive fertility procedure cycle TAKE TWO TABLETS BY MOUTH ONCE DAILY 10 tablet 4 01/23/20 25 Active Progesterone 100 MG capsuleIndication s:Encounter for assisted reproductive fertility procedure cycle TAKE ONE CAPSULE BY MOUTH 3 TIMES A DAY 90 capsule 6 4 01/23/20 25 Active dexAMETHasone (Decadron) 1 MG tabletIndications :Encounter for assisted reproductive fertility procedure cycle TAKE ONE TABLET BY MOUTH ONCE DAILY 30 tablet 5 4 01/23/20 25 Active sertraline (Zoloft) 100 MG tablet Take 1 tablet every day by mouth. 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 Gender Identity Not on file Sexual Orientation [...] 12:08 PM CDT Height 167.6 cm (5' 6) 04/16/2019 12:08 PM CDT Body Mass Index 25.02 04/16/2019 12:08 PM CDT Plan of Treatment Health Maintenance Due Date Last Done Comments HIV SCREENING 01/24/2007 HEPATITIS C SCREENING 01/20/2010 DTAP/TDAP/TD VACCINES (1 - Tdap) 01/24/2011 HEPATITIS B VACCINE (1 of 3 - 19+ 3-dose series) 01/24/2011 PAP SMEAR 01/24/2013 PAP with HPV 01/24/2022 COVID-19 VACCINE (1 - 2023-2 5 season) 2024 DEPRESSION SCREENING 06/27/2024 INFLUENZA VACCINE (Season Ended) 2025 ZOSTER VACCINE (1 of 2) 01/24/2042 HIB [...] patient's age to complete this topic Insurance [facility] ANTH Care Teams Gas Prover Relationship Specialty Start Date End Date Maxi Serna MD [facility] [place] [address] PCP - General Family Medicine 08/09/17
--- OUTSIDE RECORDS SUMMARY | 2024-12-09 15:59 | XMS_ITS | Data Portability ---
[facility] [address] [place] [address] Care Team Providers Care Reporting Process Consultant Name Role Phone PERI JIMENEZ Primary Care Provider Unavailab le Assessment No assessment recorded. Plan of Treatment Reminders Order Date Submit Date Provider Last Modified By Organization Details Last Modified Time Details Appointments ANY 15 2024 08:00A M JOSE J Dumont Not available Not available Not available Lab None recorded. Referral None recorded. Procedures None recorded. Surgeries None recorded. Imaging None recorded. Medication Orders sertralin e 50 mg tablet 2023 024 [email or web address] [facility], [address] [place], [place], [id number], 09/28/2024 10:38:37 Patient TargetsNo targets recorded. Patient Instructions Encounter Date Encounter Id Patient Instructions Last Modified By Organization Details Last Modified Time 11/10/2023 [id number] A healthy lifestyle: care instructions Not available 11/27/2023 20:03:58 09/28/2024 [id number] A healthy lifestyle: care instructions Not available 10/21/2024 17:06:51 Reason for Referral None Reported. Problems Name Problem SNOMED Code Status Onset Date Resolution Date Notes Provider Name and Address Organization Details Recorded Time Obesity 801929071 Active 2023 JOSE J Dumont Attn: Indra galvan,[address], [place], [address], [facility] 20:03:56 Body mass index 30+ - obesity 213806240 Active 2023 JOSE J Dumont Attn: Indra galvan,[address] [facility], [place], [address], [facility] 4 20:03:56 Past history of miscarriage 910179091 Active 2023 JOSE J Dumont Attn: Indra galvan,[address] [facility], [place], [address], [facility] 4 20:04:14 Mixed anxiety and depressive disorder 520279286 Active 2024 JOSE J Dumont Attn: Accountkimberly g,[address] [facility], [place], [address], [facility] 5 17:06:37 Long-term current use of drug therapy 659577071 Active 2024 JOSE J Dumont Attn: Indra galvan,[address] [facility], [place], [address], [facility] 5 17:06:48 Problem Notes None recorded. Procedures Surgical History Date Name Laterality Status Provider Name and Address Organization Details Recorded Time Cholecystectomy completed Shreyas Ramos MA [facility] 11/10/2023 13:27:49 Knee Surgery completed Shreyas Ramos MA [facility] 11/10/2023 13:28:30 D & c after delivery completed Shreyas Ramos MA [facility] 11/10/2023 13:28:36 Imaging Results None recorded. Procedure Notes None recorded. Medical Equipment None Reported. Allergies Allergen ID Allergen Name Allergen Category Reaction Reaction Severity Criticality Documentation Date Start Date Code Code System Note Provider Name and Address Organization Details Recorded Time 441269 Augmentin medicatio n Not available Not available Not available 11/09/2023 78669 2 RxNorm Shreyas Ramos MA null, [facility] 13:09:00 Medications Name Sig Start Date Stop Date Status Note LastModified by Organization Details LastModified Time progesteron e (micro) 200mg supp UNWRAP AND INSERT 1 SUPPOSITO RY VAGINALLY TWICE DAILY DIRECTED 11/09 completed Not Available Not Available Not Available fed-exstand sravan overnight $15 THUR-FRI PT HM NO SIG LP DECLINED COUNSELIN G 11/09 completed Not Available Not Available Not Available azithromyci n 250 mg tablet 11/09 completed Not Available Not Available Not Available promethazin e 12.5 mg tablet TAKE 1 TABLET BY MOUTH EVERY 6 HOURS NEEDED 10/21 completed Not Available Not Available Not Available ondansetron HCl 4 mg tablet TAKE 1 TABLET BY MOUTH EVERY 6 HOURS NEEDED FOR NAUSEA 09/28 completed Not Available Not Available Not Available sertraline 100 mg tablet Take 1 tablet every day by oral route. 2024 active Not Available Not Available Not Avai lable dicyclomine 20 mg tablet TAKE 1 TABLET BY MOUTH EVERY 6 HOURS 09/28 completed Not Available Not Available Not Available estradiol valerate 20 mg/mL intramuscul ar oil INJECT 0.3ML INTRAMUSC ULARLY ONCE EVERY THREE DAYS DIRECTED 11/09 completed Not Available Not Available Not Available dexamethaso ne 1 mg tablet TAKE 1 TABLET BY MOUTH DAILY 10/21 completed Not Available Not Available Not Available benzonatate 100 mg capsule 11/09 completed Not Available Not Available Not Available misoprostol 200 mcg tablet INSERT 4 TABLETS INTRAVAGI VERA A SINGLE DOSE 11/09 completed Not Available Not Available Not Available sertraline 25 mg tablet TAKE 1 TABLET BY MOUTH EVERY DAY 11/09 completed Not Available Not Available Not Available Lupron Depot 3.75 mg intramuscul ar syringe kit 09/28 completed Not Available Not Available Not Available estradiol 2 mg tablet TAKE 1 TABLET BY MOUTH THREE TIMES DAILY DIRECTED 11/09 completed Not Available Not Available Not Available codeine 10 mg-guaifene sin 100 mg/5 mL oral liquid 11/09 completed Not Available Not Available Not Available BD Specialty Use Rising Star 23 gauge x 1 1/4 USE TO INJECT ESTRADIOL INJECTION S DIRECTED 11/09 completed Not Available Not Available Not Available norethindro ne acetate 5 mg tablet 09/28 completed Not Available Not Available Not Available letrozole 2.5 mg tablet 10/21 completed Not Available Not Available Not Available BD Luer-Conner Syringe 3 mL 21 gauge x 1 1/2 USE TO DRAW UP ESTRADIOL INJECTION S DIRECTED 11/09 completed Not Available Not Available Not Available ondansetron 4 mg disintegrat ing tablet TAKE 1 TABLET BY MOUTH EVERY 8 HOURS NEEDED FOR NAUSEA 10/21 completed Not Available Not Available Not Available sertraline 50 mg tablet TAKE 1 TABLET BY MOUTH DAILY DIRECTED active Not Available Not Available No t Available progesteron e micronized 100 mg capsule TAKE 1 CAPSULE BY MOUTH THREE TIMES DAILY DIRECTED 09/28 completed Not Available Not Available Not Available ganirelix 250 mcg/0.5 mL subcutaneou s syringe 09/28 completed Not Available Not Available Not Available Ovidrel 250 mcg/0.5 mL subcutaneou s syringe 09/28 completed Not Available Not Available Not Available BD Regular Bevel Rising Star 25 gauge x 1 1/2 USE 1 TO INJECT ESTRADIOL DIRECTED 11/09 completed Not Available Not Available Not Available famotidine active otc Not Available Not Av ailable Not Available Endometrin 100 mg vaginal insert 09/28 completed Not Available Not Available Not Available Estarylla 0.25 mg-0.035 mg tablet TAKE 1 TABLET BY MOUTH EVERY DAY DIRECTED. TAKE ACTIVE PILLS ONLY 11/09 completed Not Available Not Available Not Available Vitals Date Recorded Body height Body mass index (BMI) Body weight Oxygen saturation Oxygen saturation in Arterial blood by Pulse oximetry Heart rate Respiratory rate Systolic blood pressure Diastolic blood pressure Provider Name and Address Organization Details Last Updated DateTime 5 167.64 cm 35.2 kg/m2 42494.1 4 g 99 % 99 % 79 /min 20 /min 112 mm[Hg] 72 mm[Hg] Shreyas Ramos MA [place] - [facility] 5 10:42:05 Date Recorded Body height Respiratory rate Body mass index (BMI) Body weight Oxygen saturation Oxygen saturation in Arterial blood by Pulse oximetry Heart rate Systolic blood pressure Diastolic blood pressure Provider Name and Address Organization Details Last Updated DateTime 4 167.64 cm 20 /min 32.1 kg/m2 23270.2 4 g 99 % 99 % 69 /min 108 mm[Hg] 68 mm[Hg] Shreyas Ramos MA [place] - [facility] 4 12:41:26 Social History Question Answer Notes LastModified by Organizat ion Details LastModified Time Tobacco Smoking Status Never Smoker Shreyas Ramos MA [facility], [place] [facility] 11/09/2023 13:09:32 Do You Have An Advance Directive? No Information not available 11/09/2023 Are You Blind Or Do You Have Difficulty Seeing? No Contacts Information not available 11/09/2023 What Is Your Level Of Caffeine Consumption? Moderate Information not available 11/09/2023 In The 14 Days Before Symptom Onset, Have You Had Close Contact With A Laboratory-confir med COVID-19 While That Case Was Ill? No Information not available 11/09/2023 In The 14 Days Before Symptom Onset, Have You Had Close Contact With A Person Who Is Under Investigation For COVID-19 While That Person Was Ill? No Information not available 11/09/2023 Have You Been To An Area Known To Be High Risk For COVID-19? No Information not available 11/09/2023 Are You Deaf Or Do You Have Serious Difficulty Hearing? No Information not available 11/09/2023 What Type Of Diet Are You Following? REGULAR Information not available 11/09/2023 Are There Any Guns Present In Your Home? No Information not available 11/09/2023 What Was The Date Of Your Most Recent Tobacco Screening? 09/28/2024 Information not available 09/28/2024 What Is Your Relationship Status? Information not available 11/09/2023 Do You Use Your Seat Belt Or Car Seat Routinely? Yes Information not available 11/09/2023 Do You Have Smoke And Carbon Monoxide Detectors In Your Home? Yes Information not available 11/09/2023 Do You Use Sunscreen Routinely? Yes Information not available 11/10/2023 Has Tobacco Cessation Counseling Been Provided? Yes Information not available 11/09/2023 On What Date Was Tobacco Cessation Counseling Provided? 09/28/2024 Information not available 09/28/2024 Sex: Female Functional Status Question Answer Note LastModified by Organizat ion Details LastModified Time Do you use any illicit or recreational drugs? No Information not available 11/09/2023 Do you or have you ever used any other forms of tobacco or nicotine? No Information not available 11/09/2023 What is your level of alcohol consumption? Occasional Information not available 11/09/2023 Are you currently employed? Yes Information not available 11/10/2023 Are you able to care for yourself? Yes Information n ot available 11/09/2023 What is your occupation? Rn Information not available 11/10/2023 What is your exercise level? Moderate Information not available 11/09/2023 Mental Status None recorded. Family History Relationship Description Onset Age of this Age Resolved Age Notes LastModified by Organization Details LastModified Time Mother Asthma [email or web address] Not available 11/10/2023 13:28:49 Mother Depressive disorder tcarterma Not available 2023 13:28:56 Mother Hypertensive disorder tcarterma Not available 2023 13:29:02 Mother Hypercholest erolemia tcarterma Not available 2023 13:29:08 Father Depressive disorder tcarterma Not available 2023 13:28:56 Father Hypercholest erolemia tcarterma Not available 2023 13:29:08 Medical History Condition Response Coronary Artery Disease N Other N Atrial Fibrillation N High Blood Pressure N Depression Y COPD N Blood Clots N Anxiety Disorder Y Muscle, Joint, or Bone Problems N Acid Reflux (GERD) N Cancer N Stroke N High Cholesterol N Liver Disease N Headaches N Kidney or Bladder Problems N Thyroid Problems N GI Problems N Skin Problems N Anemia N Heart Attack (NH) N Diabetes N Seizures/Epilepsy N Asthma N Allergies N Hepatitis N Heart Failure N Osteoporosis N Gynecological History Statement/Question Response Menses Monthly N Current Control Method Obstetrics History GPAL:G 1 P 0 0 0 0 Immunizations Vaccine Type Date Status Note Provider Nam e and Address Organization Details Recorded Time COVID-19, mRNA, LNP-S, PF, 30 mcg/0.3 mL dose 07/04/2020 completed Shreyas Ramos [place] null, [place] - [facility] 09/28/2024 10:39:57 COVID-19, mRNA, LNP-S, PF, 30 mcg/0.3 mL dose 04/20/2021 completed Shreyas Ramos [place], [place] - [facility] 09/28/2024 10:39:57 COVID-19, mRNA, LNP-S, PF, 30 mcg/0.3 mL dose 06/13/2020 completed Shreyas Ramos [place], [place] [facility] 09/28/2024 10:39:57 Influenza, split virus, quadrivalent, PF 04/20/2021 completed Shreyas Ramos [place], [place] - [facility] 09/28/2024 10:39:57 Past Encounters Encounter ID Performer Location Encounter Start Date Encounter Closed Date Diagnosis/Indication Diagnosis SNOMED-CT Code Diagnosis ICD10 Code Diagnosis Note [id number] Joe Montenegro MD [facility] [address] [place] [address] 11/10/2023 12:29:32 11/10/2023 15:01:29 Mixed anxiety and depressive disorder 207205576 F41.8 Continue sertraline 50mg daily. refill given. Body mass index 30+ - obesity 030208667 Z68.32 bmi 32.1 Obesity 276294685 E66.9 discussed healthy diet, exercise, controllin g carbohydra ranulfo and added sugars in the diet Past pregn dolores history of miscarriage 918432055 Z87.59 two recent miscarriag es recently. [id number] Joe Montenegro MD [facility] [address] [place] [address] 09/28/2024 10:24:19 09/28/2024 11:26:37 Body mass index 30+ - obesity 427909569 Z68.35 bmi 35.2 Obesity 862250914 E66.9 discussed healthy diet, exercise, controllin g carbohydra ranulfo and added sugars in the diet Mixed anxi ety and depressive disorder 466686191 F41.8 Continue sertraline 100mg daily. Adult heal th examination 240097785 Z00.00 Annual wellness exam completed Long-term current use of drug therapy 806062114 Z79.899 Health Concerns Section Related Observation LastModified by Organization Detai sukhjinder LastModified Time None Recorded Concern Status LastModified by Organization Details LastModified Time None Recorded Advance Directives Directive N: Payers Insurance Date Sequence Insurance Name Policy Number Policy Mendez Covered Member ID Mendez Member ID Guarantor Name 09/28/2024 1 [facility] [id number] Yesica Fitzgerald [id number] Yesica Fitzgerald 10/22/2024 1 [facility] - [employer] (PPO) [id number] Aaron Fitzgerald [id number] Yesica Lia Notes Date Note Type Note Provider Name and Address Organization Details Recorded Time 11/10/2023 text/html Anxiety/Depressi on Reported bypatient.Quality: mood worse;increased anxiety Severity:denies suicidal ideations; able to maintain relationships; does not interfere with activities of daily living Duration:frequent; symptoms lasting over 2 weeks Context:major life stressors;bereavem ent Modifying Factors:social support Associated Symptoms:denies homicidal ideations; no significant weight gain; no significant weight loss; no shortness of breath;anxiety;dep ression;grievingNo ranulfo:Pt has had a few miscarriages in last 6 months. she does have anxiety and depression symptoms JOSE J Dumont Attn: [address] [place], [address], [facility] 11/27/2023 20:04:55 09/28/2024 text/html Anxiety/Depressi on Reported bypatient.Quality: symptoms improved Severity:denies suicidal ideations; able to maintain relationships; does not interfere with activities of daily living Duration:frequent; symptoms lasting over 2 weeks Context:no major life stressors Modifying Factors:social support Associated Symptoms:denies homicidal ideations; no significant weight gain; no significant weight loss; no shortness of breath;anxiety;dep ressionNotes:Pt has had a few miscarriages last year. She does have anxiety and depression symptoms. She has been very stable now on sertraline 100 mg daily and is feeling much better than her 1st visit here last year. JOSE J Dumont Attn: [employer] [place], [address], [facility] 10/21/2024 17:07:16 OBGyn Episode No OBEpisode recorded.
[2024-12-09 16:49] LABS: Basophils Percent Auto 0.4 % (0.2-1.2); Eosinophils Absolute Auto 0.1 K/mm3 (0-0.3); Hematocrit 29.7 % (37.0-47.0); Hemoglobin 9.7 g/dL (12.0-15.0); Immature Granulocyte Absolute 0.02 K/mm3 (0.00-0.031); Immature Granulocyte Percent A 0.2 % (0-0.5); Lymphocytes Absolute Auto 1.54 K/mm3 (0.9-3.2); Lymphocytes Percent Auto 18.8 % (18.3-44.2); Mean Corpuscular HGB Conc 32.7 g/dl (32-36); Mean Corpuscular Hemoglobin 28.4 pg (26-34); Mean Corpuscular Volume 86.8 fl (80-100); Mean Platelet Volume 10.7 fl (7.4-10.4); Monocytes Absolute Auto 0.6 K/mm3 (0.1-0.6); Monocytes Percent Auto 7.3 % (2.6-8.5); Neutrophils Absolute Auto 5.9 K/mm3 (1.3-6.7); Neutrophils Percent Auto 72.3 % (45.5-73.1); Platelet Count Result 229 k/mm3 (150-375); Red Blood Count 3.42 M/mm3 (4.2-5.4); White Blood Count 8.2 K/mm3 (4.5-10.0)
[2024-12-09 16:58] LABS: Alanine Aminotransferase 15 U/L (6-35); Albumin Level 3.3 g/dL (3.5-5.1); Alkaline Phosphatase 219 U/L (38-126); Anion Gap 6 mmol/L (4-12); Aspartate Amino Transferase 28 U/L (14-36); Bilirubin,Total 0.2 mg/dL (0.2-1.3); Blood Urea Nitrogen 11 mg/dL (7-17); Calcium 8.9 mg/dL (8.4-10.2); Carbon Dioxide 19 mmol/L (22-30); Chloride 106 mmol/L (98-107); Estimated Glomerular Filt Rate > 60; Glucose 101 mg/dL (65-110); Potassium 3.9 mmol/L (3.4-5.0); Sodium 131 mmol/L (137-145); Total Protein 6.5 g/dL (6.3-8.2); Uric Acid 5.6 mg/dL (2.5-7.5)
[2024-12-09 17:25] LABS: Syphilis IgG/IgM Antibody Non-Reactive (Nonreactive)
[2024-12-09 17:48] LABS: HIV 1/2 Ab P24 Ag Result Negative (Negative)
--- NOTE | 2024-12-09 17:50 | WPDANESEPP ---
Anes - Eval Pre Procedure Procedure: Labor epidural Date/Time: 12/09/24 17:50 Surgeon: Doe Preop Diagnosis: pain during labor Pre Op Diagnosis: IOL Patient Data Age: 34 Gender: F Height: Weight: Last Vital Signs Pulse 70 12/09/24 17:45 BP 113/69 12/09/24 17:45 Allergies Allergy/AdvReac Type Severity Reaction Status Date / Time amoxicillin (From Augmentin) Allergy Severe Hives Verified 11/01/24 16:22 clavulanic acid (From Allergy Severe Hives Verified 11/01/24 16:22 Augmentin) Penicillins Allergy Severe Hives Verified 11/01/24 16:22 Home Medications ?Medication ?Instructions ?Recorded ?Confirmed ?Type sertraline 50 mg tablet 100 mg PO DAILY 02/11/24 11/01/24 History vits no.126-ferrous fum 1 tablet PO DAILY 05/23/24 11/01/24 History 28 mg iron-folic acid 800 mcg tablet (Classic ) famotidine 20 mg tablet (Acid 20 mg PO BID 11/01/24 11/01/24 History Controller) ondansetron HCl 4 mg tablet 4 mg PO Q6H PRN nausea and vomiting 11/01/24 11/01/24 History Laboratory Tests 12/09/24 16:33 WBC 8.2 K/mm3 (4.5-10.0) RBC 3.42 L M/mm3 (4.2-5.4) Hgb 9.7 L g/dL (12.0-15.0) Hct 29.7 L % (37.0-47.0) MCV 86.8 fl (80-100) MCH 28.4 pg (26-34) MCHC 32.7 g/dl (32-36) RDW 14.0 % (11.5-14.5) Plt Count 229 k/mm3 (150-375) MPV 10.7 H fl (7.4-10.4) Immature Gran % (Auto) 0.2 % (0-0.5) Neut % (Auto) 72.3 % (45.5-73.1) Lymph % (Auto) 18.8 % (18.3-44.2) [place] % (Auto) 7.3 % (2.6-8.5) Eos % (Auto) 1.0 % (0-4.4) Baso % (Auto) 0.4 % (0.2-1.2) Lymph # (Auto) 1.54 K/mm3 (0.9-3.2) [place] # (Auto) 0.6 K/mm3 (0.1-0.6) Eos # (Auto) 0.1 K/mm3 (0-0.3) Baso # (Auto) 0.0 K/mm3 (0.0-0.1) Abs Immat Gran (auto) 0.02 K/mm3 (0.00-0.031) Absolute Neuts (auto) 5.9 K/mm3 (1.3-6.7) Absolute Nucleated RBC 0.000 K/mm3 (0.0-0.012) Nucleated RBC % 0.0 % (0.0-0.2) Sodium 131 L mmol/L (137-145) Potassium 3.9 mmol/L (3.4-5.0) Chloride 106 mmol/L (98-107) Carbon Dioxide 19 L mmol/L (22-30) Anion Gap 6 mmol/L (4-12) BUN 11 mg/dL (7-17) Creatinine 0.80 mg/dL (0.7-1.0) Estim Creat Clear Calc Not Reportable Estimated GFR > 60 (59 - ) Glucose 101 mg/dL (65-110) Uric Acid 5.6 mg/dL (2.5-7.5) Calcium 8.9 mg/dL (8.4-10.2) Total Bilirubin 0.2 mg/dL (0.2-1.3) AST 28 U/L (14-36) ALT 15 U/L (6-35) Alkaline Phosphatase 219 H U/L (38-126) Total Protein 6.5 g/dL (6.3-8.2) Albumin 3.3 L g/dL (3.5-5.1) Syphilis IgG/IgM Ab Non-reactive (Nonreactive) HIV 1&2 Ab/P24 Ag 4thGn Negative (Negative) Blood Type O Positive Antibody Screen Negative Patient hx anesthesia problems: none Family hx anesthesia problems: none Results Review: All pre-operative results and documents have been reviewed as part of the pre-operative evaluation. [facility] Past Medical History Medical History (Updated 12/09/24 @ 17:51 by Doris Avila, JOSHUA) Endometriosis Depression Anxiety Migraines, neuralgic and not yet delivered in first trimester IVF Anxiety and depression Surgical History Surgical History S/P right knee arthroscopy torn meniscus History of laparoscopy Family History Family History (Updated 11/01/24 @ 15:58 by Anna Schwartz RN) Grandparent Lung cancer Grandparent Depression Mother Depression Degenerative disc disease Social History Social History Smoking status: Never smoker Alcohol intake: current Drinks per week: 12 Alcohol use details: no alcohol presently Substance use: never Substance use type: does not use Living arrangements: with family Spiritual care concerns: No Exam Day of Procedure 12/09/24 17:50
[2024-12-09] MEDS: DINOPROSTONE 10 MG VAG INSERT VAGINAL (17:54)
--- NOTE | 2024-12-09 18:36 | LDADM ---
This patient, Yesica Fitzgerald, was admitted to Labor/Delivery/Recovery 103 on 12/09/24 at 15:54. Plans for labor, pain management and were discussed with patient. Patient/family oriented to hospital policies and general routines including ID bracelet, bed and alarms, visiting hours, pain management, procedures, bathroom and other care routines, personal items, smoking policy, room service/diet and guest tray routines, security routines, and visiting hours. Patient/Family are encouraged to report perceived risks to care and to ask questions if they do not understand what they are told or what they should do. See OBIX for further documentation.
[2024-12-09] MEDS: ACETAMINOPHEN 500 MG TABLET 1000 MG PO (23:51)
[2024-12-10] VITALS (262 sets, daily range): BP systolic 92–156; BP diastolic 29–114; PULSE 31–119; RESP 16; TEMP 36.1–38.4; O2SAT 80–100
[2024-12-10] MEDS: OXYTOCIN 30 UNITS/NS 500 ML 30 UNITS/500 ML BAG 6 UNITS IV CONT (06:00)
[2024-12-10] MEDS: LACTATED RINGERS 1,000 ML 125 ML IV CONT ×3 (06:02→13:48)
[2024-12-10] MEDS: ONDANSETRON INJ 4 MG/2 ML VIAL IV PUSH (08:25)
--- NOTE | 2024-12-10 08:59 | PM.IMHP ---
H&P: HPI History of Present Illness Date/Time: 12/10/24 08:59 Chief Complaint: Here for induction of labor Narrative: 34 y/o at 39 4/7 weeks here for induction of labor. BP has increased in office, but not requiring medication. S/p Cervidil, now receiving oxytocin. Would like an epidural. SROM at 0600 today. Review of Systems Review of Systems: All systems reviewed & are unremarkable except as noted in HPI and below PMFSH Past Medical History Medical History Endometriosis Depression Anxiety Migraines, neuralgic and not yet delivered in first trimester IVF Anxiety and depression Surgical History Surgical History S/P right knee arthroscopy torn meniscus History of laparoscopy Family History Family History Grandparent Lung cancer Grandparent Depression Mother Depression Degenerative disc disease Social History Social History Smoking status: Never smoker Second hand tobacco smoke exposure: No Alcohol intake: current Drinks per week: 12 Alcohol use details: no alcohol presently Substance use: never Substance use type: does not use Do You Feel Safe in your Home?: Yes Lack of Transportation: No Lack of Food: Never True Current Housing: I Have Housing Concerned About Future Housing: No Difficulty Paying Gas/Electric Bills: No Difficulty Paying for Meds: No Currently Unemployed: No Education: Bachelor's Degree Difficulty w/ Childcare or Family Care: No Living arrangements: with family Spiritual care concerns: No Meds Home Medications and Allergies Home Medications ?Medication ?Instructions ?Recorded ?Confirmed ?Type sertraline 50 mg tablet 100 mg PO DAILY 02/11/24 12/09/24 History vits no.126-ferrous fum 1 tablet PO DAILY 05/23/24 12/09/24 History 28 mg iron-folic acid 800 mcg tablet (Classic ) famotidine 20 mg tablet (Acid 40 mg PO BID 11/01/24 12/09/24 History Controller) Allergies Allergy/AdvReac Type Severity Reaction Status Date / Time amoxicillin (From Augmentin) Allergy Severe Hives Verified 12/09/24 18:30 clavulanic acid (From Allergy Severe Hives Verified 12/09/24 18:30 Augmentin) Penicillins Allergy Severe Hives Verified 12/09/24 18:30 Vital Signs Vital Signs - 24 hr 12/09/24 17:41 12/09/24 17:45 12/09/24 17:45 Temperature 36.9 C Pulse Rate 72 70 Respiratory Rate 18 Blood Pressure 118/64 113/69 Pulse Oximetry Oxygen Delivery Room Air 12/09/24 18:00 12/09/24 18:15 12/09/24 18:30 Temperature Pulse Rate 70 72 74 Respiratory Rate Blood Pressure 122/73 119/80 116/70 Pulse Oximetry Oxygen Delivery 12/09/24 18:45 12/09/24 19:00 12/09/24 20:00 Temperature 36.6 C Pulse Rate 78 73 79 Respiratory Rate 18 Blood Pressure 118/71 118/73 109/56 L Pulse Oximetry Oxygen Delivery 12/09/24 21:01 12/09/24 22:01 12/09/24 23:01 Temperature Pulse Rate 72 70 80 Respiratory Rate Blood Pressure 119/56 L 123/77 117/70 Pulse Oximetry Oxygen Delivery 12/10/24 00:00 12/10/24 01:00 12/10/24 02:00 Temperature Pulse Rate 75 76 72 Respiratory Rate Blood Pressure 116/67 120/68 114/58 L Pulse Oximetry Oxygen Delivery 12/10/24 03:01 12/10/24 04:01 12/10/24 05:00 Temperature Pulse Rate 71 61 78 Respiratory Rate Blood Pressure 136/79 114/59 L 130/60 Pulse Oximetry Oxygen Delivery 12/10/24 05:10 12/10/24 05:15 12/10/24 05:20 Temperature Pulse Rate Respiratory Rate Blood Pressure Pulse Oximetry 100 99 99 Oxygen Delivery 12/10/24 05:25 12/10/24 05:30 12/10/24 05:35 Temperature Pulse Rate Respiratory Rate Blood Pressure Pulse Oximetry 99 98 99 Oxygen Delivery 12/10/24 05:40 12/10/24 05:45 12/10/24 05:50 Temperature Pulse Rate 63 Respiratory Rate Blood Pressure 122/65 Pulse Oximetry 99 99 98 Oxygen Delivery 12/10/24 05:55 12/10/24 06:00 12/10/24 06:01 Temperature Pulse Rate 61 Respiratory Rate Blood Pressure 101/52 L Pulse Oximetry 98 99 Oxygen Delivery 12/10/24 06:05 12/10/24 06:10 12/10/24 06:15 Temperature Pulse Rate Respiratory Rate Blood Pressure Pulse Oximetry 99 98 98 Oxygen Delivery 12/10/24 06:20 12/10/24 06:25 12/10/24 06:30 Temperature Pulse Rate Respiratory Rate Blood Pressure Pulse Oximetry 97 99 99 Oxygen Delivery 12/10/24 06:35 12/10/24 06:44 12/10/24 06:49 Temperature Pulse Rate Respiratory Rate Blood Pressure Pulse Oximetry 99 100 100 Oxygen Delivery 12/10/24 06:54 12/10/24 06:59 12/10/24 07:00 Temperature Pulse Rate 63 Respiratory Rate Blood Pressure 121/77 Pulse Oximetry 100 100 Oxygen Delivery 12/10/24 07:04 12/10/24 07:09 12/10/24 07:14 Temperature Pulse Rate Respiratory Rate Blood Pressure Pulse Oximetry 99 100 100 Oxygen Delivery 12/10/24 07:19 12/10/24 07:24 12/10/24 07:29 Temperature Pulse Rate Respiratory Rate Blood Pressure Pulse Oximetry 99 99 99 Oxygen Delivery 12/10/24 07:34 12/10/24 07:39 12/10/24 07:44 Temperature Pulse Rate Respiratory Rate Blood Pressure Pulse Oximetry 100 100 100 Oxygen Delivery 12/10/24 07:49 12/10/24 07:54 12/10/24 08:15 Temperature 36.6 C Pulse Rate Respiratory Rate Blood Pressure Pulse Oximetry 100 100 98 Oxygen Delivery 12/10/24 08:20 12/10/24 08:25 12/10/24 08:28 Temperature Pulse Rate 69 Respiratory Rate Blood Pressure 120/64 Pulse Oximetry 98 99 Oxygen Delivery 12/10/24 08:30 12/10/24 08:35 12/10/24 08:40 Temperature Pulse Rate 67 Respiratory Rate Blood Pressure 127/64 Pulse Oximetry 99 100 100 Oxygen Delivery 12/10/24 08:45 12/10/24 08:50 12/10/24 08:55 Temperature Pulse Rate 71 Respiratory Rate Blood Pressure 139/114 H Pulse Oximetry 100 100 99 Oxygen Delivery Exam Const: Orientation/consciousness: patient oriented x3 Other: Well-developed, well-nourished female in no acute distress. Neck: Thyroid: thyroid normal Lymphatic: no lymphadenopathy noted (in neck, axilla or inguinal nodes) Resp: Effort & Inspection: normal respiratory effort Auscultation: clear to auscultation bilaterally Cardio: Rate: regular rate Rhythm: regular rhythm Heart sounds: S1 normal heart sound present and S2 normal heart sound present GI: Other: ABD: Soft, nontender, nondistended, gravid, vertex. No guarding or rebound tenderness. No hepatosplenomegaly. NST reactive, with occasional mild variables. Also an intermittent arrhythmia noted. TOCO: contractions every 2-5 min. : General: Yes no CVA tenderness Other: Cervix 2/80/-2. IUPC placed. Some bloody show, and amniotic fluid might be blood tinged, but is not grossly bloody. Vertex. IUPC placed, FSE placed. Back/Spine/Pelvis: Back: no CVA tenderness Skin: General skin exam: normal color and no rashes or lesions noted Neuro: General: patient oriented x3 Extrem: Other: Extremities: nontender with no edema Psych: Mental Status: mental status grossly normal Affect: normal affect H&P: Results Labs Labs: Short CBC 12/09/24 Range/Units 16:33 WBC 8.2 (4.5-10.0) K/mm3 Hgb 9.7 L (12.0-15.0) g/dL Hct 29.7 L (37.0-47.0) % Plt Count 229 (150-375) k/mm3 BMP 12/09/24 16:33 Sodium 131 L Potassium 3.9 Chloride 106 Carbon Dioxide 19 L BUN 11 Creatinine 0.80 Glucose 101 Calcium 8.9 Liver Function 12/09/24 Range/Units 16:33 Total Bilirubin 0.2 (0.2-1.3) mg/dL AST 28 (14-36) U/L ALT 15 (6-35) U/L Alkaline Phosphatase 219 H (38-126) U/L Albumin 3.3 L (3.5-5.1) g/dL Assessment and Plan Assessment and plan (1) Term : Code(s): Z34.90 - Encounter for supervision of normal , unspecified, unspecified trimester Status: Acute Assessment and Plan: A: IUP at 39 1/7 weeks with mildly elevated bp at term. Here for induction of labor. P: Oxytocin. Peds aware of FHR arrhythmia. Anticipate . (2) Gestational hypertension: Code(s): O13.9 - Gestational [-induced] hypertension without significant proteinuria, unspecified trimester Status: Acute
[2024-12-10] MEDS: SODIUM CHLORIDE 0.9% IV 300 ML 600 ML I-UTERINE (09:19)
--- NOTE | 2024-12-10 12:33 | PM.OBPNLAB ---
Pain Control Date/time seen: 12/10/24 12:33 Comfortable. Had stopped oxytocin due to FHR decelerations. These have resolved. Pelvic Exam Dilation (cm): 5 Effacement (%): 90 station: -2 Contractions Contraction pattern: Irregular Status status: Category l Assessment and Plan Comments: Resume labor augmentation. Continue to observe closely.
[2024-12-10] MEDS: SODIUM CHLORIDE 0.9% IV 1,000 ML 150 ML I-UTERINE (18:03)
[2024-12-10] MEDS: ACETAMINOPHEN 500 MG TABLET 1000 MG PO (19:06)
[2024-12-10] MEDS: ceFAZolin 2 GM/D5W 50 ML 2 GM/50 ML BAG IVPB (19:10)
--- NOTE | 2024-12-10 20:11 | P.PCNOB_ITS ---
OB - Vaginal Delivery Note Procedure Delivery date: 12/10/24 Events: Gestational Hypertension Intrapartal Events: Chorioamnionitis Induction method: Per Cervidil Protocol Delivery augmentation: Pitocin Delivery monitor: External FHT, External Uterine, Internal FHT and Internal Uterine Route of delivery: Episiotomy description: None Laceration Description: Vaginal Delivery repair: vicryl (3-0) Specimen: Yes (cord blood, placenta, left perineal skin tag) Quantitative Blood Loss (ml): 220 Anesthesia type: Epidural Disposition: PACU Complications: None Narrative: 34 y/o at 39 3/7 weeks gestation who presented to the hospital for induction of labor. Cervidil was placed overnight, then withdrawn in the morning. Oxytocin was administered intravenously. She had SROM with blood- tinged fluid. She received an epidural for pain control. She developed clinical chorioamnionitis, was given Ancef and Tylenol. Her labor progressed and her cervix dilated completely. She pushed with good effort and delivered the infant's head to the perineum, followed by the body. A loose nuchal cord x 3 was reduced. The nose and mouth were bulb suctioned. After a delay, the cord was clamped and cut. The was handed off the field. Cord blood was collected. The placenta delivered spontaneously and was grossly normal in appearance. The usual 3 vessel cord was noted. A distal vagina laceration was sustained. This was reapproximated using a single interrupted suture of 3 0 Vicryl. A left perineal skin tag (2 x 3 mm) was elevated and excised sharply. The wound edges were reapproximated with an interrupted suture of 3 0 Vicryl. Excellent hemostasis resulted as did excellent reapproximation of the normal anatomy. Needle and instrument counts were correct. The patient was taken to recovery room in stable condition. The infant went to the nursery in stable condition. I was present and scrubbed for the entire delivery. [place] Baby Date of : 12/10/24 Time of : 19:45 Gestational Age by Date: 39 gender: Male presentation: vertex position: Left Occiput Posterior Placenta delivery description: Spontaneous and Normal Configuration Cord Vessel Description: 3 Vessels, Nuchal Cord (x3), True Knot and Delayed Cord Clamping score one minute: 7 score five minutes: 8
--- NOTE | 2024-12-10 20:20 | S_PTH ---
PATIENT: Yesica Fitzgerald LOC: [facility] U#:[id number] AGE/SX: 34/F ROOM: 287 RE12/09/[address]: Stephen Azar MD : 1990 BED: 00 DIS: 12/12/2024 SPEC #: [id number] RECD: 12/13/24 08:37 STATUS: HERMES RERory #: [id number] WILFRIDO: 12/10/24 20:[address]: Stephen Azar DEPT: [facility] Surgical RECD BY: Shannen Norton ENTERED: 12/13/24 08:38 SP TYPE: Surgical OTHR DR: Jackie Matt, PA-C Tissues: A - Skin Procedures: Hematoxylin and Eosin Stain Gross and Microscopic Level 4
--- NOTE | 2024-12-10 20:20 | PM.OBDSVD ---
DS: Admitting Diagnosis Discharge Date 12/12/24 Admitting Diagnosis IUP at 39 3/7 weeks Gestational hypertension DS: Discharge Diagnosis Discharge Diagnosis (1) (normal spontaneous vaginal delivery): Code(s): O80 - Encounter for full-term uncomplicated delivery Status: Acute (2) Chorioamnionitis: Code(s): O41.1290 - Chorioamnionitis, unspecified trimester, not applicable or unspecified Status: Acute OB - DS: Summary OB Procedures : PIH Mgmt OB Procedures Intrapartum: Spontaneous Vag Delivery OB Procedures: : None Peripartum Data Laceration Description: Vaginal Episiotomy description: None Time Spent with Patient Time attestation: Total time spent providing and/or coordinating discharge services: Discharge Plan Discharge Attending physician on discharge: Stephen Azar Discharging Clinician: Stephen Azar Patient Disposition: Home Activity: pelvic rest Diet: regular Discharge Instructions: Call or return if temperature above 100.4? F, increased abdominal pain, increased vaginal bleeding or any new problems. Patient Language: Bahraini Stand Alone Forms: General Discharge Information Follow-up/Referrals: Stephen Azar MD [Physician] - 6 Weeks Discharge Medications: New ferrous sulfate 325 mg (65 mg iron) tablet 325 mg PO DAILY Qty: 30 0RF ibuprofen 600 mg tablet 600 mg PO Q6H PRN (Reason: cramps) Qty: 30 0RF Continued Classic 28 mg iron- 800 mcg Tablet 1 tablet PO DAILY sertraline 50 mg tablet 100 mg PO DAILY famotidine [Acid Controller] 20 mg tablet 40 mg PO BID Date of admission: 12/09/24 15:54 Primary Care Provider: MadisonJackie Admitting Provider: Stephen Azar Attending physician on admission: Stephen Azar Condition: Stable
[2024-12-10] MEDS: IBUPROFEN 600 MG TABLET PO (22:23)
--- NOTE | 2024-12-10 22:30 | OBPPTRN ---
Patient transferred to post room #287 via wheelchair. Support person present. Oriented to unit, room, information board, rooming in, admission packet and security measures. Patient verbalizes understanding.
--- NOTE | 2024-12-11 01:36 | S_PTH ---
PATIENT: Yesica Fitzgerald LOC: [facility] U#:[id number] AGE/SX: 34/F ROOM: 287 RE12/09/[address]: Stephen Azar MD : 1990 BED: 00 DIS: 12/12/2024 SPEC #: [id number] RECD: 12/11/24 07:57 STATUS: HERMES RERory #: [id number] WILFRIDO: 12/11/24 01:[address]: Stephen Azar DEPT: [facility] [place] Surgical RECD BY: Maynor Mckeon ENTERED: 12/11/24 07:57 SP TYPE: Surgical OTHR DR: Jackie Matt, PA-C Tissues: A - Placenta Procedures: Hematoxylin and Eosin Stain Gross and Microscopic Level 5
[2024-12-11] MEDS: ACETAMINOPHEN 325 MG TABLET 650 MG PO ×2 (03:40→20:08)
[2024-12-11 04:54] VITALS: BP 105/63; PULSE 67; RESP 16; TEMP 37.1; O2SAT 99
[2024-12-11 05:12] LABS: Hematocrit 25.1 % (37.0-47.0); Hemoglobin 8.2 g/dL (12.0-15.0)
[2024-12-11 08:30] VITALS: BP 112/67; PULSE 70; RESP 16; TEMP 36.6; O2SAT 97
--- NOTE | 2024-12-11 08:41 | P.PNOB_ITS ---
OB - PN: Subj Subjective Date/time seen: 12/11/24 08:41 Narrative: Pain OK. OB - PN: Obj Data Labs 12/11/24 05:02 12/09/24 16:33 Labs: Laboratory Results - last 24 hr 12/11/24 05:02 Hgb 8.2 L Hct 25.1 L OB - PN A/P Plan day: 1 Comments: A: PPD#1, doing well. P: Routine care. Exam 2 Psych: Other: AVSS ABD soft, nontender, fundus firm EXT nontender
[2024-12-11] MEDS: POLYSACCHARIDE IRON COMPLEX 150 MG CAPSULE PO ×2 (08:56→17:31)
[2024-12-11] MEDS: DOCUSATE SODIUM 100 MG CAPSULE PO ×2 (08:56→17:31)
[2024-12-11] MEDS: DIBUCAINE 1% OINTMENT 30 GM TUBE 1 APPLIC TOPICAL (08:56)
[2024-12-11] MEDS: MULTIVIT/MIN/PREN/FOL AC/IRON TABLET 1 TAB PO (08:56)
[2024-12-11] MEDS: SERTRALINE HCL 50 MG TABLET 100 MG PO (08:56)
[2024-12-11] MEDS: IBUPROFEN 600 MG TABLET PO ×2 (09:30→16:03)
--- NOTE | 2024-12-11 11:05 | PC.NURSE ---
1105- Patient ready to breastfeed baby so we undressed him and placed him in cradle hold on the right breast. Mom has been feeding in cradle hold but says she feels like football is more comfortable. Baby was initially rooting but would latch to the nipple shield and fall asleep. He made little effort to feed at this time so mom is encouraged to hold him skin to skin and to try again in 30 minutes. We also set up her Spectra pump and reviewed it's use and settings. Mom is educated on pumping with the nipple shield. 1145- Returned to room and mom still had baby skin to skin. He did not show any feeding cues. We moved him to football on the right breast again where he continued latching and then let go without doing any effective sucking. He had a poopy diaper so we changed him and he woke and cried. We then placed him in cradle hold where he was rooting and latching but after 1 or 2 sucks he would release the shield and cry. We tried for several minutes without success and then moved him to football on the left breast. He did finally latch well to the nipple shield. He will have a short burst of 2 or 3 sucks and then will let go of the shield and cry. We continued to work with him and he did calm down a bit but would still cry intermittently. His nose is stuffy but he is able to breathe while latched. Encouraged mom to keep him at the breast for another 10 minutes or so and get as much of a feeding in as she can. She will then pump and we can give any pumped milk we get to baby. RN updated.
[2024-12-11 11:30] VITALS: BP 117/69; PULSE 70; RESP 20; TEMP 36.4; O2SAT 100
--- NOTE | 2024-12-11 15:30 | PC.NURSE ---
Yesica breastfed baby for a short time at this feeding and then pumped. She was able to get 9ml of colostrum. Reviewed with parents how to safely administer breast milk via oral syringe. Mom is comfortable with doing this independently. She is educated on allowing baby to determine his needed volume by observing him for feeding cues and signs of satiety. RN updated.
[2024-12-11 16:00] VITALS: BP 116/60; PULSE 77; RESP 20; TEMP 36.8; O2SAT 98
--- NOTE | 2024-12-11 17:49 | WPDANLDPN2 ---
Anes-Prog Note L&D Date/Time: 12/11/24 17:49 Neuro status: Neuro function grossly intact. Cardiovascular status: normal Respiratory status: normal Airway patency: baseline Mental status: baseline Post-Op hydration status: normal Vital Signs: Last Vital Signs Temp 36.8 C 12/11/24 16:00 Pulse 77 12/11/24 16:00 Resp 20 12/11/24 16:00 BP 116/60 12/11/24 16:00 Pulse Ox 98 12/11/24 16:00 O2 Del Method Room Air 12/09/24 17:45 Pain score (VAS): 0 I/O: Intake & Output 12/11/24 12/11/24 12/11/24 07:59 15:59 23:59 Intake Total 500 850 Output Total 900 1500 Balance -400 -650 Post-procedural complaints: none Patient feedback: Patient satisfied with anesthetic care.
[2024-12-11 20:55] VITALS: BP 132/70; PULSE 80; RESP 16; TEMP 36.3; O2SAT 99
[2024-12-12 00:25] VITALS: BP 136/82; PULSE 66; RESP 16; TEMP 36.1; O2SAT 96
[2024-12-12 05:28] VITALS: BP 123/68; PULSE 73; RESP 16; TEMP 36.2; O2SAT 98
[2024-12-12 07:45] VITALS: BP 121/80; PULSE 86; RESP 16; TEMP 37.2; O2SAT 100
[2024-12-12] MEDS: SERTRALINE HCL 50 MG TABLET 100 MG PO (07:54)
[2024-12-12] MEDS: DOCUSATE SODIUM 100 MG CAPSULE PO (07:55)
[2024-12-12] MEDS: POLYSACCHARIDE IRON COMPLEX 150 MG CAPSULE PO (07:55)
[2024-12-12] MEDS: IBUPROFEN 600 MG TABLET PO (07:55)
[2024-12-12] MEDS: MULTIVIT/MIN/PREN/FOL AC/IRON TABLET 1 TAB PO (07:55)
--- NOTE | 2024-12-12 08:55 | P.PNOB_ITS ---
OB - PN: Subj Subjective Date/time seen: 12/12/24 08:55 Narrative: Pain OK. Would like circumcision for son. Would like to go home. OB - PN: Obj Data Labs 12/11/24 05:02 12/09/24 16:33 OB - PN A/P Plan Comments: A: PPD#2, doing well. P: Reviewed circ. Home to f/u 6 weeks. Exam 2 Psych: Other: AVSS ABD soft, nontender, fundus firm EXT nontender
[2024-12-12] MEDS: MEASLES,MUMPS,RUBELLA VACCINE 0.5 ML VIAL (10:30)
--- NOTE | 2024-12-12 12:00 | PC.NURSE ---
Infant is [greater than 24 hours old] and has not been feeding [effectively at breast]. Mom says that she gave some formula this morning because baby was not latching or feeding well and had not had a void in 12 hours. Mom did pump and syringe feed colostrum last night. Per Dr. Mc's order, we initiated a feeding plan for with formula supplementation. Mother is instructed to pump (has Spectra) after every or attempt. Mother should only attempt for 10-15 minutes at breast before moving on to supplementation. She is still using the nipple shield at each feeding. Support person can feed baby 15ml of pumped milk or formula while mother is pumping. Instructed parents on keeping breastmilk at the bedside until the next feeding or for up to 4 hours. Reported to Primary RN.?
[2024-12-12 12:40] VITALS: BP 128/69; PULSE 76; RESP 20; TEMP 36.9; O2SAT 98
[2024-12-13 08:26] VITALS: BP 124/70; PULSE 75; RESP 18; TEMP 36.7; O2SAT 100
== END 2024-12-12 10:45 | disposition home or self-care (01) | DRG 805 ==
LOC: ANHLDR 12-10 20:23 → ANHOB2 12-10 22:31
PROVIDERS: Admitting Provider Obstetrics & Gynecology; PCP Physician Assistant; Visit Provider Obstetrics & Gynecology
DX: O13.4 Gestational [pregnancy-induced] hypertension without significant proteinuria, complicating childbirth (principal); O41.1230 Chorioamnionitis, third trimester, not applicable or unspecified; Z37.0 Single live birth; Z3A.39 39 weeks gestation of pregnancy; O77.0 Labor and delivery complicated by meconium in amniotic fluid; O71.4 Obstetric high vaginal laceration alone; N90.89 Other specified noninflammatory disorders of vulva and perineum; O99.892 Other specified diseases and conditions complicating childbirth; O69.1XX0 Labor and delivery complicated by cord around neck, with compression, not applicable or unspecified
CPT/HCPCS: 36415; 80053; 84550; 85014; 85018; 85025; 86593; 86703; 86850; 86900; 86901; 88305; 88307; 90710; A9270; G0432; J0690; J2405; J2590; J2795; J7030; J7120